=== PATIENT | female | born 1930 | race Caucasian/White ===

== ENCOUNTER 2016-07-17 13:04 | Emergency (ER) | payer OTHER ==
[2016-07-17 13:14] VITALS: BMI 27.8
--- NOTE | 2016-07-17 15:54 | PDOC ---
*Physical Exam - Vital Signs Last Vital Signs Temp Pulse Resp BP Pulse Ox 98.4 F 90 18 115/60 96 07/17/16 13:10 07/17/16 13:10 07/17/16 13:10 07/17/16 13:10 07/17/16 13:10 - Physical Exam Comments: 07/17/16 15:53 MIDLEVEL NOTE Pt seen by Midlevel Provider under my direct supervision. Pt interviewed and examined. Ancillary studies reviewed. I agree with plan as outlined by Midlevel Provider. 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 measuring 1.7 cm in width with masslike effect and shift of the midline structures towards the left, approximately 6.5 mm Linear like hyperintensities are present within the collection, likely representing chronic dural thickening, and less likely superimposed recent subacute hemorrhage Chest x-ray- Mild cardiomegaly without evidence of acute lung disease Laboratory Tests 07/17/16 07/17/16 07/17/16 17:04 17:04 17:10 WBC 9.0 RBC 3.88 Hgb 12.0 Hct 37.1 MCV 95.7 MCHC 32.3 RDW 13.1 Plt Count 168 MPV 9.9 Neutrophils % 69.0 Lymphocytes % 20.1 Monocytes % 8.7 Eosinophils % 1.3 Basophils % 0.9 Sodium 137 Potassium 5.7 H Chloride 102 Carbon Dioxide 27 Anion Gap 8 BUN 25 H Creatinine Y Creat Clearance w eGFR 42.60 Random Glucose 99 Calcium 9.5 Magnesium 1.9 Total Bilirubin 0.5 AST 23 ALT 19 Alkaline Phosphatase 82 Creatine Kinase Troponin I Total Protein 7.1 Albumin 3.5 Urine Color Yellow Urine Appearance Cloudy Urine pH 7.0 Ur Specific Addison 1.015 Urine Protein Negative Urine Glucose (UA) Negative Urine Ketones Negative Urine Blood Negative Urine Nitrite Negative Urine Bilirubin Negative Urine Urobilinogen Negative Ur Leukocyte Esterase Trace H Urine RBC 2 Urine WBC 4 Ur Epithelial Cells Few Urine Bacteria Few Urine Mucus Rare 07/17/16 19:28 WBC RBC Hgb Hct MCV MCHC RDW Plt Count MPV Neutrophils % Lymphocytes % Monocytes % Eosinophils % Basophils % Sodium 137 Potassium 5.4 H Chloride 102 Carbon Dioxide 27 Anion Gap 8 BUN 26 H Creatinine 1.2 H Creat Clearance w eGFR Random Glucose 101 Calcium 8.9 Magnesium Total Bilirubin AST ALT Alkaline Phosphatase Creatine Kinase 40 Troponin I < 0.02 Total Protein Albumin Urine Color Urine Appearance Urine pH Ur Specific Addison Urine Protein Urine Glucose (UA) Urine Ketones Urine Blood Urine Nitrite Urine Bilirubin Urine Urobilinogen Ur Leukocyte Esterase Urine RBC Urine WBC Ur Epithelial Cells Urine Bacteria Urine Mucus Transfer of care to Dr. Tabares, and VIOLETA Cox Plan is for transfer to neurosurgery at [facility] [place] Treatment Course - LABORATORY CBC & Chemistry Diagram: 07/17/16 17:04 07/17/16 19:28 *DC/Admit/Observation/Transfer Diagnosis at time of Disposition: Subdural hemorrhage - Discharge Dispostion Disposition: TRANSFER ACUTE CARE/OTHER HOSP Condition at time of disposition: Stable - Referrals Referrals: STAFF,NOT ON [Primary Care Provider] -
[2016-07-17] MEDS ORDERED: IBUPROFEN 600 MG TABLET (FP) PO ONE (16:17)
--- NOTE | 2016-07-17 16:30 | PDOC ---
[id number] 4d HEADACHES Time Seen by Provider: 07/17/16 15:47 History Source: Patient Exam Limitations: No Limitations - History of Present Illness Initial Comments: 07/17/16 16:03 86-year-old female brought in by home health aid and knees for evaluation of intermittent headaches for the past 3 months which she describes as a pressure to the occipital region. Patient denies visual changes, neck pain, fever, chills or dizziness. Patient also complaining of decreased appetite with mild weakness for the past week secondary to headache and no appetite to eat. As per home health aid patient has had no change in ambulation or decreased function of performing her ADLs. Patient with history of hypertension and was placed recently on Remeron to help sleep about 1 month ago. Patient has not been seen by her PCP for the above. Timing/Duration: reports: waxing and waning (x 3 months) Severity: Yes: moderate Associated Symptoms: reports: fatigue (mild). denies: confusion, nausea/ vomiting, vision changes Past History - Past Medical History Allergies/Adverse Reactions: Allergies Allergy/AdvReac Type Severity Reaction Status Date / Time No Known Allergies Allergy Verified 07/17/16 13:14 Home Medications: Ambulatory Orders Lisinopril [Prinivil] 20 mg PO DAILY 07/17/16 Mirtazapine 22.5 mg PO HS 07/17/16 HTN: Yes Other medical history: OSTEOPEROSIS, ARTHRITIS - Psycho/Social/Smoking Cessation Hx Suicidal Ideation: No Smoking History: Never smoked Hx Alcohol Use: No Drug/Substance Use Hx: No Patient Lives Alone: No Review of Systems - Review of Systems Able to Perform ROS?: Yes Constitutional: Yes: Loss of Appetite HEENTM: No: Symptoms Reported Respiratory: No: Symptoms reported Cardiac (ROS): No: Symptoms Reported ABD/GI: Yes: Poor Appetite : No: Symptoms Reported Musculoskeletal: No: Symptoms Reported Integumentary: No: Symptoms Reported Neurological: Yes: Headache, Weakness (mild generalized) Endocrine: No: Symptoms Reported Hematologic/Lymphatic: No: Symptoms Reported *Physical Exam - Vital Signs Last Vital Signs Temp Pulse Resp BP Pulse Ox 98.4 F 90 18 115/60 96 07/17/16 13:10 07/17/16 13:10 07/17/16 13:10 07/17/16 13:10 07/17/16 13:10 - Physical Exam General Appearance: Yes: Nourished, Appropriately Dressed. No: Apparent Distress HEENT: positive: EOMI, ARMEN, TMs Normal, Pharynx Normal. negative: Pale Conjunctivae Respiratory/Chest: positive: Lungs Clear, Normal Breath Sounds. negative: Respiratory Distress, Accessory Muscle Use Cardiovascular: positive: Regular Rhythm, Regular Rate. negative: Murmur Gastrointestinal/Abdominal: positive: Soft. negative: Tenderness Extremity: positive: Normal Capillary Refill. negative: Pedal Edema Integumentary: positive: Normal Color, Warm, Moist. negative: Swelling Neurologic: positive: Normal Mood/Affect, Motor Strength 5/5. negative: Sensory Deficit Heart Score/ECG Review - History History: Slightly suspicious - Electrocardiogram EKG: Normal - Age Age: >/= 65 - Risk Factors Risk Factors Heart Score: Yes Hx Hypertension Based on the list above the patient has:: 1-2 risk factors - Troponin Troponin: </= normal limit - Score Heart Score - Total: 3 - ECG Intrepretation Rhythm: Regular Rhythm (rate 71 normal SR, flipped T waves V3 and V4 V5. No previous for comparison) ED Treatment Course - LABORATORY CBC & Chemistry Diagram: 07/17/16 17:04 07/17/16 19:28 - RADIOLOGY Radiology Studies Ordered: Category Date Time Status HEAD CT WITHOUT CONTRAST [CT] Stat CT Scan 07/17/16 16:16 Ordered CHEST X-RAY PORTABLE* [RAD] Stat Radiology 07/17/16 16:17 Ordered Medical Decision Making - Medical Decision Making 07/17/16 16:48 Patient here with waxing and waning occipital pressure for the past 3 months so she now with loss of appetite secondary to the pain for the past few days. Patient has not been seen by her PCP and had no acute findings on exam. Patient was ordered for head CT, labs, urine, EKG and Motrin. 07/17/16 18:14 Laboratory Tests 07/17/16 07/17/16 07/17/16 17:04 17:04 17:10 WBC 9.0 Hgb 12.0 Hct 37.1 Plt Count 168 MPV 9.9 Neutrophils % 69.0 Sodium 137 Potassium 5.7 H Chloride 102 Carbon Dioxide 27 Anion Gap 8 BUN 25 H Creatinine Y Creat Clearance w eGFR 42.60 Random Glucose 99 Calcium 9.5 Magnesium 1.9 Total Bilirubin 0.5 AST 23 ALT 19 Urine Protein Negative Urine Ketones Negative Urine Bilirubin Negative Ur Leukocyte Esterase Trace H 07/17/16 18:18 Patient ordered for repeat BMP since I have no previous labs for comparison. 07/17/16 19:01 CT shows chronic right subdural hemorrhage measuring 1.7 cm in width with mass effect and shift of the midline structures toward the left approximate 6.5 mL linear like hyperdensities are present within the collection likely representing chronic dural thickening and less likely superimposed recent subacute hemorrhage. Patient will benefit from neurosurgery consult *DC/Admit/Observation/Transfer Diagnosis at time of Disposition: Subdural hemorrhage - Discharge Dispostion Disposition: TRANSFER ACUTE CARE/OTHER HOSP Condition at time of disposition: Stable - Referrals Referrals: STAFF,NOT ON [Primary Care Provider] -
[2016-07-17] MEDS ORDERED: IBUPROFEN 400 MG TABLET (FP) PO ONE (16:53)
[2016-07-17 17:11] LABS: BASOPHIL 0.9 % (0-2.0); EOSINOPHIL 1.3 % (0-4.5); MCH 30.9 pg (25.7-33.7); MCHC 32.3 g/dl (32.0-36.0); MEAN CELL VOLUME 95.7 fl (80-96); MEAN PLT VOLUME 9.9 fl (7.5-11.1); PLATELET COUNT 168 K/MM3 (134-434); RDW 13.1 % (11.6-15.6)
[2016-07-17 17:46] LABS: ALBUMIN 3.5 g/dl (3.4-5.0); ALK PHOS 82 U/L (45-117); ANION GAP 8 (8-16); BILIRUBIN,TOTAL 0.5 mg/dL (0.2-1.0); CALCIUM 9.5 mg/dL (8.5-10.1); CO2 27 mmol/L (21-32); GLUCOSE,RANDOM 99 mg/dL (74-106); MAGNESIUM 1.9 mg/dL (1.8-2.4); SGOT/AST 23 U/L (15-37); SGPT/ALT 19 U/L (12-78); TOT PROT 7.1 g/dl (6.4-8.2)
[2016-07-17 17:48] LABS: URINE APPEARANCE CLOUDY; URINE BILIRUBIN NEGATIVE (NEGATIVE); URINE BLOOD NEGATIVE (NEGATIVE); URINE COLOR YELLOW; URINE GLUCOSE (UA) NEGATIVE (NEGATIVE); URINE KETONE NEGATIVE (NEGATIVE); URINE NITRITE NEGATIVE (NEGATIVE); URINE PROTEIN NEGATIVE (NEGATIVE); URINE UROBILINOGEN NEGATIVE E.U./dl (0.2-1.0)
[2016-07-17 17:58] LABS: CREATININE 1.2 mg/dL (0.55-1.02)
[2016-07-17 18:12] LABS: URINE LEUK ESTERASE TRACE (NEGATIVE)
--- NOTE | 2016-07-17 19:53 | PDOC ---
*Physical Exam - Vital Signs Last Vital Signs Temp Pulse Resp BP Pulse Ox 98.4 F 90 18 115/60 96 07/17/16 13:10 07/17/16 13:10 07/17/16 13:10 07/17/16 13:10 07/17/16 13:10 - Physical Exam Comments: 07/17/16 19:49 Sign-out received from outgoing ER provider Terri. Pt interviewed and examined. Ancillary studies reviewed. Awaiting creatinine and BMP. Neurosurgery consult unavailable at this time. Discussed case with attending ER MD Tabares; will consult neurology at this time and admit. Patient stable to have neurosurgery consult tomorrow as intracranial bleed is chronic in nature. 07/17/16 20:47 EKG reviewed. T-wave inversions V3 and V4. Will order troponin for IRVIN. 07/17/16 21:18\ Discussed case with on-call neuro attending MD Ochoa, who recommends transfer for neurosurgery evaluation. Discussed case with [facility] neurosurgery MD Oz Monterroso, who accepts patient for stat transfer. ED Treatment Course - LABORATORY CBC & Chemistry Diagram: 07/17/16 17:04 07/17/16 19:28 - ADDITIONAL ORDERS Additional order review: Laboratory Results 07/17/16 07/17/16 17:10 17:04 Sodium 137 Potassium 5.7 H Chloride 102 Carbon Dioxide 27 Anion Gap 8 BUN 25 H Creatinine Y Creat Clearance w eGFR 42.60 Random Glucose 99 Calcium 9.5 Magnesium 1.9 Total Bilirubin 0.5 AST 23 ALT 19 Alkaline Phosphatase 82 Total Protein 7.1 Albumin 3.5 Urine Color Yellow Urine Appearance Cloudy Urine pH 7.0 Urine Protein Negative Urine Glucose (UA) Negative Urine Ketones Negative Urine Blood Negative Urine Nitrite Negative Urine Bilirubin Negative Urine Urobilinogen Negative Ur Leukocyte Esterase Trace H 07/17/16 17:04 RBC 3.88 MCV 95.7 MCHC 32.3 RDW 13.1 MPV 9.9 Neutrophils % 69.0 Lymphocytes % 20.1 Monocytes % 8.7 Eosinophils % 1.3 Basophils % 0.9 - Medications Given in the ED: ED Medications Discontinued Medications Generic Name Dose Route Start Last Admin Trade Name Freq PRN Reason Stop Dose Admin Ibuprofen 400 mg 07/17/16 16:17 07/17/16 17:04 Motrin - PO 07/17/16 16:18 400 mg ONCE ONE Administration *DC/Admit/Observation/Transfer Diagnosis at time of Disposition: Subdural hemorrhage - Discharge Dispostion Disposition: TRANSFER ACUTE CARE/OTHER HOSP Condition at time of disposition: Stable Admit: No - Referrals Referrals: STAFF,NOT ON [Primary Care Provider] - - Patient Instructions - Post Discharge Activity - Transfer to Acute Care Facility Receiving Facility: [facility]
[2016-07-17 20:03] LABS: ANION GAP 8 (8-16); CALCIUM 8.9 mg/dL (8.5-10.1); CO2 27 mmol/L (21-32); CREATININE 1.2 mg/dL (0.55-1.02); GLUCOSE,RANDOM 101 mg/dL (74-106)
[2016-07-17 22:09] VITALS: BP 140/64; PULSE 74
[2016-07-17 22:12] VITALS: TEMP 98
[2016-07-17 22:46] LABS: URINE RBC 2 /hpf (0-3); URINE WBC 4 (3-5)
[2016-07-17 22:47] LABS: URINE BACTERIA FEW /hpf (NEGATIVE); URINE MUCUS RARE
--- NOTE | 2016-07-18 11:08 | EKG ---
Test Reason : Blood Pressure : / mmHG Vent. Rate : 071 BPM Atrial Rate : 071 BPM P-R Int : 146 ms QRS Dur : 080 ms QT Int : 388 ms P-R-T Axes : 065 -59 -44 degrees QTc Int : 421 ms POOR DATA QUALITY, INTERPRETATION MAY BE ADVERSELY AFFECTED NORMAL SINUS RHYTHM LEFT ANTERIOR FASCICULAR BLOCK T WAVE ABNORMALITY, CONSIDER ANTEROLATERAL ISCHEMIA ABNORMAL ECG NO PREVIOUS ECGS AVAILABLE Confirmed by CATIE DO MD ([id number]) on 07/18/2016 11:07:56 AM Referred By: Confirmed By:CATIE DO MD
[2016-07-20 13:34] LABS: TROPONIN I < 0.02 ng/ml (0.00-0.05)
== END 2016-07-17 22:12 | disposition short-term general hospital (02) ==
LOC: JER 13:04
DX: I62.00 Nontraumatic subdural hemorrhage, unspecified (principal); R53.1 Weakness; I10 Essential (primary) hypertension; M19.90 Unspecified osteoarthritis, unspecified site
CPT/HCPCS: 36415; 70450-TC; 71010-TC; 80048; 80053; 81003; 81015; 82550; 82565; 83735; 84484; 85025; 87086; 93005; 93010; 99285-25

== ENCOUNTER 2016-11-23 15:43 | Inpatient (IN) | payer OTHER ==
[2016-11-23] MEDS ORDERED: ONDANSETRON 4 MG/2 ML VIAL IVPUSH ONE (16:03)
[2016-11-23 16:32] LABS: BASOPHIL 0.5 % (0-2.0); EOSINOPHIL 0.9 % (0-4.5); MCH 32.2 pg (25.7-33.7); MCHC 33.3 g/dl (32.0-36.0); MEAN CELL VOLUME 96.7 fl (80-96); RDW 14.6 % (11.6-15.6); WHITE BLOOD COUNT 5.9 K/mm3 (4.0-10.0)
[2016-11-23] MEDS ORDERED: ONDANSETRON 4 MG/2 ML VIAL ONE (16:44)
[2016-11-23 16:52] LABS: URINE APPEARANCE CLEAR; URINE BILIRUBIN NEGATIVE (NEGATIVE); URINE BLOOD 1+ (NEGATIVE); URINE COLOR LTYELLOW; URINE GLUCOSE (UA) NEGATIVE (NEGATIVE); URINE KETONE TRACE (NEGATIVE); URINE LEUK ESTERASE NEGATIVE (NEGATIVE); URINE NITRITE NEGATIVE (NEGATIVE); URINE PROTEIN NEGATIVE (NEGATIVE); URINE UROBILINOGEN NEGATIVE mg/dL (0.2-1.0)
[2016-11-23 16:55] LABS: ALBUMIN 2.7 g/dl (3.4-5.0); ANION GAP 10 (8-16); BILIRUBIN,TOTAL 0.5 mg/dL (0.2-1.0); CALCIUM 8.1 mg/dL (8.5-10.1); CO2 24 mmol/L (21-32); CREATININE 1.2 mg/dL (0.55-1.02); GLUCOSE,RANDOM 129 mg/dL (74-106); MAGNESIUM 1.8 mg/dL (1.8-2.4); SGOT/AST 38 U/L (15-37); SGPT/ALT 24 U/L (12-78); TOT PROT 6.3 g/dl (6.4-8.2)
[2016-11-23 16:57] LABS: INR 1.04 (0.82-1.09); PROTHROMBIN TIME (PATIENT) 11.5 SEC (9.98-11.88)
[2016-11-23 16:58] LABS: ALK PHOS 79 U/L (45-117); CPK 162 IU/L (26-192); TROPONIN I 0.22 ng/ml (0.00-0.05)
[2016-11-23 17:04] LABS: PLATELET COUNT 118 K/MM3 (134-434)
[2016-11-23 17:05] LABS: MEAN PLT VOLUME 11.5 fl (7.5-11.1); PLATELET COMMENT2 NO CLUMPING NOTED; PLATELET COMMENT3 NO CLOTTING DETECTED; PLATELET ESTIMATE SLT DECREASED (NORMAL)
[2016-11-23] MEDS ORDERED: SODIUM CHLORIDE 1,000 ML IV STA (17:08)
[2016-11-23 17:16] LABS: URINE MUCUS RARE; URINE RBC 2 /hpf (0-3); URINE WBC 1 /hpf (3-5)
--- NOTE | 2016-11-23 17:40 | PDOC ---
History of Present Illness - General Chief Complaint: Injury Stated Complaint: WEAKNESS/FALL Time Seen by Provider: 11/23/16 15:52 History Source: Patient Exam Limitations: No Limitations - History of Present Illness Initial Comments: 11/23/16 16:40 86-year-old female brought into the ED for evaluation of near-syncopal episode. Patient states was walking in her home which she felt dizzy and next thing she knows, she fell backward striking the back of her head. Patient currently denies chest pain but does complain of nausea and dizziness. Patient has no complaints of visual changes headache, abdominal pain, palpitations, or neck pain. Patient currently on no anticoagulation therapy but states history of seizure and is currently on Depakote. Patient also with recent diagnosis in July with a subdural hematoma after complaining of a headache which has been followed up and just this past week at [facility]. Occurred: reports: just prior to arrival Severity: reports: moderate Pain Location: reports: head Method of Injury: Yes: fall Loss of Consciousness: no loss of consciousness Associated Symptoms (Fall): lightheadedness, nausea/vomiting Past History - Travel Traveled outside of the country in the last 30 days: No Close contact w/someone who was outside of country & ill: No - Past Medical History Allergies/Adverse Reactions: Allergies Allergy/AdvReac Type Severity Reaction Status Date / Time No Known Allergies Allergy Verified 11/23/16 16:06 Home Medications: Ambulatory Orders Lisinopril [Prinivil] 20 mg PO DAILY 07/17/16 Mirtazapine 15 mg PO HS 07/17/16 Atorvastatin Ca [Lipitor] 80 mg PO HS 11/23/16 Divalproex Sodium [Depakote] 250 mg PO BID 11/23/16 HTN: Yes - Psycho/Social/Smoking Cessation Hx Anxiety: No Suicidal Ideation: No Smoking History: Never smoked Have you smoked in the past 12 months: No Information on smoking cessation initiated: No Hx Alcohol Use: No Drug/Substance Use Hx: No Substance Use Type: None Patient Lives Alone: No Lives with/in: daughter Review of Systems - Review of Systems Able to Perform ROS?: No Constitutional: No: Symptoms Reported HEENTM: No: Symptoms Reported Respiratory: No: Symptoms reported Cardiac (ROS): Yes: Lightheadedness ABD/GI: Yes: Nausea Neurological: Yes: Dizziness Hematologic/Lymphatic: No: Symptoms Reported *Physical Exam - Vital Signs Last Vital Signs Temp Pulse Resp BP Pulse Ox 98.1 F 81 18 146/72 98 11/23/16 16:00 11/23/16 16:00 11/23/16 16:00 11/23/16 16:00 11/23/16 16:00 - Physical Exam General Appearance: Yes: Nourished, Appropriately Dressed. No: Apparent Distress HEENT: positive: EOMI, ARMEN, TMs Normal, Pharynx Normal. negative: Pale Conjunctivae Neck: positive: Supple Respiratory/Chest: positive: Lungs Clear, Normal Breath Sounds. negative: Respiratory Distress, Accessory Muscle Use Cardiovascular: positive: Regular Rhythm, Regular Rate. negative: Murmur Gastrointestinal/Abdominal: positive: Soft. negative: Tenderness Extremity: positive: Normal Capillary Refill, Normal Range of Motion. negative : Pedal Edema Integumentary: positive: Warm, Swelling ( approximately2 x 2 inch soft raised area ove rightparietal and 1.5 x 1" soft mass with abrasion to center ) Neurologic: positive: Normal Mood/Affect, Motor Strength 5/5 Heart Score/ECG Review - History History: Slightly suspicious - Electrocardiogram EKG: Normal - Age Age: >/= 65 - Risk Factors Risk Factors Heart Score: Yes Hx Hypercholesterolemia, Yes Hx Hypertension Based on the list above the patient has:: 1-2 risk factors - ECG Intrepretation Rhythm: Regular Rhythm (rate 71. inverted T waves noted v1, V2 and V3) ED Treatment Course - LABORATORY CBC & Chemistry Diagram: 11/23/16 16:25 11/23/16 16:25 - ADDITIONAL ORDERS Additional order review: Laboratory Results 11/23/16 11/23/16 11/23/16 16:30 16:25 16:25 PT with INR 11.50 INR 1.04 Sodium 137 Potassium 4.6 Chloride 103 Carbon Dioxide 24 Anion Gap 10 BUN 19 H D Creatinine 1.2 H Creat Clearance w eGFR 42.60 Random Glucose 129 H D Calcium 8.1 L Magnesium 1.8 Total Bilirubin 0.5 AST 38 H D ALT 24 D Alkaline Phosphatase 79 Creatine Kinase 162 Creatine Kinase Index 1.0 CK-MB (CK-2) 1.642 Troponin I 0.22 H Total Protein 6.3 L Albumin 2.7 L D Urine Color Ltyellow Urine Appearance Clear Urine pH 6.0 Urine Protein Negative Urine Glucose (UA) Negative Urine Ketones Trace H Urine Blood 1+ H Urine Nitrite Negative Urine Bilirubin Negative Urine Urobilinogen Negative Urine RBC 2 Urine WBC 1 Urine Mucus Rare 11/23/16 16:25 RBC 3.90 MCV 96.7 H MCHC 33.3 RDW 14.6 D MPV 11.5 H D Neutrophils % 65.0 Lymphocytes % 26.0 D Monocytes % 7.6 Eosinophils % 0.9 Basophils % 0.5 - RADIOLOGY Radiology Studies Ordered: Category Date Time Status CERVICAL SPINE CT W/O CONTR [CT] Stat CT Scan 11/23/16 16:[address] WITHOUT CONTRAST [CT] Stat CT Scan 11/23/16 16:55 Taken CHEST X-RAY PORTABLE* [RAD] Stat Radiology 11/23/16 16:03 Ordered - Medications Given in the ED: ED Medications Discontinued Medications Generic Name Dose Route Start Last Admin Trade Name Freq PRN Reason Stop Dose Admin Ondansetron HCl 4 mg 11/23/16 16:03 11/23/16 16:50 Zofran Injection IVPUSH 11/23/16 16:04 4 mg ONCE ONE Administration Medical Decision Making - Medical Decision Making 11/23/16 17:07 Patient he is status post fall after feeling dizzy while walking at home. Patient had an unwitnessed fall but daughter states was at her side immediately after the fall which patient was found to be alert and oriented. Patient early this year had complaints of headaches and had cone to [facility] then transferred due to subdural hem. which she has been following up at [facility] and did follow up just this past week at [facility] and stated the hematoma is improving and does not require intervention. Patient now complaining of nausea and dizziness. Patient ordered for cardiac workup, head CT , cervical CT urine, and EKG. 11/23/16 18:00 Laboratory Tests 07/17/16 07/17/16 11/23/16 17:04 19:28 16:25 WBC 5.9 D Hgb 12.6 Hct 37.7 MCV 96.7 H Plt Count 168 118 L D MPV 11.5 H D Neutrophils % 65.0 Sodium Potassium Carbon Dioxide Anion Gap BUN Creatinine Random Glucose Calcium AST Troponin I < 0.02 Urine Ketones Urine Blood Urine Urobilinogen Urine WBC 11/23/16 11/23/16 16:25 16:30 WBC Hgb Hct MCV Plt Count MPV Neutrophils % Sodium 137 Potassium 4.6 Carbon Dioxide 24 Anion Gap 10 BUN 19 H D Creatinine 1.2 H Random Glucose 129 H D Calcium 8.1 L AST 38 H D Troponin I 0.22 H Urine Ketones Trace H Urine Blood 1+ H Urine Urobilinogen Negative Urine WBC 1 Patient ordered for 1 bag of IV fluid. 11/23/16 18:[address] shows a subarachnoid hemorrhage in the right occipital and posterior parietal lobe sulci. There is a 1.4 x 1 x 0.9 hyperdense hemorrhagic focus in the right sylvian fissure. Small low density extra-axial collection overlying the left cerebral hemisphere with small amount of hyperdense subdural hemorrhages best seen on axial image 18 and measuring 8 mm in the maximal thickness. Consistent with a small acute subdural hematoma superimposed on chronic subdural. Case discussed with Dr. Deangelo Valerio, neurosurgery who recommends a CT a along with 1 g of Keppra 11/23/16 18:51 Case discussed with the hospitalist who accepted patient to service. Patient be placed for admission. Patient currently in CT. *DC/Admit/Observation/Transfer Diagnosis at time of Disposition: Hemorrhage into subarachnoid space of neuraxis - Discharge Dispostion Admit: Yes
[2016-11-23] MEDS ORDERED: levETIRAcetam 500 MG/5 ML INJECTION VIAL IVPB ONE ×2 (17:54→17:57)
--- NOTE | 2016-11-23 19:15 | PN ---
Teaching Attending Note Name of Resident: Rubio Vizcarra ATTENDING PHYSICIAN STATEMENT I saw and evaluated the patient. I reviewed the resident's note and discussed the case with the resident. I agree with the resident's findings and plan as documented. SUBJECTIVE: 86 yo w pnhx of HTN, HLD, seizure DO who presents s/p fall. States she felt "dizzy" prior and then fell. Had Subdural hematoma and was followed up at [facility]. She did strike the back of her head after the fall. OBJECTIVE: Physical: VS: Vital Signs Period Temp Pulse Resp BP Sys/Han Pulse Ox Last 24 Hr 98.1 F-98.1 F 71-83 18-18 140-146/72-81 98-100 GEN: NAd, Resting in bed AA0X3 HEENT: NCAT, PERRL, Throat without erythema or exudates CARD: RRR S1, S2 RESP: CTAB ABD:BSx4, NTD EXT: - C/C/E CBCD WBC 5.9 K/mm3 (4.0-10.0) D 11/23/16 16:25 RBC 3.90 M/mm3 (3.60-5.2) 11/23/16 16:25 Hgb 12.6 GM/dL (10.7-15.3) 11/23/16 16:25 Hct 37.7 % (32.4-45.2) 11/23/16 16:25 MCV 96.7 fl (80-96) H 11/23/16 16:25 MCHC 33.3 g/dl (32.0-36.0) 11/23/16 16:25 RDW 14.6 % (11.6-15.6) D 11/23/16 16:25 Plt Count 118 K/MM3 (134-434) L D 11/23/16 16:25 MPV 11.5 fl (7.5-11.1) H D 11/23/16 16:25 CMP Sodium 137 mmol/L (136-145) 11/23/16 16:25 Potassium 4.6 mmol/L (3.5-5.1) 11/23/16 16:25 Chloride 103 mmol/L (98-107) 11/23/16 16:25 Carbon Dioxide 24 mmol/L (21-32) 11/23/16 16:25 Anion Gap 10 (8-16) 11/23/16 16:25 BUN 19 mg/dL (7-18) H D 11/23/16 16:25 Creatinine 1.2 mg/dL (0.55-1.02) H 11/23/16 16:25 Creat Clearance w eGFR 42.60 (>60) 11/23/16 16:25 Random Glucose 129 mg/dL (74-106) H D 11/23/16 16:25 Calcium 8.1 mg/dL (8.5-10.1) L 11/23/16 16:25 Total Bilirubin 0.5 mg/dL (0.2-1.0) 11/23/16 16:25 AST 38 U/L (15-37) H D 11/23/16 16:25 ALT 24 U/L (12-78) D 11/23/16 16:25 Alkaline Phosphatase 79 U/L (45-117) 11/23/16 16:25 Total Protein 6.3 g/dl (6.4-8.2) L 11/23/16 16:25 Albumin 2.7 g/dl (3.4-5.0) L D 11/23/16 16:25 CARDIAC ENZYMES Creatine Kinase 162 IU/L (26-192) 11/23/16 16:25 Troponin I 0.22 ng/ml (0.00-0.05) H 11/23/16 16:25 Urine Test Results Urine Color Ltyellow 11/23/16 16:30 Urine Appearance Clear 11/23/16 16:30 Urine pH 6.0 (5.0-8.0) 11/23/16 16:30 Ur Specific Rogers 1.015 (1.005-1.025) 11/23/16 16:30 Urine Protein Negative (NEGATIVE) 11/23/16 16:30 Urine Glucose (UA) Negative (NEGATIVE) 11/23/16 16:30 Urine Ketones Trace (NEGATIVE) H 11/23/16 16:30 Urine Blood 1+ (NEGATIVE) H 11/23/16 16:30 Urine Nitrite Negative (NEGATIVE) 11/23/16 16:30 Urine Bilirubin Negative (NEGATIVE) 11/23/16 16:30 Urine RBC 2 /hpf (0-3) 11/23/16 16:30 Urine WBC 1 /hpf (3-5) 11/23/16 16:30 Urine Mucus Rare 11/23/16 16:30 CT HEAD- Subarachnoid hemmorage in r. occipital and posterior lobe sulci 1.4x1x0.9 hyperdense hemmorage focus in r. sylvian fissure. Small low density extra-axial collecyion overlying the L. Cerebral Hemmisphere w. small hyperdense subdural hemmorages, measuring 8mm in max. thickness. C/W small acute subdrural hematoma superimposed on chronic subdural. Home Medications Medication Instructions Recorded Lisinopril [Prinivil] 20 mg PO DAILY 07/17/16 Mirtazapine 15 mg PO HS 07/17/16 Atorvastatin Ca [Lipitor] 80 mg PO HS 11/23/16 Divalproex Sodium [Depakote] 250 mg PO BID 11/23/16 EKG- NSR at 71 QTC 408, LAFB, TWI anteroseptal leads CXR- Pending CTA- No evidence of AVM or Aneurysm, mildly depressed cortical medullary veins due to small subdural collections, severe tortuosity if carotid arteries, minimal R, interal carotid stenosis, 50% luminal stenosis in L. carotid bifurcation. ASSESSMENT AND PLAN: 86 yo F with hx. of Seizure DO, HTN, HLD who presents s/p fall, being admitted for syncope and subarachnoid hemmorage 1.) Subarachnoid Hemmorage - CTA- PENDING Fu read - Neurosx on consult - INR wnl - Monitor CBC - Neuro checks Q2-4h 2.) Syncope S/P FALL - Orthostatic VS if possible - ECHO/Carotid us - Lipid panel - Trend Trop/Ekg 3.) Elevated Troponin - Demand Vs. NSTEMI - Trend Trop/EKG - Cardio Consult 5.) HTN - C/W home meds 6.) HLD - C/W home meds 7.) ARCHANA - Monitor - Avoid nephrotoxins - Gentle hydration 7.) Seizure DO - C/W Depakote - Check Levela
--- NOTE | 2016-11-23 21:10 | HP ---
CHIEF COMPLAINT: Syncope PCP: Unsure, not at [facility] HISTORY OF PRESENT ILLNESS: 86 y.o. F with pmh of HTN, HLD, Subdural Hematoma (back in July, being f/u at [facility]), and seizure d/o (1x seizure s/p subdural hematoma in July, on Depakote) presented after a syncopal episode. Patient was at home and felt dizzy prior to having an unwitnessed syncopal episode in which she hit the back of her head on a dresser. Her daughter lives with her and was immediately there s/p fall. Patient was found with no LOC. Patient states that since the fall she has been having nausea, dizziness, severe headache and neck pain on movement. Patient denies vision changes, ear pain, chest pain, palpitations, shortness of breath, or abdominal pain. ER course was notable for: (1) Troponin - 0.22, UA negative (2) Keppra, NS, Zofran (3) Head CT-subarachnoid hemorrhage in the right occipital and posterior parietal lobe sulci. There is a 1.4 x 1 x 0.9 hyperdense hemorrhagic focus in the right sylvian fissure. Small low density extra-axial collection overlying the left cerebral hemisphere with small amount of hyperdense subdural hemorrhages. (4) EKG- NSR, HR 71, TWI in v1-v3 Recent Travel: denies PAST MEDICAL HISTORY: HTN, HLD, Subdural Hematoma (back in July, being f/u at [facility]), and seizure d/o ( 1x seizure s/p subdural hematoma in July, on Depakote) PAST SURGICAL HISTORY: Denies Social History: Smoking: Denies Alcohol: Denies Drugs: Denies Family History: Allergies No Known Allergies Allergy (Verified 11/23/16 16:06) HOME MEDICATIONS: Home Medications Medication Instructions Recorded Lisinopril [Prinivil] 20 mg PO DAILY 07/17/16 Mirtazapine 15 mg PO HS 07/17/16 Atorvastatin Ca [Lipitor] 80 mg PO HS 11/23/16 Divalproex Sodium [Depakote] 250 mg PO BID 11/23/16 REVIEW OF SYSTEMS CONSTITUTIONAL: Absent: fever, chills, diaphoresis, generalized weakness, malaise, loss of appetite, weight change HEENT: Absent: rhinorrhea, nasal congestion, throat pain, throat swelling, difficulty swallowing, mouth swelling, ear pain, eye pain, visual changes CARDIOVASCULAR: Absent: chest pain, syncope, palpitations, irregular heart rate, lightheadedness , peripheral edema RESPIRATORY: Absent: cough, shortness of breath, dyspnea with exertion, orthopnea, wheezing, stridor, hemoptysis GASTROINTESTINAL: Absent: abdominal pain, abdominal distension, nausea, vomiting, diarrhea, constipation, melena, hematochezia GENITOURINARY: Absent: dysuria, frequency, urgency, hesitancy, hematuria, flank pain, genital pain MUSCULOSKELETAL: Absent: myalgia, arthralgia, joint swelling, back pain, neck pain SKIN: Absent: rash, itching, pallor HEMATOLOGIC/IMMUNOLOGIC: Absent: easy bleeding, easy bruising, lymphadenopathy, frequent infections ENDOCRINE: Absent: unexplained weight gain, unexplained weight loss, heat intolerance, cold intolerance NEUROLOGIC: Absent: headache, focal weakness or paresthesias, dizziness, unsteady gait, seizure, mental status changes, bladder or bowel incontinence PSYCHIATRIC: Absent: anxiety, depression, suicidal or homicidal ideation, hallucinations. PHYSICAL EXAMINATION Vital Signs - 24 hr 11/23/16 11/23/16 19:01 20:10 Temperature 98.2 F Pulse Rate [ 71 78 Left Radial] Respiratory 18 16 Rate Blood Pressure 140/81 128/68 [Right Arm] O2 Sat by Pulse 100 95 Oximetry (%) GENERAL: Awake, alert, and fully oriented, in mild distress. HEAD: Mild abrasion and edema on right posterior parietal head EYES: Unable to be examined. Patient in severe pain from headache and unable to open eyes for longer than 1 second NOSE, THROAT: Oropharynx clear without exudates. Moist mucous membranes. NECK: Normal range of motion, supple without lymphadenopathy, JVD, or masses. LUNGS: Breath sounds equal, clear to auscultation bilaterally. No wheezes, and no crackles. No accessory muscle use. HEART: Regular rate and rhythm, normal S1 and S2 without murmur, rub or gallop. ABDOMEN: Soft, nontender, not distended, normoactive bowel sounds, no guarding, no rebound, no masses. No hepatomegaly or splenomegaly. MUSCULOSKELETAL: Normal range of motion at all joints. No bony deformities or tenderness. No CVA tenderness. UPPER EXTREMITIES: 2+ pulses, warm, well-perfused. No cyanosis. No clubbing. No peripheral edema. LOWER EXTREMITIES: 2+ pulses, warm, well-perfused. No calf tenderness. No peripheral edema. NEUROLOGICAL: Cranial nerves 2,3,4,6 unable to be examined. Crainial nerves 5,7, 9,10,11,12 intact. Normal speech, No gait observed. Strength 5/5 b/l in UE. 4/5 b/l in LE. Sensation intact b/l. Reflexes intact b/l PSYCHIATRIC: Cooperative. Good eye contact. Appropriate mood and affect. SKIN: Warm, dry, normal turgor, no rashes or lesions noted, normal capillary refill. ASSESSMENT/PLAN: 86 y.o. F with pmh of HTN, HLD, Subdural Hematoma (back in July, being f/u at [facility]), and seizure d/o (1x seizure s/p subdural hematoma in July, on Depakote) presenting after a syncopal episode admitted for subarachnoid hemorrhage and syncope #Subarachnoid Hemorrhage -CTA performed in ED, f/u results -Monitor H/H -Neuro checks q 2-4 hrs -Neurosurgery consult, Dr. Valerio #Syncope -Echocardiogram -Carotid U/s Doppler -Lipid Panel -Troponins elevated, trend troponins & EKG -Cardiology Consult, Dr. Duran #Elevated troponins -Trops- 0.22 -Trend troponins & EKG #Hx of seizure -Continue home depakote 250 mg po bid -Get Depakote level #HTN -Continue lisinopril 20 mg po daily #HLD -Continue lipitor 80 mg po hs #FEN/GI -No fluids -wnl -Sodium Controlled Diet #PPx -DVT- scds -GI- not indicated #Dispo -Admit to telemetry -F/u neurosx, echo, carotid u/s, trops Visit type - Emergency Visit Emergency Visit: Yes ED Registration Date: 11/23/16 Care time: The patient presented to the Emergency Department on the above date and was hospitalized for further evaluation of their emergent condition. - New Patient This patient is new to me today: Yes Date on this admission: 11/23/16 - Critical Care Critical Care patient: No
[2016-11-23] MEDS ORDERED: morphine CARPU-JECT 2 MG/1 ML DISP.SYRIN IVPUSH ONE (21:40)
[2016-11-23] MEDS ORDERED: ATORVASTATIN CA 80 MG TABLET (FP) PO SCH (22:00)
[2016-11-23] MEDS: DIVALPROEX SODIUM 250 MG TABLET E.C. (FP) PO SCH (23:03)
[2016-11-24 01:17] VITALS: BMI 27.6
[2016-11-24 07:03] LABS: BASOPHIL 0.5 % (0-2.0); EOSINOPHIL 0.2 % (0-4.5); MCHC 32.9 g/dl (32.0-36.0); MEAN CELL VOLUME 97.3 fl (80-96); MEAN PLT VOLUME 11.3 fl (7.5-11.1); NEUTROPHILS 71.3 % (42.8-82.8); PLATELET COUNT 107 K/MM3 (134-434); RDW 14.6 % (11.6-15.6); WHITE BLOOD COUNT 7.3 K/mm3 (4.0-10.0)
[2016-11-24 07:35] LABS: ALBUMIN 2.4 g/dl (3.4-5.0); ANION GAP 10 (8-16); BILIRUBIN,TOTAL 0.7 mg/dL (0.2-1.0); CALCIUM 7.7 mg/dL (8.5-10.1); CHOLESTEROL 122 mg/dL (50-200); CO2 26 mmol/L (21-32); CREATININE 1.1 mg/dL (0.55-1.02); GLUCOSE,RANDOM 84 mg/dL (74-106); SGOT/AST 35 U/L (15-37); SGPT/ALT 24 U/L (12-78); TOT PROT 5.8 g/dl (6.4-8.2)
[2016-11-24 07:36] LABS: ALK PHOS 76 U/L (45-117)
--- NOTE | 2016-11-24 07:43 | CON.CARD ---
Consult Consult Specialty:: cardiology Reason for Consultation:: s/p fall abn ekg - History of Present Illness History of Present Illness: 86-year-old female brought into the ED for evaluation of near-syncopal episode. Patient states was walking in her home which she felt dizzy and next thing she knows, she fell backward striking the back of her head. Patient currently denies chest pain but does complain of nausea and dizziness. Patient has no complaints of visual changes headache, abdominal pain, palpitations, or neck pain. Patient currently on no anticoagulation therapy but states history of seizure and is currently on Depakote. Patient also with recent diagnosis in July with a subdural hematoma after complaining of a headache which has been followed up and just this past week at [facility]. - History Source History Provided By: Patient - Past Medical History [employer]: Yes: Seizure, Other (sdh) Cardio/Vascular: Yes: HTN, Hyperlipdemia - Alcohol/Substance Use Hx Alcohol Use: No - Smoking History Smoking history: Never smoked Have you smoked in the past 12 months: No Home Medications - Allergies Allergies/Adverse Reactions: Allergies Allergy/AdvReac Type Severity Reaction Status Date / Time No Known Allergies Allergy Verified 11/23/16 16:06 - Home Medications Home Medications: Ambulatory Orders Lisinopril [Prinivil] 20 mg PO DAILY 07/17/16 Mirtazapine 15 mg PO HS 07/17/16 Atorvastatin Ca [Lipitor] 80 mg PO HS 11/23/16 Divalproex Sodium [Depakote] 250 mg PO BID 11/23/16 Review of Systems - Review of Systems Constitutional: reports: No Symptoms Eyes: reports: No Symptoms HENT: reports: No Symptoms Neck: reports: No Symptoms Cardiovascular: reports: No Symptoms Gastrointestinal: reports: No Symptoms Genitourinary: reports: No Symptoms Breasts: reports: No Symptoms Reported Musculoskeletal: reports: No Symptoms Integumentary: reports: No Symptoms Neurological: reports: Syncope Endocrine: reports: No Symptoms Hematology/Lymphatic: reports: No Symptoms Psychiatric: reports: No Symptoms Vital Signs: Vital Signs Temperature 99.3 F 11/24/16 05:00 Pulse Rate 80 11/24/16 05:00 Respiratory Rate 18 11/24/16 05:00 Blood Pressure 119/55 11/24/16 05:00 O2 Sat by Pulse Oximetry (%) 95 11/23/16 20:10 Constitutional: Yes: Well Nourished, No Distress, Calm Eyes: Yes: WNL, Conjunctiva Clear, EOM Intact HENT: Yes: WNL, Atraumatic, Normocephalic Neck: Yes: WNL, Supple, Trachea Midline Respiratory: Yes: WNL, Regular, CTA Bilaterally Gastrointestinal: Yes: WNL, Normal Bowel Sounds Renal/: Yes: WNL Cardiovascular: Yes: WNL, Regular Rate and Rhythm Musculoskeletal: Yes: WNL Extremities: Yes: WNL Integumentary: Yes: WNL Neurological: Yes: WNL, Alert, Oriented ...Motor Strength: WNL Psychiatric: Yes: WNL, Alert, Oriented - Other Data Labs, Other Data: CBC, BMP 11/24/16 06:30 INR, PTT INR 1.04 (0.82-1.09) 11/23/16 16:25 Troponin, BNP 11/24/16 00:00 Troponin I 0.29 H Troponin, BNP 11/24/16 00:00 Troponin I 0.29 H Laboratory Tests 11/23/16 11/23/16 11/23/16 16:25 16:25 16:25 WBC 5.9 D RBC 3.90 Hgb 12.6 Hct 37.7 MCV 96.7 H MCH 32.2 MCHC 33.3 RDW 14.6 D Plt Count 118 L D MPV 11.5 H D Neutrophils % 65.0 Lymphocytes % 26.0 D Monocytes % 7.6 Eosinophils % 0.9 Basophils % 0.5 Platelet Estimate Slt decreased Platelet Comment No clumping noted RBC Morphology PT with INR 11.50 INR 1.04 Sodium 137 Potassium 4.6 Chloride 103 Carbon Dioxide 24 Anion Gap 10 BUN 19 H D Creatinine 1.2 H Creat Clearance w eGFR 42.60 Random Glucose 129 H D Hemoglobin A1c % Calcium 8.1 L Magnesium 1.8 Total Bilirubin 0.5 AST 38 H D ALT 24 D Alkaline Phosphatase 79 Creatine Kinase 162 Creatine Kinase Index 1.0 CK-MB (CK-2) 1.642 Troponin I 0.22 H Total Protein 6.3 L Albumin 2.7 L D Triglycerides Cholesterol Total LDL Cholesterol HDL Cholesterol Urine Color Urine Appearance Urine pH Ur Specific Pitcher Urine Protein Urine Glucose (UA) Urine Ketones Urine Blood Urine Nitrite Urine Bilirubin Urine Urobilinogen Urine RBC Urine WBC Urine Mucus Valproic Acid 11/23/16 11/24/16 11/24/16 16:30 00:00 06:30 WBC 7.3 RBC 3.49 L Hgb 11.2 D Hct 33.9 MCV 97.3 H MCH 32.0 MCHC 32.9 RDW 14.6 Plt Count 107 L MPV 11.3 H Neutrophils % 71.3 Lymphocytes % 17.7 D Monocytes % 10.3 H Eosinophils % 0.2 Basophils % 0.5 Platelet Estimate Platelet Comment RBC Morphology PT with INR INR Sodium Potassium Chloride Carbon Dioxide Anion Gap BUN Creatinine Creat Clearance w eGFR Random Glucose Hemoglobin A1c % Calcium Magnesium Total Bilirubin AST ALT Alkaline Phosphatase Creatine Kinase Creatine Kinase Index CK-MB (CK-2) Troponin I 0.29 H Total Protein Albumin Triglycerides Cholesterol Total LDL Cholesterol HDL Cholesterol Urine Color Ltyellow Urine Appearance Clear Urine pH 6.0 Ur Specific Pitcher 1.015 Urine Protein Negative Urine Glucose (UA) Negative Urine Ketones Trace H Urine Blood 1+ H Urine Nitrite Negative Urine Bilirubin Negative Urine Urobilinogen Negative Urine RBC 2 Urine WBC 1 Urine Mucus Rare Valproic Acid 11/24/16 11/24/16 11/24/16 06:30 06:30 06:30 WBC RBC Hgb Hct MCV MCH MCHC RDW Plt Count MPV Neutrophils % Lymphocytes % Monocytes % Eosinophils % Basophils % Platelet Estimate Platelet Comment RBC Morphology PT with INR INR Sodium 137 Potassium 4.9 Chloride 101 Carbon Dioxide 26 Anion Gap 10 BUN 18 Creatinine 1.1 H Creat Clearance w eGFR 47.09 Random Glucose 84 D Hemoglobin A1c % 4.9 Calcium 7.7 L Magnesium Total Bilirubin 0.7 D AST 35 ALT 24 Alkaline Phosphatase 76 Creatine Kinase Creatine Kinase Index CK-MB (CK-2) Troponin I Total Protein 5.8 L Albumin 2.4 L Triglycerides 89 Cholesterol 122 Total LDL Cholesterol 55 HDL Cholesterol 52 Urine Color Urine Appearance Urine pH Ur Specific Pitcher Urine Protein Urine Glucose (UA) Urine Ketones Urine Blood Urine Nitrite Urine Bilirubin Urine Urobilinogen Urine RBC Urine WBC Urine Mucus Valproic Acid 44.734 L 11/24/16 06:30 WBC RBC Hgb Hct MCV MCH MCHC RDW Plt Count MPV Neutrophils % Lymphocytes % Monocytes % Eosinophils % Basophils % Platelet Estimate Platelet Comment RBC Morphology PT with INR INR Sodium Potassium Chloride Carbon Dioxide Anion Gap BUN Creatinine Creat Clearance w eGFR Random Glucose Hemoglobin A1c % Calcium Magnesium Total Bilirubin AST ALT Alkaline Phosphatase Creatine Kinase Creatine Kinase Index CK-MB (CK-2) Troponin I 0.14 H Total Protein Albumin Triglycerides Cholesterol Total LDL Cholesterol HDL Cholesterol Urine Color Urine Appearance Urine pH Ur Specific Pitcher Urine Protein Urine Glucose (UA) Urine Ketones Urine Blood Urine Nitrite Urine Bilirubin Urine Urobilinogen Urine RBC Urine WBC Urine Mucus Valproic Acid Imaging - Results Chest X-ray: Image Reviewed (sclerotic aortic changes/ increased basilar markings) EKG: Image Reviewed (sr LAFB inverted t waves v-1 v6 unchanged from 07/2016) Problem List - Problems (1) Subarachnoid hemorrhage Code(s): I60.9 - NONTRAUMATIC SUBARACHNOID HEMORRHAGE, UNSPECIFIED (2) Subdural hemorrhage Code(s): I62.00 - NONTRAUMATIC SUBDURAL HEMORRHAGE, UNSPECIFIED Assessment/Plan near syncope s/p fall head trauma h/o sdh seizures abn ekg unchanged elevated tni's Plan; telemetry neurosurgical eval serial ekgs echo
--- NOTE | 2016-11-24 07:58 | PN ---
Progress Note (short form) - Note Progress Note: NEUROSURGERY CONSULT DICTATED Chart reviewed Pt examined Head CT's reviewed H/o HTN, HLD, Subdural Hematoma (July 2016 treated at [facility]), and seizure d/ o (1x seizure s/p subdural hematoma on Depakote) presented after a syncopal episode. Patient was at home and felt dizzy prior to having an unwitnessed syncopal episode during which she hit the back of her head on a dresser. Her daughter found her with no reported LOC. Patient states she has nausea, dizziness, severe headache and neck pain on movement. Patient denies vision changes, increasing weakness/numbness. No fver/chill/ PE: AF, VSS HEENT- NC, minimal cephalohematoma posteriorly; Neck- supple; Cor- RR; Lungs- CTA; Abd- benign; Ext- no obvious fx or DVT Drowsy, easily arousable; following commands; Icelandic speaking CN- non-focal; Motor- at least 3/5 UE/LE; Sensation- intact grossly LT; DTR- hyporeflexic; toes downgoing Head CT (July 2016)- R chronic SDH with membrane; atrophy, R cortical mass effect Head CT (11-23, prelim)- moderate atrophy; smaller R hemispheric chronic SDH with acute SAH R Sylvian fissure and R occipital sulci; also small L hemispheric chronic SDH C spine CT (11-23, prelim)- multilevel DDD/spondylosis, no acute fx, no significant central stenosis CTA head (11-23, prelim)- no clear aneurysm Acute traumatic R hemispheric SAH in face of chronic B SDH Cont anticonvulsant for sz prophylaxis No neurosurgical intervention recommended in this elderly lady with likely baseline atrophy and mostly R hemispheric chronic SDH/hygroma, and in fact chronic SDH has decreased noticeably in size on R Fall precautions Neurology input and f/u for h/o sz F/u head CT to ascertain acute SAH/SDH stability
[2016-11-24] MEDS: LISINOPRIL 20 MG TABLET (FP) PO SCH (09:58)
[2016-11-24] MEDS: DIVALPROEX SODIUM 250 MG TABLET E.C. (FP) PO SCH ×2 (09:58→21:54)
--- NOTE | 2016-11-24 13:51 | EKG ---
Test Reason : Blood Pressure : / mmHG Vent. Rate : 075 BPM Atrial Rate : 075 BPM P-R Int : 152 ms QRS Dur : 088 ms QT Int : 386 ms P-R-T Axes : 027 -52 -36 degrees QTc Int : 431 ms NORMAL SINUS RHYTHM LEFT ANTERIOR FASCICULAR BLOCK POSSIBLE LATERAL INFARCT , AGE UNDETERMINED T WAVE ABNORMALITY, CONSIDER ANTERIOR ISCHEMIA ABNORMAL ECG WHEN COMPARED WITH ECG OF 23-NOV-2016 16:08, T WAVE INVERSION NOW EVIDENT IN INFERIOR LEADS T WAVE VARIATION Confirmed by ANNA MCNEILL, VIOLET ([id number]) on 11/24/2016 1:51:17 PM Referred By: PREETI HECK Confirmed By:VIOLET CASTILLO MD
--- NOTE | 2016-11-24 13:57 | EKG ---
Test Reason : Blood Pressure : / mmHG Vent. Rate : 071 BPM Atrial Rate : 071 BPM P-R Int : 144 ms QRS Dur : 088 ms QT Int : 376 ms P-R-T Axes : 029 -59 081 degrees QTc Int : 408 ms NORMAL SINUS RHYTHM LEFT ANTERIOR FASCICULAR BLOCK T WAVE ABNORMALITY, CONSIDER ANTERIOR ISCHEMIA ABNORMAL ECG WHEN COMPARED WITH ECG OF 17-JUL-2016 17:31, T WAVE INVERSION NO LONGER EVIDENT IN INFERIOR LEADS T WAVE VARIATION Confirmed by VIOLET CASTILLO MD ([id number]) on 11/24/2016 1:57:08 PM Referred By: Confirmed By:VIOLET CASTILLO MD
--- NOTE | 2016-11-24 15:18 | PN ---
Physical Exam: SUBJECTIVE: Patient seen and examined, daughter at bedside. No acute events overnight. This am, pt reports feeling fine without any complaints. OBJECTIVE: Vital Signs Period Temp Pulse Resp BP Sys/Han Pulse Ox Last 24 Hr 98.2 F-99.6 F 71-85 16-18 97-140/51-81 95-100 GENERAL: The patient is lying down sleeping, in mild distress, grimacing to palpation anywhere HEAD: minimal cephalohematoma EYES: PERRL, extraocular movements intact, sclera anicteric, conjunctiva clear. No ptosis. ENT: Ears normal, nares patent, oropharynx clear without exudates, moist mucous membranes. NECK: Trachea midline, full range of motion, supple. LUNGS: Breath sounds equal, clear to auscultation bilaterally in anterior lung ziegler, no wheezes, no crackles, no accessory muscle use. HEART: Regular rate and rhythm, S1, S2 without murmur, rub or gallop. ABDOMEN: Soft, nontender, nondistended, normoactive bowel sounds, no guarding, no rebound, no hepatosplenomegaly, no masses. EXTREMITIES: LLE has very tender cord-like veins with 2+ edema. RLE has 1+ edema. NEUROLOGICAL: Cranial nerves II through XII grossly intact. Normal speech, gait not observed. PSYCH: Normal mood, normal affect. SKIN: Warm, dry, normal turgor, no rashes or lesions noted Laboratory Results - last 24 hr 11/24/16 11/24/16 11/24/16 00:00 06:30 06:30 WBC 7.3 RBC 3.49 L Hgb 11.2 D Hct 33.9 MCV 97.3 H MCH 32.0 MCHC 32.9 RDW 14.6 Plt Count 107 L MPV 11.3 H Neutrophils % 71.3 Lymphocytes % 17.7 D Monocytes % 10.3 H Eosinophils % 0.2 Basophils % 0.5 Sodium 137 Potassium 4.9 Chloride 101 Carbon Dioxide 26 Anion Gap 10 BUN 18 Creatinine 1.1 H Creat Clearance w eGFR 47.09 Random Glucose 84 D Hemoglobin A1c % Calcium 7.7 L Total Bilirubin 0.7 D AST 35 ALT 24 Alkaline Phosphatase 76 Troponin I 0.29 H Total Protein 5.8 L Albumin 2.4 L Triglycerides 89 Cholesterol 122 Total LDL Cholesterol 55 HDL Cholesterol 52 Valproic Acid 0911/24/16 11/24/16 06:30 06:30 06:30 WBC RBC Hgb Hct MCV MCH MCHC RDW Plt Count MPV Neutrophils % Lymphocytes % Monocytes % Eosinophils % Basophils % Sodium Potassium Chloride Carbon Dioxide Anion Gap BUN Creatinine Creat Clearance w eGFR Random Glucose Hemoglobin A1c % 4.9 Calcium Total Bilirubin AST ALT Alkaline Phosphatase Troponin I 0.14 H Total Protein Albumin Triglycerides Cholesterol Total LDL Cholesterol HDL Cholesterol Valproic Acid 44.734 L Active Medications Generic Name Dose Route Start Last Admin Trade Name Jacoby PRN Reason Stop Dose Admin Atorvastatin Calcium 40 mg 11/24/16 22:00 Lipitor - PO HS TANNER Divalproex Sodium 500 mg 11/24/16 22:00 Depakote - PO BID TANNER Lisinopril 20 mg 11/24/16 10:00 11/24/16 09:58 Prinivil PO 20 mg DAILY TANNER Administration Head/Neck CTA: small calcified plaques of b/l common carotids without hemodynamically significant stenosis. Carotid Doppler: no hemodynamically significant stenosis EKG: possible lateral infarct, T wave inversions in V1-V6 ASSESSMENT/PLAN: 86F w/ hx of HTN, HLD, subdural hematoma (07/2016) complicated by seizure disorder, presenting with pre-syncopal episode leading to a fall on the back of her head, found to have an acute SAH on the right, acute on chronic subdural hematoma on the left, and a chronic subdural hematoma on the right as well as a troponinemia. #SAH- 2/2 fall -neurosurgery on board- Dr. Valerio, appreciated recs that no neurosurgical intervention at this time -neuro on board- Dr. Jaimes, f/u recs -hemoglobin of 12.6 --> 11.2, continue to trend -f/u repeat CT head #Pre-syncope -carotid doppler is negative, lipid panel shows LDL of 55 -cards on board- Dr. Duran, appreciate recs -f/u echo #Troponinemia- 2/2 possible NSTEMI -troponins: 0.22 --> 0.29 --> 0.14 -no longer trending -pt already on lipitor with LDL of 55. Will not start ASA due to brain bleed #LLE cord-like veins -r/o DVT, f/u LE duplex #Hx of seizure -valproic acid level of 45 which is subtherapeutic -changed to depakote 500 BID as per neuro recs #HTN -continue home dose of lisinopril 20mg qd -monitor BP #HLD -pt denies hx of TX, stents, and strokes -LDL of 55 -changed from lipitor 80 to lipitor 40mg qd #FEN/PPx -no fluids -wnl -sodium-controlled diet -no GI ppx indicated -SCDs due to brain bleed Fortunato Queen MD PGY1 Problem List - Problems (1) Hypertension Code(s): I10 - ESSENTIAL (PRIMARY) HYPERTENSION (2) Hyperlipidemia Code(s): E78.5 - HYPERLIPIDEMIA, UNSPECIFIED (3) Seizure Code(s): R56.9 - UNSPECIFIED CONVULSIONS (4) Pre-syncope Code(s): R55 - SYNCOPE AND COLLAPSE (5) Elevated troponin Code(s): R74.8 - ABNORMAL LEVELS OF OTHER SERUM ENZYMES Visit type - Emergency Visit Emergency Visit: Yes ED Registration Date: 11/23/16 Care time: The patient presented to the Emergency Department on the above date and was hospitalized for further evaluation of their emergent condition. - New Patient This patient is new to me today: Yes Date on this admission: 11/24/16 - Critical Care Critical Care patient: No
--- NOTE | 2016-11-24 15:56 | PN ---
Teaching Attending Note Name of Resident: Fortunato Queen ATTENDING PHYSICIAN STATEMENT I saw and evaluated the patient. I reviewed the resident's note and discussed the case with the resident. I agree with the resident's findings and plan as documented. SUBJECTIVE: Patient seems lethargic but c/o having headache, translated By . OBJECTIVE: Vital Signs Temperature 98.3 F 11/24/16 14:06 Pulse Rate 60 11/24/16 14:06 Respiratory Rate 16 11/24/16 14:06 Blood Pressure 106/52 11/24/16 09:00 O2 Sat by Pulse Oximetry (%) 96 11/24/16 09:00 CBCD WBC 7.3 K/mm3 (4.0-10.0) 11/24/16 06:30 RBC 3.49 M/mm3 (3.60-5.2) L 11/24/16 06:30 Hgb 11.2 GM/dL (10.7-15.3) D 11/24/16 06:30 Hct 33.9 % (32.4-45.2) 11/24/16 06:30 MCV 97.3 fl (80-96) H 11/24/16 06:30 MCHC 32.9 g/dl (32.0-36.0) 11/24/16 06:30 RDW 14.6 % (11.6-15.6) 11/24/16 06:30 Plt Count 107 K/MM3 (134-434) L 11/24/16 06:30 MPV 11.3 fl (7.5-11.1) H 11/24/16 06:30 CMP Sodium 137 mmol/L (136-145) 11/24/16 06:30 Potassium 4.9 mmol/L (3.5-5.1) 11/24/16 06:30 Chloride 101 mmol/L (98-107) 11/24/16 06:30 Carbon Dioxide 26 mmol/L (21-32) 11/24/16 06:30 Anion Gap 10 (8-16) 11/24/16 06:30 BUN 18 mg/dL (7-18) 11/24/16 06:30 Creatinine 1.1 mg/dL (0.55-1.02) H 11/24/16 06:30 Creat Clearance w eGFR 47.09 (>60) 11/24/16 06:30 Random Glucose 84 mg/dL (74-106) D 11/24/16 06:30 Calcium 7.7 mg/dL (8.5-10.1) L 11/24/16 06:30 Total Bilirubin 0.7 mg/dL (0.2-1.0) D 11/24/16 06:30 AST 35 U/L (15-37) 11/24/16 06:30 ALT 24 U/L (12-78) 11/24/16 06:30 Alkaline Phosphatase 76 U/L (45-117) 11/24/16 06:30 Total Protein 5.8 g/dl (6.4-8.2) L 11/24/16 06:30 Albumin 2.4 g/dl (3.4-5.0) L 11/24/16 06:30 CARDIAC ENZYMES Creatine Kinase 162 IU/L (26-192) 11/23/16 16:25 Troponin I 0.14 ng/ml (0.00-0.05) H 11/24/16 06:30 Current Medications Generic Name Dose Route Start Last Admin Trade Name Sanketq PRN Reason Stop Dose Admin Atorvastatin Calcium 40 mg 11/24/16 22:00 Lipitor - PO HS [facility] Divalproex Sodium 500 mg 11/24/16 22:00 Depakote - PO BID [facility] Lisinopril 20 mg 11/24/16 10:00 11/24/16 09:58 Prinivil PO 20 mg DAILY [facility] Administration Home Medications Medication Instructions Recorded Lisinopril [Prinivil] 20 mg PO DAILY 07/17/16 RX: Mirtazapine 15 mg PO HS 07/17/16 Atorvastatin Ca [Lipitor] 80 mg PO HS 11/23/16 Divalproex Sodium [Depakote] 250 mg PO BID 11/23/16 Laboratory Tests 11/23/16 11/24/16 11/24/16 16:25 00:00 06:30 Troponin I 0.22 H 0.29 H Triglycerides 89 Cholesterol 122 Total LDL Cholesterol 55 HDL Cholesterol 52 11/24/16 06:30 Troponin I 0.14 H Triglycerides Cholesterol Total LDL Cholesterol HDL Cholesterol PE: per resident's note. Chest X-ray: Image Reviewed (sclerotic aortic changes/ increased basilar markings) EKG: Image Reviewed ( LAFMikel inverted t waves v-1 v6 unchanged from 07/2016) ECHo: normal ventricular function. EJF around 60% ASSESSMENT AND PLAN: Patient is a 86 y.o. F with pmh of HTN, HLD, Subdural Hematoma (back in July, being f/u at [facility]), and seizure d/o (1x seizure s/p subdural hematoma in July, on Depakote) presenting after a syncopal episode admitted for subarachnoid hemorrhage and syncope #Subarachnoid Hemorrhage ;Repeat CT shows: BL chronic subdural collections/ subdural hygromas seen grossly without any evidence of acute subdural hemorrhage. #Syncope; Carotid U/s Doppler: mild to moderate plaques bl without any significant stenosis #Elevated troponins; Trops- 0.22-->0.29--0.14. Cardiology Consult, Dr. Duran appreciated #Hx of seizure, increase depakote to 500mg bid since it's subtherapeutic #HTN Continue lisinopril 20 mg po daily #HLD Continue lipitor 80 mg continue DVT- scds
--- NOTE | 2016-11-24 18:22 | CONSULT ---
Consult - text type - Consultation Consultation Note: Neurology 86-year-old female brought into the ED for evaluation of near-syncopal episode. Reportedly, she was walking in her home which she felt dizzy and next thing she knows, she fell backward striking the back of her head. Patient also with recent diagnosis in July with a subdural hematoma after complaining of a headache which has been followed up and just this past week at [facility]. She completed Ct head which I reviewed and showed a subarachnoid hemorrhage in the right occipital and posterior parietal lobe sulci. There was also a 1.4 x 1 x 0.9 hyperdense hemorrhagic focus in the right sylvian fissure. Small low density extra-axial collection overlying the left cerebral hemisphere with small amount of hyperdense subdural hemorrhages consistent with a small acute subdural hematoma superimposed on chronic subdural. Case was discussed with NSGY Dr. Deangelo Valerio, neurosurgery who did not recommend surgical intervention. Surprisingly patent without complaints of visual changes headache, or neck pain. Patient currently on no anticoagulation therapy but states history of seizure and was on Depakote of 250mg twice a day which is typically used for mood control and isn't effective for seizure prevention. Spoke to resident about increasing this to 500mg twice daily. The patient did not have seizure but given acute blood products, recommendation to increase Depakote to adequate dose was made. EEG also recommended. Carotid Doppler completed and showed moderate plaque, CTA head and neck also viewed and no hemodynamically significant stenosis but L common cartoid with 40% stenosis. Past History - Travel Traveled outside of the country in the last 30 days: No Close contact w/someone who was outside of country & ill: No - Past Medical History Allergies/Adverse Reactions: Allergies Allergy/AdvReac Type Severity Reaction Status Date / Time No Known Allergies Allergy Verified 11/23/16 16:06 Home Medications: Ambulatory Orders Lisinopril [Prinivil] 20 mg PO DAILY 07/17/16 Mirtazapine 15 mg PO HS 07/17/16 Atorvastatin Ca [Lipitor] 80 mg PO HS 11/23/16 Divalproex Sodium [Depakote] 250 mg PO BID 11/23/16 HTN: Yes - Psycho/Social/Smoking Cessation Hx Anxiety: No Suicidal Ideation: No Smoking History: Never smoked Have you smoked in the past 12 months: No Information on smoking cessation initiated: No Hx Alcohol Use: No Drug/Substance Use Hx: No Substance Use Type: None Patient Lives Alone: No Lives with/in: daughter Review of Systems - Review of Systems Able to Perform ROS?: No Constitutional: No: Symptoms Reported HEENTM: No: Symptoms Reported Respiratory: No: Symptoms reported Cardiac (ROS): Yes: Lightheadedness ABD/GI: Yes: Nausea Neurological: Yes: Dizziness Hematologic/Lymphatic: No: Symptoms Reported *Physical Exam Last Vital Signs Temp Pulse Resp BP Pulse Ox 99.9 F H 69 18 119/56 96 11/24/16 16:16 11/24/16 16:16 11/24/16 16:16 11/24/16 16:16 11/24/16 09:00 - Physical Exam General Appearance: Yes: Nourished, Appropriately Dressed. No: Apparent Distress HEENT: positive: EOMI, ARMEN, TMs Normal, Pharynx Normal. negative: Pale Conjunctivae Neck: positive: Supple Respiratory/Chest: positive: Lungs Clear, Normal Breath Sounds. negative: Respiratory Distress, Accessory Muscle Use Cardiovascular: positive: Regular Rhythm, Regular Rate. negative: Murmur Gastrointestinal/Abdominal: positive: Soft. negative: Tenderness Extremity: positive: Normal Capillary Refill, Normal Range of Motion. negative : Pedal Edema Integumentary: positive: Warm, Swelling ( approximately2 x 2 inch soft raised area ove rightparietal and 1.5 x 1" soft mass with abrasion to center ) Neurologic: ,CN intact, speech normal, Motor Strength intact grossly, sensory normal, finger to nose intact, no dysmetria, gait deferred CBCD WBC 7.3 K/mm3 (4.0-10.0) 11/24/16 06:30 RBC 3.49 M/mm3 (3.60-5.2) L 11/24/16 06:30 Hgb 11.2 GM/dL (10.7-15.3) D 11/24/16 06:30 Hct 33.9 % (32.4-45.2) 11/24/16 06:30 MCV 97.3 fl (80-96) H 11/24/16 06:30 MCHC 32.9 g/dl (32.0-36.0) 11/24/16 06:30 RDW 14.6 % (11.6-15.6) 11/24/16 06:30 Plt Count 107 K/MM3 (134-434) L 11/24/16 06:30 MPV 11.3 fl (7.5-11.1) H 11/24/16 06:30 CMP Sodium 137 mmol/L (136-145) 11/24/16 06:30 Potassium 4.9 mmol/L (3.5-5.1) 11/24/16 06:30 Chloride 101 mmol/L (98-107) 11/24/16 06:30 Carbon Dioxide 26 mmol/L (21-32) 11/24/16 06:30 Anion Gap 10 (8-16) 11/24/16 06:30 BUN 18 mg/dL (7-18) 11/24/16 06:30 Creatinine 1.1 mg/dL (0.55-1.02) H 11/24/16 06:30 Creat Clearance w eGFR 47.09 (>60) 11/24/16 06:30 Calcium 7.7 mg/dL (8.5-10.1) L 11/24/16 06:30 Total Bilirubin 0.7 mg/dL (0.2-1.0) D 11/24/16 06:30 AST 35 U/L (15-37) 11/24/16 06:30 ALT 24 U/L (12-78) 11/24/16 06:30 Alkaline Phosphatase 76 U/L (45-117) 11/24/16 06:30 Total Protein 5.8 g/dl (6.4-8.2) L 11/24/16 06:30 Albumin 2.4 g/dl (3.4-5.0) L 11/24/16 06:30 - RADIOLOGY CT head reviewed Carotid Doppler reviewed- Moderate plaque CTA head and neck reviewed - L common carotid 40% narrowing Medical Decision Making 86-year-old female brought into the ED for evaluation of near-syncopal episode. Reportedly, she was walking in her home which she felt dizzy and next thing she knows, she fell backward striking the back of her head. Patient also with recent diagnosis in July with a subdural hematoma after complaining of a headache which has been followed up and just this past week at [facility]. Subarachnoid hemorrhage in the right occipital and posterior parietal lobe sulci. 1.4 x 1 x 0.9 hyperdense hemorrhagic focus in the right sylvian fissure. Small low density extra-axial collection overlying the left cerebral hemisphere with small amount of hyperdense subdural hemorrhages consistent with a small acute subdural hematoma superimposed on chronic subdural. Neurosurgery who did not recommend surgical intervention. Asymptomatic Depakote of 250mg twice a day which is typically used for mood control and isn' t effective for seizure prevention. Prefer Depakote 500mg twice daily. CD, CTA head and neck reviewed Tight blood pressure control, should < 140/90 with acute hemoraghe Strict fall precautions Physcial therapy for gait and ambulation EEG also recommended
[2016-11-24] MEDS: ATORVASTATIN CA 40 MG TABLET (FP) PO SCH (21:54)
[2016-11-24] MEDS ORDERED: DIVALPROEX SODIUM 250 MG TABLET E.C. (FP) PO SCH (22:00)
--- NOTE | 2016-11-25 08:27 | CONS ---
DATE OF CONSULTATION: DATE OF DICTATION: 11/24/2016 REQUESTING PHYSICIAN: ROOSEVELT Gilmore, of the emergency department. CONSULTING PHYSICIAN: Umesh Brand MD, Neurosurgery. CHIEF COMPLAINT: Acute right hemispheric traumatic subarachnoid hemorrhage in the face of chronic subdural hematoma. HISTORY OF PRESENT ILLNESS: The patient is an 86-year-old, right-handed female with history of hypertension and seizure disorder, as well as hypercholesterolemia, who was brought into the emergency room in July for acute-onset seizure episode. She was found to have a chronic subdural hematoma at that time in the right hemisphere and was transferred to [facility]. She was observed there and put on Depakote. No surgical intervention was performed by the neurosurgical staff there by report. The history was obtained mostly from the patient's family at the bedside. The patient had a slip and fall at home after feeling dizziness yesterday and hit her head backwards on the chest. She denies loss of consciousness but may have done so. She also complained of some nausea since the fall in addition to the headaches. She denies diplopia or any increasing weakness or numbness. She has no new bowel or bladder dysfunction. She has no fever or chills and has no recent infection by report. PAST MEDICAL HISTORY: Significant for subdural hematoma, hypertension, hypercholesterolemia, seizure disorder. CURRENT MEDICATIONS: Include Prinivil, Depakote, and Lipitor. ALLERGIES: There are no known drug allergies. FAMILY HISTORY: Noncontributory. SOCIAL HISTORY: She does not smoke or drink. She lives at home with her family. She is retired. REVIEW OF SYSTEMS: Otherwise negative for other major constitutional, head and neck, cardiovascular, pulmonary, gastrointestinal, genitourinary, endocrinological, neurological, oncological, gynecological, or psychological problems except for the above. PHYSICAL EXAMINATION: Vital Signs: Temperature is 99.3, blood pressure is 119/55, with pulse rate of 80, O2 saturation is 95% on room air. HEENT: Demonstrated minimal cephalohematoma in the occipital region posteriorly. Neck: Supple. Coronary: Regular rhythm. Lungs: Clear bilaterally. Abdomen: Benign. Extremities: Examination showed no obvious fracture or obvious DVT. Neurologic: She is drowsy but easily arousable. She is Yi speaking. She does follow commands. Cranial nerve examination is grossly intact. Motor examination shows at least 3/5 strength in the bilateral upper and lower extremities. Sensory examination is intact to light touch. Deep tendon reflexes are hyporeflexic throughout. Her toes are downgoing. Gait is not tested for safety reasons. LABORATORY EXAMINATION: White blood cell count of 7.3, hemoglobin is 11.2, and platelet count is 107,000. INR is 1.04. Serum sodium is 137, potassium is 4.3. BUN is 18 and creatinine 1.1. Glucose is 84. Troponin is 0.14, most recently, initially was 0.22. Urinalysis shows trace ketones and 1+ blood. There are 2 RBCs and 1 WBC. Valproic acid level is 44.7. CT scan of the head from July 2016 demonstrated a moderate-sized right frontoparietal subdural hematoma with a subdural membrane and moderate cortical mass effect as well as mass effect on the lateral ventricle. CT scan of the head performed yesterday demonstrated decreasing size of chronic right-sided subdural hematoma, but now, she has bilateral smaller subdural fluid collection. There is acute blood in the right Sylvian fissure as well as right occipital region, likely traumatic subarachnoid hemorrhage. This is a preliminary reading. Preliminary CTA of the head demonstrated no clear aneurysm or AVM. CT scan of the cervical spine demonstrated multi-level cerebral spondylosis and degenerative disk disease. There was reversal of normal cervical lordosis. There was no severe stenosis or fracture. IMPRESSION: 1. Chronic subdural hematoma. 2. Acute right Sylvian fissure and occipital traumatic subarachnoid hemorrhage. 3. Seizure disorder. 4. Hypertension. 5. Hypercholesterolemia. RECOMMENDATIONS: The patient presents with a syncopal episode yesterday. She has a mildly elevated Toradol level and is being followed by Cardiology for treatment accordingly. CT scan of the head from July actually demonstrated a significantly larger right hemispheric, chronic subdural hematoma with a membrane. Her current CT scan demonstrated smaller, bilateral, chronic subdural fluid collection, but there is some acute blood in the right Sylvian fissure and over the right occipital lobe, likely secondary to her fall yesterday. Followup CT scan of the head is recommended sometime today to assess the stability of the acute and chronic component of blood. No neurosurgical intervention is recommended as the subdural collection from 4 months ago is actually smaller. Continued anticonvulsant is recommended. Baseline neurology consult and followup is reasonable given her history of seizure disorder. Anticoagulants and antiplatelet agents should be withheld for at least the next week if possible. The above was discussed with the patient's family at bedside. The pros and cons of treatment approaches were discussed as well. All questions were answered. UMESH BRAND M.D. [id number] MTDD
[2016-11-25 08:28] LABS: MCH 32.1 pg (25.7-33.7); MEAN CELL VOLUME 97.2 fl (80-96); MEAN PLT VOLUME 11.3 fl (7.5-11.1); PLATELET COUNT 97 K/MM3 (134-434); RDW 14.6 % (11.6-15.6)
--- NOTE | 2016-11-25 08:30 | PN ---
Progress Note (short form) - Note Progress Note: NEUROSURGERY Some H/A PE: Tmax 99.9, AF, VSS HEENT- NC, minimal cephalohematoma posteriorly; Neck- supple; Cor- RR; Lungs- CTA; Abd- benign; Ext- no obvious fx or DVT Drowsy, easily arousable; following commands; Welsh speaking CN- non-focal; Motor- at least 3/5 UE/LE; Sensation- intact grossly LT; DTR- hyporeflexic; toes downgoing Head CT (July 2016)- R chronic SDH with membrane; atrophy, R cortical mass effect Head CT (11-23)- moderate atrophy; smaller R hemispheric chronic SDH with acute SAH R Sylvian fissure and R occipital sulci; also small L hemispheric chronic SDH Hdad CT (11-24)- resolving R hemispheric acute hemorrhage; R > L chronic SDH but still significantly less than in July C spine CT (11-23)- multilevel DDD/spondylosis, no acute fx, no significant central stenosis CTA head (11-23)- no intracranial aneurysm, low grade CCA stenosis Acute traumatic R hemispheric SAH in face of chronic B SDH Cont anticonvulsant for sz prophylaxis No neurosurgical intervention recommended in this elderly lady with likely baseline atrophy and mostly R hemispheric chronic SDH/hygroma, and in fact chronic SDH has decreased noticeably in size on R Fall precautions
--- NOTE | 2016-11-25 10:15 | PN ---
Progress Note (short form) - Note Progress Note: Neurology 86-year-old female brought into the ED for evaluation of near-syncopal episode. Reportedly, she was walking in her home which she felt dizzy and next thing she knows, she fell backward striking the back of her head. Patient also with recent diagnosis in July with a subdural hematoma after complaining of a headache which has been followed up and just this past week at [facility]. She completed Ct head which I reviewed and showed a subarachnoid hemorrhage in the right occipital and posterior parietal lobe sulci. There was also a 1.4 x 1 x 0.9 hyperdense hemorrhagic focus in the right sylvian fissure. Small low density extra-axial collection overlying the left cerebral hemisphere with small amount of hyperdense subdural hemorrhages consistent with a small acute subdural hematoma superimposed on chronic subdural. Case was discussed with NSGY Dr. Deangelo Valerio, neurosurgery who did not recommend surgical intervention. Surprisingly patent without complaints of visual changes headache, or neck pain. Patient currently on no anticoagulation therapy but states history of seizure and Depakote adjusted to 500mg twice daily. EEG occuring today. Carotid Doppler completed and showed moderate plaque , CTA head and neck also viewed and no hemodynamically significant stenosis but L common cartoid with 40% stenosis. Active Medications Atorvastatin Calcium (Lipitor -) 40 mg PO HS [facility] Last Admin: 11/24/16 21:54 Dose: 40 mg Divalproex Sodium (Depakote -) 500 mg PO BID [facility] Last Admin: 11/24/16 21:54 Dose: 500 mg Lisinopril (Prinivil) 20 mg PO DAILY [facility] Last Admin: 11/24/16 09:58 Dose: 20 mg *Physical Exam Vital Signs Period Temp Pulse Resp BP Sys/Han Pulse Ox Last 24 Hr 97.8 F-99.9 F 60-80 16-18 104-142/50-64 93 - Physical Exam General Appearance: Yes: Nourished, Appropriately Dressed. No: Apparent Distress HEENT: positive: EOMI, ARMEN, TMs Normal, Pharynx Normal. negative: Pale Conjunctivae Neck: positive: Supple Respiratory/Chest: positive: Lungs Clear, Normal Breath Sounds. negative: Respiratory Distress, Accessory Muscle Use Cardiovascular: positive: Regular Rhythm, Regular Rate. negative: Murmur Gastrointestinal/Abdominal: positive: Soft. negative: Tenderness Extremity: positive: Normal Capillary Refill, Normal Range of Motion. negative : Pedal Edema Integumentary: positive: Warm, Swelling ( approximately2 x 2 inch soft raised area ove rightparietal and 1.5 x 1" soft mass with abrasion to center ) Neurologic: ,CN intact, speech normal, Motor Strength intact grossly, sensory normal, finger to nose intact, no dysmetria, gait deferred CBCD WBC 8.0 K/mm3 (4.0-10.0) 11/25/16 06:00 RBC 3.48 M/mm3 (3.60-5.2) L 11/25/16 06:00 Hgb 11.2 GM/dL (10.7-15.3) 11/25/16 06:00 Hct 33.8 % (32.4-45.2) 11/25/16 06:00 MCV 97.2 fl (80-96) H 11/25/16 06:00 MCHC 33.0 g/dl (32.0-36.0) 11/25/16 06:00 RDW 14.6 % (11.6-15.6) 11/25/16 06:00 Plt Count 97 K/MM3 (134-434) L 11/25/16 06:00 MPV 11.3 fl (7.5-11.1) H 11/25/16 06:00 CMP Sodium 137 mmol/L (136-145) 11/24/16 06:30 Potassium 4.9 mmol/L (3.5-5.1) 11/24/16 06:30 Chloride 101 mmol/L (98-107) 11/24/16 06:30 Carbon Dioxide 26 mmol/L (21-32) 11/24/16 06:30 Anion Gap 10 (8-16) 11/24/16 06:30 BUN 18 mg/dL (7-18) 11/24/16 06:30 Creatinine 1.1 mg/dL (0.55-1.02) H 11/24/16 06:30 Creat Clearance w eGFR 47.09 (>60) 11/24/16 06:30 Calcium 7.7 mg/dL (8.5-10.1) L 11/24/16 06:30 Total Bilirubin 0.7 mg/dL (0.2-1.0) D 11/24/16 06:30 AST 35 U/L (15-37) 11/24/16 06:30 ALT 24 U/L (12-78) 11/24/16 06:30 Alkaline Phosphatase 76 U/L (45-117) 11/24/16 06:30 Total Protein 5.8 g/dl (6.4-8.2) L 11/24/16 06:30 Albumin 2.4 g/dl (3.4-5.0) L 11/24/16 06:30 - RADIOLOGY CT head reviewed Carotid Doppler reviewed- Moderate plaque CTA head and neck reviewed - L common carotid 40% narrowing Medical Decision Making 86-year-old female brought into the ED for evaluation of near-syncopal episode. Reportedly, she was walking in her home which she felt dizzy and next thing she knows, she fell backward striking the back of her head. Patient also with recent diagnosis in July with a subdural hematoma after complaining of a headache which has been followed up and just this past week at [facility]. Subarachnoid hemorrhage in the right occipital and posterior parietal lobe sulci. 1.4 x 1 x 0.9 hyperdense hemorrhagic focus in the right sylvian fissure. Small low density extra-axial collection overlying the left cerebral hemisphere with small amount of hyperdense subdural hemorrhages consistent with a small acute subdural hematoma superimposed on chronic subdural. Neurosurgery who did not recommend surgical intervention, Dr. Valerio following, note reviewed Depakote of 250mg twice a day which is typically used for mood control and isn' t effective for seizure prevention. Adjusted to Depakote 500mg twice daily. CD, CTA head and neck as above Tight blood pressure control, should < 140/90 with acute hemorrhage Strict fall precautions Physcial therapy for gait and ambulation EEG to be done today
[2016-11-25] MEDS: DIVALPROEX SODIUM 250 MG TABLET E.C. (FP) PO SCH ×2 (10:41→22:10)
[2016-11-25] MEDS: LISINOPRIL 20 MG TABLET (FP) PO SCH (10:41)
[2016-11-25] MEDS ORDERED: ACETAMINOPHEN 325 MG TABLET (FP) PO ONE ×2 (11:36→22:07)
--- NOTE | 2016-11-25 13:08 | PN ---
Physical Exam: SUBJECTIVE: Patient seen and examined. 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 No acute events overnight. Pt found sleeping in bed with daughter at bedside. Pt denies lightheadedness, chest pain, SOB, n/v/d/c, and dysuria. She endorses a headache. OBJECTIVE: Vital Signs Period Temp Pulse Resp BP Sys/Han Pulse Ox Last 24 Hr 97.8 F-99.9 F 60-80 16-18 104-150/50-76 93 GENERAL: The patient is lying down sleeping, lethargic-appearing HEAD: minimal cephalohematoma EYES: PERRL, extraocular movements intact, sclera anicteric, conjunctiva clear. No ptosis. ENT: Ears normal, nares patent, oropharynx clear without exudates, moist mucous membranes. NECK: Trachea midline, full range of motion, supple. LUNGS: Breath sounds equal, clear to auscultation bilaterally in anterior lung ziegler, no wheezes, no crackles, no accessory muscle use. HEART: Regular rate and rhythm, S1, S2 without murmur, rub or gallop. ABDOMEN: Soft, nontender, nondistended, normoactive bowel sounds, no guarding, no rebound, no hepatosplenomegaly, no masses. EXTREMITIES: LLE has very tender cord-like veins with 2+ edema. RLE has 1+ edema. NEUROLOGICAL: Cranial nerves II through XII grossly intact. Normal speech, gait not observed. PSYCH: Normal mood, normal affect. SKIN: Warm, dry, normal turgor, no rashes or lesions noted Laboratory Results - last 24 hr 11/25/16 06:00 WBC 8.0 RBC 3.48 L Hgb 11.2 Hct 33.8 MCV 97.2 H MCH 32.1 MCHC 33.0 RDW 14.6 Plt Count 97 L MPV 11.3 H Active Medications Generic Name Dose Route Start Last Admin Trade Name Freq PRN Reason Stop Dose Admin Atorvastatin Calcium 40 mg 11/24/16 22:00 11/24/16 21:54 Lipitor - PO 40 mg HS ATNNER Administration Divalproex Sodium 500 mg 11/24/16 22:00 11/25/16 10:41 Depakote - PO 500 mg BID TANNER Administration Lisinopril 20 mg 11/24/16 10:00 11/25/16 10:41 Prinivil PO 20 mg DAILY TANNER Administration Echo: E/A reversal consistent with poor LV compliance LE duplex: negative for DVT Repeat CT head: resolving SAH and subdural hematomas ASSESSMENT/PLAN: 86F w/ hx of HTN, HLD, subdural hematoma (07/2016) complicated by seizure disorder, presenting with pre-syncopal episode leading to a fall on the back of her head, found to have imaging consistent with an acute SAH on the right, acute on chronic subdural hematoma on the left, and a chronic subdural hematoma on the right as well as a troponinemia. #SAH- 2/2 fall -neurosurgery on board- Dr. Valerio, appreciated recs that no neurosurgical intervention at this time -neuro on board- Dr. Jaimes, recs appreciated- strict BP control < 140/90, fall precautions, and PT eval -hemoglobin of 12.6 --> 11.2 --> 11.2 -repeat CT head: resolving SAH and subdural hematomas #Pre-syncope -carotid doppler is negative, lipid panel shows LDL of 55, echo shows E/A reversal consistent with poor LV compliance -cards on board- Dr. Duran, appreciate recs -Ucx: no growth, final #Troponinemia- 2/2 possible NSTEMI -troponins: 0.22 --> 0.29 --> 0.14 -no longer trending -pt already on lipitor with LDL of 55. Will not start ASA due to brain bleed #LLE cord-like veins -LE duplex negative for DVT #Hx of seizure -valproic acid level of 45 which is subtherapeutic -continue depakote 500 BID as per neuro recs -f/u EEG (Dr. Gonzalez not in until 11/27) #HTN -continue home dose of lisinopril 20mg qd -monitor BP #HLD -pt denies hx of AK, stents, and strokes -LDL of 55 -continue lipitor 40mg qd #FEN/PPx -no fluids -wnl -sodium-controlled diet -no GI ppx indicated -SCDs due to brain bleed #Dispo -pending PT eval and recs regarding home vs. OSIRIS Fortunato Queen MD PGY1 Problem List - Problems (1) Hypertension Code(s): I10 - ESSENTIAL (PRIMARY) HYPERTENSION (2) Hyperlipidemia Code(s): E78.5 - HYPERLIPIDEMIA, UNSPECIFIED (3) Seizure Code(s): R56.9 - UNSPECIFIED CONVULSIONS (4) Pre-syncope Code(s): R55 - SYNCOPE AND COLLAPSE (5) Elevated troponin Code(s): R74.8 - ABNORMAL LEVELS OF OTHER SERUM ENZYMES Visit type - Emergency Visit Emergency Visit: Yes ED Registration Date: 11/23/16 Care time: The patient presented to the Emergency Department on the above date and was hospitalized for further evaluation of their emergent condition. - New Patient This patient is new to me today: No - Critical Care Critical Care patient: No
[2016-11-25] MEDS ORDERED: PT OWN MED DRAWER 7, Y5N ONE (13:15)
--- NOTE | 2016-11-25 14:22 | PN ---
Progress Note, Physician Chief Complaint: Pt is lethargic; daughter at bedside. History of Present Illness: 86-year-old female brought into the ED for evaluation of a fall. Patient states was walking in her home which she felt dizzy and next thing she knows, she fell backward striking the back of her head. Patient currently denies chest pain but does complain of nausea and dizziness. Patient has no complaints of visual changes headache, abdominal pain, palpitations, or neck pain. Patient currently on no anticoagulation therapy but states history of seizure and is currently on Depakote. Patient also with recent diagnosis in July with a subdural hematoma after complaining of a headache which has been followed up and just this past week at [facility]. - Current Medication List Current Medications: Active Medications Atorvastatin Calcium (Lipitor -) 40 mg PO HS [facility] Last Admin: 11/24/16 21:54 Dose: 40 mg Divalproex Sodium (Depakote -) 500 mg PO BID [facility] Last Admin: 11/25/16 10:41 Dose: 500 mg Lisinopril (Prinivil) 20 mg PO DAILY [facility] Last Admin: 11/25/16 10:41 Dose: 20 mg - Objective Vital Signs: Vital Signs Temperature 99.5 F 11/25/16 13:51 Pulse Rate 87 11/25/16 13:51 Respiratory Rate 16 11/25/16 13:51 Blood Pressure 97/62 11/25/16 13:51 O2 Sat by Pulse Oximetry (%) 93 L 11/24/16 20:00 Eyes: Yes: WNL HENT: Yes: Other Neck: Yes: Decreased ROM Cardiovascular: Yes: Regular Rate and Rhythm, S1, S2 Respiratory: Yes: Regular Gastrointestinal: Yes: Soft ...Rectal Exam: Yes: Deferred Genitourinary: No: Anuria Musculoskeletal: Yes: Muscle Weakness Extremities: Yes: Cool Edema: No Peripheral Pulses WNL: No Peripheral Pulses: Left Doralis Pedis: 1+, Right Dorsalis Pedis: 1+ Integumentary: Yes: Bruising Neurological: Yes: Confusion Psychiatric: Yes: Other Labs: CBC, BMP 11/25/16 06:00 11/24/16 06:30 INR, PTT INR 1.04 (0.82-1.09) 11/23/16 16:25 Problem List - Problems (1) Elevated troponin Assessment/Plan: 0.22-->0,29--0.14; normal CK. EKG: normal sinus rhythm; LAFB; T wave changes: consider anterior ischemia. Code(s): R74.8 - ABNORMAL LEVELS OF OTHER SERUM ENZYMES (2) Subdural hemorrhage Assessment/Plan: f/u with neurologist. Code(s): I62.00 - NONTRAUMATIC SUBDURAL HEMORRHAGE, UNSPECIFIED (3) Hyperlipidemia Assessment/Plan: On statin; keep LDL cholesterol < 70 mg/dL. Code(s): E78.5 - HYPERLIPIDEMIA, UNSPECIFIED (4) Hypertension Assessment/Plan: on Lisinopril. Code(s): I10 - ESSENTIAL (PRIMARY) HYPERTENSION (5) Syncope Assessment/Plan: orthostatic vital signs. Maintain hydration. ECHO: normal LVEF. Catotid artery US: moderate plaque and thickening bilaterally, without stenoses. F/u with neurology. Code(s): R55 - SYNCOPE AND COLLAPSE
--- NOTE | 2016-11-25 15:42 | DS ---
Physical Exam: SUBJECTIVE: Patient seen and examined OBJECTIVE: Vital Signs Period Temp Pulse Resp BP Sys/Han Pulse Ox Last 24 Hr 97.8 F-99.9 F 69-87 16-18 97-150/50-76 93-94 PHYSICAL EXAM GENERAL: The patient is awake, alert, and fully oriented, in no acute distress. HEAD: Normal with no signs of trauma. EYES: PERRL, extraocular movements intact, sclera anicteric, conjunctiva clear. ENT: Ears normal, nares patent, oropharynx clear without exudates, moist mucous membranes. NECK: Trachea midline, full range of motion, supple. LUNGS: Breath sounds equal, clear to auscultation bilaterally, no wheezes, no crackles, no accessory muscle use. HEART: Regular rate and rhythm, S1, S2 without murmur, rub or gallop. ABDOMEN: Soft, nontender, nondistended, normoactive bowel sounds, no guarding, no rebound, no hepatosplenomegaly, no masses. EXTREMITIES: 2+ pulses, warm, well-perfused, no edema. NEUROLOGICAL: Cranial nerves II through XII grossly intact. Normal speech, gait not observed. PSYCH: Normal mood, normal affect. SKIN: Warm, dry, normal turgor, no rashes or lesions noted. LABS Laboratory Results - last 24 hr 11/25/16 06:00 WBC 8.0 RBC 3.48 L Hgb 11.2 Hct 33.8 MCV 97.2 H MCH 32.1 MCHC 33.0 RDW 14.6 Plt Count 97 L MPV 11.3 H HOSPITAL COURSE: Date of Admission:11/23/16 Date of Discharge: 11/26/16 Pt is an 86F w/ hx of SDH (07/2016) complicated by seizure disorder, HTN, and HLD who presented with a pre-syncopal episode resulting in a fall on her head, was found on imaging to have an acute subarachnoid hemorrhage, acute on chronic subdural hematoma, and chronic subdural hemotoma, as well as a troponinemia. For the SAH, neurosurgery saw the pt and stated that no neurosurgical procedure is indicated. Per neurology, the pt's depakote was increased to 500mg BID to adequately prevent seizures. Pt's BP was strictly controlled to <140/90. Repeat head CT showed resolving SAH. An EEG was done, but the report is still pending. For the pre-syncopal episode, a full workup was done, and cardiology was consulted. Echo showed E/A reversal consistent with poor LV compliance. Lipid panel was wnl, cartoid doppler showed no hemodynamically significant stenosis, and an EKG showed TWIs in leads V1-V6 which are unchanged from 07/2016. For the troponinemia, her troponins were followed, and they trended down on the 3rd result. Pt was not started on ASA due to SAH. Today, pt has normal vital signs, normal labs, and is stable for discharge to [facility], to f/u with PCP, cardiology, and neurology (check final EEG report). Minutes to complete discharge: 38 Discharge Summary Reason For Visit: HEMORRHAGE INTO SUBARACHNOID SPACE OF NEURAXIS Current Active Problems Elevated troponin (Acute) Pre-syncope (Acute) Subarachnoid hemorrhage (Acute) Subdural hemorrhage (Acute) Hyperlipidemia (Chronic) Hypertension (Chronic) Seizure (Chronic) Condition: Improved - Instructions Diet, Activity, Other Instructions: You presented to the hospital after having a pre-syncopal episode which resulted in a fall and hitting your head. You were found to have an acute subarachnoid hemorrhage (new bleeding around your brain) and elevated cardiac enzymes which are markers of heart strain. You were seen by neurology, neurosurgery, and cardiology, and you were monitored in the hospital each day. Your cardiac enzymes trended down, and your subarachnoid hemorrhage was shown by imaging to be resolving. Your depakote was increased to adequately prevent seizures. 1. Please follow up with your PCP within one week. If you don't have one, we have given you a referral to Dr. Mendez. 2. Please follow up with neurology within 2 weeks. If you don't have one, we have given you a referral to Dr. Jaimes. 3. Please follow up with cardiology within 2 weeks. If you don't have one, we have given you a referral to Dr. Duran. If you develop any concerning or worsening symptoms such as shortness of breath or chest pain, return to the ED. EEG is pending. Please call the neurologist for fllow up with your EEG result. Referrals: Arnoldo Jaimes MD [Staff Physician] - 2 Weeks Benjy Duran MD [Staff Physician] - 2 Weeks Josh Mendez MD [Staff Physician] - 1 Week Disposition: LONG TERM FACILITY - Home Medications Comprehensive Discharge Medication List: Ambulatory Orders Lisinopril [Prinivil] 20 mg PO DAILY 07/17/16 Atorvastatin Ca [Lipitor] 40 mg PO HS #30 tablet 11/25/16 Divalproex [Depakote -] 500 mg PO BID #60 tab 11/25/16 Problem List - Problems (1) Hypertension Code(s): I10 - ESSENTIAL (PRIMARY) HYPERTENSION (2) Hyperlipidemia Code(s): E78.5 - HYPERLIPIDEMIA, UNSPECIFIED (3) Seizure Code(s): R56.9 - UNSPECIFIED CONVULSIONS (4) Pre-syncope Code(s): R55 - SYNCOPE AND COLLAPSE (5) Elevated troponin Code(s): R74.8 - ABNORMAL LEVELS OF OTHER SERUM ENZYMES This patient is new to me today: No Emergency Visit: Yes ED Registration Date: 11/23/16 Care time: The patient presented to the Emergency Department on the above date and was hospitalized for further evaluation of their emergent condition. Critical Care patient: No - Discharge Referral Referred to [facility] No
--- NOTE | 2016-11-25 18:09 | PN ---
Teaching Attending Note Name of Resident: Fortunato Queen ATTENDING PHYSICIAN STATEMENT I saw and evaluated the patient. I reviewed the resident's note and discussed the case with the resident. I agree with the resident's findings and plan as documented. SUBJECTIVE: Patient is more awake today , back to her normal state. OBJECTIVE: Vital Signs Temperature 99.5 F 11/25/16 13:51 Pulse Rate 87 11/25/16 13:51 Respiratory Rate 16 11/25/16 13:51 Blood Pressure 97/62 11/25/16 13:51 O2 Sat by Pulse Oximetry (%) 94 L 11/25/16 09:00 Current Medications Generic Name Dose Route Start Last Admin Trade Name Freq PRN Reason Stop Dose Admin Atorvastatin Calcium 40 mg 11/24/16 22:00 11/24/16 21:54 Lipitor - PO 40 mg HS TANNER Administration Divalproex Sodium 500 mg 11/24/16 22:00 11/25/16 10:41 Depakote - PO 500 mg BID TANNER Administration Lisinopril 20 mg 11/24/16 10:00 11/25/16 10:41 Prinivil PO 20 mg DAILY TANNER Administration Home Medications Medication Instructions Recorded Lisinopril [Prinivil] 20 mg PO DAILY 07/17/16 Atorvastatin Ca [Lipitor] 40 mg PO HS #30 tablet 11/25/16 Divalproex [Depakote -] 500 mg PO BID #60 tab 11/25/16 PE: per resident's note. Chest X-ray: Image Reviewed (sclerotic aortic changes/ increased basilar markings) EKG: Image Reviewed (sr LAFB inverted t waves v-1 v6 unchanged from 07/2016) ECHo: normal ventricular function. EJF around 60% ASSESSMENT AND PLAN: Patient is a 86 y.o. F with pmh of HTN, HLD, Subdural Hematoma (back in July, being f/u at [facility]), and seizure d/o (1x seizure s/p subdural hematoma in July, on Depakote) presenting after a syncopal episode admitted for subarachnoid hemorrhage and syncope Patient was not able to do physical therapy , so family requested rehab. #Subarachnoid Hemorrhage ;Repeat CT shows: BL chronic subdural collections/ subdural hygromas seen grossly without any evidence of acute subdural hemorrhage. #Syncope; Carotid U/s Doppler: mild to moderate plaques bl without any significant stenosis #Elevated troponins; Trops- 0.22-->0.29--0.14. Cardiology Consult, Dr. Duran appreciated #Hx of seizure, increased to depakote to 500mg bid since it's subtherapeutic #HTN Continue lisinopril 20 mg po daily #HLD Continue lipitor 40 mg . Possible rehab in am.
[2016-11-25] MEDS: ATORVASTATIN CA 40 MG TABLET (FP) PO SCH (22:10)
--- NOTE | 2016-11-26 09:02 | PN ---
Progress Note (short form) - Note Progress Note: NEUROSURGERY Some H/A Family at bedside PE: Tmax 99.2, AF, VSS HEENT- NC, minimal cephalohematoma posteriorly; Neck- supple; Cor- RR; Lungs- CTA; Abd- benign; Ext- no obvious fx or DVT Drowsy, easily arousable; following commands; Burkinan speaking CN- non-focal; Motor- at least 3/5 UE/LE; Sensation- intact grossly LT; DTR- hyporeflexic; toes downgoing Head CT (11-24)- resolving R hemispheric acute hemorrhage; R > L chronic SDH but still significantly less than in July Acute traumatic R hemispheric SAH in face of chronic B SDH Cont anticonvulsant for sz prophylaxis No neurosurgical intervention recommended in this elderly lady with baseline cerebral atrophy and mostly R hemispheric chronic SDH/hygroma: chronic SDH has decreased noticeably in size on R since July 2016 PT/mobilize Fall precautions
--- NOTE | 2016-11-26 10:10 | PN ---
Progress Note (short form) - Note Progress Note: Neurology 86-year-old female brought into the ED for evaluation of near-syncopal episode. Reportedly, she was walking in her home which she felt dizzy and next thing she knows, she fell backward striking the back of her head. Patient also with recent diagnosis in July with a subdural hematoma after complaining of a headache which has been followed up and just this past week at [facility]. She completed Ct head which I reviewed and showed a subarachnoid hemorrhage in the right occipital and posterior parietal lobe sulci. There was also a 1.4 x 1 x 0.9 hyperdense hemorrhagic focus in the right sylvian fissure. Small low density extra-axial collection overlying the left cerebral hemisphere with small amount of hyperdense subdural hemorrhages consistent with a small acute subdural hematoma superimposed on chronic subdural. Case was discussed with NSGY Dr. Deangelo Valerio, neurosurgery who did not recommend surgical intervention. Surprisingly patent without complaints of visual changes headache, or neck pain. Patient currently on no anticoagulation therapy but states history of seizure and Depakote adjusted to 500mg twice daily. Carotid Doppler completed and showed moderate plaque, CTA head and neck also viewed and no hemodynamically significant stenosis but L common cartoid with 40% stenosis. EEG complete I believe. Active Medications Atorvastatin Calcium (Lipitor -) 40 mg PO HS [facility] Last Admin: 11/25/16 22:10 Dose: 40 mg Divalproex Sodium (Depakote -) 500 mg PO BID [facility] Last Admin: 11/25/16 22:10 Dose: 500 mg Lisinopril (Prinivil) 20 mg PO DAILY [facility] Last Admin: 11/25/16 10:41 Dose: 20 mg *Physical Exam Vital Signs Temperature 99.2 F 11/26/16 06:00 Pulse Rate 73 11/26/16 06:00 Respiratory Rate 18 11/26/16 06:00 Blood Pressure 121/57 11/26/16 06:00 O2 Sat by Pulse Oximetry (%) 94 L 11/25/16 09:00 - Physical Exam General Appearance: Yes: Nourished, Appropriately Dressed. No: Apparent Distress HEENT: positive: EOMI, ARMEN, TMs Normal, Pharynx Normal. negative: Pale Conjunctivae Neck: positive: Supple Respiratory/Chest: positive: Lungs Clear, Normal Breath Sounds. negative: Respiratory Distress, Accessory Muscle Use Cardiovascular: positive: Regular Rhythm, Regular Rate. negative: Murmur Gastrointestinal/Abdominal: positive: Soft. negative: Tenderness Extremity: positive: Normal Capillary Refill, Normal Range of Motion. negative : Pedal Edema Integumentary: positive: Warm, Swelling ( approximately2 x 2 inch soft raised area ove rightparietal and 1.5 x 1" soft mass with abrasion to center ) Neurologic: ,CN intact, speech normal, Motor Strength intact grossly, sensory normal, finger to nose intact, no dysmetria, gait deferred CBCD WBC 8.0 K/mm3 (4.0-10.0) 11/25/16 06:00 RBC 3.48 M/mm3 (3.60-5.2) L 11/25/16 06:00 Hgb 11.2 GM/dL (10.7-15.3) 11/25/16 06:00 Hct 33.8 % (32.4-45.2) 11/25/16 06:00 MCV 97.2 fl (80-96) H 11/25/16 06:00 MCHC 33.0 g/dl (32.0-36.0) 11/25/16 06:00 RDW 14.6 % (11.6-15.6) 11/25/16 06:00 Plt Count 97 K/MM3 (134-434) L 11/25/16 06:00 MPV 11.3 fl (7.5-11.1) H 11/25/16 06:00 CMP Sodium 137 mmol/L (136-145) 11/24/16 06:30 Potassium 4.9 mmol/L (3.5-5.1) 11/24/16 06:30 Chloride 101 mmol/L (98-107) 11/24/16 06:30 Carbon Dioxide 26 mmol/L (21-32) 11/24/16 06:30 Anion Gap 10 (8-16) 11/24/16 06:30 BUN 18 mg/dL (7-18) 11/24/16 06:30 Creatinine 1.1 mg/dL (0.55-1.02) H 11/24/16 06:30 Creat Clearance w eGFR 47.09 (>60) 11/24/16 06:30 Calcium 7.7 mg/dL (8.5-10.1) L 11/24/16 06:30 Total Bilirubin 0.7 mg/dL (0.2-1.0) D 11/24/16 06:30 AST 35 U/L (15-37) 11/24/16 06:30 ALT 24 U/L (12-78) 11/24/16 06:30 Alkaline Phosphatase 76 U/L (45-117) 11/24/16 06:30 Total Protein 5.8 g/dl (6.4-8.2) L 11/24/16 06:30 Albumin 2.4 g/dl (3.4-5.0) L 11/24/16 06:30 - RADIOLOGY CT head reviewed Carotid Doppler reviewed- Moderate plaque CTA head and neck reviewed - L common carotid 40% narrowing Medical Decision Making 86-year-old female brought into the ED for evaluation of near-syncopal episode. Reportedly, she was walking in her home which she felt dizzy and next thing she knows, she fell backward striking the back of her head. Patient also with recent diagnosis in July with a subdural hematoma after complaining of a headache which has been followed up and just this past week at [facility]. Subarachnoid hemorrhage in the right occipital and posterior parietal lobe sulci. 1.4 x 1 x 0.9 hyperdense hemorrhagic focus in the right sylvian fissure. Small low density extra-axial collection overlying the left cerebral hemisphere with small amount of hyperdense subdural hemorrhages consistent with a small acute subdural hematoma superimposed on chronic subdural. Neurosurgery who did not recommend surgical intervention, Dr. Valerio following, note reviewed Depakote adjusted to Depakote 500mg twice daily. CD, CTA head and neck as above Tight blood pressure control, should < 140/90 with acute hemorrhage Strict fall precautions Physcial therapy for gait and ambulation Follow up EEG read
[2016-11-26] MEDS: LISINOPRIL 20 MG TABLET (FP) PO SCH (10:30)
[2016-11-26] MEDS: DIVALPROEX SODIUM 250 MG TABLET E.C. (FP) PO SCH ×2 (10:30→23:06)
--- NOTE | 2016-11-26 11:07 | PN ---
Progress Note, Physician History of Present Illness: 86-year-old female brought into the ED for evaluation of near-syncopal episode. Patient states was walking in her home which she felt dizzy and next thing she knows, she fell backward striking the back of her head. Patient currently denies chest pain but does complain of nausea and dizziness. Patient has no complaints of visual changes headache, abdominal pain, palpitations, or neck pain. Patient currently on no anticoagulation therapy but states history of seizure and is currently on Depakote. Patient also with recent diagnosis in July with a subdural hematoma after complaining of a headache which has been followed up and just this past week at [facility]. - Current Medication List Current Medications: Active Medications Atorvastatin Calcium (Lipitor -) 40 mg PO HS [facility] Last Admin: 11/25/16 22:10 Dose: 40 mg Divalproex Sodium (Depakote -) 500 mg PO BID [facility] Last Admin: 11/26/16 10:30 Dose: 500 mg Lisinopril (Prinivil) 20 mg PO DAILY [facility] Last Admin: 11/26/16 10:30 Dose: 20 mg - Objective Vital Signs: Vital Signs Temperature 99.2 F 11/26/16 06:00 Pulse Rate 73 11/26/16 06:00 Respiratory Rate 18 11/26/16 06:00 Blood Pressure 121/57 11/26/16 06:00 O2 Sat by Pulse Oximetry (%) 94 L 11/25/16 09:00 Eyes: Yes: WNL, Conjunctiva Clear, EOM Intact HENT: Yes: WNL, Atraumatic, Normocephalic Neck: Yes: WNL, Supple, Trachea Midline Cardiovascular: Yes: WNL, Regular Rate and Rhythm Respiratory: Yes: WNL, Regular, CTA Bilaterally Gastrointestinal: Yes: WNL, Normal Bowel Sounds Genitourinary: Yes: WNL Musculoskeletal: Yes: WNL Extremities: Yes: WNL Edema: No Integumentary: Yes: WNL Neurological: Yes: WNL, Alert, Oriented ...Motor Strength: WNL Psychiatric: Yes: WNL Labs: CBC, BMP 11/25/16 06:00 11/24/16 06:30 INR, PTT INR 1.04 (0.82-1.09) 11/23/16 16:25 Problem List - Problems (1) Subarachnoid hemorrhage Code(s): I60.9 - NONTRAUMATIC SUBARACHNOID HEMORRHAGE, UNSPECIFIED (2) Subdural hemorrhage Code(s): I62.00 - NONTRAUMATIC SUBDURAL HEMORRHAGE, UNSPECIFIED Assessment/Plan (1) Elevated troponin Assessment/Plan: 0.22-->0,29--0.14; normal CK. EKG: normal sinus rhythm; LAFB; T wave changes: consider anterior ischemia. Code(s): R74.8 - ABNORMAL LEVELS OF OTHER SERUM ENZYMES (2) Subdural hemorrhage Assessment/Plan: f/u with neurologist. Code(s): I62.00 - NONTRAUMATIC SUBDURAL HEMORRHAGE, UNSPECIFIED (3) Hyperlipidemia Assessment/Plan: On statin; keep LDL cholesterol < 70 mg/dL. Code(s): E78.5 - HYPERLIPIDEMIA, UNSPECIFIED (4) Hypertension Assessment/Plan: on Lisinopril. Code(s): I10 - ESSENTIAL (PRIMARY) HYPERTENSION (5) Syncope Assessment/Plan: orthostatic vital signs. Maintain hydration. ECHO: normal LVEF. Catotid artery US: moderate plaque and thickening bilaterally, without stenoses. F/u with neurology. Code(s): R55 - SYNCOPE AND COLLAPSE
--- NOTE | 2016-11-26 15:36 | PN ---
Physical Exam: SUBJECTIVE: Patient seen and examined. No acute events overnight. Pt ambulated with help of nurses to bathroom during night. This am, she was found eating breakfast with help of daughter. Pt denies any new complaints, only endorsing a mild headache similar to yesterday. OBJECTIVE: Vital Signs Period Temp Pulse Resp BP Sys/Han Pulse Ox Last 24 Hr 97.9 F-99.2 F 69-88 18-19 102-137/53-71 94 GENERAL: The patient is sitting up eating breakfast, more alert than previous days HEAD: minimal cephalohematoma EYES: PERRL, extraocular movements intact, sclera anicteric, conjunctiva clear. No ptosis. ENT: Ears normal, nares patent, oropharynx clear without exudates, moist mucous membranes. NECK: Trachea midline, full range of motion, supple. LUNGS: Breath sounds equal, clear to auscultation bilaterally in anterior lung ziegler, no wheezes, no crackles, no accessory muscle use. HEART: Regular rate and rhythm, S1, S2 without murmur, rub or gallop. ABDOMEN: Soft, nontender, nondistended, normoactive bowel sounds, no guarding, no rebound, no hepatosplenomegaly, no masses. EXTREMITIES: LLE has very tender cord-like veins with 2+ edema. RLE has 1+ edema. NEUROLOGICAL: Cranial nerves II through XII grossly intact. Normal speech, gait not observed. Strength is 4/5 in both upper extremities, 3/5 in both lower extremities. Sensation is intact b/l. Active Medications Generic Name Dose Route Start Last Admin Trade Name Freq PRN Reason Stop Dose Admin Atorvastatin Calcium 40 mg 11/24/16 22:00 11/25/16 22:10 Lipitor - PO 40 mg HS TANNER Administration Divalproex Sodium 500 mg 11/24/16 22:00 11/26/16 10:30 Depakote - PO 500 mg BID TANNER Administration Lisinopril 20 mg 11/24/16 10:00 11/26/16 10:30 Prinivil PO 20 mg DAILY TANNER Administration ASSESSMENT/PLAN: 86F w/ hx of HTN, HLD, subdural hematoma (07/2016) complicated by seizure disorder, presenting with pre-syncopal episode leading to a fall on the back of her head, found to have imaging consistent with an acute SAH on the right, acute on chronic subdural hematoma on the left, and a chronic subdural hematoma on the right as well as a troponinemia. #SAH- 2/2 fall -neurosurgery on board- Dr. Valerio, appreciated recs that no neurosurgical intervention at this time -neuro on board- Dr. Jaimes, recs appreciated- strict BP control < 140/90, fall precautions, and PT eval -hemoglobin of 12.6 --> 11.2 --> 11.2, now stable, no longer trending -repeat CT head: resolving SAH and subdural hematomas #Pre-syncope -carotid doppler is negative, lipid panel shows LDL of 55, echo shows E/A reversal consistent with poor LV compliance -cards on board- Dr. Duran, appreciated recs -Ucx: no growth, final #Troponinemia- 2/2 possible NSTEMI -troponins: 0.22 --> 0.29 --> 0.14 -no longer trending -pt already on lipitor with LDL of 55. Will not start ASA due to brain bleed #LLE cord-like veins -LE duplex negative for DVT #Hx of seizure -valproic acid level of 45 which is subtherapeutic -continue depakote 500 BID as per neuro recs -f/u EEG (Dr. Gonzalez not in until 11/27) #HTN -continue home dose of lisinopril 20mg qd -monitor BP #HLD -pt denies hx of IN, stents, and strokes -LDL of 55 -continue lipitor 40mg qd #FEN/PPx -no fluids -wnl -sodium-controlled diet -no GI ppx indicated -SCDs due to brain bleed #Dispo -pending acceptance to [facility] MD PGY1 Problem List - Problems (1) Hypertension Code(s): I10 - ESSENTIAL (PRIMARY) HYPERTENSION (2) Hyperlipidemia Code(s): E78.5 - HYPERLIPIDEMIA, UNSPECIFIED (3) Seizure Code(s): R56.9 - UNSPECIFIED CONVULSIONS (4) Pre-syncope Code(s): R55 - SYNCOPE AND COLLAPSE (5) Elevated troponin Code(s): R74.8 - ABNORMAL LEVELS OF OTHER SERUM ENZYMES Visit type - Emergency Visit Emergency Visit: Yes ED Registration Date: 11/23/16 Care time: The patient presented to the Emergency Department on the above date and was hospitalized for further evaluation of their emergent condition. - New Patient This patient is new to me today: No - Critical Care Critical Care patient: No
--- NOTE | 2016-11-26 20:13 | PN ---
Teaching Attending Note Name of Resident: Fortunato Queen ATTENDING PHYSICIAN STATEMENT I saw and evaluated the patient. I reviewed the resident's note and discussed the case with the resident. I agree with the resident's findings and plan as documented. SUBJECTIVE: no fever or chills. has no abd pain , mild PRESTON which has not changed for days . science interpreter phone was used OBJECTIVE: NAD CV : RRR Lung s: CTAB ext : no edema Abd : soft, NT , ND , NL BS Neuro : EOMI, no facial droop. tongue at mid line . strength 5/5 in upper ext , b/l . 3/5 in hip flexion b/l. Not cooperative with rest of exam. ASSESSMENT AND PLAN: 86 y/o lady with h/o HTN, HLD, Subdural Hematoma who presented after syncope , and was found ot have acute SAH , and acute on chronic SDH 1- Acute SAH , and acute on chronic SDH : stable . no neuro deficit no intervention not on any antiplatelets 2- syncope: unclear etiolgoy, w/u so far neg . 3- elevated trop , possible demand ischemia . cont statin and ACEI 4- h/o seizure : cont increased dose of valproik . Dispo: pending insurance approval for rehab placement
[2016-11-26] MEDS: ATORVASTATIN CA 40 MG TABLET (FP) PO SCH (23:06)
--- NOTE | 2016-11-27 09:38 | PN ---
Progress Note (short form) - Note Progress Note: NEUROSURGERY Some H/A as previously No family at bedside right now, was reportedly here earlier this am PE: Tmax 98.6, AF, VSS HEENT- NC; Neck- supple; Cor- RR; Lungs- CTA; Abd- benign; Ext- no obvious fx or DVT Less drowsy, arousable; following commands; Mexican speaking CN- non-focal; Motor- at least 3-4-/5 UE/LE; Sensation- intact grossly LT; DTR- hyporeflexic; toes downgoing Head CT (11-24)- resolving R hemispheric acute hemorrhage; R > L chronic SDH but still significantly less than in July Acute traumatic R hemispheric SAH in face of chronic B SDH Cont anticonvulsant for sz prophylaxis No neurosurgical intervention recommended in this elderly lady with baseline cerebral atrophy and mostly R hemispheric chronic SDH/hygroma: chronic SDH has decreased noticeably in size on R since July 2016 CT without any prior intervention For rehab Fall precautions
--- NOTE | 2016-11-27 10:19 | PN ---
Progress Note (short form) - Note Progress Note: Neurology 86-year-old female brought into the ED for evaluation of near-syncopal episode. Reportedly, she was walking in her home which she felt dizzy and next thing she knows, she fell backward striking the back of her head. Patient also with recent diagnosis in July with a subdural hematoma after complaining of a headache which has been followed up and just this past week at [facility]. She completed Ct head which I reviewed and showed a subarachnoid hemorrhage in the right occipital and posterior parietal lobe sulci. There was also a 1.4 x 1 x 0.9 hyperdense hemorrhagic focus in the right sylvian fissure. Small low density extra-axial collection overlying the left cerebral hemisphere with small amount of hyperdense subdural hemorrhages consistent with a small acute subdural hematoma superimposed on chronic subdural. Case was discussed with NSGY Dr. Deangelo Valerio, neurosurgery who did not recommend surgical intervention. Surprisingly patent without complaints of visual changes headache, or neck pain. Patient currently on no anticoagulation therapy but states history of seizure and Depakote adjusted to 500mg twice daily. Carotid Doppler completed and showed moderate plaque, CTA head and neck also viewed and no hemodynamically significant stenosis but L common cartoid with 40% stenosis. Daughter concerned this morning that patient somnolent, patient arousable and briefly interactive. Patient seen with Dr. Valerio, DANIEL, Stable CT's of head. If persistent somnolence than can repeat but more likely 2/ 2 fatigue and going medical illness. Active Medications Atorvastatin Calcium (Lipitor -) 40 mg PO HS [facility] Last Admin: 11/26/16 23:06 Dose: 40 mg Divalproex Sodium (Depakote -) 500 mg PO BID [facility] Last Admin: 11/26/16 23:06 Dose: 500 mg Lisinopril (Prinivil) 20 mg PO DAILY [facility] Last Admin: 11/26/16 10:30 Dose: 20 mg *Physical Exam Vital Signs Temperature 98.2 F 11/27/16 06:00 Pulse Rate 68 11/27/16 06:00 Respiratory Rate 17 11/27/16 06:00 Blood Pressure 147/71 11/27/16 06:00 O2 Sat by Pulse Oximetry (%) 91 L 11/26/16 21:00 - Physical Exam General Appearance: Yes: Nourished, Appropriately Dressed. No: Apparent Distress HEENT: positive: EOMI, ARMEN, TMs Normal, Pharynx Normal. negative: Pale Conjunctivae Neck: positive: Supple Respiratory/Chest: positive: Lungs Clear, Normal Breath Sounds. negative: Respiratory Distress, Accessory Muscle Use Cardiovascular: positive: Regular Rhythm, Regular Rate. negative: Murmur Gastrointestinal/Abdominal: positive: Soft. negative: Tenderness Extremity: positive: Normal Capillary Refill, Normal Range of Motion. negative : Pedal Edema Integumentary: positive: Warm, Swelling ( approximately2 x 2 inch soft raised area ove rightparietal and 1.5 x 1" soft mass with abrasion to center ) Neurologic: ,CN intact, speech normal, Motor Strength intact grossly, sensory normal, finger to nose intact, no dysmetria, gait deferred CBCD WBC 8.0 K/mm3 (4.0-10.0) 11/25/16 06:00 RBC 3.48 M/mm3 (3.60-5.2) L 11/25/16 06:00 Hgb 11.2 GM/dL (10.7-15.3) 11/25/16 06:00 Hct 33.8 % (32.4-45.2) 11/25/16 06:00 MCV 97.2 fl (80-96) H 11/25/16 06:00 MCHC 33.0 g/dl (32.0-36.0) 11/25/16 06:00 RDW 14.6 % (11.6-15.6) 11/25/16 06:00 Plt Count 97 K/MM3 (134-434) L 11/25/16 06:00 MPV 11.3 fl (7.5-11.1) H 11/25/16 06:00 CMP Sodium 137 mmol/L (136-145) 11/24/16 06:30 Potassium 4.9 mmol/L (3.5-5.1) 11/24/16 06:30 Chloride 101 mmol/L (98-107) 11/24/16 06:30 Carbon Dioxide 26 mmol/L (21-32) 11/24/16 06:30 Anion Gap 10 (8-16) 11/24/16 06:30 BUN 18 mg/dL (7-18) 11/24/16 06:30 Creatinine 1.1 mg/dL (0.55-1.02) H 11/24/16 06:30 Creat Clearance w eGFR 47.09 (>60) 11/24/16 06:30 Calcium 7.7 mg/dL (8.5-10.1) L 11/24/16 06:30 Total Bilirubin 0.7 mg/dL (0.2-1.0) D 11/24/16 06:30 AST 35 U/L (15-37) 11/24/16 06:30 ALT 24 U/L (12-78) 11/24/16 06:30 Alkaline Phosphatase 76 U/L (45-117) 11/24/16 06:30 Total Protein 5.8 g/dl (6.4-8.2) L 11/24/16 06:30 Albumin 2.4 g/dl (3.4-5.0) L 11/24/16 06:30 - RADIOLOGY CT head reviewed Carotid Doppler reviewed- Moderate plaque CTA head and neck reviewed - L common carotid 40% narrowing Medical Decision Making 86-year-old female brought into the ED for evaluation of near-syncopal episode. Reportedly, she was walking in her home which she felt dizzy and next thing she knows, she fell backward striking the back of her head. Patient also with recent diagnosis in July with a subdural hematoma after complaining of a headache which has been followed up and just this past week at [facility]. Subarachnoid hemorrhage in the right occipital and posterior parietal lobe sulci. 1.4 x 1 x 0.9 hyperdense hemorrhagic focus in the right sylvian fissure. Small low density extra-axial collection overlying the left cerebral hemisphere with small amount of hyperdense subdural hemorrhages consistent with a small acute subdural hematoma superimposed on chronic subdural. Neurosurgery who did not recommend surgical intervention, Dr. Valerio following, note reviewed Depakote adjusted to Depakote 500mg twice daily. CD, CTA head and neck as above Tight blood pressure control, should < 140/90 with acute hemorrhage Can repeat CT head if persistent somnolence, more likely 2/2 ongoing illness Monitor labs, lytes, infections Strict fall precautions Physcial therapy for gait and ambulation Follow up EEG read
[2016-11-27] MEDS: DIVALPROEX SODIUM 250 MG TABLET E.C. (FP) PO SCH (11:12)
[2016-11-27] MEDS: LISINOPRIL 20 MG TABLET (FP) PO SCH (11:12)
[2016-11-27 11:20] VITALS: BP 167/68; PULSE 73; TEMP 97.6
--- NOTE | 2016-11-27 11:57 | PN ---
Progress Note, Physician Chief Complaint: Pt is lethargic; responds briefly to physical/verbal stimul, but does not open eyes or move on request, then falls back to snoring; daughter at bedside. History of Present Illness: 86-year-old female brought into the ED for evaluation of a fall. Patient states was walking in her home which she felt dizzy and next thing she knows, she fell backward striking the back of her head. Patient currently denies chest pain but does complain of nausea and dizziness. Patient has no complaints of visual changes headache, abdominal pain, palpitations, or neck pain. Patient currently on no anticoagulation therapy but states history of seizure and is currently on Depakote. Patient also with recent diagnosis in July with a subdural hematoma after complaining of a headache which has been followed up and just this past week at [facility]. - Current Medication List Current Medications: Active Medications Atorvastatin Calcium (Lipitor -) 40 mg PO HS [facility] Last Admin: 11/26/16 23:06 Dose: 40 mg Divalproex Sodium (Depakote -) 500 mg PO BID [facility] Last Admin: 11/27/16 11:12 Dose: 500 mg Lisinopril (Prinivil) 20 mg PO DAILY [facility] Last Admin: 11/27/16 11:12 Dose: 20 mg - Objective Vital Signs: Vital Signs Temperature 97.6 F 11/27/16 10:00 Pulse Rate 73 11/27/16 10:00 Respiratory Rate 19 11/27/16 10:00 Blood Pressure 167/68 11/27/16 10:00 O2 Sat by Pulse Oximetry (%) 93 L 11/27/16 09:00 Labs: CBC, BMP 11/25/16 06:00 11/24/16 06:30 INR, PTT INR 1.04 (0.82-1.09) 11/23/16 16:25 Problem List - Problems (1) Elevated troponin Assessment/Plan: 0.22-->0,29--0.14; normal CK. EKG: normal sinus rhythm; LAFB; T wave changes: consider anterior ischemia. ECHO: normal LVEF; abnormal diastolic complaince; mild MR> Code(s): R74.8 - ABNORMAL LEVELS OF OTHER SERUM ENZYMES (2) Subdural hemorrhage Assessment/Plan: f/u with neurologist. Code(s): I62.00 - NONTRAUMATIC SUBDURAL HEMORRHAGE, UNSPECIFIED (3) Hyperlipidemia Assessment/Plan: On statin; keep LDL cholesterol < 70 mg/dL. Code(s): E78.5 - HYPERLIPIDEMIA, UNSPECIFIED (4) Hypertension Assessment/Plan: on Lisinopril; serial BP checks; BP parameters per neurologist. Code(s): I10 - ESSENTIAL (PRIMARY) HYPERTENSION (5) Syncope Assessment/Plan: orthostatic vital signs. Maintain hydration. ECHO: normal LVEF. Catotid artery US: moderate plaque and thickening bilaterally, without stenoses. F/u with neurology. Code(s): R55 - SYNCOPE AND COLLAPSE
--- NOTE | 2016-11-27 13:19 | DS ---
Physical Exam: SUBJECTIVE: Patient seen and examined. No acute events over night. Does not offer any complaints. She said headache is better today. Denies abdominal pain, dizziness, nausea/ vomiting, and chest pain. OBJECTIVE: Vital Signs Period Temp Pulse Resp BP Sys/Han Pulse Ox Last 24 Hr 97.6 F-99.1 F 68-73 16-19 134-167/64-82 91-93 PHYSICAL EXAM GENERAL: NAD, lethargic HEAD: Normal with no signs of trauma. EYES: PERRL, extraocular movements intact, sclera anicteric, conjunctiva clear. ENT: moist mucous membranes. NECK:supple. LUNGS: Breath sounds equal, clear to auscultation bilaterally, no wheezes, no crackles, no accessory muscle use. HEART: Regular rate and rhythm, S1, S2 without murmur, rub or gallop. ABDOMEN: Soft, nontender, nondistended, normoactive bowel sounds, no guarding, no rebound, no hepatosplenomegaly, no masses. EXTREMITIES: Varcicose veins on LLE, with 1+ edema. RLE:1+ edema. NEUROLOGICAL: Cranial nerves II through XII grossly intact. Normal speech, gait not observed. PSYCH: Normal mood, normal affect. SKIN: Warm, dry, normal turgor, no rashes or lesions noted. LABS HOSPITAL COURSE: Date of Admission:11/23/16 Pt is an 86F w/ hx of SDH (07/2016) complicated by seizure disorder, HTN, and HLD who presented with a pre-syncopal episode resulting in a fall on her head, was found on imaging to have an acute subarachnoid hemorrhage, acute on chronic subdural hematoma, and chronic subdural hemotoma, as well as a troponinemia. For the SAH, neurosurgery saw the pt and stated that no neurosurgical procedure is indicated. Per neurology, the pt's depakote was increased to 500mg BID to adequately prevent seizures. Pt's BP was strictly controlled to <140/90. Repeat head CT showed resolving SAH. An EEG was done, but the report is still pending. For the pre-syncopal episode, a full workup was done, and cardiology was consulted. Echo showed E/A reversal consistent with poor LV compliance. Lipid panel was wnl, cartoid doppler showed no hemodynamically significant stenosis, and an EKG showed TWIs in leads V1-V6 which are unchanged from 07/2016. For the troponinemia, her troponins were followed, and they trended down on the 3rd result. Pt was not started on ASA due to SAH. Today, pt has normal vital signs, normal labs, and is stable for discharge to [facility], to f/u with PCP, cardiology, and neurology (check final EEG report). Date of Discharge: 11/27/16 Minutes to complete discharge: 38 Discharge Summary Reason For Visit: HEMORRHAGE INTO SUBARACHNOID SPACE OF NEURAXIS Current Active Problems Elevated troponin (Acute) Pre-syncope (Acute) Subarachnoid hemorrhage (Acute) Subdural hemorrhage (Acute) Syncope (Acute) Hyperlipidemia (Chronic) Hypertension (Chronic) Seizure (Chronic) Condition: Improved - Instructions Diet, Activity, Other Instructions: You presented to the hospital after having a pre-syncopal episode which resulted in a fall and hitting your head. You were found to have an acute subarachnoid hemorrhage (new bleeding around your brain) and elevated cardiac enzymes which are markers of heart strain. You were seen by neurology, neurosurgery, and cardiology, and you were monitored in the hospital each day. Your cardiac enzymes trended down, and your subarachnoid hemorrhage was shown by imaging to be resolving. Your depakote was increased to adequately prevent seizures. 1. Please follow up with your PCP within one week. If you don't have one, we have given you a referral to Dr. Mendez. 2. Please follow up with neurology within 2 weeks. If you don't have one, we have given you a referral to Dr. Jaimes. 3. Please follow up with cardiology within 2 weeks. If you don't have one, we have given you a referral to Dr. Duran. If you develop any concerning or worsening symptoms such as shortness of breath or chest pain, return to the ED. EEG is pending. Please call the neurologist for fllow up with your EEG result. Referrals: Arnoldo Jaimes MD [Staff Physician] - 2 Weeks Benjy Duran MD [Staff Physician] - 2 Weeks Josh Mendez MD [Staff Physician] - 1 Week Disposition: [facility]F-WAY FACILITY - Home Medications Comprehensive Discharge Medication List: Ambulatory Orders Lisinopril [Prinivil] 20 mg PO DAILY 07/17/16 Atorvastatin Ca [Lipitor] 40 mg PO HS #30 tablet 11/25/16 Divalproex [Depakote -] 500 mg PO BID #60 tab 11/25/16 Mirtazapine [Remeron -] 15 mg PO DAILY #30 tablet 11/26/16 This patient is new to me today: Yes Date on this admission: 11/27/16 Emergency Visit: Yes ED Registration Date: 11/23/16 Care time: The patient presented to the Emergency Department on the above date and was hospitalized for further evaluation of their emergent condition. Critical Care patient: No - Discharge Referral Referred to [facility] Med P.C.: No
--- NOTE | 2016-11-27 13:40 | PN ---
Teaching Attending Note Name of Resident: Claudia Mesa ATTENDING PHYSICIAN STATEMENT I saw and evaluated the patient. I reviewed the resident's note and discussed the case with the resident. I agree with the resident's findings and plan as documented. SUBJECTIVE: no complaints today OBJECTIVE: NAD CV : RRR Lungs: CTAB ext : no edema Abd : soft, NT , ND , NL BS ASSESSMENT AND PLAN: 86 y/o lady with h/o HTN, HLD, Subdural Hematoma who presented after syncope , and was found ot have acute SAH , and acute on chronic SDH 1- Acute SAH , and acute on chronic SDH : stable . no neuro deficit no intervention not on any antiplatelets EEG report still pending 2- Syncope: unclear etiology, w/u so far neg . 3- Elevated trop , possible demand ischemia . cont statin and ACEI 4- H/o seizure : cont increased dose of valproik . Dispo: dc to rehab today
== END 2016-11-27 15:46 | DRG 86 ==
LOC: JER 15:43 → JERBED 18:53 → J4S 21:42
PROVIDERS: ADMIT Internal Medicine; ATTEND Internal Medicine
PROC: B246ZZZ Ultrasonography of Right and Left Heart (ICD-10-PCS; principal; 2016-11-24)
DX: S06.6X0A Traumatic subarachnoid hemorrhage without loss of consciousness, initial encounter (principal); N17.9 Acute kidney failure, unspecified; G40.89 Other seizures; I62.03 Nontraumatic chronic subdural hemorrhage; R79.89 Other specified abnormal findings of blood chemistry; I10 Essential (primary) hypertension; E78.00 Pure hypercholesterolemia, unspecified; S09.8XXA Other specified injuries of head, initial encounter; W01.198A Fall on same level from slipping, tripping and stumbling with subsequent striking against other object, initial encounter; Y93.89 Activity, other specified; Y92.032 Bedroom in apartment as the place of occurrence of the external cause; Y99.8 Other external cause status
CPT/HCPCS: 36415; 70450-TC; 70496-TC; 70498-TC; 71010-TC; 72125-TC; 80053; 80061; 80164; 81003; 81015; 82553; 83036; 83721; 83735; 84484; 85025; 85027; 85610; 87086; 93005; 93010; 93306-TC; 93880-TC; 93970-TC; 95816; 97116-GP; 97162-GP; 99283-25

== ENCOUNTER 2017-02-04 14:13 | Inpatient (IN) | payer OTHER ==
[~2017-02-04 14:13] MED LIST: PIPERACIL/TAZOB 3.375 GM 3.375 GM/50 ML PREMIX IVPB ONE
[2017-02-04 14:31] VITALS: BMI 31.8
--- NOTE | 2017-02-04 14:57 | PDOC ---
History of Present Illness - General Chief Complaint: Shortness of Breath Stated Complaint: SOB Time Seen by Provider: 02/04/17 14:56 - History of Present Illness Initial Comments: 86 y/o female with pmh of HTN, HLD, Subdural Hematoma (diagnosed in 07/23, being managed by [facility]), seizure d/o (1x seizure s/p subdural hematoma in July, on Depakote), Recent subarachnoid hemorrhage (one month prior), chills, and general warmth. over the past few days, decreasing pressures. Per the home nurse , she was able to sit up in bed and converse with baseline AOx1 as of last but has since then been declining with acute decline on the day before presentation. On the day before presentation she was also warm without a measured fever, and tachypnic. She was recently admitted from 11/23- 11/27 for a fall and an acute subarachnoid hemorrhage for which she was evaluated by neurosurgery and sent home with increased dose of Depakote. No falls since that episode as the patient has been bed bound. Of note she has not had a bowel movement for the past two days. 02/04/17 15:05 Past History - Past Medical History Allergies/Adverse Reactions: Allergies Allergy/AdvReac Type Severity Reaction Status Date / Time No Known Allergies Allergy Verified 02/04/17 14:26 Home Medications: Ambulatory Orders Lisinopril [Prinivil] 20 mg PO DAILY 07/17/16 Atorvastatin Ca [Lipitor] 40 mg PO HS #30 tablet 11/25/16 Divalproex [Depakote -] 500 mg PO BID #60 tab 11/25/16 Mirtazapine [Remeron -] 15 mg PO DAILY #30 tablet 11/26/16 Anemia: No Asthma: No Cancer: No Cardiac Disorders: No COPD: No GI Disorders: Yes (diverticulitis) HTN: Yes Hypercholesterolemia: Yes Seizures: No - Suicide/Smoking/Psychosocial Hx Smoking History: Unknown if ever smoked Have you smoked in the past 12 months: No Information on smoking cessation initiated: No Hx Alcohol Use: No Drug/Substance Use Hx: No Substance Use Type: None Review of Systems - Review of Systems Able to Perform ROS?: No (Mentally altered) Constitutional: No: Chills *Physical Exam - Vital Signs Last Vital Signs Temp Pulse Resp BP Pulse Ox 100.2 F H 74 28 H 79/49 85 L 02/04/17 14:26 02/04/17 14:26 02/04/17 14:26 02/04/17 14:26 02/04/17 14:26 - Physical Exam Comments: Non-compliant with physical exam and unable 02/04/17 16:56 ED Treatment Course - LABORATORY CBC & Chemistry Diagram: 02/07/17 05:50 02/07/17 05:50 Medical Decision Making - Medical Decision Making 86 year old female originally presenting with hypotension and altered mental status concerning for a septic picture. Source is likely urinary given the gross appearance of urine. AMS likely metabolic encephalopathy vs. worsening subdural. Labs demonstrating elevated BUN which could point us towards uremic encephalopathy. Patient also hypernatremic to the 160s which is another source of metabolic encephalopathy. CT demonstrating worsening subdural as well. Will admit patient to tele given presenting hypotension which resolved after 1 liter of normal saline. *DC/Admit/Observation/Transfer Diagnosis at time of Disposition: Hypernatremia, Uremia, acute Altered mental status Qualifiers: Altered mental status type: disorientation Qualified Code(s): R41.0 - Disorientation, unspecified - Discharge Dispostion Admit: Yes - Referrals - Patient Instructions - Post Discharge Activity
[2017-02-04] MEDS ORDERED: SODIUM CHLORIDE 1,000 ML IV STA (14:58)
[2017-02-04 15:27] LABS: BASO % 0.2 % (0-2.0); EOS % 3.7 % (0-4.5); MCH 32.6 pg (25.7-33.7); MCHC 31.8 g/dl (32.0-36.0); MEAN CELL VOLUME 102.6 fl (80-96); MEAN PLT VOLUME 14.2 fl (7.5-11.1); NEUT % 68.7 % (42.8-82.8); PLATELET COUNT 134 K/MM3 (134-434); RDW 15.7 % (11.6-15.6); WHITE BLOOD COUNT 8.8 K/mm3 (4.0-10.0)
[2017-02-04 15:30] LABS: VENOUS PH 7.3 (7.32-7.42)
[2017-02-04 15:31] LABS: VENOUS BLOOD GAS HCO3 24.6 meq/L (19-25)
[2017-02-04 15:43] LABS: INR 1.03 (0.82-1.09); PROTHROMBIN TIME (PATIENT) 11.6 SEC (9.98-11.88)
[2017-02-04 15:46] LABS: ACTIVATED PTT 27.5 SECONDS (26.9-34.4)
[2017-02-04 15:52] LABS: ALBUMIN 1.7 g/dl (3.4-5.0); ANION GAP 8 (8-16); CALCIUM 7.6 mg/dL (8.5-10.1); CO2 25 mmol/L (21-32); CREATININE 2.1 mg/dL (0.55-1.02); GLUCOSE,RANDOM 105 mg/dL (74-106); SGOT/AST 33 U/L (15-37); SGPT/ALT 16 U/L (12-78)
[2017-02-04 15:56] LABS: ALK PHOS 58 U/L (45-117); BILIRUBIN,TOTAL 0.7 mg/dL (0.2-1.0); CPK 490 IU/L (26-192); TOT PROT 6.1 g/dl (6.4-8.2); TROPONIN I < 0.02 ng/ml (0.00-0.05)
[2017-02-04 16:26] LABS: URINE APPEARANCE CLOUDY; URINE BILIRUBIN NEGATIVE (NEGATIVE); URINE BLOOD NEGATIVE (NEGATIVE); URINE COLOR YELLOW; URINE GLUCOSE (UA) NEGATIVE (NEGATIVE); URINE KETONE NEGATIVE (NEGATIVE); URINE NITRITE NEGATIVE (NEGATIVE); URINE UROBILINOGEN NEGATIVE mg/dL (0.2-1.0)
[2017-02-04 16:42] LABS: ARTERIAL BLD GAS O2 SATURATION 98.4 % (90-98.9); ARTERIAL BLOOD GAS BASE EXCESS -2.1 meq/l (-2-2); ARTERIAL BLOOD GAS pH 7.39 (7.35-7.45)
[2017-02-04 16:50] LABS: ALLENS TEST POSITIVE; ART PUNCT SITE RIGHT RADIAL; METHEMOGLOBIN 0.2 % (0.4-1.5); PT. ON O2? 3L NASAL CANNULA
[2017-02-04] MEDS ORDERED: INSULIN REGULAR HUMAN 100 UNITS/ML *VIAL IVPUSH ONE (16:50)
[2017-02-04 16:54] LABS: URINE PROTEIN 1+ (NEGATIVE)
[2017-02-04 16:56] LABS: URINE BACTERIA RARE /hpf (NONE SEEN); URINE RBC 2 /hpf (0-3); URINE WBC 668 /hpf (3-5)
[2017-02-04] MEDS ORDERED: DEXTROSE 50%-WATER - 25 GM/50 ML VIAL IVPUSH ONE ×2 (16:57→16:58)
[2017-02-04] MEDS ORDERED: CALCIUM GLUCONATE 10% - 1,000 MG/10 ML VIAL IVPB ONE (16:58)
[2017-02-04] MEDS ORDERED: VANCOMYCIN 2,000 MG in DEXTROSE 5%-WATER - 500 ML IVPB ONE (17:10)
[2017-02-04] MEDS ORDERED: DEXTROSE 50%-WATER 25 GM/50 ML DISP.SYRIN ONE (17:18)
[2017-02-04] MEDS ORDERED: CALCIUM GLUCONATE 10% - 1,000 MG/10 ML VIAL ONE (17:18)
[2017-02-04] MEDS ORDERED: PIPERACILLIN/TAZOB 4.5 GM/100 ML PRE-DOCKED IVPB ONE (17:18)
[2017-02-04] MEDS ORDERED: VANCOMYCIN 1 GRAM (PRE-DOCKED) 2,000 MG/500 ML BAG IVPB ONE (17:19)
[2017-02-04] MEDS ORDERED: INSULIN REGULAR HUMAN 100 UNITS/ML *VIAL ONE (17:20)
[2017-02-04] MEDS ORDERED: SODIUM CHLORIDE 0.45% 1,000 ML IV SCH ×2 (17:30→18:44)
[2017-02-04] MEDS ORDERED: ACETAMINOPHEN 1000 MG/100 ML VIAL (NON FORMULARY) IVPB ONE (17:40)
[2017-02-04] MEDS ORDERED: ACETAMINOPHEN INJECTION 100 ML IVPB ONE (17:57)
[2017-02-04] MEDS ORDERED: PIPERACILLIN/TAZOB 4.5 GM 4.5 GM/100 ML BAG IVPB ONE (18:19)
--- NOTE | 2017-02-04 18:24 | HP ---
Admitting History and Physical - Admission Chief Complaint: hypotension, shortness of breath History of Present Illness: HPI This is an 86 year old female with pmhx recent subdural hematoma s/p fall ( diagnosed in 07/2016 managed at [facility]) HTN, HLD, 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 Per medical record and family at bedside, pt is conversational at baseline however in the last few days her mental status deteriorated, she developed chills, sob and hypotension. Today, her pressure was low and her she became tachypnic. Her last regular bowel movement was 2 days ago, per sister she goes a lot , thursday, sat, sun, today she had a small one. Prior to fall, she was ambulating, now she is mostly bed bound. Currently, she remains tachypnic, mcelroy inserted with + urine outpt and G tube site is clean. History Source: Family Member, Caregiver - Past Medical History CUT ORDER HAND: Yes: Seizure, Other (subdural hematoma, subarachnoid hemorrhage) Cardiovascular: Yes: HTN, Hyperlipdemia - Past Surgical History Additional Past Surgical History: G tube placed - Smoking History Smoking history: Unknown if ever smoked Have you smoked in the past 12 months: No - Alcohol/Substance Use Hx Alcohol Use: No - Social History ADL: Support Services History of Recent Travel: No Home Medications - Allergies Allergies/Adverse Reactions: Allergies Allergy/AdvReac Type Severity Reaction Status Date / Time No Known Allergies Allergy Verified 02/04/17 14:26 - Home Medications Home Medications: Ambulatory Orders Lisinopril [Prinivil] 20 mg PO DAILY 07/17/16 Atorvastatin Ca [Lipitor] 40 mg PO HS #30 tablet 11/25/16 Divalproex [Depakote -] 500 mg PO BID #60 tab 11/25/16 Mirtazapine [Remeron -] 15 mg PO DAILY #30 tablet 11/26/16 Review of Systems - Review of Systems Constitutional: reports: Chills, Weakness Eyes: reports: No Symptoms HENT: reports: No Symptoms Neck: reports: No Symptoms Cardiovascular: reports: Shortness of Breath Respiratory: reports: SOB Gastrointestinal: reports: No Symptoms Genitourinary: reports: No Symptoms Musculoskeletal: reports: No Symptoms Integumentary: reports: No Symptoms Neurological: reports: Change in LOC Endocrine: reports: No Symptoms Hematology/Lymphatic: reports: No Symptoms Psychiatric: reports: No Symptoms Physical Examination Vital Signs: Vital Signs Temperature 100.2 F H 02/04/17 14:26 Pulse Rate 94 H 02/04/17 17:48 Respiratory Rate 18 02/04/17 17:48 Blood Pressure 125/104 02/04/17 17:48 O2 Sat by Pulse Oximetry (%) 100 02/04/17 17:48 Constitutional: Yes: Poor Hygeine Eyes: Yes: PERRL HENT: Yes: Thrush Neck: Yes: Supple Cardiovascular: Yes: Regular Rate and Rhythm, Tachycardia Respiratory: Yes: On Nasal O2, Tachypnea, Other (clear anteriorly) Gastrointestinal: Yes: Normal Bowel Sounds (g tube, site CDI), Soft Renal/: Yes: Mcelroy Present Breast(s): Yes: WNL Musculoskeletal: Yes: WNL Extremities: Yes: WNL Edema: No Integumentary: Yes: Pressure Ulcer (sacrum) Neurological: Yes: Alert, Oriented, Cran Nerves II-XII Intact ...Motor Strength: WNL Labs: CBC, BMP 02/04/17 15:10 02/04/17 15:10 Imaging - Results Chest X-ray: Report Reviewed ( no acute pathology), Image Reviewed Cat Scan: Pending Problem List - Problems (1) Sepsis Code(s): A41.9 - SEPSIS, UNSPECIFIED ORGANISM (2) Sepsis associated hypotension Code(s): A41.9 - SEPSIS, UNSPECIFIED ORGANISM (3) Acute hypernatremia Code(s): E87.0 - HYPEROSMOLALITY AND HYPERNATREMIA (4) Hyperkalemia Code(s): E87.5 - HYPERKALEMIA (5) Subarachnoid hemorrhage Code(s): I60.9 - NONTRAUMATIC SUBARACHNOID HEMORRHAGE, UNSPECIFIED (6) Subdural hemorrhage Code(s): I62.00 - NONTRAUMATIC SUBDURAL HEMORRHAGE, UNSPECIFIED (7) Hyperlipidemia Code(s): E78.5 - HYPERLIPIDEMIA, UNSPECIFIED (8) Hypertension Code(s): I10 - ESSENTIAL (PRIMARY) HYPERTENSION (9) Seizure Code(s): R56.9 - UNSPECIFIED CONVULSIONS Assessment/Plan Assessment: 86 year old female admitted with sepsis and electrolyte disturbances Plan: 1. Sepsis - Nebulous source UTI vs intra abdominal source - Vanco/zosyn given in ED - Lactic acid wnl, repeat pending - ID consult placed 2. Hypernatremia - 5.2 L free water deficit - Has received 1L in ED, ~300cc in EMS - Start 1/2 NS @ 100cc/hr - Check BMP q4 - Head CT done, read pending - Renal consulted 3. Hyperkalemia - Cocktail given, recheck in 4 hrs - CTAP done, read pending, hold on kayexalate 4. hx of sub arachnoid hemorrhage and subdural hematoma - Head CT as above 5. Hypotension - Responding to fluids - Continue fluids as above - Hold BP meds 6. ARCHANA with elevated BUN - Likely pre renal d/t sepsis and water deficit - Trend cr, if worsens will obtain kidney/bladder US - Maintain mcelroy for now 7. Macrocytic Anemia - Stool guiac ordered r/o hemolysis - Send folate and v b12, tsh - CTAP to follow 8. DVT - Heparin sq Visit type - Emergency Visit Emergency Visit: Yes ED Registration Date: 02/04/17 Care time: The patient presented to the Emergency Department on the above date and was hospitalized for further evaluation of their emergent condition. - New Patient This patient is new to me today: Yes Date on this admission: 02/05/17 - Critical Care Critical Care patient: No
--- NOTE | 2017-02-04 18:39 | PDOC ---
Attending Attestation - Resident Resident Name: Nicola Mejia - ED Attending Attestation I have performed the following: I have examined & evaluated the patient, The case was reviewed & discussed with the resident, I agree w/resident's findings & plan, Exceptions are as noted - HPI HPI: 02/04/17 18:31 86 y/o female with pmh of HTN, HLD, Subdural Hematoma (diagnosed in 07/23, being managed by [facility]), seizure d/o (1x seizure s/p subdural hematoma in July, on Depakote), presenting with chills, weakness, and SOB x 4 days. Family notes that she has felt warm but they have not measured any fevers. Pt has not been hospitalized recently. Has not been on abx recently. - Physicial Exam PE: 02/04/17 18:32 "GENERAL: somnolent, mildly tachypneic HEAD: No signs of trauma EYES: PERRLA, EOMI, sclera anicteric, conjunctiva clear ENT: Auricles normal inspection, hearing grossly normal, nares patent, oropharynx clear without exudates. Moist mucosa NECK: Nontender, no stepoffs, Normal ROM, supple, no lymphadenopathy, JVD, or masses LUNGS: Breath sounds equal, clear to auscultation bilaterally. No wheezes, and no crackles HEART: Regular rate and rhythm, normal S1 and S2, no murmurs, rubs or gallops ABDOMEN: Mild diffuse tenderness, No guarding, no rebound. No masses EXTREMITIES: Normal range of motion, no edema. No clubbing or cyanosis. No cords, erythema, or tenderness SKIN: Warm, Dry, normal turgor, no rashes or lesions noted. - Medical Decision Making 02/04/17 18:40 86 F with weakness, found to be hypotensive and tachycardic with low grade fever in ER. Concerning for sepsis. Pt with possible respiratory source given tachypnea. Also consider UTI or intraabdominal source. - Labs, cultures - CXR, UA - IVF, abx - Admit
[2017-02-04] MEDS ORDERED: ACETAMINOPHEN 325 MG TABLET (FP) PO PRN (18:42)
[2017-02-04] MEDS ORDERED: ACETAMINOPHEN 120 MG SUPP.RECT RC PRN (18:54)
[2017-02-04 19:55] LABS: URINE LEUK ESTERASE 3+ (NEGATIVE)
[2017-02-04] MEDS ORDERED: SODIUM POLYSTYRENE SULFONATE 15 GM/60 ML BOTTLE PEG ONE (20:28)
[2017-02-04] MEDS ORDERED: SODIUM POLYSTYRENE SULFONATE 15 GM/60 ML BOTTLE ONE (21:07)
[2017-02-04] MEDS ORDERED: DIVALPROEX SODIUM 500 MG TABLET E.C. PO SCH (22:00)
[2017-02-04] MEDS ORDERED: MIRTAZAPINE 15 MG TABLET (FP) PO SCH (22:00)
[2017-02-04] MEDS: DIVALPROEX SODIUM 125 MG SPRINKLE CAPS (FP) PO SCH (22:55)
[2017-02-04] MEDS: HEPARIN NA (PORCINE) 5,000 UNITS/ML 1ML VIAL SQ SCH (22:58)
[2017-02-05] MEDS ORDERED: PIPERACILLIN/TAZOB 3.375 GM 3.375 GM in DEXTROSE 5%-WATER - 50 ML IVPB ONE (01:00)
[2017-02-05 02:08] LABS: ANION GAP 8 (8-16); CALCIUM 7.8 mg/dL (8.5-10.1); CO2 24 mmol/L (21-32); CREATININE 1.9 mg/dL (0.55-1.02); GLUCOSE,RANDOM 78 mg/dL (74-106)
[2017-02-05] MEDS ORDERED: INSULIN REGULAR HUMAN 100 UNITS/ML *VIAL IVPUSH ONE (02:27)
[2017-02-05] MEDS ORDERED: ALBUTEROL SO4 0.083% IH SOL 2.5 MG/3 ML VIAL.NEB. NEB ONE (02:29)
[2017-02-05] MEDS ORDERED: DEXTROSE 50%-WATER - 25 GM/50 ML VIAL IVPUSH ONE (02:29)
[2017-02-05] MEDS ORDERED: SODIUM POLYSTYRENE SULFONATE 15 GM/60 ML BOTTLE PEG ONE (02:29)
[2017-02-05] MEDS ORDERED: DEXTROSE 50%-WATER 25 GM/50 ML DISP.SYRIN IVPUSH ONE (03:00)
[2017-02-05] MEDS ORDERED: INSULIN (NOVOLOG) ASPART 100 UNITS/ML 10ML VIAL ONE (03:19)
[2017-02-05] MEDS ORDERED: DEXTROSE 50%-WATER 25 GM/50 ML DISP.SYRIN ONE (03:23)
[2017-02-05 07:10] LABS: BASO % 0.2 % (0-2.0); EOS % 3.8 % (0-4.5); MCH 31.6 pg (25.7-33.7); MCHC 30.8 g/dl (32.0-36.0); MEAN CELL VOLUME 102.6 fl (80-96); NEUT % 60.5 % (42.8-82.8); PLATELET COUNT 127 K/MM3 (134-434); RDW 15.6 % (11.6-15.6); WHITE BLOOD COUNT 12.5 K/mm3 (4.0-10.0)
[2017-02-05 07:39] LABS: ALBUMIN 1.6 g/dl (3.4-5.0); ANION GAP 9 (8-16); CALCIUM 7.9 mg/dL (8.5-10.1); CO2 23 mmol/L (21-32)
[2017-02-05 07:42] LABS: ALK PHOS 50 U/L (45-117); BILIRUBIN,TOTAL 0.7 mg/dL (0.2-1.0); CREATININE 1.9 mg/dL (0.55-1.02); PHOSPHOROUS 4.2 mg/dL (2.5-4.9); SGOT/AST 35 U/L (15-37); SGPT/ALT 16 U/L (12-78); TOT PROT 5.4 g/dl (6.4-8.2)
[2017-02-05] MEDS ORDERED: SODIUM CHLORIDE 1,000 ML IV STA (07:52)
--- NOTE | 2017-02-05 08:00 | CONSULT ---
Consultation: REQUESTING PROVIDER: CONSULT REQUEST: We have been asked to medically evaluate this patient for sepsis. HISTORY OF PRESENT ILLNESS: 86F w/ hx of subdural hematoma s/p fall (07/2016) resulting in seizures, SAH (), HTN, and HLD presenting from home with AMS. Per daughter, pt became progressively more confused over the last few days. At her baseline, she is conversational. Pt has also had subjective fevers, chills, mild SOB, and a non- productive cough. She denies chest pain, abdominal pain, n/v/d, and dysuria. REVIEW OF SYSTEMS: CONSTITUTIONAL: Absent: diaphoresis, generalized weakness, malaise, loss of appetite, weight change present: fevers, chills HEENT: Absent: rhinorrhea, nasal congestion, throat pain, throat swelling, difficulty swallowing, mouth swelling, ear pain, eye pain, visual changes CARDIOVASCULAR: Absent: chest pain, syncope, palpitations, irregular heart rate, lightheadedness , peripheral edema RESPIRATORY: Absent: dyspnea with exertion, orthopnea, wheezing, stridor, hemoptysis present: cough, SOB GASTROINTESTINAL: Absent: abdominal pain, abdominal distension, nausea, vomiting, diarrhea, constipation, melena, hematochezia present: constipation GENITOURINARY: Absent: dysuria, frequency, urgency, hesitancy, hematuria, flank pain, genital pain MUSCULOSKELETAL: Absent: myalgia, arthralgia, joint swelling, back pain, neck pain SKIN: Absent: rash, itching, pallor HEMATOLOGIC/IMMUNOLOGIC: Absent: easy bleeding, easy bruising, lymphadenopathy, frequent infections ENDOCRINE: Absent: unexplained weight gain, unexplained weight loss, heat intolerance, cold intolerance NEUROLOGIC: Absent: headache, focal weakness or paresthesias, dizziness, unsteady gait, seizure, bladder or bowel incontinence present: AMS PSYCHIATRIC: Absent: anxiety, depression, suicidal or homicidal ideation, hallucinations. PHYSICAL EXAMINATION Vital Signs - 24 hr 02/04/17 02/04/17 02/04/17 14:26 14:36 14:40 Temperature 100.2 F H Pulse Rate 74 Pulse Rate [ 94 H 93 H Right Radial] Respiratory 28 H 18 18 Rate Blood Pressure 79/49 Blood Pressure 76/42 87/70 [Left Arm] O2 Sat by Pulse 85 L 96 100 Oximetry (%) 02/04/17 02/04/17 02/04/17 14:47 15:16 15:45 Temperature Pulse Rate Pulse Rate [ 94 H 90 90 Right Radial] Respiratory 18 30 H 24 Rate Blood Pressure Blood Pressure 101/86 134/95 106/62 [Left Arm] O2 Sat by Pulse 100 100 100 Oximetry (%) 02/04/17 02/04/17 02/04/17 16:30 17:48 19:13 Temperature Pulse Rate Pulse Rate [ 93 H 94 H 89 Right Radial] Respiratory 18 18 18 Rate Blood Pressure Blood Pressure 106/89 125/104 81/42 [Left Arm] O2 Sat by Pulse 100 100 100 Oximetry (%) 02/04/17 02/04/17 02/04/17 19:19 21:00 22:00 Temperature 98 F 97.6 F Pulse Rate 81 Pulse Rate [ 89 84 Right Radial] Respiratory 18 18 20 Rate Blood Pressure 93/46 Blood Pressure 87/52 91/69 [Left Arm] O2 Sat by Pulse 100 100 97 Oximetry (%) 02/04/17 02/05/17 02/05/17 22:20 02:00 06:00 Temperature 97.6 F 98.7 F 98.6 F Pulse Rate 79 95 H 88 Pulse Rate [ Right Radial] Respiratory 18 20 20 Rate Blood Pressure 93/46 113/53 92/42 Blood Pressure [Left Arm] O2 Sat by Pulse Oximetry (%) GENERAL: Awake, alert, and fully oriented, in no acute distress. HEAD: Normal with no signs of trauma. EYES: Pupils equal, round and reactive to light, extraocular movements intact, sclera anicteric, conjunctiva clear. No lid lag. EARS, NOSE, THROAT: Ears normal, nares patent, oropharynx clear without exudates. Moist mucous membranes. NECK: Normal range of motion, supple without lymphadenopathy, JVD, or masses. LUNGS: Breath sounds equal, clear to auscultation bilaterally. No wheezes, and no crackles. No accessory muscle use. HEART: Regular rate and rhythm, normal S1 and S2 without murmur, rub or gallop. ABDOMEN: Soft, nontender, not distended, normoactive bowel sounds, no guarding, no rebound, no masses. No hepatomegaly or splenomegaly. MUSCULOSKELETAL: Normal range of motion at all joints. No bony deformities or tenderness. No CVA tenderness. UPPER EXTREMITIES: 2+ pulses, warm, well-perfused. No cyanosis. No clubbing. Cap refill <2 seconds. No peripheral edema. LOWER EXTREMITIES: 2+ pulses, warm, well-perfused. No calf tenderness. No peripheral edema. NEUROLOGICAL: Cranial nerves II-XII intact. Normal speech. Normal gait. PSYCHIATRIC: Cooperative. Good eye contact. Appropriate mood and affect. SKIN: Warm, dry, normal turgor, no rashes or lesions noted. Laboratory Results - last 24 hr 02/04/17 02/04/17 02/04/17 15:00 15:10 15:10 WBC 8.8 RBC 2.51 L D Hgb 8.2 L D Hct 25.7 L D MCV 102.6 H MCH 32.6 MCHC 31.8 L RDW 15.7 H Plt Count 134 D MPV 14.2 H D Neutrophils % 68.7 Lymphocytes % 16.8 Monocytes % 10.6 H Eosinophils % 3.7 D Basophils % 0.2 PT with INR 11.60 INR 1.03 PTT (Actin FS) 27.5 Puncture Site ABG pH ABG pCO2 at Pt Temp ABG pO2 at Pt Temp ABG HCO3 ABG O2 Sat (Measured) ABG O2 Content ABG Base Excess Manuel Test VBG pH 7.30 L POC VBG pCO2 51.8 POC VBG pO2 26.7 L Mixed VBG HCO3 24.6 Carboxyhemoglobin Methemoglobin Oxygen Flow Rate Sodium Potassium Chloride Carbon Dioxide Anion Gap BUN Creatinine Creat Clearance w eGFR Random Glucose Lactic Acid Calcium Total Bilirubin AST ALT Alkaline Phosphatase Creatine Kinase Creatine Kinase Index CK-MB (CK-2) Troponin I Total Protein Albumin Urine Color Urine Appearance Urine pH Ur Specific [place] Urine Protein Urine Glucose (UA) Urine Ketones Urine Blood Urine Nitrite Urine Bilirubin Urine Urobilinogen Ur Leukocyte Esterase Urine WBC (Auto) Urine RBC (Auto) Urine Bacteria Stool Occult Blood Blood Type Antibody Screen 02/04/17 02/04/17 02/04/17 15:10 15:53 15:53 WBC RBC Hgb Hct MCV MCH MCHC RDW Plt Count MPV Neutrophils % Lymphocytes % Monocytes % Eosinophils % Basophils % PT with INR INR PTT (Actin FS) Puncture Site ABG pH ABG pCO2 at Pt Temp ABG pO2 at Pt Temp ABG HCO3 ABG O2 Sat (Measured) ABG O2 Content ABG Base Excess Manuel Test VBG pH POC VBG pCO2 POC VBG pO2 Mixed VBG HCO3 Carboxyhemoglobin Methemoglobin Oxygen Flow Rate Sodium 160 H D Potassium 6.3 H* D Chloride 127 H D Carbon Dioxide 25 Anion Gap 8 BUN 141 H* D Creatinine 2.1 H D Creat Clearance w eGFR 22.33 Random Glucose 105 D Lactic Acid 1.7 Calcium 7.6 L Total Bilirubin 0.7 AST 33 ALT 16 D Alkaline Phosphatase 58 D Creatine Kinase 490 H Creatine Kinase Index 0.2 CK-MB (CK-2) 1.156 Troponin I < 0.02 Total Protein 6.1 L Albumin 1.7 L D Urine Color Yellow Urine Appearance Cloudy Urine pH 7.0 Ur Specific [place] 1.015 Urine Protein 1+ H Urine Glucose (UA) Negative Urine Ketones Negative Urine Blood Negative Urine Nitrite Negative Urine Bilirubin Negative Urine Urobilinogen Negative Ur Leukocyte Esterase 3+ H Urine WBC (Auto) 668 Urine RBC (Auto) 2 Urine Bacteria Rare Stool Occult Blood Blood Type Antibody Screen 02/04/17 02/04/17 02/04/17 15:53 16:32 16:57 WBC RBC Hgb Hct MCV MCH MCHC RDW Plt Count MPV Neutrophils % Lymphocytes % Monocytes % Eosinophils % Basophils % PT with INR INR PTT (Actin FS) Puncture Site Right radial ABG pH 7.39 ABG pCO2 at Pt Temp 37.3 ABG pO2 at Pt Temp 111.0 H ABG HCO3 22.0 ABG O2 Sat (Measured) 98.4 ABG O2 Content 13.1 L ABG Base Excess -2.1 L Manuel Test Positive VBG pH POC VBG pCO2 POC VBG pO2 Mixed VBG HCO3 Carboxyhemoglobin 1.7 Methemoglobin 0.2 L Oxygen Flow Rate 3l nasal cannula Sodium Potassium Chloride Carbon Dioxide Anion Gap BUN Creatinine Creat Clearance w eGFR Random Glucose Lactic Acid 2.0 Calcium Total Bilirubin AST ALT Alkaline Phosphatase Creatine Kinase Creatine Kinase Index CK-MB (CK-2) Troponin I Total Protein Albumin Urine Color Urine Appearance Urine pH Ur Specific [place] Urine Protein Urine Glucose (UA) Urine Ketones Urine Blood Urine Nitrite Urine Bilirubin Urine Urobilinogen Ur Leukocyte Esterase Urine WBC (Auto) Urine RBC (Auto) Urine Bacteria Stool Occult Blood Blood Type A POSITIVE Antibody Screen Negative 02/04/17 02/05/17 02/05/17 21:40 01:15 05:05 WBC 12.5 H D RBC 2.15 L Hgb 6.8 L* D Hct 22.0 L MCV 102.6 H MCH 31.6 MCHC 30.8 L RDW 15.6 Plt Count 127 L MPV 14.0 H Neutrophils % 60.5 Lymphocytes % 23.4 D Monocytes % 12.1 H Eosinophils % 3.8 Basophils % 0.2 PT with INR INR PTT (Actin FS) Puncture Site ABG pH ABG pCO2 at Pt Temp ABG pO2 at Pt Temp ABG HCO3 ABG O2 Sat (Measured) ABG O2 Content ABG Base Excess Manuel Test VBG pH POC VBG pCO2 POC VBG pO2 Mixed VBG HCO3 Carboxyhemoglobin Methemoglobin Oxygen Flow Rate Sodium 158 H Potassium 6.0 H Chloride 126 H Carbon Dioxide 24 Anion Gap 8 BUN 136 H* Creatinine 1.9 H Creat Clearance w eGFR Random Glucose 78 D Lactic Acid Calcium 7.8 L Total Bilirubin AST ALT Alkaline Phosphatase Creatine Kinase Creatine Kinase Index CK-MB (CK-2) Troponin I Total Protein Albumin Urine Color Urine Appearance Urine pH Ur Specific [place] Urine Protein Urine Glucose (UA) Urine Ketones Urine Blood Urine Nitrite Urine Bilirubin Urine Urobilinogen Ur Leukocyte Esterase Urine WBC (Auto) Urine RBC (Auto) Urine Bacteria Stool Occult Blood Negative Blood Type Antibody Screen Active Medications Generic Name Dose Route Start Last Admin Trade Name Freq PRN Reason Stop Dose Admin Acetaminophen 650 mg 02/04/17 18:42 Tylenol - PO Q4H PRN FEVER OR PAIN Acetaminophen 120 mg 02/04/17 18:54 Tylenol Suppository - RC Q6H PRN FEVER Divalproex Sodium 500 mg 02/04/17 22:35 02/04/17 22:55 Depakote Sprinkle Caps - PO 500 mg BID TANNER Administration Heparin Sodium (Porcine) 5,000 unit 02/04/17 22:00 02/04/17 22:58 Heparin - SQ 5,000 unit BID TANNER Administration Sodium Chloride 1,000 mls @ 100 mls/hr 02/04/17 18:44 02/04/17 19:38 1/2 Normal Saline IV 100 mls/hr ASDIR TANNER Administration Sodium Chloride 1,000 mls @ 1,000 mls/hr 02/05/17 07:52 Normal Saline - IV 02/05/17 08:51 ASDIR STA Mirtazapine 15 mg 02/04/17 22:00 02/04/17 22:53 Remeron - PO 15 mg HS TANNER Administration ASSESSMENT/PLAN: 86F w/ hx of subdural hematoma s/p fall (07/2016) resulting in seizures, SAH (), HTN, and HLD presenting from home with AMS. -sepsis: fever of 100.2, wbc of 12.5, no lactic acidosis, no tachycardia -UA with 3+ leukocyte esterase, 668 wbc -CXR: no acute pathology -sepsis likely 2/2 UTI. No hx of resistant organisms. -start course of ceftriaxone 1g qd -f/u urine and blood cx and sensitivities -AMS multifactorial- due to UTI vs. metabolic vs. interval increase in SDH Plan discussed with attending, Dr. Borjas. Dispo: We will continue to follow the patient. Thank you for this consultative opportunity. -Fortunato Queen MD PGY1 Visit type - Emergency Visit Emergency Visit: Yes ED Registration Date: 02/04/17 Care time: The patient presented to the Emergency Department on the above date and was hospitalized for further evaluation of their emergent condition. - New Patient This patient is new to me today: Yes Date on this admission: 02/05/17 - Critical Care Critical Care patient: No
[2017-02-05 08:17] LABS: GLUCOSE,RANDOM 35 mg/dL (74-106)
--- NOTE | 2017-02-05 08:29 | PN ---
Physical Exam: SUBJECTIVE: Patient seen and examined. She responds to touch, some direction. Eyes are closed mostly. Aid at bedside AM events: - Hypotensive 70/52, given fluids -> improved - Hypoglycemia, Glucose 35-> BGM 62, started d5 1/2 ns -> repeat sugar 100 OBJECTIVE: Vital Signs Period Temp Pulse Resp BP Sys/Han Pulse Ox Last 24 Hr 97.6 F-100.2 F 74-95 18-30 76-134/42-104 85-100 PE Neuro: alert, awake, non verbal at this time HEENT: dry MM, thrush? Pulm: r base crackles CV: s1 s2 rrr no mrg Abd: + GT site CDI abd soft, nt Ext: bilateral wrist contractures, no le edema CBCD WBC 12.5 K/mm3 (4.0-10.0) H D 02/05/17 05:05 RBC 2.15 M/mm3 (3.60-5.2) L 02/05/17 05:05 Hgb 6.8 GM/dL (10.7-15.3) L* D 02/05/17 05:05 Hct 22.0 % (32.4-45.2) L 02/05/17 05:05 MCV 102.6 fl (80-96) H 02/05/17 05:05 MCHC 30.8 g/dl (32.0-36.0) L 02/05/17 05:05 RDW 15.6 % (11.6-15.6) 02/05/17 05:05 Plt Count 127 K/MM3 (134-434) L 02/05/17 05:05 MPV 14.0 fl (7.5-11.1) H 02/05/17 05:05 CMP Sodium 159 mmol/L (136-145) H 02/05/17 05:05 Potassium 4.7 mmol/L (3.5-5.1) D 02/05/17 05:05 Chloride 127 mmol/L (98-107) H 02/05/17 05:05 Carbon Dioxide 23 mmol/L (21-32) 02/05/17 05:05 Anion Gap 9 (8-16) 02/05/17 05:05 BUN 127 mg/dL (7-18) H* 02/05/17 05:05 Creatinine 1.9 mg/dL (0.55-1.02) H 02/05/17 05:05 Creat Clearance w eGFR 25.06 (>60) 02/05/17 05:05 Calcium 7.9 mg/dL (8.5-10.1) L 02/05/17 05:05 Total Bilirubin 0.7 mg/dL (0.2-1.0) 02/05/17 05:05 AST 35 U/L (15-37) 02/05/17 05:05 ALT 16 U/L (12-78) 02/05/17 05:05 Alkaline Phosphatase 50 U/L (45-117) 02/05/17 05:05 Total Protein 5.4 g/dl (6.4-8.2) L 02/05/17 05:05 Albumin 1.6 g/dl (3.4-5.0) L 02/05/17 05:05 Active Medications Generic Name Dose Route Start Last Admin Trade Name Freq PRN Reason Stop Dose Admin Acetaminophen 650 mg 02/04/17 18:42 Tylenol - PO Q4H PRN FEVER OR PAIN Acetaminophen 120 mg 02/04/17 18:54 Tylenol Suppository - RC Q6H PRN FEVER Divalproex Sodium 500 mg 02/04/17 22:35 02/04/17 22:55 Depakote Sprinkle Caps - PO 500 mg BID TANNER Administration Heparin Sodium (Porcine) 5,000 unit 02/04/17 22:00 02/04/17 22:58 Heparin - SQ 5,000 unit BID TANNER Administration Sodium Chloride 1,000 mls @ 100 mls/hr 02/04/17 18:44 02/04/17 19:38 1/2 Normal Saline IV 100 mls/hr ASDIR TANNER Administration Sodium Chloride 1,000 mls @ 1,000 mls/hr 02/05/17 07:52 Normal Saline - IV 02/05/17 08:51 ASDIR STA Ceftriaxone Sodium 1 gm/ 100 mls @ 200 mls/hr 02/05/17 08:30 Dextrose IVPB DAILY TANNER Mirtazapine 15 mg 02/04/17 22:00 02/04/17 22:53 Remeron - PO 15 mg HS TANNER Administration Assessment: 86 year old female with pmhx recent subdural hematoma s/p fall ( diagnosed in 07/2016 managed at [facility]) HTN, HLD, seizures x1 after subdural hematoma (on depakote) followed by subarachnoid hemorrhage in 11/2106 admitted with sepsis and electrolyte disturbances Plan: 1. Sepsis - Urine appears to be source - Start ceftriaxone - Lactic acid wnl - ID seeing 2. Hypernatremia - 4.9 L free water deficit - Change fluids to D5 1/2 NS @ 100cc/hr - 250ml free water flushes q4hr through GT - Check BMP q6hr - Discussed with nephrology 3. Hyperkalemia - Resolved - Had 3 BM's overnight 4. Acute blood loss anemia - Transfuse 1uprbc now - Check CBC 2 hrs post transfusion 5. Hypotension - Due to sepsis - Responding to fluids - See fluids above 6. Hypoglycemia - Sugar with fluids as above 7. ARCHANA with elevated BUN - Renal fxn is down trending - Will send urine studies - Obtain kidney/bladder US - Keep mcelroy 8. Macrocytic Anemia - Stool guiac ordered negative - Pending folate and v b12, tsh 9. hx of sub arachnoid hemorrhage and subdural hematoma - Head CT as above 10. DVT - Heparin sq Problem List - Problems (1) Sepsis Code(s): A41.9 - SEPSIS, UNSPECIFIED ORGANISM (2) Sepsis associated hypotension Code(s): A41.9 - SEPSIS, UNSPECIFIED ORGANISM (3) Acute hypernatremia Code(s): E87.0 - HYPEROSMOLALITY AND HYPERNATREMIA (4) Hyperkalemia Code(s): E87.5 - HYPERKALEMIA (5) Subarachnoid hemorrhage Code(s): I60.9 - NONTRAUMATIC SUBARACHNOID HEMORRHAGE, UNSPECIFIED (6) Subdural hemorrhage Code(s): I62.00 - NONTRAUMATIC SUBDURAL HEMORRHAGE, UNSPECIFIED (7) Hyperlipidemia Code(s): E78.5 - HYPERLIPIDEMIA, UNSPECIFIED (8) Hypertension Code(s): I10 - ESSENTIAL (PRIMARY) HYPERTENSION (9) Seizure Code(s): R56.9 - UNSPECIFIED CONVULSIONS Visit type - Emergency Visit Emergency Visit: Yes ED Registration Date: 02/04/17 Care time: The patient presented to the Emergency Department on the above date and was hospitalized for further evaluation of their emergent condition. - New Patient This patient is new to me today: No - Critical Care Critical Care patient: No
[2017-02-05] MEDS ORDERED: CEFTRIAXONE 1 GM in DEXTROSE 5%-WATER - 100 ML IVPB SCH (08:30)
[2017-02-05] MEDS ORDERED: CEFTRIAXONE 1 G/50 ML PREMIX 50 ML IVPB SCH ×3 (08:46→10:00)
[2017-02-05] MEDS ORDERED: DEXTROSE 5%-0.45% SALINE 1,000 ML IV SCH (09:00)
--- NOTE | 2017-02-05 09:05 | PN ---
Teaching Attending Note Name of Resident: Fortunato Queen ATTENDING PHYSICIAN STATEMENT I saw and evaluated the patient. I reviewed the resident's note and discussed the case with the resident. I agree with the resident's findings and plan as documented. SUBJECTIVE: Case reviewed and discussed with Dr Queen Altered mental status Low grade temp OBJECTIVE: ASSESSMENT AND PLAN: Selected Entries 02/04/17 14:26 Temperature 100.2 F H Pulse Rate 74 Respiratory 28 H Rate Blood Pressure 79/49 O2 Sat by Pulse 85 L Oximetry (%) Assessment Sepsis syndrome urinary tract source Electrolyte disorder Subdural hematoma Plan Await c/s & give Ceftriaxone 1 gram daily IV hydration Suad MCNEILL
[2017-02-05] MEDS: DIVALPROEX SODIUM 125 MG SPRINKLE CAPS (FP) PO SCH (10:00)
[2017-02-05] MEDS: HEPARIN NA (PORCINE) 5,000 UNITS/ML 1ML VIAL SQ SCH ×2 (10:00→21:53)
[2017-02-05] MEDS ORDERED: SODIUM CHLORIDE 500 ML IV STA (12:21)
--- NOTE | 2017-02-05 12:31 | CON.NEP ---
Consult Consult Specialty:: nephrology Reason for Consultation:: ARCHANA - History of Present Illness Chief Complaint: SOB, AMS, History of Present Illness: History was taken from family at bedside. The pt is somnolent, not answering questions. 86F w/ hx of subdural hematoma s/p fall (07/2016) resulting in seizures, SAH (11/2016), subdural hematoma, HTN, and HLD presenting from home with SOB, AMS, hypotension, and low urine output for the past 3-4 days. The pt was recently hospitalized in [facility] for subdural hematoma after fall. She was intubated and stayed in ICU for a week. At her baseline, she is conversational but according to granddaughter she is very lethargic when taking medications prescribed after the recent hospitalization. Pt has also had subjective fevers, chills, mild SOB, and a non-productive cough. 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 SPECIALIST: Yes: Seizure, Other (subdural hematoma, subarachnoid hemorrhage) Cardio/Vascular: Yes: HTN, Hyperlipdemia Renal/: Yes: Renal Inusuff - Alcohol/Substance Use Hx Alcohol Use: No - Smoking History Smoking history: Unknown if ever smoked Have you smoked in the past 12 months: No Aproximately how many cigarettes per day: 0 - Social History ADL: Support Services History of Recent Travel: No Home Medications - Allergies Allergies/Adverse Reactions: Allergies Allergy/AdvReac Type Severity Reaction Status Date / Time No Known Allergies Allergy Verified 02/04/17 14:26 - Home Medications Home Medications: Ambulatory Orders Lisinopril [Prinivil] 20 mg PO DAILY 07/17/16 Atorvastatin Ca [Lipitor] 40 mg PO HS #30 tablet 11/25/16 Divalproex [Depakote -] 500 mg PO BID #60 tab 11/25/16 Mirtazapine [Remeron -] 15 mg PO DAILY #30 tablet 11/26/16 Family Disease History - Family Disease History Family History: Unable to Obtain Review of Systems Unable to obtain ROS, reason: NA Findings/Remarks: not following commands Nephrology Consult - Height Height: 5 ft 3 in - Weight Weight: 180 lb - BMI Body Mass Index (BMI): 31.8 - Lab Results CBC,BMP: CBC, BMP 02/05/17 05:05 02/05/17 05:05 Anion Gap: Anion Gap Anion Gap 9 (8-16) 02/05/17 05:05 - Imaging Ultrasound: Other (ordered) - Physical Examination Vital Signs: Vital Signs Temperature 98.6 F 02/05/17 06:00 Pulse Rate 88 02/05/17 06:00 Respiratory Rate 20 02/05/17 06:00 Blood Pressure 92/42 02/05/17 06:00 O2 Sat by Pulse Oximetry (%) 97 02/04/17 22:00 Constitutional: Yes: Calm, Other Eyes: Yes: PERRL, Other (EOMI not assessed) HENT: Yes: WNL, Atraumatic, Normocephalic Neck: Yes: WNL, Supple, Trachea Midline Cardiovascular: Yes: WNL, Regular Rate and Rhythm (distant heart sounds) Respiratory: Yes: WNL, Regular, CTA Bilaterally Gastrointestinal: Yes: WNL, Normal Bowel Sounds, Soft, Other (ped Tube inserted, ) Renal/: Yes: WNL, [place] Present Musculoskeletal: Yes: Other (the pt grimaces when touching upper and lower extremities, rigid extremities,) Extremities: Yes: Other Edema: Yes Edema: LLE: Trace, RLE: Trace Neurological: Yes: Lethargy Psychiatric: Yes: Other (Somnolent, not following commands) Problem List - Problems (1) Hyperkalemia Code(s): E87.5 - HYPERKALEMIA (2) Sepsis Code(s): A41.9 - SEPSIS, UNSPECIFIED ORGANISM (3) Sepsis associated hypotension Code(s): A41.9 - SEPSIS, UNSPECIFIED ORGANISM (4) Subdural hemorrhage Code(s): I62.00 - NONTRAUMATIC SUBDURAL HEMORRHAGE, UNSPECIFIED (5) Syncope Code(s): R55 - SYNCOPE AND COLLAPSE (6) Hyperlipidemia Code(s): E78.5 - HYPERLIPIDEMIA, UNSPECIFIED (7) Seizure Code(s): R56.9 - UNSPECIFIED CONVULSIONS Assessment/Plan Assessment: 86 year old female with pmhx recent subdural hematoma s/p fall, HTN , HLD, seizures admitted with sepsis and electrolyte disturbances 1AKI 1Sepsis 2Hypernatremia 3Hyperkalemia 4 anemia 5Hypotension 6Hypoglycemia 7h/o subarachnoid hemorrhage and subdural hematoma -will order 250 NS bolus Q4h, increase free water to feedings, f/u CMP q6h, free water deficit is 5 L -will obtain US renal/kidneys to r/o obstruction -will correct hypernatremia, cont 1/2NS at rate 100 cc/hr -will correct electrolites,monitor CMP -continue NS boluses for hypotension -continue antibiotics for sepsis, f/u cultures, ID recommendations -cont dextrose with 1/2 NS Thank you for this consultative opportunity.
--- NOTE | 2017-02-05 12:55 | EKG ---
Test Reason : Blood Pressure : / mmHG Vent. Rate : 088 BPM Atrial Rate : 088 BPM P-R Int : 128 ms QRS Dur : 072 ms QT Int : 354 ms P-R-T Axes : 039 -53 -14 degrees QTc Int : 428 ms NORMAL SINUS RHYTHM LEFT AXIS DEVIATION T WAVE ABNORMALITY, CONSIDER ANTERIOR ISCHEMIA ABNORMAL ECG WHEN COMPARED WITH ECG OF 24-NOV-2016 09:59, BORDERLINE CRITERIA FOR LATERAL INFARCT ARE NO LONGER PRESENT Confirmed by LISA MCNEILL, LOC ([id number]) on 02/05/2017 12:54:51 PM Referred By: Confirmed By:LOC GONZALEZ MD
[2017-02-05 13:06] LABS: ANION GAP 8 (8-16); CALCIUM 7.7 mg/dL (8.5-10.1); CO2 24 mmol/L (21-32); CREATININE 1.8 mg/dL (0.55-1.02); GLUCOSE,RANDOM 102 mg/dL (74-106)
--- NOTE | 2017-02-05 13:53 | CONSULT ---
Consult - text type - Consultation Consultation Note: NEUROLOGY CONSULTATION is greatly appreciated: Events reviewed. Pt examined wit daughter at the bedside. This 86 yo RH woman is maintained at home with H/O HTN, Chol, ASHD- on lisinopril, atorvastatin, mirtazapine. Recent h/o SDH and 1 isolated seizure- on Depakote 500 BID. Was said to be sitting without assistance and communicating in Slovenian until the last week when she has had progressive loss of function and low-grade fevers. On admission: CT of head (reviewed): Large, chronic (hypodense) left subdural hygroma with mass shift mitigated by significant underlying atrophy and ex-vacuo ventriculomegally. Temp= 100.2. WBC= 12.5K. + Lactic acidosis. Urinary WBC= 668. Started on ceftriaxone. Dr. Erik Borjas's consultation is read and appreciated. GAMALIEL: No evidence of head trauma. No bruits. Neck rigid in all directions. NEURO: Awake but rests with eyes closed. Follows no commands. + Glabella, snout, suck, Left grasp. Mild right facial. Full EOM's Purposeful mov'ts of the left side to sternal rub and withdrawal Right hemipareis. Possible Decorticate posturing on the R? Left side exhibits a rhythmic extrapyramidal rest tremor. Brisk reflexes, B/L Babinski's Withdraws L>>>>R to pinch. IMP: 1. Moderately severe, underlying OMS 2. Clear and severe, Left cerebral accentuation due to large subdural hygroma with mass effect 3. Parkinsonian features. 4. Subacute deterioration due to Toxic- Metabolic Encephalopathy ( Urosepsis). Suggest: Continue hydration and antibiotics. NPO until more alert. Check B12, TSH. R/O coagulopathy. Will reexamine with the infection has cleared to advise about Subdural (but suspect conservative Rx will continue to hold the day.) Thank you very much, Reece Sotomayor MD
[2017-02-05] MEDS ORDERED: ACETAMINOPHEN 1000 MG/100 ML VIAL (NON FORMULARY) IVPB ONE (14:15)
--- NOTE | 2017-02-05 14:28 | PN ---
Teaching Attending Note Name of Resident: Tracie Licea (Nephrology) ATTENDING PHYSICIAN STATEMENT I saw and evaluated the patient. I reviewed the resident's note and discussed the case with the resident. I agree with the resident's findings and plan as documented. Nephrology Consult Pt is an 86 year old female with pmhx of HTN, dubdural hematoma, and epilepsy who was brought to the ER with deterioration of mental status. She was also found to by hypotensive. I was called to evaluate her for ARCHANA and and hypernatremia. She is unable to give much history. Her family are at bedside and assisted. Please see resident note. PMHx HTN subdural hematoma pshx peg tube nkda social hx neg ros neg Current Medications Generic Name Dose Route Start Last Admin Trade Name Freq PRN Reason Stop Dose Admin Acetaminophen 650 mg 02/04/17 18:42 Tylenol - PO Q4H PRN FEVER OR PAIN Acetaminophen 120 mg 02/04/17 18:54 Tylenol Suppository - RC Q6H PRN FEVER Divalproex Sodium 500 mg 02/04/17 22:35 02/04/17 22:55 Depakote Sprinkle Caps - PO 500 mg BID TANNER Administration Heparin Sodium (Porcine) 5,000 unit 02/04/17 22:00 02/04/17 22:58 Heparin - SQ 5,000 unit BID TANNER Administration CEFTRIAXONE 1 G/50 ML PREMIX 50 mls @ 100 mls/hr 02/05/17 10:00 Ceftriaxone 1 Gm-D5w Bag IVPB DAILY TANNER Dextrose/Sodium Chloride 1,000 mls @ 100 mls/hr 02/05/17 09:00 D5-1/2ns - IV ASDIR TANNER Mirtazapine 15 mg 02/04/17 22:00 02/04/17 22:53 Remeron - PO 15 mg HS TANNER Administration Laboratory Tests 11/24/16 02/04/17 02/04/17 06:30 15:10 15:53 Sodium 137 160 H D Potassium BUN Creatinine Urine Protein 1+ H Stool Occult Blood 02/04/17 02/05/17 02/05/17 21:40 01:15 05:05 Sodium 159 H Potassium BUN 136 H* 127 H* Creatinine Urine Protein Stool Occult Blood Negative 02/05/17 12:25 Sodium 158 H Potassium 4.9 BUN 113 H* Creatinine 1.8 H Urine Protein Stool Occult Blood Last Vital Signs Temp Pulse Resp BP Pulse Ox 98.6 F 88 20 92/42 97 02/05/17 06:00 02/05/17 06:00 02/05/17 06:00 02/05/17 06:00 02/04/17 22:00 cardio s1s2 pulm on nc o2 GI soft, peg tube ext trace edema neuro lethargic Impression 1. ARCHANA 2. hypernatremia 3. hyperkalemia 4. anemia 5. epilepsy 6. hx of subdural hematoma 7. hypotension 8. hypoglycemia Plan - renal function is improving with hydration - transfuse prbc and monitor hg - IV bolus for hypotension, may need pressor if she does not respond - potassium level improved - discussed with family - discussed with medical team - pt is being transferred to ICU - check ua, urine lytes and icu rn - check renal ultrasound - will give d51/2 ns - free water via peg tube - monitor bmp, repeat levels this afternoon - will follow Dr Florentino
[2017-02-05] MEDS ORDERED: PROPOFOL 20 ML ONE (15:44)
[2017-02-05] MEDS ORDERED: PROPOFOL 1,000,000 MCG/100 ML VIAL ONE (15:44)
[2017-02-05] MEDS ORDERED: NOREPINEPHRINE BITARTRATE 4 MG/4 ML ML IV ONE (16:07)
[2017-02-05] MEDS: PROPOFOL IV SCH ×2 (16:30→21:54)
[2017-02-05] MEDS: NOREPINEPHRINE BITARTRATE 8,000 MCG in DEXTROSE 5%-WATER - 492 ML IV SCH (16:30)
--- NOTE | 2017-02-05 16:44 | PROC ---
Intubation - Intubation Reason for Intubation: Airway Protection Time of Intubation: 16:15 Intubation Method: orotracheal Blade used: Glidescope Tube Size (cm): 7.5 Tube position @ lip (cm): 22 Tube position confirmed by: Breath sounds Breath Sounds after Intubation: equal Post Intubation Xray: Yes Remarks: Dr. Abdalla present
--- NOTE | 2017-02-05 16:49 | PROC ---
Central Line Insertion Indication: Vasopressor Risks and Benefits Explained: Yes Consent on Chart: Yes Central Line: Triple Lumen Catheter Anesthesia: 1% Lidocaine Sterile Technique: Yes Ultrasound Guided Assistance: Yes Position: Right Internal Jugular Post Insertion: Yes: Bilateral Breath Sounds, Bilateral Chest Expansion, Chest X-Ray Ordered Sterile Dressing Applied: Yes
[2017-02-05 16:56] LABS: ARTERIAL BLOOD GAS BASE EXCESS -5.7 meq/l (-2-2); ARTERIAL BLOOD GAS HCO3 19.5 meq/L (22-26); ARTERIAL BLOOD GAS pH 7.31 (7.35-7.45)
[2017-02-05] MEDS ORDERED: ETOMIDATE 40 MG/20 ML VIAL IVPUSH ONE (16:57)
[2017-02-05] MEDS ORDERED: MIDAZOLAM HCL 5 MG/1 ML Single Dose Vial IVPUSH ONE (16:57)
[2017-02-05 16:58] LABS: ALLENS TEST POSITIVE; ART PUNCT SITE RIGHT RADIAL; LPM/O2% 100; PT. ON O2? YES
[2017-02-05 16:59] LABS: TYPE OF O2 MECH VENT; VENT RATE 12; VT/PRESS 450
--- NOTE | 2017-02-05 17:08 | PN ---
Progress Note (short form) - Note Progress Note: 86 y/o F with PMH recent subdural hematoma s/p fall (diagnosed in 07/2016) HTN, HLD, one episode of seizures after subdural hematoma (on depakote), followed by subarachnoid hemorrhage in 11/2106 where dose of depakote was increased. Per medical record, pt is conversational at baseline, however over the last few days her mental status deteriorated, as she developed chills, SOB and hypotension. While in ED, pt became hypotensive (70/52), received fluids and became tachypneic. Pt admitted to ICU for continued monitoring for sepsis 2/2 urinary source. After coming to ICU, pt became increasingly tachpneic with RR into high 30's and accessory muscle use. She also was hypotensive ranging in 70's/40's. Pt was immediately intubated and central line placed in R IJ. ID #sepsis 2/2 urinary source -has started ceftriaxone -Hypotension 70's/40's, central line placed R IJ, started on levo -UA: 1+ protein, 3+ leuk esterase, 668 WBCs -UCx pending RENAL #Hypernatremia -fluids changed to D51/2NS @ 100 cc/hr -250 ml free water flushes 14h though GT -F/u BMP #ARCHANA -BUN/Cr trending down (113/1.8) most recently -F/u renal sono HEME #Acute blood loss anemia -No active bleeding present, most likely not 2/2 bleed as would not drop H&H so significantly -Stool guiac negative -8.2 to 6.8 Hb drop -Received 1 unit of PRBCs today (02/05/17) -Continue to f/u CBC NEURO # hx of sub arachnoid hemorrhage and subdural hematoma - Head CT: increased size in b/l subdural hematomas (L>R) - seen by Neuro - F/u B12, TSH to r/o coagulopathy #DVT Prophylaxis - Heparin sq #F/E/N D51/2NS @ 100cc/hr Will monitor electrolytes NPO until more alert #Disposition Continued monitoring in ICU
--- NOTE | 2017-02-05 20:29 | CONSULT ---
Consult Consult Specialty:: Pulmonary and critical care Reason for Consultation:: Hypotension - History of Present Illness Chief Complaint: Shortness of breath History of Present Illness: This is an 86 year old woman with pmhx of subdural hematoma s/p fall in 07/2016, HTN, HLD, seizure (on Depakote), subarachnoid hemorrhage 11/2016 (Depakote dosing increased). Patient verbal/interactive at baseline and in her usual state of health until she developed shortness of breath and chills and was brought to the ED where she was found to be hypotensive and tachypneic with +UA s/p fluid resuscitation, broad spectrum antibiotics, central line placement, and intubation. 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, Other (subdural hematoma, subarachnoid hemorrhage) Cardio/Vascular: Yes: HTN, Hyperlipdemia Renal/: Yes: Renal Inusuff - Alcohol/Substance Use Hx Alcohol Use: No - Smoking History Smoking history: Unknown if ever smoked Have you smoked in the past 12 months: No Aproximately how many cigarettes per day: 0 - Social History ADL: Support Services History of Recent Travel: No Home Medications - Allergies Allergies/Adverse Reactions: Allergies Allergy/AdvReac Type Severity Reaction Status Date / Time No Known Allergies Allergy Verified 02/04/17 14:26 - Home Medications Home Medications: Ambulatory Orders Lisinopril [Prinivil] 20 mg PO DAILY 07/17/16 Atorvastatin Ca [Lipitor] 40 mg PO HS #30 tablet 11/25/16 Divalproex [Depakote -] 500 mg PO BID #60 tab 11/25/16 Mirtazapine [Remeron -] 15 mg PO DAILY #30 tablet 11/26/16 Physical Exam Vital Signs: Vital Signs Temperature 99.0 F 02/05/17 14:55 Pulse Rate 77 02/05/17 16:30 Respiratory Rate 28 H 02/05/17 16:00 Blood Pressure 97/47 02/05/17 16:30 O2 Sat by Pulse Oximetry (%) 99 02/05/17 10:00 Constitutional: Yes: No Distress, Calm Eyes: Yes: WNL HENT: Yes: WNL Cardiovascular: Yes: Regular Rate and Rhythm Respiratory: Yes: Intubated, Mechanically Ventilated Gastrointestinal: Yes: Normal Bowel Sounds Renal/: Yes: WNL Edema: No Edema: LUE: Trace, RUE: Trace, LLE: Trace, RLE: Trace Neurological: Yes: Unresponsive (Patient intubated and sedated) Labs: CBC, BMP 02/05/17 05:05 02/05/17 12:25 Assessment/Plan This is an 86 year old woman with pmhx of subdural and subsequent subarachnoid hemorrhage, in her usual state of health until yesterday when she developed shortness of breath and chills, brought to the ED and found to be tachypneic and hypotensive with +UA requiring IVF resuscitation, antibiotics, and mechanical ventilation. #Severe sepsis with urinary source -IVF resuscitation -Continue Levophed, titrate for MAP goal>65 -Continue Ceftriaxone -Trend lactate -Trend wbc/fever curve -F/u urine culture #Hypernatremia/ARCHANA -Continue D51/2NS -Free water repletion -Trend BMP -Would send urine electrolytes -Consider renal US #Anemia -Trend H/H -Transfuse for goal hgb >7 -Monitor for si of active bleed #Subcutaneous Heparin for DVT ppx
[2017-02-05] MEDS ORDERED: ACETAMINOPHEN 120 MG SUPP.RECT RC PRN (21:44)
[2017-02-05] MEDS: DEXTROSE 5%-0.45% SALINE 1,000 ML IV SCH (21:53)
[2017-02-05] MEDS: CHLORHEXIDINE GLUCONATE 0.12% 15ML CUP MM SCH (21:53)
[2017-02-05] MEDS: MIRTAZAPINE 15 MG TABLET (FP) PO SCH (21:54)
[2017-02-05 21:58] LABS: ANION GAP 7 (8-16); CALCIUM 7.3 mg/dL (8.5-10.1); CO2 22 mmol/L (21-32); CREATININE 1.5 mg/dL (0.55-1.02); GLUCOSE,RANDOM 140 mg/dL (74-106)
[2017-02-05] MEDS: DIVALPROEX SODIUM 500 MG TABLET E.C. PO SCH (22:00)
[2017-02-05] MEDS ORDERED: CHLORHEXIDINE GLUCONATE 4% CLEANSER FOR DECOLONIZATION TP SCH (22:00)
[2017-02-05] MEDS ORDERED: MUPIROCIN 2% TOPICAL OINTMENT FOR DECOLONIZATION NS SCH (22:00)
[2017-02-06 06:17] LABS: BASO % 0.3 % (0-2.0); EOS % 4.7 % (0-4.5); MCH 32.2 pg (25.7-33.7); MCHC 33.2 g/dl (32.0-36.0); MEAN CELL VOLUME 96.9 fl (80-96); MEAN PLT VOLUME 13.6 fl (7.5-11.1); NEUT % 75.9 % (42.8-82.8); PLATELET COUNT 144 K/MM3 (134-434); RDW 17.3 % (11.6-15.6); WHITE BLOOD COUNT 9.7 K/mm3 (4.0-10.0)
[2017-02-06] MEDS ORDERED: NOREPINEPHRINE BITARTRATE 4 MG/4 ML ML IV ONE ×2 (06:35→22:28)
[2017-02-06 06:38] LABS: ANION GAP 7 (8-16); CALCIUM 7.5 mg/dL (8.5-10.1); CO2 23 mmol/L (21-32); CREATININE 1.3 mg/dL (0.55-1.02); GLUCOSE,RANDOM 135 mg/dL (74-106)
[2017-02-06 07:10] LABS: MAGNESIUM 2.6 mg/dL (1.8-2.4); PHOSPHOROUS 4.4 mg/dL (2.5-4.9)
[2017-02-06 07:25] LABS: URINE APPEARANCE CLEAR; URINE BILIRUBIN NEGATIVE (NEGATIVE); URINE BLOOD 1+ (NEGATIVE); URINE COLOR LTYELLOW; URINE GLUCOSE (UA) NEGATIVE (NEGATIVE); URINE KETONE NEGATIVE (NEGATIVE); URINE NITRITE NEGATIVE (NEGATIVE); URINE UROBILINOGEN NEGATIVE mg/dL (0.2-1.0)
--- NOTE | 2017-02-06 08:16 | PN ---
Progress Note, Physician Chief Complaint: ID I saw this 86 year old female yesterday during the day for altered mental status. She was quite stable at that time and we treated for urinary infection. Received IVF for hypotension amd a blood transfusion for anemia and became SOB requiring intubation. She remains afebrile and her WBC count is normal. Platelets are low secondary infection and her renal function has improved. Given Vanco Zosyn on admission and Ceftriaxone. Blood culture NO GROWTH. Urine c /s pending On pressors - Current Medication List Current Medications: Active Medications Acetaminophen (Tylenol -) 650 mg PO Q4H PRN PRN Reason: FEVER OR PAIN Acetaminophen (Tylenol Suppository -) 120 mg RC Q6H PRN PRN Reason: FEVER Chlorhexidine Gluconate (Peridex -) 15 ml MM BID [facility] Last Admin: 02/05/17 21:53 Dose: 15 ml Divalproex Sodium (Depakote -) 500 mg PO BID [facility] Last Admin: 02/05/17 22:00 Dose: 500 mg Heparin Sodium (Porcine) (Heparin -) 5,000 unit SQ BID [facility] Last Admin: 02/05/17 21:53 Dose: 5,000 unit Propofol (Diprivan -) 1,000 mcg in 0.1 mls @ 2.449 mls/hr IV TITR TANNER; 5 MCG/KG /MIN PRN Reason: Protocol Last Admin: 02/05/17 21:54 Dose: 30 mcg/kg/min, 14.696 mls/hr Norepinephrine Bitartrate 8, (000 mcg/ Dextrose) 500 mls @ 22.5 mls/hr IV ASDIR TANNER; 6 MCG/MIN PRN Reason: Protocol Last Titration: 02/05/17 16:30 Dose: 10 mcg/min, 37.5 mls/hr CEFTRIAXONE 1 G/50 ML PREMIX (Ceftriaxone 1 Gm-D5w Bag) 50 mls @ 100 mls/hr IVPB DAILY TANNER Dextrose/Sodium Chloride (D5-1/2ns -) 1,000 mls @ 100 mls/hr IV ASDIR TANNER Last Admin: 02/05/17 21:53 Dose: Not Given Mirtazapine (Remeron -) 15 mg PO HS [facility] Last Admin: 02/05/17 21:54 Dose: 15 mg - Objective Vital Signs: Vital Signs Temperature 99.2 F 02/06/17 06:00 Pulse Rate 96 H 02/06/17 06:00 Respiratory Rate 12 02/06/17 06:57 Blood Pressure 136/64 02/06/17 06:00 O2 Sat by Pulse Oximetry (%) 100 02/05/17 21:00 Constitutional: Yes: Other (Intubated) Neck: Yes: WNL, Supple Cardiovascular: Yes: Regular Rate and Rhythm, S1, S2. No: Murmur, Rub Respiratory: Yes: WNL, Regular, CTA Bilaterally. No: Rales, Rhonchi Gastrointestinal: Yes: WNL, Normal Bowel Sounds, Soft. No: Splenomegaly, Tenderness, Tenderness, Rebound Extremities: No: Cold, Cool, Cyanosis Edema: No Labs: CBC, BMP 02/06/17 05:45 02/06/17 05:00 INR, PTT INR 1.03 (0.82-1.09) 02/04/17 15:10 Problem List - Problems (1) UTI (urinary tract infection) Code(s): N39.0 - URINARY TRACT INFECTION, SITE NOT SPECIFIED (2) Sepsis Code(s): A41.9 - SEPSIS, UNSPECIFIED ORGANISM (3) Subarachnoid hemorrhage Code(s): I60.9 - NONTRAUMATIC SUBARACHNOID HEMORRHAGE, UNSPECIFIED Assessment/Plan Laboratory Tests 02/04/17 02/04/17 02/04/17 15:10 15:53 15:53 WBC Hgb Hct Plt Count INR 1.03 ABG pH ABG pCO2 at Pt Temp ABG pO2 at Pt Temp Oxygen Flow Rate Sodium Potassium Chloride Carbon Dioxide BUN Creatinine Random Glucose Lactic Acid 1.7 Calcium Total Bilirubin Ur Leukocyte Esterase 3+ H Urine WBC (Auto) 668 Urine RBC (Auto) 2 02/04/17 02/05/17 02/05/17 16:57 01:15 05:05 WBC 12.5 H D Hgb 6.8 L* D Hct 22.0 L Plt Count 127 L INR ABG pH ABG pCO2 at Pt Temp ABG pO2 at Pt Temp Oxygen Flow Rate Sodium 158 H Potassium 6.0 H Chloride 126 H Carbon Dioxide 24 BUN 136 H* Creatinine 1.9 H Random Glucose 78 D Lactic Acid 2.0 Calcium 7.8 L Total Bilirubin Ur Leukocyte Esterase Urine WBC (Auto) Urine RBC (Auto) 02/05/17 02/05/17 02/06/17 05:05 16:49 05:00 WBC Hgb Hct Plt Count INR ABG pH 7.31 L ABG pCO2 at Pt Temp 40.0 ABG pO2 at Pt Temp 442.0 H* Oxygen Flow Rate 100 Sodium 154 H Potassium 3.9 Chloride 124 H Carbon Dioxide BUN 80 H Creatinine 1.3 H Random Glucose 135 H Lactic Acid Calcium Total Bilirubin 0.7 Ur Leukocyte Esterase Urine WBC (Auto) Urine RBC (Auto) 02/06/17 05:45 WBC 9.7 Hgb Hct Plt Count 144 INR ABG pH ABG pCO2 at Pt Temp ABG pO2 at Pt Temp Oxygen Flow Rate Sodium Potassium Chloride Carbon Dioxide BUN Creatinine Random Glucose Lactic Acid Calcium Total Bilirubin Ur Leukocyte Esterase Urine WBC (Auto) Urine RBC (Auto) Assessment Sepsis syndrome with shock Urinary tract infection blood cultures no growth Subdural hematomas Anemia post blood transfusion HCT 22 on admission Plan Reculture blood sputum Stop Ceftriaxone and given Zosyn with gentamicin 200mg Discussed with primary care team Suad MCNEILL
[2017-02-06 08:17] LABS: URINE PROTEIN 1+ (NEGATIVE)
[2017-02-06] MEDS ORDERED: GENTAMICIN SO4 *PEDIATRIC* 20 MG/2 ML VIAL IVPB ONE (08:26)
[2017-02-06] MEDS ORDERED: PIPERACIL/TAZOB 3.375 GM 3.375 GM/50 ML PREMIX IVPB SCH (08:30)
--- NOTE | 2017-02-06 08:30 | PN ---
Physical Exam: SUBJECTIVE: Patient seen and examined. Pt became hypotensive yesterday, transferred to ICU, ventilated, sedated, and on norepinephrine. Pt unresponsive to verbal stimuli OBJECTIVE: Vital Signs Period Temp Pulse Resp BP Sys/Han Pulse Ox Last 24 Hr 98.7 F-100.4 F 65-100 12-36 72-137/35-73 97-100 GENERAL: sedated, unresponsive, ventilated HEENT: on ventilator, NC, AT NECK: Trachea midline, full range of motion, supple. LUNGS: mechanical breath sounds, no rales HEART: Regular rate and rhythm, S1, S2 without murmur, rub or gallop. ABDOMEN: Soft, nontender, nondistended, normoactive bowel sounds, no guarding, no rebound, no hepatosplenomegaly, no masses. EXTREMITIES: warm NEUROLOGICAL: unable to be fully assessed Laboratory Results - last 24 hr 02/04/17 02/04/17 02/04/17 15:00 15:53 15:53 WBC RBC Hgb Hct MCV MCH MCHC RDW Plt Count MPV Neutrophils % Lymphocytes % Monocytes % Eosinophils % Basophils % Puncture Site ABG pH ABG pCO2 at Pt Temp ABG pO2 at Pt Temp ABG HCO3 ABG O2 Sat (Measured) ABG O2 Content ABG Base Excess Manuel Test VBG pH 7.30 L POC VBG pCO2 51.8 POC VBG pO2 26.7 L Mixed VBG HCO3 24.6 O2 Delivery Device Oxygen Flow Rate Vent Mode Vent Rate PEEP Pressure Support Vent Sodium Potassium Chloride Carbon Dioxide Anion Gap BUN Creatinine Creat Clearance w eGFR POC Glucometer Random Glucose Lactic Acid 1.7 Calcium Phosphorus Magnesium Total Bilirubin AST ALT Alkaline Phosphatase Total Protein Albumin Vitamin B12 Serum Folate Urine Color Urine Appearance Urine pH Ur Specific [place] Urine Protein Urine Glucose (UA) Urine Ketones Urine Blood Urine Nitrite Urine Bilirubin Urine Urobilinogen Blood Type A POSITIVE Antibody Screen Negative Crossmatch See Detail 02/05/17 02/05/17 02/05/17 05:05 05:05 06:32 WBC RBC Hgb Hct MCV MCH MCHC RDW Plt Count MPV Neutrophils % Lymphocytes % Monocytes % Eosinophils % Basophils % Puncture Site ABG pH ABG pCO2 at Pt Temp ABG pO2 at Pt Temp ABG HCO3 ABG O2 Sat (Measured) ABG O2 Content ABG Base Excess Manuel Test VBG pH POC VBG pCO2 POC VBG pO2 Mixed VBG HCO3 O2 Delivery Device Oxygen Flow Rate Vent Mode Vent Rate PEEP Pressure Support Vent Sodium 159 H Potassium 4.7 D Chloride 127 H Carbon Dioxide 23 Anion Gap 9 BUN 127 H* Creatinine 1.9 H Creat Clearance w eGFR 25.06 POC Glucometer Random Glucose 35 L* D Lactic Acid Calcium 7.9 L Phosphorus 4.2 Magnesium 3.0 H D Total Bilirubin 0.7 AST 35 ALT 16 Alkaline Phosphatase 50 Total Protein 5.4 L Albumin 1.6 L Vitamin B12 Cancelled Serum Folate Cancelled Urine Color Ltyellow Urine Appearance Clear Urine pH 5.0 D Ur Specific [place] 1.017 Urine Protein 1+ H Urine Glucose (UA) Negative Urine Ketones Negative Urine Blood 1+ H Urine Nitrite Negative Urine Bilirubin Negative Urine Urobilinogen Negative Blood Type Antibody Screen Crossmatch 02/05/17 02/05/17 02/05/17 08:18 08:38 08:50 WBC RBC Hgb Hct MCV MCH MCHC RDW Plt Count MPV Neutrophils % Lymphocytes % Monocytes % Eosinophils % Basophils % Puncture Site ABG pH ABG pCO2 at Pt Temp ABG pO2 at Pt Temp ABG HCO3 ABG O2 Sat (Measured) ABG O2 Content ABG Base Excess Manuel Test VBG pH POC VBG pCO2 POC VBG pO2 Mixed VBG HCO3 O2 Delivery Device Oxygen Flow Rate Vent Mode Vent Rate PEEP Pressure Support Vent Sodium Potassium Chloride Carbon Dioxide Anion Gap BUN Creatinine Creat Clearance w eGFR POC Glucometer 62 100 Random Glucose Lactic Acid Calcium Phosphorus Magnesium Total Bilirubin AST ALT Alkaline Phosphatase Total Protein Albumin Vitamin B12 Serum Folate Urine Color Urine Appearance Urine pH Ur Specific [place] Urine Protein Urine Glucose (UA) Urine Ketones Urine Blood Urine Nitrite Urine Bilirubin Urine Urobilinogen Blood Type A POSITIVE Antibody Screen Crossmatch 02/05/17 02/05/17 02/05/17 12:25 16:49 21:15 WBC RBC Hgb Hct MCV MCH MCHC RDW Plt Count MPV Neutrophils % Lymphocytes % Monocytes % Eosinophils % Basophils % Puncture Site Right radial ABG pH 7.31 L ABG pCO2 at Pt Temp 40.0 ABG pO2 at Pt Temp 442.0 H* ABG HCO3 19.5 L ABG O2 Sat (Measured) 100.0 H* ABG O2 Content 13.4 L ABG Base Excess -5.7 L Manuel Test Positive VBG pH POC VBG pCO2 POC VBG pO2 Mixed VBG HCO3 O2 Delivery Device Mech vent Oxygen Flow Rate 100 Vent Mode A/c Vent Rate 12 PEEP 5.0 Pressure Support Vent 450 Sodium 158 H 155 H Potassium 4.9 4.0 Chloride 126 H 126 H Carbon Dioxide 24 22 Anion Gap 8 7 L BUN 113 H* 94 H Creatinine 1.8 H 1.5 H Creat Clearance w eGFR POC Glucometer Random Glucose 102 D 140 H D Lactic Acid Calcium 7.7 L 7.3 L Phosphorus Magnesium Total Bilirubin AST ALT Alkaline Phosphatase Total Protein Albumin Vitamin B12 Serum Folate Urine Color Urine Appearance Urine pH Ur Specific [place] Urine Protein Urine Glucose (UA) Urine Ketones Urine Blood Urine Nitrite Urine Bilirubin Urine Urobilinogen Blood Type Antibody Screen Crossmatch 02/06/17 02/06/17 05:00 05:45 WBC 9.7 RBC 3.00 L D Hgb 9.6 L D Hct 29.0 L D MCV 96.9 H MCH 32.2 MCHC 33.2 RDW 17.3 H D Plt Count 144 MPV 13.6 H Neutrophils % 75.9 D Lymphocytes % 10.0 D Monocytes % 9.1 Eosinophils % 4.7 H Basophils % 0.3 Puncture Site ABG pH ABG pCO2 at Pt Temp ABG pO2 at Pt Temp ABG HCO3 ABG O2 Sat (Measured) ABG O2 Content ABG Base Excess Manuel Test VBG pH POC VBG pCO2 POC VBG pO2 Mixed VBG HCO3 O2 Delivery Device Oxygen Flow Rate Vent Mode Vent Rate PEEP Pressure Support Vent Sodium 154 H Potassium 3.9 Chloride 124 H Carbon Dioxide 23 Anion Gap 7 L BUN 80 H Creatinine 1.3 H Creat Clearance w eGFR POC Glucometer Random Glucose 135 H Lactic Acid Calcium 7.5 L Phosphorus 4.4 Magnesium 2.6 H Total Bilirubin AST ALT Alkaline Phosphatase Total Protein Albumin Vitamin B12 Serum Folate Urine Color Urine Appearance Urine pH Ur Specific [place] Urine Protein Urine Glucose (UA) Urine Ketones Urine Blood Urine Nitrite Urine Bilirubin Urine Urobilinogen Blood Type Antibody Screen Crossmatch Active Medications Generic Name Dose Route Start Last Admin Trade Name Freq PRN Reason Stop Dose Admin Acetaminophen 650 mg 02/05/17 21:44 Tylenol - PO Q4H PRN FEVER OR PAIN Acetaminophen 120 mg 02/05/17 21:44 Tylenol Suppository - RC Q6H PRN FEVER Chlorhexidine Gluconate 15 ml 02/05/17 22:00 02/05/17 21:53 Peridex - MM 15 ml BID TANNER Administration Divalproex Sodium 500 mg 02/05/17 22:00 02/05/17 22:00 Depakote - PO 500 mg BID TANNER Administration Heparin Sodium (Porcine) 5,000 unit 02/05/17 22:00 02/05/17 21:53 Heparin - SQ 5,000 unit BID TANNER Administration Propofol 1,000 mcg in 0.1 mls @ 2.449 mls/hr 02/05/17 17:00 02/05/17 21:54 Diprivan - IV 30 mcg/kg/min TITR TANNER 14.696 mls/hr Protocol Administration 5 MCG/KG/MIN Norepinephrine Bitartrate 8, 500 mls @ 22.5 mls/hr 02/05/17 17:00 02/05/17 16 :30 000 mcg/ Dextrose IV 10 mcg/min ASDIR TANNER 37.5 mls/hr Protocol Titration 6 MCG/MIN Dextrose/Sodium Chloride 1,000 mls @ 100 mls/hr 02/05/17 21:44 02/05/17 21:53 D5-1/2ns - IV Not Given ASDIR TANNER Piperacillin/Tazobactam/Dextrose 50 mls @ 100 mls/hr 02/06/17 08:30 Zosyn 3.375gm Ivpb (Premix) IVPB Q8H-IV TANNER Protocol Gentamicin Sulfate 200 mg/ 100 mls @ 100 mls/hr 02/06/17 08:25 Sodium Chloride IVPB 02/06/17 09:24 ONCE ONE Mirtazapine 15 mg 02/05/17 22:00 02/05/17 21:54 Remeron - PO 15 mg HS TANNER Administration Piperacillin/Tazobactam/Dextrose 3.375 gm 02/06/17 08:30 Zosyn 3.375gm Ivpb (Premix) IVPB Q8H-IV TANNER ASSESSMENT/PLAN: 86F w/ hx of subdural hematoma s/p fall (07/2016) resulting in seizures, SAH (), HTN, and HLD presenting from home with AMS. -UTI sepsis with now shock on pressors -stop ceftriaxone, start zosyn and gentamicin -new blood cx, sputum cx, and CXR ordered. f/u results -AMS multifactorial- due to UTI vs. metabolic vs. interval increase in SDH Plan discussed with attending, Dr. Borjas. Dispo: We will continue to follow the patient. Thank you for this consultative opportunity. -Fortunato Queen MD PGY1 Visit type - Emergency Visit Emergency Visit: Yes ED Registration Date: 02/04/17 Care time: The patient presented to the Emergency Department on the above date and was hospitalized for further evaluation of their emergent condition. - New Patient This patient is new to me today: No - Critical Care Critical Care patient: Yes Total Critical Care Time (in minutes): 35 Critical Care Statement: The care of this patient involved high complexity decision making to prevent further life threatening deterioration of the patient 's condition and/or to evaluate & treat vital organ system(s) failure or risk of failure.
[2017-02-06 08:56] LABS: ARTERIAL BLOOD GAS BASE EXCESS -4.5 meq/l (-2-2); ARTERIAL BLOOD GAS HCO3 19.1 meq/L (22-26); ARTERIAL BLOOD GAS pH 7.41 (7.35-7.45)
[2017-02-06 09:01] LABS: URINE MUCUS RARE; URINE RBC 9 /hpf (0-3); URINE WBC 13 /hpf (3-5)
[2017-02-06] MEDS ORDERED: PT OWN MED DRAWER 7, Y5N ONE ×3 (09:57→16:29)
[2017-02-06] MEDS ORDERED: CEFTRIAXONE 1 G/50 ML PREMIX 50 ML IVPB SCH (10:00)
--- NOTE | 2017-02-06 10:02 | PN ---
Teaching Attending Note Name of Resident: Parth Reaves ATTENDING PHYSICIAN STATEMENT I saw and evaluated the patient. I reviewed the resident's note and discussed the case with the resident. I agree with the resident's findings and plan as documented. SUBJECTIVE: Patient seen and examined in the ICU. Remains intubated and sedated. NE for hemodynamic support. AC Mode of vent. ABG noted. Intake & Output 02/03/17 02/04/17 02/05/17 02/06/17 23:59 23:59 23:59 23:59 Intake Total 1000 3700 1856 Output Total 300 2150 Balance 700 1550 1856 Weight 180 lb 180 lb Last Vital Signs Temp Pulse Resp BP Pulse Ox 98.8 F 84 13 92/64 100 02/06/17 10:00 02/06/17 10:00 02/06/17 10:00 02/06/17 10:00 02/06/17 09:00 Active Medications Acetaminophen (Tylenol -) 650 mg PO Q4H PRN PRN Reason: FEVER OR PAIN Acetaminophen (Tylenol Suppository -) 120 mg RC Q6H PRN PRN Reason: FEVER Chlorhexidine Gluconate (Peridex -) 15 ml MM BID [facility] Last Admin: 02/06/17 10:36 Dose: 10 ml Divalproex Sodium (Depakote -) 500 mg PO BID [facility] Last Admin: 02/06/17 10:34 Dose: 500 mg Heparin Sodium (Porcine) (Heparin -) 5,000 unit SQ BID [facility] Last Admin: 02/06/17 10:57 Dose: 5,000 unit Propofol (Diprivan -) 1,000 mcg in 0.1 mls @ 2.449 mls/hr IV TITR TANNER; 5 MCG/KG /MIN PRN Reason: Protocol Last Titration: 02/06/17 10:00 Dose: 15 mcg/kg/min, 7.348 mls/hr Norepinephrine Bitartrate 8, (000 mcg/ Dextrose) 500 mls @ 22.5 mls/hr IV ASDIR TANNER; 6 MCG/MIN PRN Reason: Protocol Last Titration: 02/06/17 09:00 Dose: 6 mcg/min, 22.5 mls/hr Dextrose/Sodium Chloride (D5-1/2ns -) 1,000 mls @ 100 mls/hr IV ASDIR TANNER Last Admin: 02/05/17 21:53 Dose: Not Given Piperacillin Sod/Tazobactam (Sod 3.375 gm/ Dextrose) 50 mls @ 100 mls/hr IVPB Q8H-IV TANNER PRN Reason: Protocol Gentamicin Sulfate 200 mg/ (Sodium Chloride) 250 mls @ 125 mls/hr IVPB ONCE ONE Stop: 02/06/17 12:59 Last Admin: 02/06/17 11:28 Dose: 125 mls/hr Mirtazapine (Remeron -) 15 mg PO HS TANNER Last Admin: 02/05/17 21:54 Dose: 15 mg Constitutional: Yes: Intubated and sedated Eyes: Yes: WNL HENT: Yes: WNL Cardiovascular: Yes: Regular Rate and Rhythm Respiratory: Yes: Intubated, Mechanically Ventilated, bilateral rhonchi Gastrointestinal: Yes: Normal Bowel Sounds Renal/: Yes: WNL Edema: No Edema: LUE: Trace, RUE: Trace, LLE: Trace, RLE: Trace Neurological: Yes: Intubated and sedated Labs: Laboratory Results - last 24 hr 02/04/17 02/04/17 02/05/17 15:00 15:53 06:32 WBC RBC Hgb Hct MCV MCH MCHC RDW Plt Count MPV Neutrophils % Lymphocytes % Monocytes % Eosinophils % Basophils % Puncture Site ABG pH ABG pCO2 at Pt Temp ABG pO2 at Pt Temp ABG HCO3 ABG O2 Sat (Measured) ABG O2 Content ABG Base Excess Manuel Test VBG pH 7.30 L POC VBG pCO2 51.8 POC VBG pO2 26.7 L Mixed VBG HCO3 24.6 O2 Delivery Device Oxygen Flow Rate Vent Mode Vent Rate PEEP Pressure Support Vent Sodium Potassium Chloride Carbon Dioxide Anion Gap BUN Creatinine Random Glucose Lactic Acid 1.7 Calcium Phosphorus Magnesium Urine Color Ltyellow Urine Appearance Clear Urine pH 5.0 D Ur Specific [place] 1.017 Urine Protein 1+ H Urine Glucose (UA) Negative Urine Ketones Negative Urine Blood 1+ H Urine Nitrite Negative Urine Bilirubin Negative Urine Urobilinogen Negative Urine WBC (Auto) 13 Urine RBC (Auto) 9 Urine Mucus Rare 02/05/17 02/05/17 02/05/17 12:25 16:49 21:15 WBC RBC Hgb Hct MCV MCH MCHC RDW Plt Count MPV Neutrophils % Lymphocytes % Monocytes % Eosinophils % Basophils % Puncture Site Right radial ABG pH 7.31 L ABG pCO2 at Pt Temp 40.0 ABG pO2 at Pt Temp 442.0 H* ABG HCO3 19.5 L ABG O2 Sat (Measured) 100.0 H* ABG O2 Content 13.4 L ABG Base Excess -5.7 L Manuel Test Positive VBG pH POC VBG pCO2 POC VBG pO2 Mixed VBG HCO3 O2 Delivery Device Mech vent Oxygen Flow Rate 100 Vent Mode A/c Vent Rate 12 PEEP 5.0 Pressure Support Vent 450 Sodium 158 H 155 H Potassium 4.9 4.0 Chloride 126 H 126 H Carbon Dioxide 24 22 Anion Gap 8 7 L BUN 113 H* 94 H Creatinine 1.8 H 1.5 H Random Glucose 102 D 140 H D Lactic Acid Calcium 7.7 L 7.3 L Phosphorus Magnesium Urine Color Urine Appearance Urine pH Ur Specific [place] Urine Protein Urine Glucose (UA) Urine Ketones Urine Blood Urine Nitrite Urine Bilirubin Urine Urobilinogen Urine WBC (Auto) Urine RBC (Auto) Urine Mucus 02/06/17 02/06/17 02/06/17 05:00 05:45 08:46 WBC 9.7 RBC 3.00 L D Hgb 9.6 L D Hct 29.0 L D MCV 96.9 H MCH 32.2 MCHC 33.2 RDW 17.3 H D Plt Count 144 MPV 13.6 H Neutrophils % 75.9 D Lymphocytes % 10.0 D Monocytes % 9.1 Eosinophils % 4.7 H Basophils % 0.3 Puncture Site Right radial ABG pH 7.41 ABG pCO2 at Pt Temp 30.8 L D ABG pO2 at Pt Temp 309.0 H* D ABG HCO3 19.1 L ABG O2 Sat (Measured) 100.0 H* ABG O2 Content 11.1 L ABG Base Excess -4.5 L Manuel Test Positive VBG pH POC VBG pCO2 POC VBG pO2 Mixed VBG HCO3 O2 Delivery Device Oxygen Flow Rate Yes Vent Mode Vent Rate 14 PEEP Pressure Support Vent Sodium 154 H Potassium 3.9 Chloride 124 H Carbon Dioxide 23 Anion Gap 7 L BUN 80 H Creatinine 1.3 H Random Glucose 135 H Lactic Acid Calcium 7.5 L Phosphorus 4.4 Magnesium 2.6 H Urine Color Urine Appearance Urine pH Ur Specific [place] Urine Protein Urine Glucose (UA) Urine Ketones Urine Blood Urine Nitrite Urine Bilirubin Urine Urobilinogen Urine WBC (Auto) Urine RBC (Auto) Urine Mucus Assessment/Plan Acute Respiratory Failure Recent subdural and subsequent subarachnoid hemorrhage Septic Shock Hypernatremia Severe electrolyte imbalance Anemia ARCHANA IVF Follow CVP 8 to 12 ABX per ID Follow cultures AC mode of vent, taper FiO2 Pressors to maintain MAP Tend BMP Normal transfusion thresholds VTE prophylaxis Enteral feeds ICU Monitoring Dr Abdalla Critical care time spent in reviewing chart, evaluating patient and formulating plan - 40 minutes.
[2017-02-06] MEDS: DIVALPROEX SODIUM 500 MG TABLET E.C. PO SCH ×2 (10:34→22:55)
[2017-02-06] MEDS: CHLORHEXIDINE GLUCONATE 0.12% 15ML CUP MM SCH ×2 (10:36→22:56)
[2017-02-06 10:45] LABS: VENT RATE 14
--- NOTE | 2017-02-06 10:48 | PN ---
Physical Exam: SUBJECTIVE: Patient seen and examined in ICU. Intubated, sedated. On propofol 30mcg, Levephed 3mcg Events: - Transferred to ICU for septic shock - Central line and intubated, pressors initiated OBJECTIVE: Vital Signs Period Temp Pulse Resp BP Sys/Han Pulse Ox Last 24 Hr 98.7 F-100.4 F 65-100 12-36 71-183/35-173 97-100 MV AC/12/450/100/5 PE Neuro: sedated, vented, grimaces to needle sticks Pulm: cleat anteriorly, vent sounds CV: s1 s2 rrr no mrg Abd: + GT CDI, abd soft, hypoactive bowel sounds Ext: warm, no le edema Laboratory Results - last 24 hr 02/04/17 02/04/17 02/05/17 15:00 15:53 06:32 WBC RBC Hgb Hct MCV MCH MCHC RDW Plt Count MPV Neutrophils % Lymphocytes % Monocytes % Eosinophils % Basophils % Puncture Site ABG pH ABG pCO2 at Pt Temp ABG pO2 at Pt Temp ABG HCO3 ABG O2 Sat (Measured) ABG O2 Content ABG Base Excess Manuel Test VBG pH 7.30 L POC VBG pCO2 51.8 POC VBG pO2 26.7 L Mixed VBG HCO3 24.6 O2 Delivery Device Oxygen Flow Rate Vent Mode Vent Rate PEEP Pressure Support Vent Sodium Potassium Chloride Carbon Dioxide Anion Gap BUN Creatinine Random Glucose Lactic Acid 1.7 Calcium Phosphorus Magnesium Urine Color Ltyellow Urine Appearance Clear Urine pH 5.0 D Ur Specific [place] 1.017 Urine Protein 1+ H Urine Glucose (UA) Negative Urine Ketones Negative Urine Blood 1+ H Urine Nitrite Negative Urine Bilirubin Negative Urine Urobilinogen Negative Urine WBC (Auto) 13 Urine RBC (Auto) 9 Urine Mucus Rare 02/05/17 02/05/17 02/05/17 12:25 16:49 21:15 WBC RBC Hgb Hct MCV MCH MCHC RDW Plt Count MPV Neutrophils % Lymphocytes % Monocytes % Eosinophils % Basophils % Puncture Site Right radial ABG pH 7.31 L ABG pCO2 at Pt Temp 40.0 ABG pO2 at Pt Temp 442.0 H* ABG HCO3 19.5 L ABG O2 Sat (Measured) 100.0 H* ABG O2 Content 13.4 L ABG Base Excess -5.7 L Manuel Test Positive VBG pH POC VBG pCO2 POC VBG pO2 Mixed VBG HCO3 O2 Delivery Device Mech vent Oxygen Flow Rate 100 Vent Mode A/c Vent Rate 12 PEEP 5.0 Pressure Support Vent 450 Sodium 158 H 155 H Potassium 4.9 4.0 Chloride 126 H 126 H Carbon Dioxide 24 22 Anion Gap 8 7 L BUN 113 H* 94 H Creatinine 1.8 H 1.5 H Random Glucose 102 D 140 H D Lactic Acid Calcium 7.7 L 7.3 L Phosphorus Magnesium Urine Color Urine Appearance Urine pH Ur Specific [place] Urine Protein Urine Glucose (UA) Urine Ketones Urine Blood Urine Nitrite Urine Bilirubin Urine Urobilinogen Urine WBC (Auto) Urine RBC (Auto) Urine Mucus 02/06/17 02/06/17 02/06/17 05:00 05:45 08:46 WBC 9.7 RBC 3.00 L D Hgb 9.6 L D Hct 29.0 L D MCV 96.9 H MCH 32.2 MCHC 33.2 RDW 17.3 H D Plt Count 144 MPV 13.6 H Neutrophils % 75.9 D Lymphocytes % 10.0 D Monocytes % 9.1 Eosinophils % 4.7 H Basophils % 0.3 Puncture Site ABG pH 7.41 ABG pCO2 at Pt Temp 30.8 L D ABG pO2 at Pt Temp 309.0 H* D ABG HCO3 19.1 L ABG O2 Sat (Measured) 100.0 H* ABG O2 Content 11.1 L ABG Base Excess -4.5 L Manuel Test VBG pH POC VBG pCO2 POC VBG pO2 Mixed VBG HCO3 O2 Delivery Device Oxygen Flow Rate Vent Mode Vent Rate PEEP Pressure Support Vent Sodium 154 H Potassium 3.9 Chloride 124 H Carbon Dioxide 23 Anion Gap 7 L BUN 80 H Creatinine 1.3 H Random Glucose 135 H Lactic Acid Calcium 7.5 L Phosphorus 4.4 Magnesium 2.6 H Urine Color Urine Appearance Urine pH Ur Specific [place] Urine Protein Urine Glucose (UA) Urine Ketones Urine Blood Urine Nitrite Urine Bilirubin Urine Urobilinogen Urine WBC (Auto) Urine RBC (Auto) Urine Mucus Active Medications Generic Name Dose Route Start Last Admin Trade Name Freq PRN Reason Stop Dose Admin Acetaminophen 650 mg 02/05/17 21:44 Tylenol - PO Q4H PRN FEVER OR PAIN Acetaminophen 120 mg 02/05/17 21:44 Tylenol Suppository - RC Q6H PRN FEVER Chlorhexidine Gluconate 15 ml 02/05/17 22:00 02/05/17 21:53 Peridex - MM 15 ml BID TANNER Administration Divalproex Sodium 500 mg 02/05/17 22:00 02/05/17 22:00 Depakote - PO 500 mg BID TANNER Administration Heparin Sodium (Porcine) 5,000 unit 02/05/17 22:00 02/05/17 21:53 Heparin - SQ 5,000 unit BID TANNER Administration Propofol 1,000 mcg in 0.1 mls @ 2.449 mls/hr 02/05/17 17:00 02/06/17 09:00 Diprivan - IV 25 mcg/kg/min TITR TANNER 12.247 mls/hr Protocol Titration 5 MCG/KG/MIN Norepinephrine Bitartrate 8, 500 mls @ 22.5 mls/hr 02/05/17 17:00 02/06/17 09 :00 000 mcg/ Dextrose IV 6 mcg/min ASDIR TANNER 22.5 mls/hr Protocol Titration 6 MCG/MIN Dextrose/Sodium Chloride 1,000 mls @ 100 mls/hr 02/05/17 21:44 02/05/17 21:53 D5-1/2ns - IV Not Given ASDIR TANNER Piperacillin Sod/Tazobactam 50 mls @ 100 mls/hr 02/06/17 11:00 Sod 3.375 gm/ Dextrose IVPB Q8H-IV TANNER Protocol Gentamicin Sulfate 200 mg/ 250 mls @ 125 mls/hr 02/06/17 11:00 Sodium Chloride IVPB 02/06/17 12:59 ONCE ONE Mirtazapine 15 mg 02/05/17 22:00 02/05/17 21:54 Remeron - PO 15 mg HS TANNER Administration Microbiology 02/04/17 15:53 Urine - Urine [place] Urine Culture - Final Yeast Like Organism 02/04/17 15:05 Blood - Peripheral Venous Blood Culture - Preliminary NO GROWTH OBTAINED AFTER 24 HOURS, INCUBATION TO CONTINUE FOR 4 DAYS. 02/04/17 15:00 Blood - Peripheral Venous Blood Culture - Preliminary NO GROWTH OBTAINED AFTER 24 HOURS, INCUBATION TO CONTINUE FOR 4 DAYS. Assessment: 86 year old female with pmhx recent subdural hematoma s/p fall ( diagnosed in 07/2016 managed at [facility]) HTN, HLD, seizures x1 after subdural hematoma (on depakote) followed by subarachnoid hemorrhage in 11/2106 admitted with sepsis and electrolyte disturbances Plan: 1. Acute Respiratory failure - Maintain mechanical ventilation - Sedation protocol 2. Septic shock - Continue levophed, titrate for MAP goal>65 - Due to UTI, initial BC negative - Urine appears to be source - Change abx to zosyn, x1 dose gentamycin - D/w ID 3. Hypernatremia - 3.6 L free water deficit - Continue D5 1/2 NS @ 100cc/hr - Continue 250ml free water flushes q4hr through GT 4. ARCHANA with elevated BUN - Renal fxn improving - Urine studies ordered - Kidney/bladder US ordered 5. hx of sub arachnoid hemorrhage and subdural hematoma - Head CT as above - Continue depakote 6. Hyperkalemia - Resolved 7. Acute blood loss anemia - s/p 1uprbc with appropriate rise 8. Macrocytic Anemia - Pending folate and v b12 9. DVT - Heparin sq Problem List - Problems (1) Sepsis Code(s): A41.9 - SEPSIS, UNSPECIFIED ORGANISM (2) Sepsis associated hypotension Code(s): A41.9 - SEPSIS, UNSPECIFIED ORGANISM (3) Acute hypernatremia Code(s): E87.0 - HYPEROSMOLALITY AND HYPERNATREMIA (4) Hyperkalemia Code(s): E87.5 - HYPERKALEMIA (5) Subarachnoid hemorrhage Code(s): I60.9 - NONTRAUMATIC SUBARACHNOID HEMORRHAGE, UNSPECIFIED (6) Subdural hemorrhage Code(s): I62.00 - NONTRAUMATIC SUBDURAL HEMORRHAGE, UNSPECIFIED (7) Hyperlipidemia Code(s): E78.5 - HYPERLIPIDEMIA, UNSPECIFIED (8) Hypertension Code(s): I10 - ESSENTIAL (PRIMARY) HYPERTENSION (9) Seizure Code(s): R56.9 - UNSPECIFIED CONVULSIONS Visit type - Emergency Visit Emergency Visit: Yes ED Registration Date: 02/04/17 Care time: The patient presented to the Emergency Department on the above date and was hospitalized for further evaluation of their emergent condition. - New Patient This patient is new to me today: No - Critical Care Critical Care patient: Yes Total Critical Care Time (in minutes): 35 Critical Care Statement: The care of this patient involved high complexity decision making to prevent further life threatening deterioration of the patient 's condition and/or to evaluate & treat vital organ system(s) failure or risk of failure.
[2017-02-06 10:55] LABS: ALLENS TEST POSITIVE
[2017-02-06 10:56] LABS: ART PUNCT SITE RIGHT RADIAL; PT. ON O2? YES
[2017-02-06] MEDS: HEPARIN NA (PORCINE) 5,000 UNITS/ML 1ML VIAL SQ SCH ×2 (10:57→22:55)
[2017-02-06] MEDS ORDERED: SODIUM CHLORIDE IVPB ONE (11:00)
[2017-02-06] MEDS ORDERED: GENTAMICIN IVPB ONE (11:00)
[2017-02-06 12:32] LABS: URINE LEUK ESTERASE TRACE (NEGATIVE)
[2017-02-06] MEDS ORDERED: SODIUM CHLORIDE 0.45% 1,000 ML IV SCH (14:00)
--- NOTE | 2017-02-06 15:00 | PN ---
Physical Exam: SUBJECTIVE: Patient seen and examined at bedside. Noncommunicative. Intubated and sedated. Stable. OBJECTIVE: Vital Signs Period Temp Pulse Resp BP Sys/Han Pulse Ox Last 24 Hr 98.7 F-99.2 F 65-100 9-36 71-183/40-173 97-100 GENERAL: Intubated and sedated HEAD: Normal with no signs of trauma. EYES: conjunctiva clear. No ptosis. ENT: ET tube in place. NECK: Trachea midline, full range of motion, supple. LUNGS: air entry heard bilaterally, no wheezes, no crackles HEART: Regular rate and rhythm, S1, S2 without murmur, rub or gallop. ABDOMEN: Soft, nondistended, normoactive bowel sounds, no guarding, no rebound, no hepatosplenomegaly, no masses. EXTREMITIES: 2+ pulses, warm, well-perfused, no edema. NEUROLOGICAL: Intubated and sedated PSYCH: Intubated and sedated SKIN: Warm, dry, normal turgor, no rashes or lesions noted Laboratory Results - last 24 hr 02/04/17 02/04/17 02/05/17 15:00 15:53 05:05 WBC RBC Hgb Hct MCV MCH MCHC RDW Plt Count MPV Neutrophils % Lymphocytes % Monocytes % Eosinophils % Basophils % Puncture Site ABG pH ABG pCO2 at Pt Temp ABG pO2 at Pt Temp ABG HCO3 ABG O2 Sat (Measured) ABG O2 Content ABG Base Excess Manuel Test VBG pH 7.30 L POC VBG pCO2 51.8 POC VBG pO2 26.7 L Mixed VBG HCO3 24.6 O2 Delivery Device Oxygen Flow Rate Vent Mode Vent Rate PEEP Pressure Support Vent Sodium Potassium Chloride Carbon Dioxide Anion Gap BUN Creatinine Random Glucose Lactic Acid 1.7 Calcium Phosphorus Magnesium Vitamin B12 973 H Serum Folate 29 H Urine Color Urine Appearance Urine pH Ur Specific [place] Urine Protein Urine Glucose (UA) Urine Ketones Urine Blood Urine Nitrite Urine Bilirubin Urine Urobilinogen Ur Leukocyte Esterase Urine WBC (Auto) Urine RBC (Auto) Urine Mucus 02/05/17 02/05/17 02/05/17 06:32 16:49 21:15 WBC RBC Hgb Hct MCV MCH MCHC RDW Plt Count MPV Neutrophils % Lymphocytes % Monocytes % Eosinophils % Basophils % Puncture Site Right radial ABG pH 7.31 L ABG pCO2 at Pt Temp 40.0 ABG pO2 at Pt Temp 442.0 H* ABG HCO3 19.5 L ABG O2 Sat (Measured) 100.0 H* ABG O2 Content 13.4 L ABG Base Excess -5.7 L Manuel Test Positive VBG pH POC VBG pCO2 POC VBG pO2 Mixed VBG HCO3 O2 Delivery Device Mech vent Oxygen Flow Rate 100 Vent Mode A/c Vent Rate 12 PEEP 5.0 Pressure Support Vent 450 Sodium 155 H Potassium 4.0 Chloride 126 H Carbon Dioxide 22 Anion Gap 7 L BUN 94 H Creatinine 1.5 H Random Glucose 140 H D Lactic Acid Calcium 7.3 L Phosphorus Magnesium Vitamin B12 Serum Folate Urine Color Ltyellow Urine Appearance Clear Urine pH 5.0 D Ur Specific [place] 1.017 Urine Protein 1+ H Urine Glucose (UA) Negative Urine Ketones Negative Urine Blood 1+ H Urine Nitrite Negative Urine Bilirubin Negative Urine Urobilinogen Negative Ur Leukocyte Esterase Trace H D Urine WBC (Auto) 13 Urine RBC (Auto) 9 Urine Mucus Rare 02/06/17 02/06/17 02/06/17 05:00 05:45 08:46 WBC 9.7 RBC 3.00 L D Hgb 9.6 L D Hct 29.0 L D MCV 96.9 H MCH 32.2 MCHC 33.2 RDW 17.3 H D Plt Count 144 MPV 13.6 H Neutrophils % 75.9 D Lymphocytes % 10.0 D Monocytes % 9.1 Eosinophils % 4.7 H Basophils % 0.3 Puncture Site Right radial ABG pH 7.41 ABG pCO2 at Pt Temp 30.8 L D ABG pO2 at Pt Temp 309.0 H* D ABG HCO3 19.1 L ABG O2 Sat (Measured) 100.0 H* ABG O2 Content 11.1 L ABG Base Excess -4.5 L Manuel Test Positive VBG pH POC VBG pCO2 POC VBG pO2 Mixed VBG HCO3 O2 Delivery Device Oxygen Flow Rate Yes Vent Mode Vent Rate 14 PEEP Pressure Support Vent Sodium 154 H Potassium 3.9 Chloride 124 H Carbon Dioxide 23 Anion Gap 7 L BUN 80 H Creatinine 1.3 H Random Glucose 135 H Lactic Acid Calcium 7.5 L Phosphorus 4.4 Magnesium 2.6 H Vitamin B12 Serum Folate Urine Color Urine Appearance Urine pH Ur Specific [place] Urine Protein Urine Glucose (UA) Urine Ketones Urine Blood Urine Nitrite Urine Bilirubin Urine Urobilinogen Ur Leukocyte Esterase Urine WBC (Auto) Urine RBC (Auto) Urine Mucus Active Medications Generic Name Dose Route Start Last Admin Trade Name Freq PRN Reason Stop Dose Admin Acetaminophen 650 mg 02/05/17 21:44 Tylenol - PO Q4H PRN FEVER OR PAIN Acetaminophen 120 mg 02/05/17 21:44 Tylenol Suppository - RC Q6H PRN FEVER Chlorhexidine Gluconate 15 ml 02/05/17 22:00 02/06/17 10:36 Peridex - MM 10 ml BID TANNER Administration Divalproex Sodium 500 mg 02/05/17 22:00 02/06/17 10:34 Depakote - PO 500 mg BID TANNER Administration Heparin Sodium (Porcine) 5,000 unit 02/05/17 22:00 02/06/17 10:57 Heparin - SQ 5,000 unit BID TANNER Administration Propofol 1,000 mcg in 0.1 mls @ 2.449 mls/hr 02/05/17 17:00 02/06/17 10:00 Diprivan - IV 15 mcg/kg/min TITR TANNER 7.348 mls/hr Protocol Titration 5 MCG/KG/MIN Norepinephrine Bitartrate 8, 500 mls @ 22.5 mls/hr 02/05/17 17:00 02/06/17 09 :00 000 mcg/ Dextrose IV 6 mcg/min ASDIR TANNER 22.5 mls/hr Protocol Titration 6 MCG/MIN Dextrose/Sodium Chloride 1,000 mls @ 100 mls/hr 02/05/17 21:44 02/05/17 21:53 D5-1/2ns - IV Not Given ASDIR TANNER Piperacillin Sod/Tazobactam 50 mls @ 100 mls/hr 02/06/17 11:00 Sod 3.375 gm/ Dextrose IVPB Q8H-IV TANNER Protocol Sodium Chloride 1,000 mls @ 100 mls/hr 02/06/17 14:00 1/2 Normal Saline IV 02/06/17 18:59 ASDIR TANNER Mirtazapine 15 mg 02/05/17 22:00 02/05/17 21:54 Remeron - PO 15 mg HS TANNER Administration ASSESSMENT/PLAN: 86 y/o F with PMH HTN, HLD, recent subdural hematoma s/p fall (diagnosed in 2016) , one episode of seizures after subdural hematoma (on depakote), followed by subarachnoid hemorrhage in 11/2106 where dose of depakote was increased. Per medical record, pt is conversational at baseline, however over the last few days her mental status deteriorated, as she developed chills, SOB and hypotension. While in ED, pt became hypotensive (70/52), received fluids and became tachypneic. Pt admitted to ICU for continued monitoring for sepsis 2/2 urinary source. After coming to ICU, pt became increasingly tachpneic with RR into high 30's and accessory muscle use. She also was hypotensive ranging in 70's/40's. Pt was immediately intubated and central line placed in R IJ. ID #sepsis 2/2 urinary source -ceftriaxone -on levo -UA: 1+ protein, 3+ leuk esterase, 668 WBCs -UCx pos for yeast like organism -ID on board -Stopped Ceftriaxone and given Zosyn and Genta -reculture RENAL #Hypernatremia -continues to be hypernatremic -free water deficit 3338 -D5 1/2 NS -25 ml free water flushes 14h though GT #ARCHANA -Cr 1.8 -> 1.5 -> 1.3 -renal sono significant for b/l atrophic kidneys -c/w fluids HEME #Acute blood loss anemia -Stool guiac negative -Hb 9.6 -Received 1 unit of PRBCs yest (02/05/17) -Continue to f/u CBC NEURO # hx of sub arachnoid hemorrhage and subdural hematoma - Head CT: increased size in b/l subdural hematomas (L>R) - seen by Neuro - F/u B12, TSH #DVT Prophylaxis - Hep SubQ #FEN - D51/2NS @ 100cc/hr - hypomagnesemia. repleting - tube feeds. Perative #Disposition Continued monitoring in ICU Parth Reaves MD PGY-1 ICU Visit type - Emergency Visit Emergency Visit: No - New Patient This patient is new to me today: Yes Date on this admission: 02/06/17 - Critical Care Critical Care patient: Yes Total Critical Care Time (in minutes): 40 Critical Care Statement: The care of this patient involved high complexity decision making to prevent further life threatening deterioration of the patient 's condition and/or to evaluate & treat vital organ system(s) failure or risk of failure. - Discharge Referral Referred to [facility] No
[2017-02-06] MEDS ORDERED: MAGNESIUM SULF 50% (8.12 MEQ/2 ML-1 GM VIAL) IVPB ONE (15:15)
[2017-02-06 15:55] LABS: ANION GAP 7 (8-16); CALCIUM 7.1 mg/dL (8.5-10.1); CO2 23 mmol/L (21-32); CREATININE 1.2 mg/dL (0.55-1.02); GLUCOSE,RANDOM 124 mg/dL (74-106)
[2017-02-06] MEDS: DEXTROSE 5%-0.45% SALINE 1,000 ML IV SCH (16:14)
[2017-02-06] MEDS: PIPERACILLIN/TAZOB 3.375 GM 3.375 GM in DEXTROSE 5%-WATER - 50 ML IVPB SCH ×2 (16:34→17:08)
--- NOTE | 2017-02-06 17:45 | PN ---
Progress Note, Physician History of Present Illness: Pt seen and examined at bedside. She was upgraded to ICU and is now intubated. Pt was hypotensive and is now on levofed. - Current Medication List Current Medications: Active Medications Acetaminophen (Tylenol -) 650 mg PO Q4H PRN PRN Reason: FEVER OR PAIN Acetaminophen (Tylenol Suppository -) 120 mg RC Q6H PRN PRN Reason: FEVER Chlorhexidine Gluconate (Peridex -) 15 ml MM BID [facility] Last Admin: 02/06/17 10:36 Dose: 10 ml Divalproex Sodium (Depakote -) 500 mg PO BID TANNER Last Admin: 02/06/17 10:34 Dose: 500 mg Heparin Sodium (Porcine) (Heparin -) 5,000 unit SQ BID TANNER Last Admin: 02/06/17 10:57 Dose: 5,000 unit Propofol (Diprivan -) 1,000 mcg in 0.1 mls @ 2.449 mls/hr IV TITR TANNER; 5 MCG/KG /MIN PRN Reason: Protocol Last Titration: 02/06/17 10:00 Dose: 15 mcg/kg/min, 7.348 mls/hr Norepinephrine Bitartrate 8, (000 mcg/ Dextrose) 500 mls @ 22.5 mls/hr IV ASDIR TANNER; 6 MCG/MIN PRN Reason: Protocol Last Titration: 02/06/17 17:40 Dose: 3 mcg/min, 11.25 mls/hr Piperacillin Sod/Tazobactam (Sod 3.375 gm/ Dextrose) 50 mls @ 100 mls/hr IVPB Q8H-IV TANNER PRN Reason: Protocol Last Admin: 02/06/17 17:08 Dose: 100 mls/hr Sodium Chloride (1/2 Normal Saline) 1,000 mls @ 100 mls/hr IV ASDIR TANNER Stop: 02/06/17 18:59 Last Admin: 02/06/17 17:08 Dose: 100 mls/hr Mirtazapine (Remeron -) 15 mg PO HS [facility] Last Admin: 02/05/17 21:54 Dose: 15 mg - Objective Vital Signs: Vital Signs Temperature 99.0 F 02/06/17 14:00 Pulse Rate 83 02/06/17 17:40 Respiratory Rate 14 02/06/17 17:12 Blood Pressure 114/64 02/06/17 17:40 O2 Sat by Pulse Oximetry (%) 100 02/06/17 09:00 Constitutional: Yes: Calm Eyes: Yes: Conjunctiva Clear HENT: Yes: Atraumatic Cardiovascular: Yes: S1, S2 Respiratory: Yes: Mechanically Ventilated Gastrointestinal: Yes: Soft, Other (g tube) Genitourinary: Yes: [place] Present Musculoskeletal: Yes: Muscle Weakness Edema: No Integumentary: Yes: WNL Neurological: Yes: Lethargy Labs: CBC, BMP 02/06/17 05:45 02/06/17 14:00 INR, PTT INR 1.03 (0.82-1.09) 02/04/17 15:10 - ....Imaging Chest X-ray: Report Reviewed Problem List - Problems (1) Acute hypernatremia Code(s): E87.0 - HYPEROSMOLALITY AND HYPERNATREMIA (2) Hyperkalemia Code(s): E87.5 - HYPERKALEMIA (3) Sepsis Code(s): A41.9 - SEPSIS, UNSPECIFIED ORGANISM (4) UTI (urinary tract infection) Code(s): N39.0 - URINARY TRACT INFECTION, SITE NOT SPECIFIED Assessment/Plan Current Medications Generic Name Dose Route Start Last Admin Trade Name Freq PRN Reason Stop Dose Admin Acetaminophen 650 mg 02/05/17 21:44 Tylenol - PO Q4H PRN FEVER OR PAIN Acetaminophen 120 mg 02/05/17 21:44 Tylenol Suppository - RC Q6H PRN FEVER Chlorhexidine Gluconate 15 ml 02/05/17 22:00 02/06/17 10:36 Peridex - MM 10 ml BID TANNER Administration Divalproex Sodium 500 mg 02/05/17 22:00 02/06/17 10:34 Depakote - PO 500 mg BID TANNER Administration Heparin Sodium (Porcine) 5,000 unit 02/05/17 22:00 02/06/17 10:57 Heparin - SQ 5,000 unit BID TANNER Administration Propofol 1,000 mcg in 0.1 mls @ 2.449 mls/hr 02/05/17 17:00 02/06/17 10:00 Diprivan - IV 15 mcg/kg/min TITR TANNER 7.348 mls/hr Protocol Titration 5 MCG/KG/MIN Norepinephrine Bitartrate 8, 500 mls @ 22.5 mls/hr 02/05/17 17:00 02/06/17 17 :40 000 mcg/ Dextrose IV 3 mcg/min ASDIR TANNER 11.25 mls/hr Protocol Titration 6 MCG/MIN Piperacillin Sod/Tazobactam 50 mls @ 100 mls/hr 02/06/17 11:00 02/06/17 17:08 Sod 3.375 gm/ Dextrose IVPB 100 mls/hr Q8H-IV TANNER Administration Protocol Sodium Chloride 1,000 mls @ 100 mls/hr 02/06/17 14:00 02/06/17 17:08 1/2 Normal Saline IV 02/06/17 18:59 100 mls/hr ASDIR TANNER Administration Mirtazapine 15 mg 02/05/17 22:00 02/05/17 21:54 Remeron - PO 15 mg HS TANNER Administration Impression 1. ARCHANA 2. hypernatremia 3. hyperkalemia 4. anemia 5. epilepsy 6. hx of subdural hematoma 7. hypotension 8. hypoglycemia Plan - renal function is improving - cont with fluids - cont with free water - vent support - discussed with medical team - discussed with ICU - pressor support to a MAP of 65 - avoid nephrotoxins - follow up repeat labs
[2017-02-06] MEDS: PROPOFOL IV SCH (22:34)
[2017-02-06] MEDS: NOREPINEPHRINE BITARTRATE 8,000 MCG in DEXTROSE 5%-WATER - 492 ML IV SCH (22:34)
[2017-02-06 22:46] LABS: ANION GAP 9 (8-16); CALCIUM 7.5 mg/dL (8.5-10.1); CO2 22 mmol/L (21-32); CREATININE 1.1 mg/dL (0.55-1.02); GLUCOSE,RANDOM 104 mg/dL (74-106)
[2017-02-06] MEDS: MIRTAZAPINE 15 MG TABLET (FP) PO SCH (22:56)
[2017-02-07] MEDS: PIPERACILLIN/TAZOB 3.375 GM 3.375 GM in DEXTROSE 5%-WATER - 50 ML IVPB SCH ×3 (02:00→17:49)
[2017-02-07 06:21] LABS: BASO % 0.3 % (0-2.0); EOS % 4.4 % (0-4.5); MCH 32.3 pg (25.7-33.7); MCHC 33.4 g/dl (32.0-36.0); MEAN CELL VOLUME 96.7 fl (80-96); MEAN PLT VOLUME 12.9 fl (7.5-11.1); NEUT % 74.3 % (42.8-82.8); PLATELET COUNT 135 K/MM3 (134-434); RDW 16.4 % (11.6-15.6)
[2017-02-07 06:37] LABS: ALBUMIN 1.3 g/dl (3.4-5.0); ANION GAP 7 (8-16); CO2 22 mmol/L (21-32); GLUCOSE,RANDOM 90 mg/dL (74-106); MAGNESIUM 2.3 mg/dL (1.8-2.4); PHOSPHOROUS 3.7 mg/dL (2.5-4.9); SGOT/AST 44 U/L (15-37); SGPT/ALT 18 U/L (12-78)
[2017-02-07 06:47] LABS: ALK PHOS 59 U/L (45-117); BILIRUBIN,TOTAL 1.2 mg/dL (0.2-1.0); THYROID STIMULATING HORMONE 3.47 uIU/ml (0.358-3.74); TOT PROT 5.1 g/dl (6.4-8.2)
--- NOTE | 2017-02-07 07:27 | PN ---
Progress Note, Physician Chief Complaint: ID Zosyn & dose of gentamicin given for sepsis Pressors & Intubated - Current Medication List Current Medications: Active Medications Acetaminophen (Tylenol -) 650 mg PO Q4H PRN PRN Reason: FEVER OR PAIN Acetaminophen (Tylenol Suppository -) 120 mg RC Q6H PRN PRN Reason: FEVER Chlorhexidine Gluconate (Peridex -) 15 ml MM BID [facility] Last Admin: 02/06/17 22:56 Dose: 15 ml Divalproex Sodium (Depakote -) 500 mg PO BID [facility] Last Admin: 02/06/17 22:55 Dose: 500 mg Heparin Sodium (Porcine) (Heparin -) 5,000 unit SQ BID [facility] Last Admin: 02/06/17 22:55 Dose: 5,000 unit Propofol (Diprivan -) 1,000 mcg in 0.1 mls @ 2.449 mls/hr IV TITR TANNER; 5 MCG/KG /MIN PRN Reason: Protocol Last Admin: 02/06/17 22:34 Dose: Not Given Norepinephrine Bitartrate 8, (000 mcg/ Dextrose) 500 mls @ 22.5 mls/hr IV ASDIR TANNER; 6 MCG/MIN PRN Reason: Protocol Last Admin: 02/06/17 22:34 Dose: Not Given Piperacillin Sod/Tazobactam (Sod 3.375 gm/ Dextrose) 50 mls @ 100 mls/hr IVPB Q8H-IV TANNER PRN Reason: Protocol Last Admin: 02/07/17 02:00 Dose: 100 mls/hr Mirtazapine (Remeron -) 15 mg PO HS [facility] Last Admin: 02/06/17 22:56 Dose: 15 mg - Objective Vital Signs: Vital Signs Temperature 99.1 F 02/07/17 06:00 Pulse Rate 74 02/07/17 06:00 Respiratory Rate 12 02/07/17 06:00 Blood Pressure 98/62 02/07/17 06:00 O2 Sat by Pulse Oximetry (%) 100 02/06/17 20:00 Constitutional: Yes: Other (INtubated) Cardiovascular: Yes: S1, S2 Respiratory: Yes: WNL, Regular, CTA Bilaterally Gastrointestinal: Yes: Soft. No: Tenderness Integumentary: Yes: Other (Sacral wound) Labs: CBC, BMP 02/07/17 05:50 02/07/17 05:50 INR, PTT INR 1.03 (0.82-1.09) 02/04/17 15:10 Problem List - Problems (1) UTI (urinary tract infection) Code(s): N39.0 - URINARY TRACT INFECTION, SITE NOT SPECIFIED (2) Sepsis Code(s): A41.9 - SEPSIS, UNSPECIFIED ORGANISM (3) Subarachnoid hemorrhage Code(s): I60.9 - NONTRAUMATIC SUBARACHNOID HEMORRHAGE, UNSPECIFIED Assessment/Plan Microbiology 02/04/17 15:53 Urine - Urine [place] Urine Culture - Final Yeast Like Organism 02/04/17 15:05 Blood - Peripheral Venous Blood Culture - Preliminary NO GROWTH OBTAINED AFTER 48 HOURS, INCUBATION TO CONTINUE FOR 3 DAYS. 02/04/17 15:00 Blood - Peripheral Venous Blood Culture - Preliminary NO GROWTH OBTAINED AFTER 48 HOURS, INCUBATION TO CONTINUE FOR 3 DAYS. Laboratory Tests 02/04/17 02/06/17 02/07/17 15:53 08:46 05:50 WBC 9.0 Hgb 8.5 L D Hct 25.6 L Plt Count 135 ABG pH 7.41 ABG pCO2 at Pt Temp 30.8 L D ABG pO2 at Pt Temp 309.0 H* D Vent Rate 14 BUN Creatinine Creat Clearance w eGFR AST Ur Leukocyte Esterase 3+ H Urine WBC (Auto) 668 Urine RBC (Auto) 2 02/07/17 05:50 WBC Hgb Hct Plt Count ABG pH ABG pCO2 at Pt Temp ABG pO2 at Pt Temp Vent Rate BUN 45 H Creatinine 1.0 Creat Clearance w eGFR 52.57 AST 44 H D Ur Leukocyte Esterase Urine WBC (Auto) Urine RBC (Auto) Assessment Sepsis syndrome thought secondary to urinary infection Suzanna colonization not the pathogen here Respiratory failure Subdural hematomas Acute kidney injury Sacral pressure wound per [facility] staff ( does not need debridement) Plan Continue current antibiotic as ordered Pressor support Suad MCNEILL
--- NOTE | 2017-02-07 08:02 | PN ---
Progress Note (short form) - Note Progress Note: Pulm/CCM SUBJECTIVE: Patient seen and examined in the ICU. -still on low dose levo and sedated on propofol -low grade temp 99 but hemodynamics unchange - PT and Gent as per ID Vital Signs Temp 99.1 F 02/07/17 06:00 Pulse 74 02/07/17 06:00 Resp 14 02/07/17 07:37 BP 98/62 02/07/17 06:00 Pulse Ox 100 02/06/17 20:00 Intake & Output 02/06/17 02/06/17 02/07/17 11:59 23:59 11:59 Intake Total 1856 1922 1990 Output Total 700 500 Balance 1856 1222 1490 Intake: IV 1806 1522 1440 1/2 Normal Saline 1,951 747 2788 ml @ 100 mls/hr IV ASDIR TANNER Rx#:[id number] D5-1/2Ns - 1,000 ml @ 100 1200 1100 mls/hr IV ASDIR TANNER Rx#: [id number] DIPRIVAN - 1,000 mcg In 0 156 87 60 .1 ml @ 5 MCG/KG/MIN 2. 449 mls/hr IV TITR TANNER Rx #:[id number] Levophed - 8,000 Mcg In 450 235 180 D5w - 492 ml @ 6 MCG/MIN 22.5 mls/hr IV ASDIR TANNER Rx#:[id number] IVPB 50 150 50 Tube Irrigant 250 500 Output: Urine 700 500 [place] 700 500 Other: Voiding Method Indwelling Catheter Indwelling Catheter # Bowel Movements 1 CBCD WBC 9.0 K/mm3 (4.0-10.0) 02/07/17 05:50 RBC 2.64 M/mm3 (3.60-5.2) L 02/07/17 05:50 Hgb 8.5 GM/dL (10.7-15.3) L D 02/07/17 05:50 Hct 25.6 % (32.4-45.2) L 02/07/17 05:50 MCV 96.7 fl (80-96) H 02/07/17 05:50 MCHC 33.4 g/dl (32.0-36.0) 02/07/17 05:50 RDW 16.4 % (11.6-15.6) H 02/07/17 05:50 Plt Count 135 K/MM3 (134-434) 02/07/17 05:50 MPV 12.9 fl (7.5-11.1) H 02/07/17 05:50 CMP Sodium 150 mmol/L (136-145) H 02/07/17 05:50 Potassium 3.4 mmol/L (3.5-5.1) L 02/07/17 05:50 Chloride 121 mmol/L (98-107) H 02/07/17 05:50 Carbon Dioxide 22 mmol/L (21-32) 02/07/17 05:50 Anion Gap 7 (8-16) L 02/07/17 05:50 BUN 45 mg/dL (7-18) H 02/07/17 05:50 Creatinine 1.0 mg/dL (0.55-1.02) 02/07/17 05:50 Creat Clearance w eGFR 52.57 (>60) 02/07/17 05:50 Calcium 7.0 mg/dL (8.5-10.1) L 02/07/17 05:50 Total Bilirubin 1.2 mg/dL (0.2-1.0) H D 02/07/17 05:50 AST 44 U/L (15-37) H D 02/07/17 05:50 ALT 18 U/L (12-78) 02/07/17 05:50 Alkaline Phosphatase 59 U/L (45-117) 02/07/17 05:50 Total Protein 5.1 g/dl (6.4-8.2) L 02/07/17 05:50 Albumin 1.3 g/dl (3.4-5.0) L 02/07/17 05:50 Active Medications Acetaminophen (Tylenol -) 650 mg PO Q4H PRN PRN Reason: FEVER OR PAIN Acetaminophen (Tylenol Suppository -) 120 mg RC Q6H PRN PRN Reason: FEVER Chlorhexidine Gluconate (Peridex -) 15 ml MM BID [facility] Last Admin: 02/06/17 22:56 Dose: 15 ml Divalproex Sodium (Depakote -) 500 mg PO BID [facility] Last Admin: 02/06/17 22:55 Dose: 500 mg Heparin Sodium (Porcine) (Heparin -) 5,000 unit SQ BID [facility] Last Admin: 02/06/17 22:55 Dose: 5,000 unit Propofol (Diprivan -) 1,000 mcg in 0.1 mls @ 2.449 mls/hr IV TITR TANNER; 5 MCG/KG /MIN PRN Reason: Protocol Last Admin: 02/06/17 22:34 Dose: Not Given Norepinephrine Bitartrate 8, (000 mcg/ Dextrose) 500 mls @ 22.5 mls/hr IV ASDIR TANNER; 6 MCG/MIN PRN Reason: Protocol Last Admin: 02/06/17 22:34 Dose: Not Given Piperacillin Sod/Tazobactam (Sod 3.375 gm/ Dextrose) 50 mls @ 100 mls/hr IVPB Q8H-IV TANNER PRN Reason: Protocol Last Admin: 02/07/17 02:00 Dose: 100 mls/hr Mirtazapine (Remeron -) 15 mg PO HS [facility] Last Admin: 02/06/17 22:56 Dose: 15 mg Constitutional: Yes: Intubated and sedated Eyes: Yes: WNL HENT: Yes: WNL Cardiovascular: Yes: Regular Rate and Rhythm Respiratory: Yes: Intubated, Mechanically Ventilated, bilateral rhonchi Gastrointestinal: Yes: Normal Bowel Sounds Renal/: Yes: WNL Edema: No Edema: LUE: Trace, RUE: Trace, LLE: Trace, RLE: Trace Neurological: Yes: Intubated and sedated Labs: Assessment/Plan Acute Respiratory Failure Recent subdural and subsequent subarachnoid hemorrhage Septic Shock Hypernatremia Severe electrolyte imbalance Anemia ARCHANA IVF wean sedation and vasopressor support diuresis once off pressors ABX per ID Follow cultures AC mode of vent, taper FiO2 Tend BMP, cont free water, correct 8-12 q 24, goal today 144 Normal transfusion thresholds VTE prophylaxis Enteral feeds ICU Monitoring Marty Gonzalez ACNP [id number]
[2017-02-07] MEDS ORDERED: PT OWN MED DRAWER 7, Y5N ONE ×2 (09:46→21:38)
[2017-02-07] MEDS: HEPARIN NA (PORCINE) 5,000 UNITS/ML 1ML VIAL SQ SCH ×2 (11:09→21:45)
[2017-02-07] MEDS: DIVALPROEX SODIUM 500 MG TABLET E.C. PO SCH ×2 (11:09→21:45)
[2017-02-07] MEDS: CHLORHEXIDINE GLUCONATE 0.12% 15ML CUP MM SCH ×2 (11:10→21:46)
--- NOTE | 2017-02-07 11:29 | PN ---
Progress Note (short form) - Note Progress Note: RENAL Pt seen in the icu intubated but responsive Last Vital Signs Temp Pulse Resp BP Pulse Ox 99.2 F 70 10 L 94/62 100 02/07/17 10:00 02/07/17 10:13 02/07/17 10:16 02/07/17 10:00 02/07/17 10:16 lungs clear anteriorly ett in place cvs s1s2 rr abd soft, PEG in place ext +edema neuro arousable CBC, BMP 02/07/17 05:50 02/07/17 05:50 Current Medications Generic Name Dose Route Start Last Admin Trade Name Freq PRN Reason Stop Dose Admin Acetaminophen 650 mg 02/05/17 21:44 Tylenol - PO Q4H PRN FEVER OR PAIN Acetaminophen 120 mg 02/05/17 21:44 Tylenol Suppository - RC Q6H PRN FEVER Chlorhexidine Gluconate 15 ml 02/05/17 22:00 02/07/17 11:10 Peridex - MM 15 ml BID TANNER Administration Divalproex Sodium 500 mg 02/05/17 22:00 02/07/17 11:09 Depakote - PO 500 mg BID TANNER Administration Heparin Sodium (Porcine) 5,000 unit 02/05/17 22:00 02/07/17 11:09 Heparin - SQ 5,000 unit BID TANNER Administration Propofol 1,000 mcg in 0.1 mls @ 2.449 mls/hr 02/05/17 17:00 02/06/17 22:34 Diprivan - IV Not Given TITR TANNER Protocol 5 MCG/KG/MIN Norepinephrine Bitartrate 8, 500 mls @ 22.5 mls/hr 02/05/17 17:00 02/06/17 22 :34 000 mcg/ Dextrose IV Not Given ASDIR TANNER Protocol 6 MCG/MIN Piperacillin Sod/Tazobactam 50 mls @ 100 mls/hr 02/06/17 11:00 02/07/17 11:09 Sod 3.375 gm/ Dextrose IVPB 100 mls/hr Q8H-IV TANNER Administration Protocol Mirtazapine 15 mg 02/05/17 22:00 02/06/17 22:56 Remeron - PO 15 mg HS TANNER Administration Impression 1. ARCHANA 2. hypernatremia 3. hyperkalemia 4. anemia 5. epilepsy 6. hx of subdural hematoma 7. hypotension 8. hypoglycemia Plan - renal function is improving - cont with fluids - cont with free water - vent support - would keep n fluids until levo can be tapered MV
--- NOTE | 2017-02-07 11:49 | PN ---
Physical Exam: SUBJECTIVE: Patient seen and examined. Remains intubated, sedation off since 8am , 3mcg levophed. OBJECTIVE: Vital Signs Period Temp Pulse Resp BP Sys/Han Pulse Ox Last 24 Hr 99 F-99.7 F 69-83 9-15 88-123/50-66 100-100 MV AC/12/450/50/5 PE Neuro: opens eyes, grimaces Pulm: cleat anteriorly, vent sounds CV: s1 s2 rrr no mrg Abd: + GT CDI, abd soft, hypoactive bowel sounds Ext: warm, no le edema, b/l UE edema + 3 Laboratory Results - last 24 hr 02/06/17 02/07/17 02/07/17 21:20 05:50 05:50 WBC 9.0 RBC 2.64 L Hgb 8.5 L D Hct 25.6 L MCV 96.7 H MCH 32.3 MCHC 33.4 RDW 16.4 H Plt Count 135 MPV 12.9 H Neutrophils % 74.3 Lymphocytes % 12.7 D Monocytes % 8.3 Eosinophils % 4.4 Basophils % 0.3 PTT (Actin FS) 27.9 Sodium 153 H Potassium 3.5 Chloride 122 H Carbon Dioxide 22 Anion Gap 9 BUN 54 H Creatinine 1.1 H Creat Clearance w eGFR Random Glucose 104 Calcium 7.5 L Phosphorus Magnesium Total Bilirubin AST ALT Alkaline Phosphatase Total Protein Albumin Vitamin B12 Serum Folate TSH Ur Leukocyte Esterase 02/07/17 02/07/17 05:50 05:50 WBC RBC Hgb Hct MCV MCH MCHC RDW Plt Count MPV Neutrophils % Lymphocytes % Monocytes % Eosinophils % Basophils % PTT (Actin FS) Sodium 150 H Potassium 3.4 L Chloride 121 H Carbon Dioxide 22 Anion Gap 7 L BUN 45 H Creatinine 1.0 Creat Clearance w eGFR 52.57 Random Glucose 90 Calcium 7.0 L Phosphorus 3.7 Magnesium 2.3 Total Bilirubin 1.2 H D AST 44 H D ALT 18 Alkaline Phosphatase 59 Total Protein 5.1 L Albumin 1.3 L Vitamin B12 1094 H Serum Folate TSH 3.47 Ur Leukocyte Esterase Active Medications Generic Name Dose Route Start Last Admin Trade Name Freq PRN Reason Stop Dose Admin Acetaminophen 650 mg 02/05/17 21:44 Tylenol - PO Q4H PRN FEVER OR PAIN Acetaminophen 120 mg 02/05/17 21:44 Tylenol Suppository - RC Q6H PRN FEVER Chlorhexidine Gluconate 15 ml 02/05/17 22:00 02/07/17 11:10 Peridex - MM 15 ml BID [facility] Administration Divalproex Sodium 500 mg 02/05/17 22:00 02/07/17 11:09 Depakote - PO 500 mg BID [facility] Administration Heparin Sodium (Porcine) 5,000 unit 02/05/17 22:00 02/07/17 11:09 Heparin - SQ 5,000 unit BID [facility] Administration Propofol 1,000 mcg in 0.1 mls @ 2.449 mls/hr 02/05/17 17:00 02/06/17 22:34 Diprivan - IV Not Given TITR [facility] Protocol 5 MCG/KG/MIN Norepinephrine Bitartrate 8, 500 mls @ 22.5 mls/hr 02/05/17 17:00 02/06/17 22 :34 000 mcg/ Dextrose IV Not Given ASDIR [facility] Protocol 6 MCG/MIN Piperacillin Sod/Tazobactam 50 mls @ 100 mls/hr 02/06/17 11:00 02/07/17 11:09 Sod 3.375 gm/ Dextrose IVPB 100 mls/hr Q8H-IV [facility] Administration Protocol Mirtazapine 15 mg 02/05/17 22:00 02/06/17 22:56 Remeron - PO 15 mg HS [facility] Administration Microbiology 02/06/17 08:52 Blood Culture - Preliminary Blood - Peripheral Venous NO GROWTH OBTAINED AFTER 24 HOURS, INCUBATION TO CONTINUE FOR 4 DAYS. 02/06/17 08:52 Blood Culture - Preliminary Blood - Peripheral Venous NO GROWTH OBTAINED AFTER 24 HOURS, INCUBATION TO CONTINUE FOR 4 DAYS. 02/04/17 15:05 Blood Culture - Preliminary Blood - Peripheral Venous NO GROWTH OBTAINED AFTER 48 HOURS, INCUBATION TO CONTINUE FOR 3 DAYS. 02/04/17 15:00 Blood Culture - Preliminary Blood - Peripheral Venous NO GROWTH OBTAINED AFTER 48 HOURS, INCUBATION TO CONTINUE FOR 3 DAYS. 02/04/17 15:53 Urine Culture - Final Urine - Urine [place] Yeast Like Organism Assessment: 86 year old female with pmhx recent subdural hematoma s/p fall ( diagnosed in 07/2016 managed at [facility]) HTN, HLD, seizures x1 after subdural hematoma (on depakote) followed by subarachnoid hemorrhage in 11/2106 admitted with sepsis and electrolyte disturbances Plan: 1. Acute Respiratory failure - Maintain mechanical ventilation - Monitor off sedation now 2. Septic shock - Continue levophed, titrate for MAP goal>65 - Due to UTI - Continue zosyn, x1 dose gentamycin 02/06 3. Hypernatremia - 2.6L free water deficit - Continue D5 1/2 NS @ 100cc/hr until off levo - Continue 250ml free water flushes q4hr through GT 4. ARCHANA with elevated BUN - Renal fxn improving - Urine studies ordered - Kidney/bladder US ordered 5. hx of sub arachnoid hemorrhage and subdural hematoma - Head CT as above - Continue depakote 6. Hyperkalemia - Resolved 7. Acute blood loss anemia - s/p 1uprbc 02/05 8. Macrocytic Anemia - Folate, b12 normal 9. DVT - Heparin sq Problem List - Problems (1) Sepsis Code(s): A41.9 - SEPSIS, UNSPECIFIED ORGANISM (2) Sepsis associated hypotension Code(s): A41.9 - SEPSIS, UNSPECIFIED ORGANISM (3) Acute hypernatremia Code(s): E87.0 - HYPEROSMOLALITY AND HYPERNATREMIA (4) Hyperkalemia Code(s): E87.5 - HYPERKALEMIA (5) Subarachnoid hemorrhage Code(s): I60.9 - NONTRAUMATIC SUBARACHNOID HEMORRHAGE, UNSPECIFIED (6) Subdural hemorrhage Code(s): I62.00 - NONTRAUMATIC SUBDURAL HEMORRHAGE, UNSPECIFIED (7) Hyperlipidemia Code(s): E78.5 - HYPERLIPIDEMIA, UNSPECIFIED (8) Hypertension Code(s): I10 - ESSENTIAL (PRIMARY) HYPERTENSION (9) Seizure Code(s): R56.9 - UNSPECIFIED CONVULSIONS Visit type - Emergency Visit Emergency Visit: Yes ED Registration Date: 02/04/17 Care time: The patient presented to the Emergency Department on the above date and was hospitalized for further evaluation of their emergent condition. - New Patient This patient is new to me today: No - Critical Care Critical Care patient: No
[2017-02-07] MEDS ORDERED: POTASSIUM CHLORIDE ORAL LIQUID 20 MEQ/15 ML PO ONE (12:03)
[2017-02-07] MEDS: PROPOFOL IV SCH (17:10)
[2017-02-07] MEDS: NOREPINEPHRINE BITARTRATE 8,000 MCG in DEXTROSE 5%-WATER - 492 ML IV SCH (17:11)
[2017-02-07] MEDS: MIRTAZAPINE 15 MG TABLET (FP) PO SCH (21:46)
[2017-02-08] MEDS: PIPERACILLIN/TAZOB 3.375 GM 3.375 GM in DEXTROSE 5%-WATER - 50 ML IVPB SCH ×3 (02:15→17:41)
[2017-02-08] MEDS ORDERED: NOREPINEPHRINE BITARTRATE 4 MG/4 ML ML IV ONE (02:20)
[2017-02-08 05:49] LABS: BASO % 0.1 % (0-2.0); EOS % 0.7 % (0-4.5); MCHC 33.2 g/dl (32.0-36.0); MEAN CELL VOLUME 96.5 fl (80-96); MEAN PLT VOLUME 12.1 fl (7.5-11.1); NEUT % 85.3 % (42.8-82.8); PLATELET COUNT 170 K/MM3 (134-434); RDW 15.6 % (11.6-15.6)
[2017-02-08 06:18] LABS: ALBUMIN 1.3 g/dl (3.4-5.0); ANION GAP 11 (8-16); BILIRUBIN,TOTAL 0.7 mg/dL (0.2-1.0); CO2 18 mmol/L (21-32); CREATININE 0.9 mg/dL (0.55-1.02); GLUCOSE,RANDOM 98 mg/dL (74-106); SGOT/AST 40 U/L (15-37); SGPT/ALT 19 U/L (12-78); TOT PROT 5.2 g/dl (6.4-8.2)
[2017-02-08 06:19] LABS: ALK PHOS 63 U/L (45-117)
[2017-02-08] MEDS: NOREPINEPHRINE BITARTRATE 8,000 MCG in DEXTROSE 5%-WATER - 492 ML IV SCH ×3 (07:00→17:40)
--- NOTE | 2017-02-08 07:34 | PN ---
Progress Note, Physician Chief Complaint: SANDRA Damon continues Day 3 antibiotic for fever and sepsis Now in ICU pressor support Intubated - Current Medication List Current Medications: Active Medications Acetaminophen (Tylenol -) 650 mg PO Q4H PRN PRN Reason: FEVER OR PAIN Acetaminophen (Tylenol Suppository -) 120 mg RC Q6H PRN PRN Reason: FEVER Chlorhexidine Gluconate (Peridex -) 15 ml MM BID [facility] Last Admin: 02/07/17 21:46 Dose: 15 ml Divalproex Sodium (Depakote -) 500 mg PO BID [facility] Last Admin: 02/07/17 21:45 Dose: 500 mg Heparin Sodium (Porcine) (Heparin -) 5,000 unit SQ BID [facility] Last Admin: 02/07/17 21:45 Dose: 5,000 unit Propofol (Diprivan -) 1,000 mcg in 0.1 mls @ 2.449 mls/hr IV TITR [facility]; 5 MCG/KG /MIN PRN Reason: Protocol Last Admin: 02/07/17 17:10 Dose: Not Given Norepinephrine Bitartrate 8, (000 mcg/ Dextrose) 500 mls @ 22.5 mls/hr IV ASDIR [facility]; 6 MCG/MIN PRN Reason: Protocol Last Admin: 02/07/17 17:11 Dose: Not Given Piperacillin Sod/Tazobactam (Sod 3.375 gm/ Dextrose) 50 mls @ 100 mls/hr IVPB Q8H-IV [facility] PRN Reason: Protocol Last Admin: 02/08/17 02:15 Dose: 100 mls/hr Mirtazapine (Remeron -) 15 mg PO HS [facility] Last Admin: 02/07/17 21:46 Dose: 15 mg - Objective Vital Signs: Vital Signs Temperature 100.2 F H 02/08/17 06:00 Pulse Rate 88 02/08/17 06:00 Respiratory Rate 24 02/08/17 06:00 Blood Pressure 107/64 02/08/17 06:00 O2 Sat by Pulse Oximetry (%) 100 02/07/17 20:00 Constitutional: Yes: Other (Intubated) Cardiovascular: Yes: S1, S2. No: Murmur Respiratory: Yes: WNL, Regular, CTA Bilaterally, Rhonchi Gastrointestinal: Yes: Soft. No: Tenderness Edema: No Labs: CBC, BMP 02/08/17 05:35 02/08/17 05:35 INR, PTT INR 1.03 (0.82-1.09) 02/04/17 15:10 Problem List - Problems (1) UTI (urinary tract infection) Code(s): N39.0 - URINARY TRACT INFECTION, SITE NOT SPECIFIED (2) Sepsis Code(s): A41.9 - SEPSIS, UNSPECIFIED ORGANISM (3) Subarachnoid hemorrhage Code(s): I60.9 - NONTRAUMATIC SUBARACHNOID HEMORRHAGE, UNSPECIFIED Assessment/Plan Microbiology 02/04/17 15:53 Urine - Urine [place] Urine Culture - Final Yeast Like Organism 02/06/17 08:52 Blood - Peripheral Venous Blood Culture - Preliminary NO GROWTH OBTAINED AFTER 24 HOURS, INCUBATION TO CONTINUE FOR 4 DAYS. 02/06/17 08:52 Blood - Peripheral Venous Blood Culture - Preliminary NO GROWTH OBTAINED AFTER 24 HOURS, INCUBATION TO CONTINUE FOR 4 DAYS. 02/04/17 15:05 Blood - Peripheral Venous Blood Culture - Preliminary NO GROWTH OBTAINED AFTER 72 HOURS, INCUBATION TO CONTINUE FOR 2 DAYS. 02/04/17 15:00 Blood - Peripheral Venous Blood Culture - Preliminary NO GROWTH OBTAINED AFTER 72 HOURS, INCUBATION TO CONTINUE FOR 2 DAYS. Laboratory Tests 02/04/17 02/08/17 02/08/17 15:53 05:35 05:35 WBC 13.0 H D Hgb 9.3 L Hct 27.9 L Plt Count 170 D Creat Clearance w eGFR 59.37 Total Bilirubin 0.7 D AST 40 H ALT 19 Alkaline Phosphatase 63 Urine RBC (Auto) 2 Assessment Sepsis syndrome urinary source ( yeast noted on culture but I think this colnization only) Getting broad spectrum antibiotic but really no progress Advanced age comorbid conditions prognosis poor. Plan Getting maximal support Suad MCNEILL
--- NOTE | 2017-02-08 08:36 | PN ---
Progress Note (short form) - Note Progress Note: PULM/CCM Pt seen & examined in the ICU. Pt remains intubated on Levo, off sedation, resting comfortable on the Vent. ACTVE MEDS Acetaminophen (Tylenol -) 650 mg PO Q4H PRN PRN Reason: FEVER OR PAIN Acetaminophen (Tylenol Suppository -) 120 mg RC Q6H PRN PRN Reason: FEVER Chlorhexidine Gluconate (Peridex -) 15 ml MM BID [facility] Last Admin: 02/08/17 10:47 Dose: 15 ml Divalproex Sodium (Depakote Sprinkle Caps -) 500 mg PEG BID [facility] Heparin Sodium (Porcine) (Heparin -) 5,000 unit SQ BID [facility] Last Admin: 02/08/17 10:47 Dose: 5,000 unit Propofol (Diprivan -) 1,000 mcg in 0.1 mls @ 2.449 mls/hr IV TITR [facility]; 5 MCG/KG /MIN PRN Reason: Protocol Last Admin: 02/07/17 17:10 Dose: Not Given Norepinephrine Bitartrate 8, (000 mcg/ Dextrose) 500 mls @ 22.5 mls/hr IV ASDIR [facility]; 6 MCG/MIN PRN Reason: Protocol Last Admin: 02/07/17 17:11 Dose: Not Given Piperacillin Sod/Tazobactam (Sod 3.375 gm/ Dextrose) 50 mls @ 100 mls/hr IVPB Q8H-IV [facility] PRN Reason: Protocol Last Admin: 02/08/17 10:47 Dose: 100 mls/hr Mirtazapine (Remeron -) 15 mg PO HS [facility] Last Admin: 02/07/17 21:46 Dose: 15 mg V/S Period Temp Pulse Resp BP Sys/Han Pulse Ox Last 24 Hr 99.2 F-100.3 F 71-108 13-24 80-130/39-78 96-100 I's & O's 02/05/17 02/06/17 02/07/17 02/08/17 23:59 23:59 23:59 23:59 Intake Total 3700 3778 4223 1944 Output Total 2150 700 1250 500 Balance 1550 3078 2973 1444 Weight 81.647 kg GEN: Vegetative elderly woman, intubated, on the Vent HEENT: PERRL, an-icteric, ETT PULM: CTAB CV: Nml s1s2, rr, unable to appreciate any G/M/R ABD: soft, PEG in place EXT: +edema NEURO: Comatose CBC, BMP 02/08/17 05:35 02/08/17 05:35 MICRO 02/06/17 08:52 Blood - Peripheral Venous Blood Culture - Preliminary NO GROWTH OBTAINED AFTER 48 HOURS, INCUBATION TO CONTINUE FOR 3 DAYS. 02/06/17 08:52 Blood - Peripheral Venous Blood Culture - Preliminary NO GROWTH OBTAINED AFTER 48 HOURS, INCUBATION TO CONTINUE FOR 3 DAYS. 02/04/17 15:05 Blood - Peripheral Venous Blood Culture - Preliminary NO GROWTH OBTAINED AFTER 72 HOURS, INCUBATION TO CONTINUE FOR 2 DAYS. 02/04/17 15:00 Blood - Peripheral Venous Blood Culture - Preliminary NO GROWTH OBTAINED AFTER 72 HOURS, INCUBATION TO CONTINUE FOR 2 DAYS. 02/04/17 15:53 Urine - Urine [place] Urine Culture - Final Yeast Like Organism IMAGING 2 NOTE: CXR 02/07: ETT in good position, R IJ TLC in good position, otherwise clear (My Read). CXR 02/08: PENDING ASSESS: This is an 86 y/o woman w/ a PMHx/o HTN, HLD, multiple SDHs, & SAHs c/b Szs (on depakote) admitted now w/ urosepsis. PLAN: 1. Acute Respiratory failure in the setting of urosepsis - Wean Vent as tolerated - HOB > 30 - Vent Bundle - Consider early Trach 2. Resolving Septic shock - Wean levophed as tolerated, titrate for MAP goal>65 - Continue zosyn for urosepsis 3. Resolving ARCHANA - Strict I's & O's - Monitor UOP - Trend BUN/Cr - Replete e-lytes prn 4. Multiple SDHs, & SAHs c/b Szs (on depakote) - Continue depakote 5. Macrocytic Anemia - Normal transfusion thresholds - Folate, b12 normal 6. DVT - SQH - PPI - SCDs DGL, ACNP-BC [facility] ICU PULM/CCM 1638
[2017-02-08] MEDS ORDERED: PT OWN MED DRAWER 7, Y5N ONE ×4 (10:45→22:07)
[2017-02-08] MEDS: HEPARIN NA (PORCINE) 5,000 UNITS/ML 1ML VIAL SQ SCH ×2 (10:47→22:00)
[2017-02-08] MEDS: CHLORHEXIDINE GLUCONATE 0.12% 15ML CUP MM SCH ×2 (10:47→22:00)
--- NOTE | 2017-02-08 10:51 | PN ---
Progress Note (short form) - Note Progress Note: RENAL Pt seen in the icu intubated sedated lungs clear anteriorly ett in place cvs s1s2 rr abd soft, PEG in place ext +edema neuro arousable CBC, BMP 02/08/17 05:35 02/08/17 05:35 Current Medications Generic Name Dose Route Start Last Admin Trade Name Freq PRN Reason Stop Dose Admin Acetaminophen 650 mg 02/05/17 21:44 Tylenol - PO Q4H PRN FEVER OR PAIN Acetaminophen 120 mg 02/05/17 21:44 Tylenol Suppository - RC Q6H PRN FEVER Chlorhexidine Gluconate 15 ml 02/05/17 22:00 02/07/17 21:46 Peridex - MM 15 ml BID [facility] Administration Divalproex Sodium 500 mg 02/05/17 22:00 02/07/17 21:45 Depakote - PO 500 mg BID [facility] Administration Heparin Sodium (Porcine) 5,000 unit 02/05/17 22:00 02/07/17 21:45 Heparin - SQ 5,000 unit BID [facility] Administration Propofol 1,000 mcg in 0.1 mls @ 2.449 mls/hr 02/05/17 17:00 02/07/17 17:10 Diprivan - IV Not Given TITR [facility] Protocol 5 MCG/KG/MIN Norepinephrine Bitartrate 8, 500 mls @ 22.5 mls/hr 02/05/17 17:00 02/07/17 17 :11 000 mcg/ Dextrose IV Not Given ASDIR [facility] Protocol 6 MCG/MIN Piperacillin Sod/Tazobactam 50 mls @ 100 mls/hr 02/06/17 11:00 02/08/17 02:15 Sod 3.375 gm/ Dextrose IVPB 100 mls/hr Q8H-IV [facility] Administration Protocol Mirtazapine 15 mg 02/05/17 22:00 02/07/17 21:46 Remeron - PO 15 mg HS T[facility]NER Administration Impression 1. ARCHANA 2. hypernatremia 3. hyperkalemia now resolved. Piperacillin m ore likely to cause low k 4. anemia 5. epilepsy 6. hx of subdural hematoma 7. hypotension 8. hypoglycemia 9. severe hypoalbuminemia Plan - renal function is improving - cont with free water though maybe able to reduce - vent support - would keep n fluids until levo can be tapered - hep c antibody, HIV ab if possible- has a high globulin compared to albumin though it may be from severe hypoalbuminemia MV
[2017-02-08] MEDS: DIVALPROEX SODIUM 125 MG SPRINKLE CAPS (FP) PEG SCH ×2 (15:27→22:00)
--- NOTE | 2017-02-08 15:44 | PN ---
Physical Exam: SUBJECTIVE: Patient seen and examined. intubated, off sedation, on pressor support OBJECTIVE: Vital Signs Period Temp Pulse Resp BP Sys/Han Pulse Ox Last 24 Hr 99.2 F-100.3 F 74-108 14-27 86-130/50-78 96-100 MV AC/12/450/50/5 PE Neuro: opens eyes, grimaces Pulm: cleat anteriorly, vent sounds CV: s1 s2 rrr no mrg Abd: + GT CDI, abd soft, hypoactive bowel sounds : mcelroy Ext: warm, b/l UE edema + 3 Skin: reported sacral ulcer Laboratory Results - last 24 hr 02/04/17 02/06/17 02/08/17 15:53 05:35 05:35 WBC 13.0 H D RBC 2.89 L Hgb 9.3 L Hct 27.9 L MCV 96.5 H MCH 32.0 MCHC 33.2 RDW 15.6 Plt Count 170 D MPV 12.1 H Neutrophils % 85.3 H Lymphocytes % 8.0 D Monocytes % 5.9 Eosinophils % 0.7 D Basophils % 0.1 Sodium Potassium Chloride Carbon Dioxide Anion Gap BUN Creatinine Creat Clearance w eGFR POC Glucometer [phone] Random Glucose Calcium Total Bilirubin AST ALT Alkaline Phosphatase Total Protein Albumin Blood Type A POSITIVE Antibody Screen Negative Crossmatch See Detail 02/08/17 05:35 WBC RBC Hgb Hct MCV MCH MCHC RDW Plt Count MPV Neutrophils % Lymphocytes % Monocytes % Eosinophils % Basophils % Sodium 142 Potassium 3.7 Chloride 113 H Carbon Dioxide 18 L Anion Gap 11 BUN 29 H D Creatinine 0.9 Creat Clearance w eGFR 59.37 POC Glucometer Random Glucose 98 Calcium 7.0 L Total Bilirubin 0.7 D AST 40 H ALT 19 Alkaline Phosphatase 63 Total Protein 5.2 L Albumin 1.3 L Blood Type Antibody Screen Crossmatch Active Medications Generic Name Dose Route Start Last Admin Trade Name Freq PRN Reason Stop Dose Admin Acetaminophen 650 mg 02/05/17 21:44 Tylenol - PO Q4H PRN FEVER OR PAIN Acetaminophen 120 mg 02/05/17 21:44 Tylenol Suppository - RC Q6H PRN FEVER Chlorhexidine Gluconate 15 ml 02/05/17 22:00 02/08/17 10:47 Peridex - MM 15 ml BID [facility] Administration Divalproex Sodium 500 mg 02/08/17 22:00 Depakote Sprinkle Caps - PEG BID [facility] Heparin Sodium (Porcine) 5,000 unit 02/05/17 22:00 02/08/17 10:47 Heparin - SQ 5,000 unit BID [facility] Administration Propofol 1,000 mcg in 0.1 mls @ 2.449 mls/hr 02/05/17 17:00 02/07/17 17:10 Diprivan - IV Not Given TITR [facility] Protocol 5 MCG/KG/MIN Norepinephrine Bitartrate 8, 500 mls @ 22.5 mls/hr 02/05/17 17:00 02/08/17 14 :00 000 mcg/ Dextrose IV 8 mcg/min ASDIR T[facility] 30 mls/hr Protocol Titration 6 MCG/MIN Piperacillin Sod/Tazobactam 50 mls @ 100 mls/hr 02/06/17 11:00 02/08/17 10:47 Sod 3.375 gm/ Dextrose IVPB 100 mls/hr Q8H-IV [facility] Administration Protocol Mirtazapine 15 mg 02/05/17 22:00 02/07/17 21:46 Remeron - PO 15 mg HS [facility] Administration Assessment: 86 year old female with pmhx recent subdural hematoma s/p fall ( diagnosed in 07/2016 managed at [facility]) HTN, HLD, seizures x1 after subdural hematoma (on depakote) followed by subarachnoid hemorrhage in 11/2106 admitted with sepsis and electrolyte disturbances Plan: 1. Acute Respiratory failure - Maintain mechanical ventilation - Monitor off sedation 2. Septic shock - Continue levophed, titrate for MAP goal>65 - Due to UTI - Continue zosyn, x1 dose gentamycin 02/06 3. Hypernatremia - Resolved - IVF stopped - Continue free water GT flushes while on levo 4. ARCHANA with elevated BUN - Improving - Off fluids - Urine studies ordered - Kidney/bladder US ordered 5. hx of sub arachnoid hemorrhage and subdural hematoma - Head CT as above - Continue depakote 6. Hyperkalemia - Resolved 7. Acute blood loss anemia - s/p 1uprbc 02/05 8. Macrocytic Anemia - Folate, b12 normal 9. DVT - Heparin sq Problem List - Problems (1) Sepsis Code(s): A41.9 - SEPSIS, UNSPECIFIED ORGANISM (2) Sepsis associated hypotension Code(s): A41.9 - SEPSIS, UNSPECIFIED ORGANISM (3) Acute hypernatremia Code(s): E87.0 - HYPEROSMOLALITY AND HYPERNATREMIA (4) Hyperkalemia Code(s): E87.5 - HYPERKALEMIA (5) Subarachnoid hemorrhage Code(s): I60.9 - NONTRAUMATIC SUBARACHNOID HEMORRHAGE, UNSPECIFIED (6) Subdural hemorrhage Code(s): I62.00 - NONTRAUMATIC SUBDURAL HEMORRHAGE, UNSPECIFIED (7) Hyperlipidemia Code(s): E78.5 - HYPERLIPIDEMIA, UNSPECIFIED (8) Hypertension Code(s): I10 - ESSENTIAL (PRIMARY) HYPERTENSION (9) Seizure Code(s): R56.9 - UNSPECIFIED CONVULSIONS Visit type - Emergency Visit Emergency Visit: Yes ED Registration Date: 02/04/17 Care time: The patient presented to the Emergency Department on the above date and was hospitalized for further evaluation of their emergent condition. - New Patient This patient is new to me today: No - Critical Care Critical Care patient: No
[2017-02-08] MEDS: PROPOFOL IV SCH (17:16)
[2017-02-08] MEDS: DIVALPROEX SODIUM 500 MG TABLET E.C. PO SCH (19:57)
[2017-02-08] MEDS: MIRTAZAPINE 15 MG TABLET (FP) PO SCH (22:00)
[2017-02-09] MEDS: PIPERACILLIN/TAZOB 3.375 GM 3.375 GM in DEXTROSE 5%-WATER - 50 ML IVPB SCH ×3 (01:05→17:16)
--- NOTE | 2017-02-09 08:33 | PN ---
Physical Exam: SUBJECTIVE: Patient seen and examined in the ICU. OBJECTIVE: Intubated, briefly opens eye with turning and positioning Very large sacral/pressure wounds, present on admission as noted by primary RN ( see primary RN measurements of wounds) Will order Santyl, will ask wound care to follow Vital Signs Period Temp Pulse Resp BP Sys/Han Pulse Ox Last 24 Hr 98.4 F-100.3 F 72-108 16-30 67-130/40-70 97-98 GENERAL: Sedated, intubated, response (open eyes) with turning and positioning HEAD: Normal with no signs of trauma. EYES: PERRL, extraocular movements intact, sclera anicteric, conjunctiva clear. No ptosis. ENT: Ears normal, nares patent, oropharynx clear without exudates, moist mucous membranes. NECK: Trachea midline, full range of motion, supple. LUNGS: Rhonchi auscultated on right anterior, left anterior with clear/ diminished breath sounds HEART: Regular rate and rhythm ABDOMEN: Soft, nontender, nondistended, normoactive bowel sounds, no guarding, rebound, no hepatosplenomegaly, no masses. EXTREMITIES: bilateral hand edema NEUROLOGICAL: intubated, unable to fully assess neuro status at this time SKIN: See primary RN measurements: Right buttocks with very large unstageable wound, tissue necrosis, purple. Sacrum with stage 2, Left buttock with stage 3 pressure ulcer (slough covers 25% of wound), unable to fully assess if this wound is a stage 2 or 3 but likely a stage 3. All wounds present on admission. Laboratory Results - last 24 hr 02/04/17 15:53 Blood Type A POSITIVE Antibody Screen Negative Crossmatch See Detail Active Medications Generic Name Dose Route Start Last Admin Trade Name Freq PRN Reason Stop Dose Admin Acetaminophen 650 mg 02/05/17 21:44 Tylenol - PO Q4H PRN FEVER OR PAIN Acetaminophen 120 mg 02/05/17 21:44 Tylenol Suppository - RC Q6H PRN FEVER Chlorhexidine Gluconate 15 ml 02/05/17 22:00 02/08/17 22:00 Peridex - MM 15 ml BID [facility] Administration Divalproex Sodium 500 mg 02/08/17 22:00 02/08/17 22:00 Depakote Sprinkle Caps - PEG 500 mg BID [facility] Administration Heparin Sodium (Porcine) 5,000 unit 02/05/17 22:00 02/08/17 22:00 Heparin - SQ 5,000 unit BID [facility] Administration Propofol 1,000 mcg in 0.1 mls @ 2.449 mls/hr 02/05/17 17:00 02/08/17 17:16 Diprivan - IV Not Given TITR [facility] Protocol 5 MCG/KG/MIN Norepinephrine Bitartrate 8, 500 mls @ 22.5 mls/hr 02/05/17 17:00 02/09/17 04 :00 000 mcg/ Dextrose IV 12 mcg/min ASDIR T[facility] 45 mls/hr Protocol Titration 6 MCG/MIN Piperacillin Sod/Tazobactam 50 mls @ 100 mls/hr 02/06/17 11:00 02/09/17 01:05 Sod 3.375 gm/ Dextrose IVPB 100 mls/hr Q8H-IV [facility] Administration Protocol Mirtazapine 15 mg 02/05/17 22:00 02/08/17 22:00 Remeron - PO 15 mg HS TANNER Administration ASSESSMENT/PLAN: Patient is an 86 year old female with a significant past medical history of recent subdural hematoma s/p fall, hypertension, hld,, seizures after subdural hematoma (on depakote) followed by a subarachnoid hemorrhage in 11/2106 where dose of depakote was increased. As per medical records, patient's family noticed that patient began to have her mental status deteriorate, she developed chills, shortness of breath and hypotension which prompted her family to bring her in. On admission she was note to have ARCHANA, anemia electrolyte imbalance and was also found to be septic. ID: Septic Shock, acute Initial UC showed +3 leuk esterase UC with yeast growth Blood cultures negative to date Low grade temperatures noted On mechanical ventilation Off sedation for now On Zosyn 3.375 gm q8 On Norepinehrine, titrate for map goal >65 Blood and urine cultures Large bilateral pressure buttock wounds May also be source of sepsis On santyl Vascular to follow for possible debridement Electrolyte Imbalance, resolved Monitor electrolytes and replete Renal ARCHANA in the setting of septic shock, resolved Monitor bun/creat Kidney/bladder u/s reviewed, no hydronephrosis Renal following Neuro: Sub-archnoid hemorrage/subdural hematoma history Head CT noted On Depakote 500mg BID Seizure precautions stop Heparin, for risk of bleeding Metabolic Encephalopathy secondary to urosepsis and/or large wounds on buttocks Monitor mental status Continue antibiotics as per ID (Zosyn) Vascular for possible debridement Santyl to wounds Hematology Acute blood loss anemia Received 1 prbc 02/05 F.E.N. Fluids: fluids via NGT Electrolytes: monitor Nutritio: Prophylaxis DVT: SCDs bilaterally GI: Protonix
[2017-02-09 09:03] LABS: ALBUMIN 1.4 g/dl (3.4-5.0); ANION GAP 14 (8-16); CALCIUM 7.6 mg/dL (8.5-10.1); CO2 17 mmol/L (21-32); CREATININE 0.9 mg/dL (0.55-1.02); GLUCOSE,RANDOM 112 mg/dL (74-106); SGOT/AST 50 U/L (15-37); SGPT/ALT 23 U/L (12-78)
[2017-02-09 09:04] LABS: ALK PHOS 64 U/L (45-117); BILIRUBIN,TOTAL 0.7 mg/dL (0.2-1.0); TOT PROT 5.5 g/dl (6.4-8.2)
[2017-02-09] MEDS: NOREPINEPHRINE BITARTRATE 8,000 MCG in DEXTROSE 5%-WATER - 492 ML IV SCH ×2 (09:48→17:52)
[2017-02-09] MEDS ORDERED: PT OWN MED DRAWER 7, Y5N ONE (10:35)
[2017-02-09] MEDS: VALPROATE SODIUM 250 MG/5 ML UNIT DOSE CUP PO SCH ×3 (10:39→22:00)
[2017-02-09] MEDS: AMINO ACIDS/PROTEIN HYDROLYS 30 ML LIQUID.PKT PO SCH ×2 (10:41→17:54)
[2017-02-09] MEDS: HEPARIN NA (PORCINE) 5,000 UNITS/ML 1ML VIAL SQ SCH (10:43)
[2017-02-09] MEDS: CHLORHEXIDINE GLUCONATE 0.12% 15ML CUP MM SCH ×2 (10:43→22:00)
--- NOTE | 2017-02-09 11:57 | CONSULT ---
Consult Consult Specialty:: vascular surgery Referred by:: lavinia Reason for Consultation:: sacral ulcer evaluation - History of Present Illness Chief Complaint: sacral ulcer History of Present Illness: 86F with [id number] medical problems presents to the hospital with seizure after recent subdural hemorrhage. Patient is currently intubated and sedated and on pressors. 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, Other (subdural hematoma, subarachnoid hemorrhage) Cardio/Vascular: Yes: HTN, Hyperlipdemia Renal/: Yes: Renal Inusuff - Alcohol/Substance Use Hx Alcohol Use: No - Smoking History Smoking history: Unknown if ever smoked Have you smoked in the past 12 months: No Aproximately how many cigarettes per day: 0 - Social History ADL: Support Services History of Recent Travel: No Home Medications - Allergies Allergies/Adverse Reactions: Allergies Allergy/AdvReac Type Severity Reaction Status Date / Time No Known Allergies Allergy Verified 02/04/17 14:26 - Home Medications Home Medications: Ambulatory Orders Lisinopril [Prinivil] 20 mg PO DAILY 07/17/16 Atorvastatin Ca [Lipitor] 40 mg PO HS #30 tablet 11/25/16 Divalproex [Depakote -] 500 mg PO BID #60 tab 11/25/16 Mirtazapine [Remeron -] 15 mg PO DAILY #30 tablet 11/26/16 Physical Exam Vital Signs: Vital Signs Temperature 100.3 F H 02/09/17 10:00 Pulse Rate 102 H 02/09/17 10:00 Respiratory Rate 30 H 02/09/17 10:00 Blood Pressure 91/63 02/09/17 10:00 O2 Sat by Pulse Oximetry (%) 100 02/09/17 10:47 PE: Intubated and sedated Sacrum and buttock with stage 2 ulcer with deep tissue injury no purulence or drainage Labs: CBC, BMP 02/08/17 05:35 02/09/17 08:20 Assessment/Plan 86F with multiple medical problems presents recent subdural hematoma s/p fall ( diagnosed in 07/2016 managed at [place]) HTN, HLD, seizures x1 after subdural hematoma (on depakote) followed by subarachnoid hemorrhage in 11/2106 admitted with sepsis and electrolyte disturbances Problem list: Acute respiratory failure septic shock hypernatremia ARCHANA hyperkalmeia macrocytic anemia stage 2 sacral ducbitus ulcer and buttock ulcer- Deep tissue injury-unstagable Offloading turn patient q2h and reposition collagenase to sacrum and buttocks daily DVT/Gi PPx treat sepsis wean off pressors Continue heel ulcer prophylaxis and offloading Will follow PRN case discussed with Dr. barrera
--- NOTE | 2017-02-09 13:09 | PN ---
Teaching Attending Note Name of Resident: Brisa Clark ATTENDING PHYSICIAN STATEMENT I saw and evaluated the patient. I reviewed the resident's note and discussed the case with the resident. I agree with the resident's findings and plan as documented. SUBJECTIVE: Pt seen and examined in the ICU. Remains intubated, sedated. low grade temps overnight. Vented on volume assist control with 60% FiO2. OBJECTIVE: Last Vital Signs Temp Pulse Resp BP Pulse Ox 100.3 F H 102 H 25 H 91/63 100 02/09/17 10:00 02/09/17 10:00 02/09/17 11:57 02/09/17 10:00 02/09/17 10:47 Intake & Output 02/06/17 02/07/17 02/08/17 02/09/17 23:59 23:59 23:59 23:59 Intake Total 3778 4223 3264 750 Output Total 700 1250 1600 400 Balance 3078 2973 1664 350 Gen: intubated, sedated, tachypneic Heart: tachycardic, regular Lung: scattered rhonchi Abd: soft, nontender Ext: + edema CBC, BMP 02/08/17 05:35 02/09/17 08:20 Active Medications Acetaminophen (Tylenol -) 650 mg PO Q4H PRN PRN Reason: FEVER OR PAIN Acetaminophen (Tylenol Suppository -) 120 mg RC Q6H PRN PRN Reason: FEVER Amino Acids (Prosource No Carb Liquid Pkt) 30 ml PO BID@0800,1730 [facility] Last Admin: 02/09/17 10:41 Dose: 30 ml Chlorhexidine Gluconate (Peridex -) 15 ml MM BID [facility] Last Admin: 02/09/17 10:43 Dose: 15 ml Collagenase (Santyl -) 1 applic TP DAILY [facility] Propofol (Diprivan -) 1,000 mcg in 0.1 mls @ 2.449 mls/hr IV TITR [facility]; 5 MCG/KG /MIN PRN Reason: Protocol Last Admin: 02/08/17 17:16 Dose: Not Given Norepinephrine Bitartrate 8, (000 mcg/ Dextrose) 500 mls @ 22.5 mls/hr IV ASDIR [facility]; 6 MCG/MIN PRN Reason: Protocol Last Admin: 02/09/17 09:48 Dose: 12 mcg/min, 45 mls/hr Mirtazapine (Remeron -) 15 mg PO HS [facility] Last Admin: 02/08/17 22:00 Dose: 15 mg Valproate Sodium (Depakene -) 500 mg PO BID [facility] Last Admin: 02/09/17 10:40 Dose: Not Given ASSESSMENT AND PLAN: Acute Respiratory Failure UTI Septic Shock Acute Kidney Injury improving 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
--- NOTE | 2017-02-09 13:51 | PN ---
Progress Note, Physician History of Present Illness: Pt seen and examined at bedside. She remains in the ICU. Pt remains intubated. Her renal function has improved. - Current Medication List Current Medications: Active Medications Acetaminophen (Tylenol -) 650 mg PO Q4H PRN PRN Reason: FEVER OR PAIN Acetaminophen (Tylenol Suppository -) 120 mg RC Q6H PRN PRN Reason: FEVER Amino Acids (Prosource No Carb Liquid Pkt) 30 ml PO BID@0800,1730 [facility] Last Admin: 02/09/17 10:41 Dose: 30 ml Chlorhexidine Gluconate (Peridex -) 15 ml MM BID [facility] Last Admin: 02/09/17 10:43 Dose: 15 ml Collagenase (Santyl -) 1 applic TP DAILY [facility] Propofol (Diprivan -) 1,000 mcg in 0.1 mls @ 2.449 mls/hr IV TITR [facility]; 5 MCG/KG /MIN PRN Reason: Protocol Last Admin: 02/08/17 17:16 Dose: Not Given Norepinephrine Bitartrate 8, (000 mcg/ Dextrose) 500 mls @ 22.5 mls/hr IV ASDIR [facility]; 6 MCG/MIN PRN Reason: Protocol Last Admin: 02/09/17 09:48 Dose: 12 mcg/min, 45 mls/hr Mirtazapine (Remeron -) 15 mg PO HS [facility] Last Admin: 02/08/17 22:00 Dose: 15 mg Pantoprazole Sodium (Protonix Iv) 40 mg IVPUSH DAILY [facility] Valproate Sodium (Depakene -) 500 mg PO BID [facility] Last Admin: 02/09/17 10:40 Dose: Not Given - Objective Vital Signs: Vital Signs Temperature 100.3 F H 02/09/17 10:00 Pulse Rate 102 H 02/09/17 10:00 Respiratory Rate 18 02/09/17 13:32 Blood Pressure 91/63 02/09/17 10:00 O2 Sat by Pulse Oximetry (%) 100 02/09/17 10:47 Constitutional: Yes: Calm Eyes: Yes: Conjunctiva Clear Cardiovascular: Yes: S1, S2 Respiratory: Yes: Mechanically Ventilated Gastrointestinal: Yes: Soft, Other (peg) Genitourinary: Yes: WNL Musculoskeletal: Yes: Muscle Weakness Edema: Yes Edema: LUE: 1+, RUE: 1+, LLE: Trace, RLE: Trace Neurological: Yes: Lethargy Labs: CBC, BMP 02/08/17 05:35 02/09/17 08:20 INR, PTT INR 1.03 (0.82-1.09) 02/04/17 15:10 Problem List - Problems (1) Acute hypernatremia Code(s): E87.0 - HYPEROSMOLALITY AND HYPERNATREMIA (2) Hyperkalemia Code(s): E87.5 - HYPERKALEMIA (3) Sepsis Code(s): A41.9 - SEPSIS, UNSPECIFIED ORGANISM (4) UTI (urinary tract infection) Code(s): N39.0 - URINARY TRACT INFECTION, SITE NOT SPECIFIED Assessment/Plan Current Medications Generic Name Dose Route Start Last Admin Trade Name Freq PRN Reason Stop Dose Admin Acetaminophen 650 mg 02/05/17 21:44 Tylenol - PO Q4H PRN FEVER OR PAIN Acetaminophen 120 mg 02/05/17 21:44 Tylenol Suppository - RC Q6H PRN FEVER Amino Acids 30 ml 02/09/17 08:45 02/09/17 10:41 Prosource No Carb Liquid Pkt PO 30 ml BID@0800,1730 [facility] Administration Chlorhexidine Gluconate 15 ml 02/05/17 22:00 02/09/17 10:43 Peridex - MM 15 ml BID [facility] Administration Collagenase 1 applic 02/09/17 11:00 Santyl - TP DAILY [facility] Propofol 1,000 mcg in 0.1 mls @ 2.449 mls/hr 02/05/17 17:00 02/08/17 17:16 Diprivan - IV Not Given TITR [facility] Protocol 5 MCG/KG/MIN Norepinephrine Bitartrate 8, 500 mls @ 22.5 mls/hr 02/05/17 17:00 02/09/17 09 :48 000 mcg/ Dextrose IV 12 mcg/min ASDIR [facility] 45 mls/hr Protocol Administration 6 MCG/MIN Mirtazapine 15 mg 02/05/17 22:00 02/08/17 22:00 Remeron - PO 15 mg HS [facility] Administration Pantoprazole Sodium 40 mg 02/09/17 13:30 Protonix Iv IVPUSH DAILY [facility] Valproate Sodium 500 mg 02/09/17 09:00 02/09/17 10:40 Depakene - PO Not Given BID [facility] Impression 1. ARCHANA 2. hypernatremia 3. hyperkalemia 4. anemia 5. epilepsy 6. hx of subdural hematoma 7. hypotension 8. hypoglycemia Plan - renal function is stable - lytes are improving - get cxr - may need a dose of lasix - cont vent support - monitor bp, maintain map of 65 - discussed with ICU - avoid nephrotoxins - will follow pt - reviewed chart labs and meds - ICU care
--- NOTE | 2017-02-09 15:10 | PN ---
Progress Note, Physician Chief Complaint: ID Remains dyspneic on the vent - Current Medication List Current Medications: Active Medications Acetaminophen (Tylenol -) 650 mg PO Q4H PRN PRN Reason: FEVER OR PAIN Acetaminophen (Tylenol Suppository -) 120 mg RC Q6H PRN PRN Reason: FEVER Amino Acids (Prosource No Carb Liquid Pkt) 30 ml PO BID@0800,1730 [facility] Last Admin: 02/09/17 10:41 Dose: 30 ml Chlorhexidine Gluconate (Peridex -) 15 ml MM BID [facility] Last Admin: 02/09/17 10:43 Dose: 15 ml Collagenase (Santyl -) 1 applic TP DAILY [facility] Propofol (Diprivan -) 1,000 mcg in 0.1 mls @ 2.449 mls/hr IV TITR [facility]; 5 MCG/KG /MIN PRN Reason: Protocol Last Admin: 02/08/17 17:16 Dose: Not Given Norepinephrine Bitartrate 8, (000 mcg/ Dextrose) 500 mls @ 22.5 mls/hr IV [facility]; 6 MCG/MIN PRN Reason: Protocol Last Admin: 02/09/17 09:48 Dose: 12 mcg/min, 45 mls/hr Mirtazapine (Remeron -) 15 mg PO HS [facility] Last Admin: 02/08/17 22:00 Dose: 15 mg Pantoprazole Sodium (Protonix Iv) 40 mg IVPUSH DAILY [facility] Valproate Sodium (Depakene -) 500 mg PO BID [facility] Last Admin: 02/09/17 10:40 Dose: Not Given - Objective Vital Signs: Vital Signs Temperature 100.3 F H 02/09/17 10:00 Pulse Rate 102 H 02/09/17 10:00 Respiratory Rate 18 02/09/17 13:32 Blood Pressure 91/63 02/09/17 10:00 O2 Sat by Pulse Oximetry (%) 100 02/09/17 10:47 Constitutional: Yes: Moderate Distress Cardiovascular: Yes: S1, S2 Respiratory: Yes: WNL, Regular, CTA Bilaterally Edema: Yes Labs: CBC, BMP 02/08/17 05:35 02/09/17 08:20 INR, PTT INR 1.03 (0.82-1.09) 02/04/17 15:10 Problem List - Problems (1) UTI (urinary tract infection) Code(s): N39.0 - URINARY TRACT INFECTION, SITE NOT SPECIFIED (2) Sepsis Code(s): A41.9 - SEPSIS, UNSPECIFIED ORGANISM (3) Subarachnoid hemorrhage Code(s): I60.9 - NONTRAUMATIC SUBARACHNOID HEMORRHAGE, UNSPECIFIED Assessment/Plan Microbiology 02/04/17 15:53 Urine - Urine [place] Urine Culture - Final Yeast Like Organism 02/06/17 08:52 Blood - Peripheral Venous Blood Culture - Preliminary NO GROWTH OBTAINED AFTER 72 HOURS, INCUBATION TO CONTINUE FOR 2 DAYS. 02/06/17 08:52 Blood - Peripheral Venous Blood Culture - Preliminary NO GROWTH OBTAINED AFTER 72 HOURS, INCUBATION TO CONTINUE FOR 2 DAYS. Laboratory Tests 02/08/17 02/09/17 05:35 08:20 WBC 13.0 H D Plt Count 170 D BUN 20 H D Assessment Sepsis syndrome Urinary tract infection Respirator failure Plan Continue Zosyn 3.375grs q 8 H Suad MCNEILL
[2017-02-09] MEDS ORDERED: ACETAMINOPHEN 1000 MG/100 ML VIAL (NON FORMULARY) IVPB ONE (15:20)
[2017-02-09] MEDS: PROPOFOL IV SCH (17:15)
[2017-02-09] MEDS: COLLAGENASE CLOSTRIDIUM HIST. 30 GRAMS TUBE TP SCH (17:18)
[2017-02-09] MEDS: PANTOPRAZOLE SODIUM 40 MG VIAL IVPUSH SCH (17:55)
--- NOTE | 2017-02-09 18:15 | PN ---
Progress Note (short form) - Note Progress Note: Pt's ET tube was pulled back by day team. Review of follow up CXR revealed ET tube was still very close to caraina. ET tube was further retracted to 20cm. Follow up CXR ordered. Pt stable. Breath sounds heard easily b/l. O2 sats 98%
--- NOTE | 2017-02-09 18:17 | PN ---
Physical Exam: SUBJECTIVE: Patient seen and examined at bedside. 24 hr events -Overnight, low temps 99-100F -Vented Today -Continues to be vented A/C: 12RR/450 TV/Fi02 60/PEEP 5 -On propofol, levo 12 mcg/min -ET tube CXR- in afternoon, tube pulled 2-3 cm -As per evening team, tube further retracted as tube still close to katalina- repeat CXR ordered OBJECTIVE: Vital Signs Period Temp Pulse Resp BP Sys/Han Pulse Ox Last 24 Hr 98.4 F-101.6 F 88-113 16-32 88-130/48-73 96-100 GENERAL: The patient is sedated and vented HEAD: Normal with no signs of trauma. NECK: Trachea midline, supple, R IJ in tact LUNGS: rhonchi appreciated b/l HEART: Regular rate and rhythm, S1, S2 without murmur, rub or gallop. ABDOMEN: Soft, obese, nontender, nondistended, normoactive bowel sounds EXTREMITIES: 2+ dorsalis pedis pulses, warm, well-perfused, 1+ pitting edema noted b/l NEUROLOGICAL: unable to assess as pt sedated Laboratory Results - last 24 hr 02/09/17 08:20 Sodium 141 Potassium 3.6 Chloride 110 H Carbon Dioxide 17 L Anion Gap 14 BUN 20 H D Creatinine 0.9 Creat Clearance w eGFR 59.37 Random Glucose 112 H Calcium 7.6 L Total Bilirubin 0.7 AST 50 H D ALT 23 D Alkaline Phosphatase 64 Total Protein 5.5 L Albumin 1.4 L Active Medications Generic Name Dose Route Start Last Admin Trade Name Freq PRN Reason Stop Dose Admin Acetaminophen 650 mg 02/05/17 21:44 Tylenol - PO Q4H PRN FEVER OR PAIN Amino Acids 30 ml 02/09/17 08:45 02/09/17 17:54 Prosource No Carb Liquid Pkt PO 30 ml BID@0800,1730 [facility] Administration Chlorhexidine Gluconate 15 ml 02/05/17 22:00 02/09/17 10:43 Peridex - MM 15 ml BID [facility] Administration Collagenase 1 applic 02/09/17 11:00 02/09/17 17:18 Santyl - TP 1 applic DAILY [facility] Administration Propofol 1,000 mcg in 0.1 mls @ 2.449 mls/hr 02/05/17 17:00 02/09/17 17:15 Diprivan - IV Not Given TITR [facility] Protocol 5 MCG/KG/MIN Norepinephrine Bitartrate 8, 500 mls @ 22.5 mls/hr 02/05/17 17:00 02/09/17 17 :52 000 mcg/ Dextrose IV Not Given ASD[facility] Protocol 6 MCG/MIN Piperacillin Sod/Tazobactam 50 mls @ 100 mls/hr 02/09/17 18:00 02/09/17 17:16 Sod 3.375 gm/ Dextrose IVPB 100 mls/hr Q8H-IV [facility] Administration Protocol Mirtazapine 15 mg 02/05/17 22:00 02/08/17 22:00 Remeron - PO 15 mg HS [facility] Administration Pantoprazole Sodium 40 mg 02/09/17 13:30 02/09/17 17:55 Protonix Iv IVPUSH 40 mg DAILY [facility] Administration Valproate Sodium 500 mg 02/09/17 09:00 02/09/17 10:40 Depakene - PO Not Given BID [facility] ASSESSMENT/PLAN: 86 y/o F with PMH subdural hematoma (2016), HTN, HLD, seizures, SAH (11/2016), who developed SOB and chills and was brought to the ED. Pt became tachypneic and hypotensive, therefore she was managed in ICU where she was found to have sepsis secondary to a urinary source. PULM #Acute Respiratory failure - Pt sedated on propofol, vented - ET tube pulled today to 20cm, will f/u repeat CXR to confirm placement - Monitor off sedation - sedation vacations to assess mental status - Continue to F/U daily CXR - not a weaning candidate today ID #Septic shock 2/2 urinary source - due to increased leukocytosis (last read 13)- chavez cx sent (blood, urine, sputum, UA) - F/u results of above - Continue levophed, titrate for MAP goal>65 - Continue zosyn - Will continue to follow ID recs RENAL #Hypernatremia-resolved #Hyperkalemia-resolved #ARCHANA with elevated BUN - Today 20/0.9 - BUN trending down - F/u Urine studies -Will continue to f/u BMP NEURO #hx of sub arachnoid hemorrhage and subdural hematoma - Continue depakote 500 mg PO BID # prophylaxis - DVT: SCD's - GI: Protonix 40mg IVP qd #F/E/N -Will continue to monitor electrolytes -Tube feed perative has been started #Dispo Continued ICU management Visit type - Emergency Visit Emergency Visit: No - New Patient This patient is new to me today: No - Critical Care Critical Care patient: Yes Total Critical Care Time (in minutes): 42 Critical Care Statement: The care of this patient involved high complexity decision making to prevent further life threatening deterioration of the patient 's condition and/or to evaluate & treat vital organ system(s) failure or risk of failure.
[2017-02-09] MEDS ORDERED: NOREPINEPHRINE BITARTRATE 4 MG/4 ML ML IV ONE (20:27)
[2017-02-09] MEDS: MIRTAZAPINE 15 MG TABLET (FP) PO SCH (22:00)
[2017-02-10] MEDS ORDERED: PT OWN MED DRAWER 7, Y5N ONE ×3 (02:12→15:51)
[2017-02-10] MEDS: PIPERACILLIN/TAZOB 3.375 GM 3.375 GM in DEXTROSE 5%-WATER - 50 ML IVPB SCH ×3 (02:29→17:24)
[2017-02-10 06:05] LABS: BASO % 0.2 % (0-2.0); EOS % 2.4 % (0-4.5); MCHC 33.5 g/dl (32.0-36.0); MEAN CELL VOLUME 95.6 fl (80-96); MEAN PLT VOLUME 11.4 fl (7.5-11.1); NEUT % 83.2 % (42.8-82.8); PLATELET COUNT 175 K/MM3 (134-434); RDW 15.2 % (11.6-15.6); WHITE BLOOD COUNT 10.2 K/mm3 (4.0-10.0)
[2017-02-10 06:27] LABS: ANION GAP 11 (8-16); CALCIUM 7.5 mg/dL (8.5-10.1); CO2 21 mmol/L (21-32); GLUCOSE,RANDOM 94 mg/dL (74-106); MAGNESIUM 1.6 mg/dL (1.8-2.4)
[2017-02-10 06:29] LABS: CREATININE 0.8 mg/dL (0.55-1.02); PHOSPHOROUS 3.2 mg/dL (2.5-4.9)
[2017-02-10] MEDS: AMINO ACIDS/PROTEIN HYDROLYS 30 ML LIQUID.PKT PO SCH ×2 (08:39→17:24)
[2017-02-10] MEDS: KCL 10 MEQ IVPB 10 MEQ/100 ML INFUS.BAG IVPB SCH ×3 (08:39→11:08)
[2017-02-10] MEDS: CHLORHEXIDINE GLUCONATE 0.12% 15ML CUP MM SCH ×2 (09:07→21:34)
[2017-02-10] MEDS: PANTOPRAZOLE SODIUM 40 MG VIAL IVPUSH SCH (09:09)
--- NOTE | 2017-02-10 09:09 | PN ---
Progress Note (short form) - Note Progress Note: day #6 antibiotics remains intubated unresponsive on levophed Vital Signs Period Temp Pulse Resp BP Sys/Han Pulse Ox Last 24 Hr 99 F-101.6 F 74-113 12-32 90-146/49-73 100-100 right IJ cvp- site no erythema orally intubated-fio2 50% cor-rrr lungs decreased bs at bases abd soft,nt +GT ext no edema of legs, bilateral hand edema sacral deep tissue injury- eschar no purulence, no cellulitis CBC, BMP 02/10/17 05:00 02/10/17 05:00 Microbiology 02/06/17 08:52 Blood - Peripheral Venous Blood Culture - Preliminary NO GROWTH OBTAINED AFTER 96 HOURS, INCUBATION TO CONTINUE FOR 1 DAYS. 02/06/17 08:52 Blood - Peripheral Venous Blood Culture - Preliminary NO GROWTH OBTAINED AFTER 96 HOURS, INCUBATION TO CONTINUE FOR 1 DAYS. 02/04/17 15:05 Blood - Peripheral Venous Blood Culture - Final NO GROWTH AFTER 5 DAYS INCUBATION 02/04/17 15:00 Blood - Peripheral Venous Blood Culture - Final NO GROWTH AFTER 5 DAYS INCUBATION 02/04/17 15:53 Urine - Urine [place] Urine Culture - Final Yeast Like Organism cxray bilateral effusions Current Medications Acetaminophen (Tylenol -) 650 mg PO Q4H PRN PRN Reason: FEVER OR PAIN Amino Acids (Prosource No Carb Liquid Pkt) 30 ml PO BID@0800,1730 [facility] Last Admin: 02/10/17 08:39 Dose: 30 ml Chlorhexidine Gluconate (Peridex -) 15 ml MM BID [facility] Last Admin: 02/09/17 22:00 Dose: 15 ml Collagenase (Santyl -) 1 applic TP DAILY [facility] Last Admin: 02/09/17 17:18 Dose: 1 applic Propofol (Diprivan -) 1,000 mcg in 0.1 mls @ 2.449 mls/hr IV TITR [facility]; 5 MCG/KG /MIN PRN Reason: Protocol Last Admin: 02/09/17 17:15 Dose: Not Given Norepinephrine Bitartrate 8, (000 mcg/ Dextrose) 500 mls @ 22.5 mls/hr IV ASDIR [facility]; 6 MCG/MIN PRN Reason: Protocol Last Admin: 02/09/17 17:52 Dose: Not Given Piperacillin Sod/Tazobactam (Sod 3.375 gm/ Dextrose) 50 mls @ 100 mls/hr IVPB Q8H-IV [facility] PRN Reason: Protocol Last Admin: 02/10/17 02:29 Dose: 100 mls/hr Potassium Chloride (Potassium Chloride 10 Meq Premix Ivpb -) 10 meq in 100 mls @ 100 mls/hr IVPB Q60M [facility] Stop: 02/10/17 11:44 Last Admin: 02/10/17 08:51 Dose: 100 mls/hr Mirtazapine (Remeron -) 15 mg PO HS [facility] Last Admin: 02/09/17 22:00 Dose: Not Given Pantoprazole Sodium (Protonix Iv) 40 mg IVPUSH DAILY [facility] Last Admin: 02/09/17 17:55 Dose: 40 mg Valproate Sodium (Depakene -) 500 mg PO BID [facility] Last Admin: 02/09/17 22:00 Dose: 500 mg a/p respiratory failure hypotension on zosyn day #6 fever d/w ICU resident repeat cultures are pending send stool cdiff- consider repeat head CT to evaluate mental status-electrolytes have improved overall prognosis is poor
--- NOTE | 2017-02-10 09:11 | PN ---
Physical Exam: SUBJECTIVE: Patient seen and examined 24 hr events -Febrile to 100.4F tmax -Still intubated: A/c RR12/450 TV/50% Fi02/PEEP 5 -As per nursing, pt grimacing during care, biting down on ETT -Tube feeds restarted through PEG -Levo gtt cont'd -Last night ETT pulled to 20, now above katalina Today -family at bedside -continue levo 6 mcg/min (has been titrated down from 12>8>now 6) -Feeds at 20 ml/hr, have been changed to volume based -sedated with propofol 5 OBJECTIVE: Vital Signs Period Temp Pulse Resp BP Sys/Han Pulse Ox Last 24 Hr 99 F-101.6 F 74-113 12-32 90-146/49-73 100-100 GENERAL: The patient is sedated and vented HEAD: Normal with no signs of trauma. NECK: Trachea midline, supple, R IJ in tact LUNGS: rhonchi appreciated b/l HEART: Regular rate and rhythm, S1, S2 without murmur, rub or gallop. ABDOMEN: Soft, obese, nontender, nondistended, normoactive bowel sounds EXTREMITIES: 2+ dorsalis pedis pulses, warm, well-perfused, 1+ pitting edema noted b/l. Edematous hands b/l 3+ pitting edema NEUROLOGICAL: unable to assess as pt sedated Laboratory Results - last 24 hr 02/10/17 02/10/17 05:00 05:00 WBC 10.2 H RBC 2.59 L Hgb 8.3 L D Hct 24.8 L MCV 95.6 MCH 32.0 MCHC 33.5 RDW 15.2 Plt Count 175 MPV 11.4 H Neutrophils % 83.2 H Lymphocytes % 6.3 L D Monocytes % 7.9 Eosinophils % 2.4 D Basophils % 0.2 Sodium 140 Potassium 2.8 L* D Chloride 108 H Carbon Dioxide 21 D Anion Gap 11 BUN 19 H Creatinine 0.8 Random Glucose 94 Calcium 7.5 L Phosphorus 3.2 Magnesium 1.6 L D Active Medications Generic Name Dose Route Start Last Admin Trade Name Freq PRN Reason Stop Dose Admin Acetaminophen 650 mg 02/05/17 21:44 Tylenol - PO Q4H PRN FEVER OR PAIN Amino Acids 30 ml 02/09/17 08:45 02/10/17 08:39 Prosource No Carb Liquid Pkt PO 30 ml BID@0800,1730 [facility] Administration Chlorhexidine Gluconate 15 ml 02/05/17 22:00 02/09/17 22:00 Peridex - MM 15 ml BID [facility] Administration Collagenase 1 applic 02/09/17 11:00 02/09/17 17:18 Santyl - TP 1 applic DAILY [facility] Administration Propofol 1,000 mcg in 0.1 mls @ 2.449 mls/hr 02/05/17 17:00 02/09/17 17:15 Diprivan - IV Not Given TITR [facility] Protocol 5 MCG/KG/MIN Norepinephrine Bitartrate 8, 500 mls @ 22.5 mls/hr 02/05/17 17:00 02/09/17 17 :52 000 mcg/ Dextrose IV Not Given ASDIR [facility] Protocol 6 MCG/MIN Piperacillin Sod/Tazobactam 50 mls @ 100 mls/hr 02/09/17 18:00 02/10/17 02:29 Sod 3.375 gm/ Dextrose IVPB 100 mls/hr Q8H-IV [facility] Administration Protocol Potassium Chloride 10 meq in 100 mls @ 100 mls/hr 02/10/17 08:45 02/10/17 08: 51 Potassium Chloride 10 Meq Premix Ivpb - IVPB 02/10/17 11:44 100 mls/hr Q60M [facility] Administration Mirtazapine 15 mg 02/05/17 22:00 02/09/17 22:00 Remeron - PO Not Given HS [facility] Pantoprazole Sodium 40 mg 02/09/17 13:30 02/09/17 17:55 Protonix Iv IVPUSH 40 mg DAILY [facility] Administration Valproate Sodium 500 mg 02/09/17 09:00 02/09/17 22:00 Depakene - PO 500 mg BID [facility] Administration ASSESSMENT/PLAN: 86 y/o F with PMH subdural hematoma (2016), HTN, HLD, seizures, SAH (11/2016), who developed SOB and chills and was brought to the ED. Pt became tachypneic and hypotensive, therefore she was managed in ICU where she was found to have sepsis secondary to a urinary source. PULM #Acute Respiratory failure - Pt sedated on propofol, vented - ET tube pulled yesterday (02/09) to 20cm - Monitor off sedation - sedation vacations to assess mental status - Continue to F/U daily CXR - not a weaning candidate today ID #Septic shock 2/2 urinary source - F/u chavez cx (blood, urine, sputum, UA) - Continue levophed, titrate for MAP goal>65 - Continue zosyn - Will continue to follow ID recs - F/u repeat urine cx, sputum cx RENAL #Hypomagnesemia -repleted with Mg Sulfate 2mg IVPB onec -Will f/u levels #Hypokalemia -repleted with 40 mEq KCl liquid -Will f/u levels #ARCHANA with elevated BUN - BUN trending down - F/u Urine studies -Will continue to f/u BMP NEURO #hx of sub arachnoid hemorrhage and subdural hematoma - Continue depakote 500 mg PO BID # prophylaxis - DVT: SCD's, Hep 5000 SQ BID - GI: Protonix 40mg IVP qd #F/E/N -Will continue to monitor electrolytes -Tube feed perative has been started- has been changed to volume based Discussed with Dietary #Dispo Continued ICU management Visit type - Emergency Visit Emergency Visit: No - New Patient This patient is new to me today: No - Critical Care Critical Care patient: Yes Total Critical Care Time (in minutes): 42 Critical Care Statement: The care of this patient involved high complexity decision making to prevent further life threatening deterioration of the patient 's condition and/or to evaluate & treat vital organ system(s) failure or risk of failure.
[2017-02-10] MEDS: COLLAGENASE CLOSTRIDIUM HIST. 30 GRAMS TUBE TP SCH (09:12)
--- NOTE | 2017-02-10 09:33 | PN ---
Physical Exam: SUBJECTIVE: Patient seen and examined in the ICU OBJECTIVE: remains intubated Palliative care consulted to discuss goals of care Vital Signs Period Temp Pulse Resp BP Sys/Han Pulse Ox Last 24 Hr 99 F-101.6 F 74-102 12-30 90-146/49-73 100-100 GENERAL: Sedated, intubated, minimal response with turning and positioning ( grimacing) HEAD: Normal with no signs of trauma. EYES: PERRL, extraocular movements intact, sclera anicteric, conjunctiva clear. No ptosis. ENT: Ears normal, nares patent, oropharynx clear without exudates, moist mucous membranes. NECK: Trachea midline, full range of motion, supple. LUNGS: Rhonchi auscultated on right anterior, left anterior with clear/ diminished breath sounds HEART: Regular rate and rhythm ABDOMEN: Soft, nontender, nondistended, +gtube EXTREMITIES: bilateral hand edema NEUROLOGICAL: intubated, unable to fully assess neuro status at this time SKIN: See primary RN measurements: Right buttocks with very large unstageable wound, tissue necrosis, purple. Sacrum with stage 2, Left buttock with stage 3 pressure ulcer (slough covers 25% of wound), unable to fully assess if this wound is a stage 2 or 3 but likely a stage 3. All wounds present on admission. Laboratory Results - last 24 hr 02/10/17 02/10/17 05:00 05:00 WBC 10.2 H RBC 2.59 L Hgb 8.3 L D Hct 24.8 L MCV 95.6 MCH 32.0 MCHC 33.5 RDW 15.2 Plt Count 175 MPV 11.4 H Neutrophils % 83.2 H Lymphocytes % 6.3 L D Monocytes % 7.9 Eosinophils % 2.4 D Basophils % 0.2 Sodium 140 Potassium 2.8 L* D Chloride 108 H Carbon Dioxide 21 D Anion Gap 11 BUN 19 H Creatinine 0.8 Random Glucose 94 Calcium 7.5 L Phosphorus 3.2 Magnesium 1.6 L D Active Medications Generic Name Dose Route Start Last Admin Trade Name Freq PRN Reason Stop Dose Admin Acetaminophen 650 mg 02/05/17 21:44 Tylenol - PO Q4H PRN FEVER OR PAIN Amino Acids 30 ml 02/09/17 08:45 02/10/17 08:39 Prosource No Carb Liquid Pkt PO 30 ml BID@0800,1730 [facility] Administration Chlorhexidine Gluconate 15 ml 02/05/17 22:00 02/10/17 09:07 Peridex - MM 15 ml BID [facility] Administration Collagenase 1 applic 02/09/17 11:00 02/10/17 09:12 Santyl - TP 1 applic DAILY [facility] Administration Propofol 1,000 mcg in 0.1 mls @ 2.449 mls/hr 02/05/17 17:00 02/09/17 17:15 Diprivan - IV Not Given TITR [facility] Protocol 5 MCG/KG/MIN Norepinephrine Bitartrate 8, 500 mls @ 22.5 mls/hr 02/05/17 17:00 02/09/17 17 :52 000 mcg/ Dextrose IV Not Given ASDIR [facility] Protocol 6 MCG/MIN Piperacillin Sod/Tazobactam 50 mls @ 100 mls/hr 02/09/17 18:00 02/10/17 02:29 Sod 3.375 gm/ Dextrose IVPB 100 mls/hr Q8H-IV [facility] Administration Protocol Potassium Chloride 10 meq in 100 mls @ 100 mls/hr 02/10/17 08:45 02/10/17 08: 51 Potassium Chloride 10 Meq Premix Ivpb - IVPB 02/10/17 11:44 100 mls/hr Q60M [facility] Administration Mirtazapine 15 mg 02/05/17 22:00 02/09/17 22:00 Remeron - PO Not Given HS [facility] Pantoprazole Sodium 40 mg 02/09/17 13:30 02/10/17 09:09 Protonix Iv IVPUSH 40 mg DAILY [facility] Administration Valproate Sodium 500 mg 02/09/17 09:00 02/09/17 22:00 Depakene - PO 500 mg BID [facility] Administration ASSESSMENT/PLAN: Patient is an 86 year old female with a significant past medical history of recent subdural hematoma s/p fall, hypertension, hld,, seizures after subdural hematoma (on depakote) followed by a subarachnoid hemorrhage in 11/2106 where dose of depakote was increased. As per medical records, patient's family noticed that patient began to have her mental status deteriorate, she developed chills, shortness of breath and hypotension which prompted her family to bring her in. On admission she was note to have ARCHANA, anemia electrolyte imbalance and was also found to be septic. ID: Septic Shock, acute Initial UC showed +3 leuk esterase UC with yeast growth Blood cultures negative to date Low grade temperatures noted On mechanical ventilation Off sedation for now On Zosyn 3.375 gm q8 On Norepinehrine, titrate for map goal >65 Blood and urine cultures Large bilateral pressure buttock wounds May also be source of sepsis On santyl Vascular/wound care to follow for possible debridement Electrolyte Imbalance, resolved Monitor electrolytes and replete Renal ARCHANA in the setting of septic shock, resolved Monitor bun/creat Kidney/bladder u/s reviewed, no hydronephrosis Renal following Neuro: Sub-archnoid hemorrage/subdural hematoma history Head CT noted On Depakote 500mg BID Seizure precautions stop Heparin, for risk of bleeding Metabolic Encephalopathy secondary to urosepsis and/or large wounds on buttocks Monitor mental status Continue antibiotics as per ID (Zosyn) Vascular for possible debridement Santyl to wounds Hematology Acute blood loss anemia Received 1 prbc 02/05 F.E.N. Fluids: fluids via Gtube Electrolytes: hypomag, repleted, hypokalemia repleted with 3 k riders Nutrition: peg tub feeds Prophylaxis DVT: SCDs bilaterally GI: Protonix Visit type - Emergency Visit Emergency Visit: Yes ED Registration Date: 02/04/17 Care time: The patient presented to the Emergency Department on the above date and was hospitalized for further evaluation of their emergent condition. - New Patient This patient is new to me today: No - Critical Care Critical Care patient: Yes Total Critical Care Time (in minutes): 60 Critical Care Statement: The care of this patient involved high complexity decision making to prevent further life threatening deterioration of the patient 's condition and/or to evaluate & treat vital organ system(s) failure or risk of failure. - Discharge Referral Referred to [facility] Med [facility].: No
[2017-02-10] MEDS: VALPROATE SODIUM 250 MG/5 ML UNIT DOSE CUP PO SCH ×2 (09:36→21:33)
[2017-02-10] MEDS ORDERED: NOREPINEPHRINE BITARTRATE 4 MG/4 ML ML IV ONE (11:04)
[2017-02-10] MEDS: NOREPINEPHRINE BITARTRATE 8,000 MCG in DEXTROSE 5%-WATER - 492 ML IV SCH ×2 (11:09→21:34)
--- NOTE | 2017-02-10 12:53 | PN ---
Teaching Attending Note Name of Resident: Brisa Clark ATTENDING PHYSICIAN STATEMENT I saw and evaluated the patient. I reviewed the resident's note and discussed the case with the resident. I agree with the resident's findings and plan as documented. SUBJECTIVE: Pt seen and examined in the ICU. Remains intubated, poorly responsive. On leveophed gtt. Febrile overnight. OBJECTIVE: Last Vital Signs Temp Pulse Resp BP Pulse Ox 99.9 F H 88 18 133/71 100 02/10/17 09:19 02/10/17 12:29 02/10/17 12:00 02/10/17 12:29 02/10/17 10:57 Intake & Output 02/07/17 02/08/17 02/09/17 02/10/17 23:59 23:59 23:59 23:59 Intake Total 4223 3264 1890 955 Output Total 1250 1284 741 7337 Balance 2973 1664 990 -845 Gen: intubated, poorly responsive Heart: RRR Lung: scattered rhonchi Abd: soft, nontender Ext: + edema CBC, BMP 02/10/17 05:00 02/10/17 05:00 Active Medications Acetaminophen (Tylenol -) 650 mg PO Q4H PRN PRN Reason: FEVER OR PAIN Amino Acids (Prosource No Carb Liquid Pkt) 30 ml PO BID@0800,1730 [facility] Last Admin: 02/10/17 08:39 Dose: 30 ml Chlorhexidine Gluconate (Peridex -) 15 ml MM BID [facility] Last Admin: 02/10/17 09:07 Dose: 15 ml Collagenase (Santyl -) 1 applic TP DAILY [facility] Last Admin: 02/10/17 09:12 Dose: 1 applic Heparin Sodium (Porcine) (Heparin -) 5,000 unit SQ BID [facility] Propofol (Diprivan -) 1,000 mcg in 0.1 mls @ 2.449 mls/hr IV TITR [facility]; 5 MCG/KG /MIN PRN Reason: Protocol Last Admin: 02/09/17 17:15 Dose: Not Given Norepinephrine Bitartrate 8, (000 mcg/ Dextrose) 500 mls @ 22.5 mls/hr IV ASDIR [facility]; 6 MCG/MIN PRN Reason: Protocol Last Titration: 02/10/17 12:29 Dose: 6 mcg/min, 22.5 mls/hr Piperacillin Sod/Tazobactam (Sod 3.375 gm/ Dextrose) 50 mls @ 100 mls/hr IVPB Q8H-IV [facility] PRN Reason: Protocol Last Admin: 02/10/17 09:36 Dose: 100 mls/hr Magnesium Sulfate (Magnesium Sulfate) 2 gm IVPB ONCE ONE Stop: 02/10/17 13:01 Last Admin: 02/10/17 12:28 Dose: 2 gm Mirtazapine (Remeron -) 15 mg PO HS [facility] Last Admin: 02/09/17 22:00 Dose: Not Given Pantoprazole Sodium (Protonix Iv) 40 mg IVPUSH DAILY [facility] Last Admin: 02/10/17 09:09 Dose: 40 mg Potassium Chloride (Potassium Chloride Oral Liquid) 40 meq PEG ONCE ONE Stop: 02/10/17 13:01 Last Admin: 02/10/17 12:28 Dose: 40 meq Valproate Sodium (Depakene -) 500 mg PO BID [facility] Last Admin: 02/10/17 09:36 Dose: 500 mg ASSESSMENT AND PLAN: Acute Respiratory Failure UTI Septic Shock Acute Kidney Injury improving 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
[2017-02-10] MEDS ORDERED: POTASSIUM CHLORIDE ORAL LIQUID 20 MEQ/15 ML PEG ONE (13:00)
[2017-02-10] MEDS ORDERED: MAGNESIUM SULF 50% (8.12 MEQ/2 ML-1 GM VIAL) IVPB ONE (13:00)
--- NOTE | 2017-02-10 15:11 | PN ---
Progress Note, Physician History of Present Illness: Pt seen and examined at bedside. She remains in the ICU. She remains intubated. Her BP is improving. - Current Medication List Current Medications: Active Medications Acetaminophen (Tylenol -) 650 mg PO Q4H PRN PRN Reason: FEVER OR PAIN Amino Acids (Prosource No Carb Liquid Pkt) 30 ml PO BID@0800,1730 [facility] Last Admin: 02/10/17 08:39 Dose: 30 ml Chlorhexidine Gluconate (Peridex -) 15 ml MM BID [facility] Last Admin: 02/10/17 09:07 Dose: 15 ml Collagenase (Santyl -) 1 applic TP DAILY [facility] Last Admin: 02/10/17 09:12 Dose: 1 applic Heparin Sodium (Porcine) (Heparin -) 5,000 unit SQ BID [facility] Norepinephrine Bitartrate 8, (000 mcg/ Dextrose) 500 mls @ 22.5 mls/hr IV ASDIR [facility]; 6 MCG/MIN PRN Reason: Protocol Last Titration: 02/10/17 12:29 Dose: 6 mcg/min, 22.5 mls/hr Piperacillin Sod/Tazobactam (Sod 3.375 gm/ Dextrose) 50 mls @ 100 mls/hr IVPB Q8H-IV [facility] PRN Reason: Protocol Last Admin: 02/10/17 09:36 Dose: 100 mls/hr Mirtazapine (Remeron -) 15 mg PO HS [facility] Last Admin: 02/09/17 22:00 Dose: Not Given Pantoprazole Sodium (Protonix Iv) 40 mg IVPUSH DAILY [facility] Last Admin: 02/10/17 09:09 Dose: 40 mg Valproate Sodium (Depakene -) 500 mg PO BID [facility] Last Admin: 02/10/17 09:36 Dose: 500 mg - Objective Vital Signs: Vital Signs Temperature 98 F 02/10/17 14:12 Pulse Rate 82 02/10/17 14:00 Respiratory Rate 24 02/10/17 14:00 Blood Pressure 104/55 02/10/17 14:00 O2 Sat by Pulse Oximetry (%) 100 02/10/17 10:57 Constitutional: Yes: Calm Eyes: Yes: Conjunctiva Clear HENT: Yes: Atraumatic Neck: Yes: Supple Cardiovascular: Yes: S1, S2 Respiratory: Yes: Mechanically Ventilated Gastrointestinal: Yes: Soft, Other (peg) Genitourinary: Yes: [place] Present Musculoskeletal: Yes: Muscle Weakness Edema: Yes Edema: LUE: 1+, RUE: 1+, LLE: Trace, RLE: Trace Integumentary: Yes: WNL Neurological: Yes: Lethargy Labs: CBC, BMP 02/10/17 05:00 02/10/17 05:00 INR, PTT INR 1.03 (0.82-1.09) 02/04/17 15:10 - ....Imaging Chest X-ray: Report Reviewed Problem List - Problems (1) Acute hypernatremia Code(s): E87.0 - HYPEROSMOLALITY AND HYPERNATREMIA (2) Hyperkalemia Code(s): E87.5 - HYPERKALEMIA (3) Sepsis Code(s): A41.9 - SEPSIS, UNSPECIFIED ORGANISM (4) UTI (urinary tract infection) Code(s): N39.0 - URINARY TRACT INFECTION, SITE NOT SPECIFIED Assessment/Plan Current Medications Generic Name Dose Route Start Last Admin Trade Name Freq PRN Reason Stop Dose Admin Acetaminophen 650 mg 02/05/17 21:44 Tylenol - PO Q4H PRN FEVER OR PAIN Amino Acids 30 ml 02/09/17 08:45 02/10/17 08:39 Prosource No Carb Liquid Pkt PO 30 ml BID@0800,1730 [facility] Administration Chlorhexidine Gluconate 15 ml 02/05/17 22:00 02/10/17 09:07 Peridex - MM 15 ml BID [facility] Administration Collagenase 1 applic 02/09/17 11:00 02/10/17 09:12 Santyl - TP 1 applic DAILY [facility] Administration Heparin Sodium (Porcine) 5,000 unit 02/10/17 22:00 Heparin - SQ BID [facility] Norepinephrine Bitartrate 8, 500 mls @ 22.5 mls/hr 02/05/17 17:00 02/10/17 12 :29 000 mcg/ Dextrose IV 6 mcg/min ASDIR T[facility]NER 22.5 mls/hr Protocol Titration 6 MCG/MIN Piperacillin Sod/Tazobactam 50 mls @ 100 mls/hr 02/09/17 18:00 02/10/17 09:36 Sod 3.375 gm/ Dextrose IVPB 100 mls/hr Q8H-IV [facility] Administration Protocol Mirtazapine 15 mg 02/05/17 22:00 02/09/17 22:00 Remeron - PO Not Given HS [facility] Pantoprazole Sodium 40 mg 02/09/17 13:30 02/10/17 09:09 Protonix Iv IVPUSH 40 mg DAILY [facility] Administration Valproate Sodium 500 mg 02/09/17 09:00 02/10/17 09:36 Depakene - PO 500 mg BID [facility] Administration Impression 1. ARCHANA 2. hypernatremia 3. hyperkalemia - resolved 4. anemia 5. epilepsy 6. hx of subdural hematoma 7. hypotension 8. hypoglycemia 9. acute resp failure requiring intubation 10. hypokalemia Plan - replace potassium and mag - monitor lytes - renal function is improving - discussed labs and findings with pts family at bedside - discussed plan with ICU team - vent support - titrate down pressors to a mal of 65 - consider a small dose of lasix once bp stabilizes, discussed with ICU - avoid nephrotoxins - will follow pt - cont tube feeds - reviewed chart labs and meds - ICU care
[2017-02-10 18:00] LABS: MAGNESIUM 2.3 mg/dL (1.8-2.4)
[2017-02-10] MEDS: MIRTAZAPINE 15 MG TABLET (FP) PO SCH (21:34)
[2017-02-10] MEDS: HEPARIN NA (PORCINE) 5,000 UNITS/ML 1ML VIAL SQ SCH (21:34)
[2017-02-11] MEDS: PIPERACILLIN/TAZOB 3.375 GM 3.375 GM in DEXTROSE 5%-WATER - 50 ML IVPB SCH ×3 (04:00→18:00)
[2017-02-11 05:49] LABS: BASO % 0.1 % (0-2.0); EOS % 1.9 % (0-4.5); MCH 32.2 pg (25.7-33.7); MCHC 33.3 g/dl (32.0-36.0); MEAN CELL VOLUME 96.5 fl (80-96); MEAN PLT VOLUME 11.4 fl (7.5-11.1); NEUT % 82.5 % (42.8-82.8); PLATELET COUNT 185 K/MM3 (134-434); RDW 15.3 % (11.6-15.6); WHITE BLOOD COUNT 8.1 K/mm3 (4.0-10.0)
[2017-02-11 06:32] LABS: ALBUMIN 1.3 g/dl (3.4-5.0); ANION GAP 8 (8-16); BILIRUBIN,TOTAL 0.3 mg/dL (0.2-1.0); CO2 21 mmol/L (21-32); CREATININE 0.8 mg/dL (0.55-1.02); GLUCOSE,RANDOM 118 mg/dL (74-106); MAGNESIUM 2.2 mg/dL (1.8-2.4); SGOT/AST 25 U/L (15-37); SGPT/ALT 17 U/L (12-78)
[2017-02-11 06:33] LABS: ALK PHOS 61 U/L (45-117)
[2017-02-11] MEDS ORDERED: NOREPINEPHRINE BITARTRATE 4 MG/4 ML ML IV ONE ×2 (06:38→17:35)
--- NOTE | 2017-02-11 07:20 | PN ---
Progress Note, Physician Chief Complaint: ID Intubated still requires pressors Zosyn day 6 antibiotics empiric at this point - Current Medication List Current Medications: Active Medications Acetaminophen (Tylenol -) 650 mg PO Q4H PRN PRN Reason: FEVER OR PAIN Amino Acids (Prosource No Carb Liquid Pkt) 30 ml PO BID@0800,1730 [facility] Last Admin: 02/10/17 17:24 Dose: 30 ml Chlorhexidine Gluconate (Peridex -) 15 ml MM BID [facility] Last Admin: 02/10/17 21:34 Dose: 15 ml Collagenase (Santyl -) 1 applic TP DAILY [facility] Last Admin: 02/10/17 09:12 Dose: 1 applic Heparin Sodium (Porcine) (Heparin -) 5,000 unit SQ BID [facility] Last Admin: 02/10/17 21:34 Dose: 5,000 unit Norepinephrine Bitartrate 8, (000 mcg/ Dextrose) 500 mls @ 22.5 mls/hr IV ASDIR [facility]; 6 MCG/MIN PRN Reason: Protocol Last Titration: 02/11/17 06:33 Dose: 3 mcg/min, 11.25 mls/hr Piperacillin Sod/Tazobactam (Sod 3.375 gm/ Dextrose) 50 mls @ 100 mls/hr IVPB Q8H-IV [facility] PRN Reason: Protocol Last Admin: 02/11/17 04:00 Dose: 100 mls/hr Mirtazapine (Remeron -) 15 mg PO HS [facility] Last Admin: 02/10/17 21:34 Dose: 15 mg Pantoprazole Sodium (Protonix Iv) 40 mg IVPUSH DAILY [facility] Last Admin: 02/10/17 09:09 Dose: 40 mg Valproate Sodium (Depakene -) 500 mg PO BID [facility] Last Admin: 02/10/17 21:33 Dose: 500 mg - Objective Vital Signs: Vital Signs Temperature 98.5 F 02/11/17 06:00 Pulse Rate 93 H 02/11/17 06:00 Respiratory Rate 18 02/11/17 06:52 Blood Pressure 121/81 02/11/17 06:00 O2 Sat by Pulse Oximetry (%) 100 02/10/17 22:04 Cardiovascular: Yes: Regular Rate and Rhythm, S1, S2. No: Murmur Respiratory: Yes: WNL, Regular, CTA Bilaterally, Diminished, Rhonchi Gastrointestinal: Yes: Soft, Other (Gt tube). No: Tenderness Edema: No Wound/Incision: Yes: Other (Buttock unstagable ulcers) Labs: CBC, BMP 02/11/17 05:10 02/11/17 05:10 INR, PTT INR 1.03 (0.82-1.09) 02/04/17 15:10 Problem List - Problems (1) UTI (urinary tract infection) Code(s): N39.0 - URINARY TRACT INFECTION, SITE NOT SPECIFIED (2) Sepsis Code(s): A41.9 - SEPSIS, UNSPECIFIED ORGANISM (3) Subarachnoid hemorrhage Code(s): I60.9 - NONTRAUMATIC SUBARACHNOID HEMORRHAGE, UNSPECIFIED Assessment/Plan Microbiology 02/09/17 16:30 Sputum - Endotrachea Suction/Ventilator Gram Stain - Final 02/04/17 15:53 Urine - Urine [place] Urine Culture - Final Yeast Like Organism 02/09/17 13:40 Blood - Peripheral Venous Blood Culture - Preliminary NO GROWTH OBTAINED AFTER 24 HOURS, INCUBATION TO CONTINUE FOR 4 DAYS. 02/09/17 13:35 Blood - Peripheral Venous Blood Culture - Preliminary NO GROWTH OBTAINED AFTER 24 HOURS, INCUBATION TO CONTINUE FOR 4 DAYS. 02/06/17 08:52 Blood - Peripheral Venous Blood Culture - Preliminary NO GROWTH OBTAINED AFTER 96 HOURS, INCUBATION TO CONTINUE FOR 1 DAYS. 02/06/17 08:52 Blood - Peripheral Venous Blood Culture - Preliminary NO GROWTH OBTAINED AFTER 96 HOURS, INCUBATION TO CONTINUE FOR 1 DAYS. Laboratory Tests 02/11/17 02/11/17 05:10 05:10 WBC 8.1 Hgb 8.6 L Plt Count 185 BUN 20 H Creatinine 0.8 Magnesium 2.2 Total Bilirubin 0.3 D Alkaline Phosphatase 61 Assessment Sepsis syndrome most likely urinary source Respiratory failure Decubitus pressure ulcers buttocks Subdural hematomas Plan Will complete 7 days of antibiotic tomorrow Prognosis remains poor Suad MCNEILL
[2017-02-11] MEDS ORDERED: PT OWN MED DRAWER 7, Y5N ONE ×2 (08:31→17:35)
[2017-02-11] MEDS: AMINO ACIDS/PROTEIN HYDROLYS 30 ML LIQUID.PKT PO SCH ×2 (08:43→17:42)
[2017-02-11] MEDS: VALPROATE SODIUM 250 MG/5 ML UNIT DOSE CUP PO SCH ×2 (09:13→21:44)
[2017-02-11] MEDS: CHLORHEXIDINE GLUCONATE 0.12% 15ML CUP MM SCH ×2 (09:15→21:45)
[2017-02-11] MEDS: PANTOPRAZOLE SODIUM 40 MG VIAL IVPUSH SCH (09:15)
[2017-02-11] MEDS: COLLAGENASE CLOSTRIDIUM HIST. 30 GRAMS TUBE TP SCH (09:16)
[2017-02-11] MEDS: HEPARIN NA (PORCINE) 5,000 UNITS/ML 1ML VIAL SQ SCH ×2 (09:16→21:56)
--- NOTE | 2017-02-11 12:05 | PN ---
Teaching Attending Note Name of Resident: Brisa Clark ATTENDING PHYSICIAN STATEMENT I saw and evaluated the patient. I reviewed the resident's note and discussed the case with the resident. I agree with the resident's findings and plan as documented. SUBJECTIVE: Pt seen and examined in the ICU. Remains intubated, poorly responsive off sedation. Tolerated CPAP/PS 02/10 yesterday. Remains on levophed gtt but on lower dose. OBJECTIVE: Last Vital Signs Temp Pulse Resp BP Pulse Ox 99.7 F H 92 H 20 107/64 100 02/11/17 10:00 02/11/17 10:00 02/11/17 10:15 02/11/17 10:00 02/11/17 08:50 Intake & Output 02/08/17 02/09/17 02/10/17 02/11/17 23:59 23:59 23:59 23:59 Intake Total 3264 1890 2595 880 Output Total 7765 320 6482 400 Balance 1664 990 -505 480 Weight 178 lb 1 oz Gen: intubated, poorly responsive Heart: RRR Lung: scattered rhonchi Abd: soft, nontender, PEG Ext: + edema CBC, BMP 02/11/17 05:10 02/11/17 05:10 Active Medications Acetaminophen (Tylenol -) 650 mg PO Q4H PRN PRN Reason: FEVER OR PAIN Amino Acids (Prosource No Carb Liquid Pkt) 30 ml PO BID@0800,1730 [facility] Last Admin: 02/11/17 08:43 Dose: 30 ml Chlorhexidine Gluconate (Peridex -) 15 ml MM BID [facility] Last Admin: 02/11/17 09:15 Dose: 15 ml Collagenase (Santyl -) 1 applic TP DAILY [facility] Last Admin: 02/11/17 09:16 Dose: 1 applic Heparin Sodium (Porcine) (Heparin -) 5,000 unit SQ BID [facility] Last Admin: 02/11/17 09:16 Dose: 5,000 unit Norepinephrine Bitartrate 8, (000 mcg/ Dextrose) 500 mls @ 22.5 mls/hr IV ASDIR [facility]; 6 MCG/MIN PRN Reason: Protocol Last Titration: 02/11/17 06:33 Dose: 3 mcg/min, 11.25 mls/hr Piperacillin Sod/Tazobactam (Sod 3.375 gm/ Dextrose) 50 mls @ 100 mls/hr IVPB Q8H-IV [facility] PRN Reason: Protocol Last Admin: 02/11/17 09:14 Dose: 100 mls/hr Mirtazapine (Remeron -) 15 mg PO HS [facility] Last Admin: 02/10/17 21:34 Dose: 15 mg Pantoprazole Sodium (Protonix Iv) 40 mg IVPUSH DAILY [facility] Last Admin: 02/11/17 09:15 Dose: 40 mg Valproate Sodium (Depakene -) 500 mg PO BID [facility] Last Admin: 02/11/17 09:13 Dose: 500 mg ASSESSMENT AND PLAN: Acute Respiratory Failure UTI Septic Shock Acute Kidney Injury improving 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
--- NOTE | 2017-02-11 13:22 | PN ---
Progress Note, Physician History of Present Illness: Pt seen and examined at bedside. She remains in the ICU. She remains intubated. - Current Medication List Current Medications: Active Medications Acetaminophen (Tylenol -) 650 mg PO Q4H PRN PRN Reason: FEVER OR PAIN Amino Acids (Prosource No Carb Liquid Pkt) 30 ml PO BID@0800,1730 [facility] Last Admin: 02/11/17 08:43 Dose: 30 ml Chlorhexidine Gluconate (Peridex -) 15 ml MM BID [facility] Last Admin: 02/11/17 09:15 Dose: 15 ml Collagenase (Santyl -) 1 applic TP DAILY [facility] Last Admin: 02/11/17 09:16 Dose: 1 applic Heparin Sodium (Porcine) (Heparin -) 5,000 unit SQ BID [facility] Last Admin: 02/11/17 09:16 Dose: 5,000 unit Norepinephrine Bitartrate 8, (000 mcg/ Dextrose) 500 mls @ 22.5 mls/hr IV ASDIR [facility]; 6 MCG/MIN PRN Reason: Protocol Last Titration: 02/11/17 06:33 Dose: 3 mcg/min, 11.25 mls/hr Piperacillin Sod/Tazobactam (Sod 3.375 gm/ Dextrose) 50 mls @ 100 mls/hr IVPB Q8H-IV [facility] PRN Reason: Protocol Last Admin: 02/11/17 09:14 Dose: 100 mls/hr Mirtazapine (Remeron -) 15 mg PO HS [facility] Last Admin: 02/10/17 21:34 Dose: 15 mg Pantoprazole Sodium (Protonix Iv) 40 mg IVPUSH DAILY [facility] Last Admin: 02/11/17 09:15 Dose: 40 mg Valproate Sodium (Depakene -) 500 mg PO BID [facility] Last Admin: 02/11/17 09:13 Dose: 500 mg - Objective Vital Signs: Vital Signs Temperature 99.7 F H 02/11/17 10:00 Pulse Rate 95 H 02/11/17 12:47 Respiratory Rate 28 H 02/11/17 12:05 Blood Pressure 97/58 02/11/17 12:00 O2 Sat by Pulse Oximetry (%) 100 02/11/17 12:47 Constitutional: Yes: Calm Eyes: Yes: Conjunctiva Clear Cardiovascular: Yes: S1, S2 Respiratory: Yes: Mechanically Ventilated Gastrointestinal: Yes: Soft, Abdomen, Obese, Other (peg) Genitourinary: Yes: [place] Present Musculoskeletal: Yes: Muscle Weakness Edema: Yes Edema: LUE: 1+, RUE: 1+, LLE: 1+, RLE: 1+ Neurological: Yes: Lethargy Labs: CBC, BMP 02/11/17 05:10 02/11/17 05:10 INR, PTT INR 1.03 (0.82-1.09) 02/04/17 15:10 Problem List - Problems (1) Acute hypernatremia Code(s): E87.0 - HYPEROSMOLALITY AND HYPERNATREMIA (2) Hyperkalemia Code(s): E87.5 - HYPERKALEMIA (3) Sepsis Code(s): A41.9 - SEPSIS, UNSPECIFIED ORGANISM (4) UTI (urinary tract infection) Code(s): N39.0 - URINARY TRACT INFECTION, SITE NOT SPECIFIED Assessment/Plan Current Medications Generic Name Dose Route Start Last Admin Trade Name Freq PRN Reason Stop Dose Admin Acetaminophen 650 mg 02/05/17 21:44 Tylenol - PO Q4H PRN FEVER OR PAIN Amino Acids 30 ml 02/09/17 08:45 02/11/17 08:43 Prosource No Carb Liquid Pkt PO 30 ml BID@0800,1730 [facility] Administration Chlorhexidine Gluconate 15 ml 02/05/17 22:00 02/11/17 09:15 Peridex - MM 15 ml BID [facility] Administration Collagenase 1 applic 02/09/17 11:00 02/11/17 09:16 Santyl - TP 1 applic DAILY [facility] Administration Heparin Sodium (Porcine) 5,000 unit 02/10/17 22:00 02/11/17 09:16 Heparin - SQ 5,000 unit BID [facility] Administration Norepinephrine Bitartrate 8, 500 mls @ 22.5 mls/hr 02/05/17 17:00 02/11/17 06 :33 000 mcg/ Dextrose IV 3 mcg/min ASDIR [facility] 11.25 mls/hr Protocol Titration 6 MCG/MIN Piperacillin Sod/Tazobactam 50 mls @ 100 mls/hr 02/09/17 18:00 02/11/17 09:14 Sod 3.375 gm/ Dextrose IVPB 100 mls/hr Q8H-IV [facility] Administration Protocol Mirtazapine 15 mg 02/05/17 22:00 02/10/17 21:34 Remeron - PO 15 mg HS [facility] Administration Pantoprazole Sodium 40 mg 02/09/17 13:30 02/11/17 09:15 Protonix Iv IVPUSH 40 mg DAILY [facility] Administration Valproate Sodium 500 mg 02/09/17 09:00 02/11/17 09:13 Depakene - PO 500 mg BID [facility] Administration Laboratory Tests 02/11/17 05:10 Albumin 1.3 L Impression 1. ARCHANA 2. hypernatremia 3. hyperkalemia - resolved 4. anemia 5. epilepsy 6. hx of subdural hematoma 7. hypotension 8. hypoglycemia 9. acute resp failure requiring intubation 10. hypokalemia Plan - cont supplements - vent support - renal function is stable - may need lasix once bp is improved - agree with supplements - avoid nephrotoxins - will follow pt - cont tube feeds - reviewed chart labs and meds - ICU care
--- NOTE | 2017-02-11 14:10 | PN ---
Physical Exam: SUBJECTIVE: Patient seen and examined at bedside. 24 hr events -Tmax 99.9F low temps -intubated, vented, off sedation. Today -intubated, vented, off sedation -On levo 3mcg/min. Has been titrated down gradually (12>8>6>3) -Family discussion held- wants to sign DNR. Will f/u -Today is Day 7 of R IJ line OBJECTIVE: Vital Signs Period Temp Pulse Resp BP Sys/Han Pulse Ox Last 24 Hr 98 F-99.7 F 85-96 14-30 93-121/46-81 100-100 GENERAL: The patient is intubated and vented. off sedation HEAD: Normal with no signs of trauma. NECK: Trachea midline, supple, R IJ in tact LUNGS: rhonchi appreciated b/l HEART: Regular rate and rhythm, S1, S2 without murmur, rub or gallop. ABDOMEN: Soft, obese, nontender, nondistended, normoactive bowel sounds EXTREMITIES: 2+ dorsalis pedis pulses, warm, well-perfused, 1+ pitting edema noted b/l. Edematous hands b/l 3+ pitting edema NEUROLOGICAL: pt unresponsive to verbal or physical stimuli. at baseline, pt was able to respond to questions with one word answers Laboratory Results - last 24 hr 02/10/17 02/11/17 02/11/17 16:40 05:10 05:10 WBC 8.1 RBC 2.67 L Hgb 8.6 L Hct 25.8 L MCV 96.5 H MCH 32.2 MCHC 33.3 RDW 15.3 Plt Count 185 MPV 11.4 H Neutrophils % 82.5 Lymphocytes % 8.1 D Monocytes % 7.4 Eosinophils % 1.9 Basophils % 0.1 Sodium 139 Potassium 3.8 D 3.5 Chloride 110 H Carbon Dioxide 21 Anion Gap 8 BUN 20 H Creatinine 0.8 Creat Clearance w eGFR > 60 Random Glucose 118 H D Calcium 7.0 L Magnesium 2.3 D 2.2 Total Bilirubin 0.3 D AST 25 D ALT 17 D Alkaline Phosphatase 61 Total Protein 5.0 L Albumin 1.3 L Blood Type Antibody Screen 02/11/17 05:10 WBC RBC Hgb Hct MCV MCH MCHC RDW Plt Count MPV Neutrophils % Lymphocytes % Monocytes % Eosinophils % Basophils % Sodium Potassium Chloride Carbon Dioxide Anion Gap BUN Creatinine Creat Clearance w eGFR Random Glucose Calcium Magnesium Total Bilirubin AST ALT Alkaline Phosphatase Total Protein Albumin Blood Type A POSITIVE Antibody Screen Negative Active Medications Generic Name Dose Route Start Last Admin Trade Name Jacoby PRN Reason Stop Dose Admin Acetaminophen 650 mg 02/05/17 21:44 Tylenol - PO Q4H PRN FEVER OR PAIN Amino Acids 30 ml 02/09/17 08:45 02/11/17 08:43 Prosource No Carb Liquid Pkt PO 30 ml BID@0800,1730 [facility] Administration Chlorhexidine Gluconate 15 ml 02/05/17 22:00 02/11/17 09:15 Peridex - MM 15 ml BID [facility]NER Administration Collagenase 1 applic 02/09/17 11:00 02/11/17 09:16 Santyl - TP 1 applic DAILY [facility]NER Administration Heparin Sodium (Porcine) 5,000 unit 02/10/17 22:00 02/11/17 09:16 Heparin - SQ 5,000 unit BID [facility]NER Administration Norepinephrine Bitartrate 8, 500 mls @ 22.5 mls/hr 02/05/17 17:00 02/11/17 06 :33 000 mcg/ Dextrose IV 3 mcg/min ASDIR TANNER 11.25 mls/hr Protocol Titration 6 MCG/MIN Piperacillin Sod/Tazobactam 50 mls @ 100 mls/hr 02/09/17 18:00 02/11/17 09:14 Sod 3.375 gm/ Dextrose IVPB 100 mls/hr Q8H-IV [facility]NANER Administration Protocol Norepinephrine Bitartrate 4, 500 mls @ 37.5 mls/hr 02/11/17 14:15 000 mcg/ Dextrose IV TITR TANNER Protocol 5 MCG/MIN Mirtazapine 15 mg 02/05/17 22:00 02/10/17 21:34 Remeron - PO 15 mg HS [facility] Administration Pantoprazole Sodium 40 mg 02/09/17 13:30 02/11/17 09:15 Protonix Iv IVPUSH 40 mg DAILY [facility] Administration Valproate Sodium 500 mg 02/09/17 09:00 02/11/17 09:13 Depakene - PO 500 mg BID [facility] Administration ASSESSMENT/PLAN: 86 y/o F with PMH subdural hematoma (2016), HTN, HLD, seizures, SAH (11/2016), who developed SOB and chills and was brought to the ED. Pt became tachypneic and hypotensive, therefore she was managed in ICU where she was found to have sepsis secondary to a urinary source. PULM #Acute Respiratory failure - Pt vented and intubated - Off propofol - ET tube pulled (02/09) to 20cm - Continue to monitor off sedation - Continue to F/U daily CXR - will try weaning trials tomorrow ID #Septic shock 2/2 urinary source - cx are (-) - Continue levophed 3mcg/min, titrate for MAP goal>65 - Continue zosyn - Will continue to follow ID recs RENAL #Hypomagnesemia-resolved #Hypokalemia-resolved #ARCHANA with elevated BUN - BUN trending down- normalizing - F/u Urine studies -Will continue to f/u BMP NEURO #hx of sub arachnoid hemorrhage and subdural hematoma - Continue depakote 500 mg PO BID # prophylaxis - DVT: SCD's, Hep 5000 SQ BID - GI: Protonix 40mg IVP qd #F/E/N -Will continue to monitor electrolytes -Tube feed perative continue #Dispo Continued ICU management Visit type - Emergency Visit Emergency Visit: No - New Patient This patient is new to me today: No - Critical Care Critical Care patient: Yes Total Critical Care Time (in minutes): 31 Critical Care Statement: The care of this patient involved high complexity decision making to prevent further life threatening deterioration of the patient 's condition and/or to evaluate & treat vital organ system(s) failure or risk of failure.
--- NOTE | 2017-02-11 16:08 | PN ---
Progress Note (short form) - Note Progress Note: Subjective: The patient was seen and examined at the bedside remains intubated, poorly responsive off sedation. Made DNR today Current Medications Generic Name Dose Route Start Last Admin Trade Name Jacoby PRN Reason Stop Dose Admin Acetaminophen 650 mg 02/05/17 21:44 Tylenol - PO Q4H PRN FEVER OR PAIN Amino Acids 30 ml 02/09/17 08:45 02/11/17 08:43 Prosource No Carb Liquid Pkt PO 30 ml BID@0800,1730 [facility] Administration Chlorhexidine Gluconate 15 ml 02/05/17 22:00 02/11/17 09:15 Peridex - MM 15 ml BID [facility] Administration Collagenase 1 applic 02/09/17 11:00 02/11/17 09:16 Santyl - TP 1 applic DAILY [facility] Administration Heparin Sodium (Porcine) 5,000 unit 02/10/17 22:00 02/11/17 09:16 Heparin - SQ 5,000 unit BID [facility] Administration Piperacillin Sod/Tazobactam 50 mls @ 100 mls/hr 02/09/17 18:00 02/11/17 09:14 Sod 3.375 gm/ Dextrose IVPB 100 mls/hr Q8H-IV [facility]NER Administration Protocol Norepinephrine Bitartrate 4, 500 mls @ 37.5 mls/hr 02/11/17 14:15 000 mcg/ Dextrose IV TITR TANNER Protocol 5 MCG/MIN Mirtazapine 15 mg 02/05/17 22:00 02/10/17 21:34 Remeron - PO 15 mg HS [facility] Administration Pantoprazole Sodium 40 mg 02/09/17 13:30 02/11/17 09:15 Protonix Iv IVPUSH 40 mg DAILY [facility] Administration Valproate Sodium 500 mg 02/09/17 09:00 02/11/17 09:13 Depakene - PO 500 mg BID [facility] Administration Objective: Vital Signs Period Temp Pulse Resp BP Sys/Han Pulse Ox Last 24 Hr 98 F-99.7 F 87-96 14-30 97-121/46-81 100-100 Physical ExaM General: Intubated, unresponsive Lungs: Scattered rhonchi bilaterally Heart: RRR, S1S2 Abd: Soft, non-tender, Peg Ext: + edema CBCD WBC 8.1 K/mm3 (4.0-10.0) 02/11/17 05:10 RBC 2.67 M/mm3 (3.60-5.2) L 02/11/17 05:10 Hgb 8.6 GM/dL (10.7-15.3) L 02/11/17 05:10 Hct 25.8 % (32.4-45.2) L 02/11/17 05:10 MCV 96.5 fl (80-96) H 02/11/17 05:10 MCHC 33.3 g/dl (32.0-36.0) 02/11/17 05:10 RDW 15.3 % (11.6-15.6) 02/11/17 05:10 Plt Count 185 K/MM3 (134-434) 02/11/17 05:10 MPV 11.4 fl (7.5-11.1) H 02/11/17 05:10 CMP Sodium 139 mmol/L (136-145) 02/11/17 05:10 Potassium 3.5 mmol/L (3.5-5.1) 02/11/17 05:10 Chloride 110 mmol/L (98-107) H 02/11/17 05:10 Carbon Dioxide 21 mmol/L (21-32) 02/11/17 05:10 Anion Gap 8 (8-16) 02/11/17 05:10 BUN 20 mg/dL (7-18) H 02/11/17 05:10 Creatinine 0.8 mg/dL (0.55-1.02) 02/11/17 05:10 Creat Clearance w eGFR > 60 (>60) 02/11/17 05:10 Random Glucose 118 mg/dL (74-106) H D 02/11/17 05:10 Calcium 7.0 mg/dL (8.5-10.1) L 02/11/17 05:10 Total Bilirubin 0.3 mg/dL (0.2-1.0) D 02/11/17 05:10 AST 25 U/L (15-37) D 02/11/17 05:10 ALT 17 U/L (12-78) D 02/11/17 05:10 Alkaline Phosphatase 61 U/L (45-117) 02/11/17 05:10 Total Protein 5.0 g/dl (6.4-8.2) L 02/11/17 05:10 Albumin 1.3 g/dl (3.4-5.0) L 02/11/17 05:10 CARDIAC ENZYMES Creatine Kinase 490 IU/L (26-192) H 02/04/17 15:10 Troponin I < 0.02 ng/ml (0.00-0.05) 02/04/17 15:10 Microbiology 02/09/17 13:35 Blood - Peripheral Venous Blood Culture - Preliminary NO GROWTH OBTAINED AFTER 48 HOURS, INCUBATION TO CONTINUE FOR 3 DAYS. 02/09/17 13:40 Blood - Peripheral Venous Blood Culture - Preliminary NO GROWTH OBTAINED AFTER 48 HOURS, INCUBATION TO CONTINUE FOR 3 DAYS. 02/09/17 16:30 Sputum - Endotrachea Suction/Ventilator Gram Stain - Final 02/09/17 16:30 Sputum - Endotrachea Suction/Ventilator Sputum Culture - Preliminary Presumptive Ps Aeruginosa 02/09/17 17:00 Urine - Urine [place] Urine Culture - Final NO GROWTH OBTAINED 02/10/17 15:00 Stool Clostridium difficile Antigen (ROME) - Final 02/10/17 15:00 Stool Clostridium difficile Toxin Assay - Final 02/06/17 08:52 Blood - Peripheral Venous Blood Culture - Final NO GROWTH AFTER 5 DAYS INCUBATION 02/06/17 08:52 Blood - Peripheral Venous Blood Culture - Final NO GROWTH AFTER 5 DAYS INCUBATION 02/04/17 15:05 Blood - Peripheral Venous Blood Culture - Final NO GROWTH AFTER 5 DAYS INCUBATION 02/04/17 15:00 Blood - Peripheral Venous Blood Culture - Final NO GROWTH AFTER 5 DAYS INCUBATION 02/04/17 15:53 Urine - Urine [place] Urine Culture - Final Yeast Like Organism Assessment: This is an 86 year old female with PMHx of subdural hematoma s/p fall (07/2016), HTN, hyperlipidemia, 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 Plan: 1) Acute respiratory failure - Remains intubated - Daily sedation vacation with spontaneous breathing trials - Appreciate pulmonary consult 2) Septic shock 2/2 UTI - Continue Zosyn - Complete 7 days of abx tomorrow - Taper levophed to keep MAP >65 - Appreciate ID consult Large b/l buttock wounds - Continue Santyl - Appreciate surgery consult 3) ARCHANA - Resolved 4) Hx of sub arachnoid hemorrhage and subdural hematoma - Head CT reviewed - Continue Depakote 5) Acute blood loss anemia - Received 1u PRBC on 02/05 6) F/E/N: - Fluids and feeds through g-tube - Monitor electrolytes 7) Prophylaxis: - Heparin 5,000u sq bid 8) Dispo: - Requires continued inpatient care CODE STATUS: DNR Visit type - Emergency Visit Emergency Visit: Yes ED Registration Date: 02/04/17 Care time: The patient presented to the Emergency Department on the above date and was hospitalized for further evaluation of their emergent condition. - New Patient This patient is new to me today: Yes Date on this admission: 02/11/17 - Critical Care Critical Care patient: Yes Total Critical Care Time (in minutes): 35 Critical Care Statement: The care of this patient involved high complexity decision making to prevent further life threatening deterioration of the patient 's condition and/or to evaluate & treat vital organ system(s) failure or risk of failure.
[2017-02-11] MEDS: NOREPINEPHRINE BITARTRATE 4,000 MCG in DEXTROSE 5%-WATER - 496 ML IV SCH (16:30)
[2017-02-11] MEDS: ACETAMINOPHEN 325 MG TABLET (FP) PO PRN (17:45)
[2017-02-11] MEDS: MIRTAZAPINE 15 MG TABLET (FP) PO SCH (21:45)
[2017-02-12] MEDS ORDERED: PT OWN MED DRAWER 7, Y5N ONE ×4 (03:14→23:17)
[2017-02-12] MEDS ORDERED: NOREPINEPHRINE BITARTRATE 4 MG/4 ML ML IV ONE (05:49)
[2017-02-12 06:12] LABS: BASO % 0.4 % (0-2.0); EOS % 2.8 % (0-4.5); MCH 32.5 pg (25.7-33.7); MCHC 29.4 g/dl (32.0-36.0); MEAN CELL VOLUME 110.6 fl (80-96); MEAN PLT VOLUME 11.7 fl (7.5-11.1); NEUT % 74.4 % (42.8-82.8); PLATELET COUNT 142 K/MM3 (134-434)
[2017-02-12 06:37] LABS: ANION GAP 9 (8-16); CALCIUM 7.3 mg/dL (8.5-10.1); CO2 22 mmol/L (21-32); CREATININE 0.7 mg/dL (0.55-1.02); GLUCOSE,RANDOM 100 mg/dL (74-106); MAGNESIUM 1.8 mg/dL (1.8-2.4); PHOSPHOROUS 2.4 mg/dL (2.5-4.9)
--- NOTE | 2017-02-12 07:44 | PN ---
Progress Note, Physician Chief Complaint: SANDRA Damon day 7 Remains afebrile now but Tmax 101 - Current Medication List Current Medications: Active Medications Acetaminophen (Tylenol -) 650 mg PO Q4H PRN PRN Reason: FEVER OR PAIN Last Admin: 02/11/17 17:45 Dose: 650 mg Amino Acids (Prosource No Carb Liquid Pkt) 30 ml PO BID@0800,1730 [facility] Last Admin: 02/11/17 17:42 Dose: 30 ml Chlorhexidine Gluconate (Peridex -) 15 ml MM BID [facility] Last Admin: 02/11/17 21:45 Dose: 15 ml Collagenase (Santyl -) 1 applic TP DAILY [facility] Last Admin: 02/11/17 09:16 Dose: 1 applic Heparin Sodium (Porcine) (Heparin -) 5,000 unit SQ BID [facility] Last Admin: 02/11/17 21:56 Dose: 5,000 unit Piperacillin Sod/Tazobactam (Sod 3.375 gm/ Dextrose) 50 mls @ 100 mls/hr IVPB Q8H-IV TANNER PRN Reason: Protocol Last Admin: 02/11/17 18:00 Dose: 100 mls/hr Norepinephrine Bitartrate 4, (000 mcg/ Dextrose) 500 mls @ 37.5 mls/hr IV TITR TANNER; 5 MCG/MIN PRN Reason: Protocol Last Admin: 02/11/17 16:30 Dose: 5 mcg/min, 37.5 mls/hr Mirtazapine (Remeron -) 15 mg PO HS [facility] Last Admin: 02/11/17 21:45 Dose: Not Given Pantoprazole Sodium (Protonix Iv) 40 mg IVPUSH DAILY [facility] Last Admin: 02/11/17 09:15 Dose: 40 mg Valproate Sodium (Depakene -) 500 mg PO BID [facility] Last Admin: 02/11/17 21:44 Dose: 500 mg - Objective Vital Signs: Vital Signs Temperature 101 F H 02/11/17 18:00 Pulse Rate 87 02/12/17 06:00 Respiratory Rate 14 02/12/17 07:25 Blood Pressure 132/66 02/12/17 06:00 O2 Sat by Pulse Oximetry (%) 100 02/12/17 02:14 Constitutional: Yes: Other (Intubated) Cardiovascular: Yes: S1, S2 Respiratory: Yes: WNL, Regular, CTA Bilaterally Gastrointestinal: Yes: Soft. No: Tenderness Edema: Yes Integumentary: Yes: Other (Buttock ulcers) Labs: CBC, BMP 02/12/17 05:00 02/12/17 05:00 INR, PTT INR 1.03 (0.82-1.09) 02/04/17 15:10 Problem List - Problems (1) UTI (urinary tract infection) Code(s): N39.0 - URINARY TRACT INFECTION, SITE NOT SPECIFIED (2) Sepsis Code(s): A41.9 - SEPSIS, UNSPECIFIED ORGANISM (3) Subarachnoid hemorrhage Code(s): I60.9 - NONTRAUMATIC SUBARACHNOID HEMORRHAGE, UNSPECIFIED Assessment/Plan Microbiology 02/10/17 15:00 Stool Clostridium difficile Antigen ([facility]OME) - Final 02/10/17 15:00 Stool Clostridium difficile Toxin Assay - Final 02/09/17 17:00 Urine - Urine [place] Urine Culture - Final NO GROWTH OBTAINED 02/09/17 16:30 Sputum - Endotrachea Suction/Ventilator Gram Stain - Final 02/09/17 16:30 Sputum - Endotrachea Suction/Ventilator Sputum Culture - Preliminary Presumptive Ps Aeruginosa Laboratory Tests 02/12/17 02/12/17 05:00 05:00 WBC 6.0 Hgb 6.3 L* D Hct 21.3 L D Plt Count 142 D BUN 22 H Creatinine 0.7 Assessment Day 7 antibiotics with Zosyn. Remains intubated & pressor support Pseudomonas > colonized respiratory tract Chest xray difficult to rule in or out PNA. Prognosis remains poor. Plan At this point stop antibiotics and moniter. Had fever over night We could culture her in 24-48 hours off antibiotic Suad MCNEILL
[2017-02-12 08:38] LABS: MCH 31.9 pg (25.7-33.7); MCHC 32.8 g/dl (32.0-36.0); MEAN CELL VOLUME 97.4 fl (80-96); MEAN PLT VOLUME 10.6 fl (7.5-11.1); PLATELET COUNT 193 K/MM3 (134-434); WHITE BLOOD COUNT 9.2 K/mm3 (4.0-10.0)
[2017-02-12] MEDS ORDERED: POTASSIUM CHLORIDE ORAL LIQUID 20 MEQ/15 ML GT ONE (09:30)
[2017-02-12] MEDS: AMINO ACIDS/PROTEIN HYDROLYS 30 ML LIQUID.PKT PO SCH ×2 (09:33→16:51)
[2017-02-12] MEDS: VALPROATE SODIUM 250 MG/5 ML UNIT DOSE CUP PO SCH ×2 (09:33→23:19)
[2017-02-12] MEDS: CHLORHEXIDINE GLUCONATE 0.12% 15ML CUP MM SCH ×2 (09:45→23:19)
[2017-02-12] MEDS: HEPARIN NA (PORCINE) 5,000 UNITS/ML 1ML VIAL SQ SCH ×2 (09:45→23:19)
[2017-02-12] MEDS: PANTOPRAZOLE SODIUM 40 MG VIAL IVPUSH SCH (09:46)
[2017-02-12] MEDS: COLLAGENASE CLOSTRIDIUM HIST. 30 GRAMS TUBE TP SCH (11:50)
[2017-02-12] MEDS: NOREPINEPHRINE BITARTRATE 4,000 MCG in DEXTROSE 5%-WATER - 496 ML IV SCH ×3 (11:51→18:40)
--- NOTE | 2017-02-12 11:55 | PN ---
Progress Note, Physician History of Present Illness: Pt seen and examined at bedside. She remains in the ICU. She remains intubated. - Current Medication List Current Medications: Active Medications Acetaminophen (Tylenol -) 650 mg PO Q4H PRN PRN Reason: FEVER OR PAIN Last Admin: 02/11/17 17:45 Dose: 650 mg Amino Acids (Prosource No Carb Liquid Pkt) 30 ml PO BID@0800,1730 [facility] Last Admin: 02/12/17 09:33 Dose: 30 ml Chlorhexidine Gluconate (Peridex -) 15 ml MM BID [facility] Last Admin: 02/12/17 09:45 Dose: 15 ml Collagenase (Santyl -) 1 applic TP DAILY [facility] Last Admin: 02/12/17 11:50 Dose: 1 applic Heparin Sodium (Porcine) (Heparin -) 5,000 unit SQ BID [facility] Last Admin: 02/12/17 09:45 Dose: 5,000 unit Norepinephrine Bitartrate 4, (000 mcg/ Dextrose) 500 mls @ 37.5 mls/hr IV TITR TANNER; 5 MCG/MIN PRN Reason: Protocol Last Admin: 02/11/17 16:30 Dose: 5 mcg/min, 37.5 mls/hr Mirtazapine (Remeron -) 15 mg PO HS [facility] Last Admin: 02/11/17 21:45 Dose: Not Given Pantoprazole Sodium (Protonix Iv) 40 mg IVPUSH DAILY [facility] Last Admin: 02/12/17 09:46 Dose: 40 mg Potassium Phos/Sodium Phos (Phos-Nak Packet -) 2 packet PO ONCE ONE Stop: 02/12/17 11:50 Valproate Sodium (Depakene -) 500 mg PO BID [facility] Last Admin: 02/12/17 09:33 Dose: 500 mg - Objective Vital Signs: Vital Signs Temperature 99.2 F 02/12/17 10:00 Pulse Rate 89 02/12/17 10:24 Respiratory Rate 23 02/12/17 11:39 Blood Pressure 104/51 02/12/17 10:00 O2 Sat by Pulse Oximetry (%) 100 02/12/17 10:25 Constitutional: Yes: Calm Eyes: Yes: Conjunctiva Clear HENT: Yes: Atraumatic Neck: Yes: Supple Cardiovascular: Yes: S1, S2 Respiratory: Yes: Mechanically Ventilated Gastrointestinal: Yes: Normal Bowel Sounds, Soft Genitourinary: Yes: [place] Present Musculoskeletal: Yes: Muscle Weakness Edema: Yes Edema: LUE: 1+, RUE: 1+, LLE: Trace, RLE: Trace Neurological: Yes: Lethargy Labs: CBC, BMP 02/12/17 08:20 02/12/17 05:00 INR, PTT INR 1.03 (0.82-1.09) 02/04/17 15:10 - ....Imaging Chest X-ray: Report Reviewed Problem List - Problems (1) Acute hypernatremia Code(s): E87.0 - HYPEROSMOLALITY AND HYPERNATREMIA (2) Hyperkalemia Code(s): E87.5 - HYPERKALEMIA (3) Sepsis Code(s): A41.9 - SEPSIS, UNSPECIFIED ORGANISM (4) UTI (urinary tract infection) Code(s): N39.0 - URINARY TRACT INFECTION, SITE NOT SPECIFIED Assessment/Plan Current Medications Generic Name Dose Route Start Last Admin Trade Name Freq PRN Reason Stop Dose Admin Acetaminophen 650 mg 02/05/17 21:44 02/11/17 17:45 Tylenol - PO 650 mg Q4H PRN Administration FEVER OR PAIN Amino Acids 30 ml 02/09/17 08:45 02/12/17 09:33 Prosource No Carb Liquid Pkt PO 30 ml BID@0800,1730 [facility] Administration Chlorhexidine Gluconate 15 ml 02/05/17 22:00 02/12/17 09:45 Peridex - MM 15 ml BID [facility] Administration Collagenase 1 applic 02/09/17 11:00 02/12/17 11:50 Santyl - TP 1 applic DAILY [facility] Administration Heparin Sodium (Porcine) 5,000 unit 02/10/17 22:00 02/12/17 09:45 Heparin - SQ 5,000 unit BID [facility] Administration Norepinephrine Bitartrate 4, 500 mls @ 37.5 mls/hr 02/11/17 14:15 02/12/17 11 :51 000 mcg/ Dextrose IV 2 mcg/min TITR TANNER 15 mls/hr Protocol Administration 5 MCG/MIN Mirtazapine 15 mg 02/05/17 22:00 02/11/17 21:45 Remeron - PO Not Given HS TANNER Pantoprazole Sodium 40 mg 02/09/17 13:30 02/12/17 09:46 Protonix Iv IVPUSH 40 mg DAILY [facility]ANNER Administration Potassium Phos/Sodium Phos 2 packet 02/12/17 11:49 Phos-Nak Packet - PO 02/12/17 11:50 ONCE ONE Valproate Sodium 500 mg 02/09/17 09:00 02/12/17 09:33 Depakene - PO 500 mg BID TANNER Administration Impression 1. ARCHANA 2. hypernatremia 3. hyperkalemia - resolved 4. anemia 5. epilepsy 6. hx of subdural hematoma 7. hypotension 8. hypoglycemia 9. acute resp failure requiring intubation 10. hypokalemia Plan - replace lytes - vent support - titrate down pressors - consider giving pt a dose of lasix - replace phos - cont with feeds - avoid nephrotoxins - will follow pt - reviewed chart labs and meds - ICU care
[2017-02-12] MEDS ORDERED: NAPH,MB-DB/K PH,MBDB POWDER PACKET PO ONE (12:45)
--- NOTE | 2017-02-12 13:25 | PN ---
Teaching Attending Note Name of Resident: Brisa Clark ATTENDING PHYSICIAN STATEMENT I saw and evaluated the patient. I reviewed the resident's note and discussed the case with the resident. I agree with the resident's findings and plan as documented. SUBJECTIVE: Pt seen and examined in the ICU. Remains intubated, poorly responsive on levophed gtt. Febrile to 101 overnight. Made DNR yesterday. OBJECTIVE: Last Vital Signs Temp Pulse Resp BP Pulse Ox 99.2 F 88 24 100/54 100 02/12/17 10:00 02/12/17 12:05 02/12/17 12:05 02/12/17 12:05 02/12/17 10:25 Intake & Output 02/09/17 02/10/17 02/11/17 02/12/17 23:59 23:59 23:59 23:59 Intake Total 1890 2595 880 1265.2 Output Total 900 3100 750 1200 Balance 990 -505 130 65.2 Weight 178 lb 1 oz 176 lb 6 oz Gen: intubated, poorly responsive Heart: RRR Lung: decreased breath sounds at the bases Abd: soft, nontender Ext: + edema CBC, BMP 02/12/17 08:20 02/12/17 05:00 Active Medications Acetaminophen (Tylenol -) 650 mg PO Q4H PRN PRN Reason: FEVER OR PAIN Last Admin: 02/11/17 17:45 Dose: 650 mg Amino Acids (Prosource No Carb Liquid Pkt) 30 ml PO BID@0800,1730 [facility] Last Admin: 02/12/17 09:33 Dose: 30 ml Chlorhexidine Gluconate (Peridex -) 15 ml MM BID [facility] Last Admin: 02/12/17 09:45 Dose: 15 ml Collagenase (Santyl -) 1 applic TP DAILY [facility] Last Admin: 02/12/17 11:50 Dose: 1 applic Heparin Sodium (Porcine) (Heparin -) 5,000 unit SQ BID [facility] Last Admin: 02/12/17 09:45 Dose: 5,000 unit Norepinephrine Bitartrate 4, (000 mcg/ Dextrose) 500 mls @ 37.5 mls/hr IV TITR [facility]ANNER; 5 MCG/MIN PRN Reason: Protocol Last Admin: 02/12/17 11:51 Dose: 2 mcg/min, 15 mls/hr Mirtazapine (Remeron -) 15 mg PO HS [facility] Last Admin: 02/11/17 21:45 Dose: Not Given Pantoprazole Sodium (Protonix Iv) 40 mg IVPUSH DAILY [facility] Last Admin: 02/12/17 09:46 Dose: 40 mg Valproate Sodium (Depakene -) 500 mg PO BID [facility] Last Admin: 02/12/17 09:33 Dose: 500 mg ASSESSMENT AND PLAN: Acute Respiratory Failure UTI Septic Shock Acute Kidney Injury improving Acute on Chronic Subdural Hematomas Seizure Disorder HTN Hyperlipidemia - monitoring off antibiotics - reculture if febrile - replete lytes - titrate levophed gtt to maintain MAP >65 - monitor urine output, creatinine - will need diuresis once off pressors - taper FiO2 to keep SpO2 >90% - minimize sedation to assess mental status - spontaneous breathing trials as tolerated - placed on CPAP/PS 5/5 today with decent tidal volumes, trial of extubation in AM if tolerating - enteral feeds - DVT/GI prophylaxis - continue ICU monitoring critical care time spent in reviewing chart, evaluating patient and formulating plan 35 min
--- NOTE | 2017-02-12 14:53 | PN ---
Physical Exam: SUBJECTIVE: Patient seen and examined at bedside. 24 hr events -febrile overnight, 101F -pt made DNR -On tube feeds -Incontinent in PM -Continued on levo gtt Today -initial Hb 6.3 mistake, BUN 22 most likely not bleed, recheck: 8.9 therefore no units were given -Levo gtt titrated down to 3 -low temps -pt has been off sedation -awaiting neuro files from [facility] on past MRI/CT scans OBJECTIVE: Vital Signs Period Temp Pulse Resp BP Sys/Han Pulse Ox Last 24 Hr 99.2 F-101 F 74-99 12-29 83-132/38-67 100-100 GENERAL: The patient is intubated and vented. off sedation HEAD: Normal with no signs of trauma. NECK: Trachea midline, supple, R IJ in tact LUNGS: rhonchi appreciated b/l HEART: Regular rate and rhythm, S1, S2 without murmur, rub or gallop. ABDOMEN: Soft, obese, nontender, nondistended, normoactive bowel sounds EXTREMITIES: 2+ dorsalis pedis pulses, warm, well-perfused, 1+ pitting edema noted b/l. Edematous hands b/l 3+ pitting edema NEUROLOGICAL: pt unresponsive to verbal or physical stimuli. at baseline, pt was able to respond to questions with one word answers Laboratory Results - last 24 hr 02/12/17 02/12/17 02/12/17 05:00 05:00 08:20 WBC 6.0 9.2 D RBC 1.93 L D 2.78 L D Hgb 6.3 L* D 8.9 L D Hct 21.3 L D 27.1 L D MCV 110.6 H D 97.4 H D MCH 32.5 31.9 MCHC 29.4 L 32.8 RDW 18.0 H D 16.0 H D Plt Count 142 D 193 D MPV 11.7 H 10.6 Neutrophils % 74.4 Lymphocytes % 12.3 D Monocytes % 10.1 Eosinophils % 2.8 Basophils % 0.4 D Sodium 141 Potassium 3.3 L Chloride 110 H Carbon Dioxide 22 Anion Gap 9 BUN 22 H Creatinine 0.7 Random Glucose 100 Calcium 7.3 L Phosphorus 2.4 L D Magnesium 1.8 Active Medications Generic Name Dose Route Start Last Admin Trade Name Freq PRN Reason Stop Dose Admin Acetaminophen 650 mg 02/05/17 21:44 02/11/17 17:45 Tylenol - PO 650 mg Q4H PRN Administration FEVER OR PAIN Amino Acids 30 ml 02/09/17 08:45 02/12/17 09:33 Prosource No Carb Liquid Pkt PO 30 ml BID@0800,1730 T[facility] Administration Chlorhexidine Gluconate 15 ml 02/05/17 22:00 02/12/17 09:45 Peridex - MM 15 ml BID T[facility]NER Administration Collagenase 1 applic 02/09/17 11:00 02/12/17 11:50 Santyl - TP 1 applic DAILY [facility] Administration Heparin Sodium (Porcine) 5,000 unit 02/10/17 22:00 02/12/17 09:45 Heparin - SQ 5,000 unit BID [facility]NER Administration Norepinephrine Bitartrate 4, 500 mls @ 37.5 mls/hr 02/11/17 14:15 02/12/17 11 :51 000 mcg/ Dextrose IV 2 mcg/min TITR TANNER 15 mls/hr Protocol Administration 5 MCG/MIN Mirtazapine 15 mg 02/05/17 22:00 02/11/17 21:45 Remeron - PO Not Given HS TANNER Pantoprazole Sodium 40 mg 02/09/17 13:30 02/12/17 09:46 Protonix Iv IVPUSH 40 mg DAILY [facility] Administration Valproate Sodium 500 mg 02/09/17 09:00 02/12/17 09:33 Depakene - PO 500 mg BID T[facility]NER Administration ASSESSMENT/PLAN: 86 y/o F with PMH subdural hematoma (2016), HTN, HLD, seizures, SAH (11/2016), who developed SOB and chills and was brought to the ED. Pt became tachypneic and hypotensive, therefore she was managed in ICU where she was found to have sepsis secondary to a urinary source. PULM #Acute Respiratory failure - Pt vented and intubated - Has been off propofol - ET tube pulled (02/09) to 20cm - Continue to monitor off sedation - Continue to F/U daily CXR - try to extubate tomorrow if tolerating trials, continue to wean pressure support ID #Septic shock 2/2 urinary source - cx are (-) - Continue levophed 3mcg/min, titrate for MAP goal>65 - once off levo, can diurese with lasix - completed course of zosyn - will monitor off abx - reculture if spikes fever RENAL #Hypophosphatemia -repleted with 2 pks Neutra-Phosph -Will follow levels #Hypokalemia -repleted with 40 mEq liquid KCl GT #ARCHANA with elevated BUN - BUN trending down- normalizing - F/u Urine studies -Will continue to f/u BMP NEURO #hx of sub arachnoid hemorrhage and subdural hematoma - Continue depakote 500 mg PO BID - F/u neuro files from [facility] on past CT/MRI scans # prophylaxis - DVT: SCD's, Hep 5000 SQ BID - GI: Protonix 40mg IVP qd #F/E/N -Will continue to monitor electrolytes -Tube feed perative continue #Code status DNR #Dispo Continued ICU management Visit type - Emergency Visit Emergency Visit: No - New Patient This patient is new to me today: No - Critical Care Critical Care patient: Yes Total Critical Care Time (in minutes): 31 Critical Care Statement: The care of this patient involved high complexity decision making to prevent further life threatening deterioration of the patient 's condition and/or to evaluate & treat vital organ system(s) failure or risk of failure.
--- NOTE | 2017-02-12 16:37 | PN ---
Progress Note (short form) - Note Progress Note: Subjective: The patient was seen and examined at the bedside remains intubated, trial of cpap Abx discontinued Tmax 101 Current Medications Generic Name Dose Route Start Last Admin Trade Name Jacoby PRN Reason Stop Dose Admin Acetaminophen 650 mg 02/05/17 21:44 02/11/17 17:45 Tylenol - PO 650 mg Q4H PRN Administration FEVER OR PAIN Amino Acids 30 ml 02/09/17 08:45 02/12/17 16:51 Prosource No Carb Liquid Pkt PO 30 ml BID@0800,1730 [facility]NER Administration Chlorhexidine Gluconate 15 ml 02/05/17 22:00 02/12/17 09:45 Peridex - MM 15 ml BID [facility]NER Administration Collagenase 1 applic 02/09/17 11:00 02/12/17 11:50 Santyl - TP 1 applic DAILY [facility] Administration Heparin Sodium (Porcine) 5,000 unit 02/10/17 22:00 02/12/17 09:45 Heparin - SQ 5,000 unit BID [facility] Administration Norepinephrine Bitartrate 4, 500 mls @ 37.5 mls/hr 02/11/17 14:15 02/12/17 11 :51 000 mcg/ Dextrose IV 2 mcg/min TITR TANNER 15 mls/hr Protocol Administration 5 MCG/MIN Mirtazapine 15 mg 02/05/17 22:00 02/11/17 21:45 Remeron - PO Not Given HS TANNER Pantoprazole Sodium 40 mg 02/09/17 13:30 02/12/17 09:46 Protonix Iv IVPUSH 40 mg DAILY [facility] Administration Valproate Sodium 500 mg 02/09/17 09:00 02/12/17 09:33 Depakene - PO 500 mg BID [facility]NER Administration Objective: Vital Signs Period Temp Pulse Resp BP Sys/Han Pulse Ox Last 24 Hr 99.2 F-101 F 74-91 12-32 83-132/38-67 100-100 Physical Exam General: Intubated Lungs: Scattered rhonchi bilaterally Heart: RRR, S1S2 Abd: Soft, non-tender, Peg Ext: + edema CBCD WBC 9.2 K/mm3 (4.0-10.0) D 02/12/17 08:20 RBC 2.78 M/mm3 (3.60-5.2) L D 02/12/17 08:20 Hgb 8.9 GM/dL (10.7-15.3) L D 02/12/17 08:20 Hct 27.1 % (32.4-45.2) L D 02/12/17 08:20 MCV 97.4 fl (80-96) H D 02/12/17 08:20 MCHC 32.8 g/dl (32.0-36.0) 02/12/17 08:20 RDW 16.0 % (11.6-15.6) H D 02/12/17 08:20 Plt Count 193 K/MM3 (134-434) D 02/12/17 08:20 MPV 10.6 fl (7.5-11.1) 02/12/17 08:20 CMP Sodium 141 mmol/L (136-145) 02/12/17 05:00 Potassium 3.3 mmol/L (3.5-5.1) L 02/12/17 05:00 Chloride 110 mmol/L (98-107) H 02/12/17 05:00 Carbon Dioxide 22 mmol/L (21-32) 02/12/17 05:00 Anion Gap 9 (8-16) 02/12/17 05:00 BUN 22 mg/dL (7-18) H 02/12/17 05:00 Creatinine 0.7 mg/dL (0.55-1.02) 02/12/17 05:00 Creat Clearance w eGFR > 60 (>60) 02/11/17 05:10 Random Glucose 100 mg/dL (74-106) 02/12/17 05:00 Calcium 7.3 mg/dL (8.5-10.1) L 02/12/17 05:00 Total Bilirubin 0.3 mg/dL (0.2-1.0) D 02/11/17 05:10 AST 25 U/L (15-37) D 02/11/17 05:10 ALT 17 U/L (12-78) D 02/11/17 05:10 Alkaline Phosphatase 61 U/L (45-117) 02/11/17 05:10 Total Protein 5.0 g/dl (6.4-8.2) L 02/11/17 05:10 Albumin 1.3 g/dl (3.4-5.0) L 02/11/17 05:10 CARDIAC ENZYMES Creatine Kinase 490 IU/L (26-192) H 02/04/17 15:10 Troponin I < 0.02 ng/ml (0.00-0.05) 02/04/17 15:10 Microbiology 02/09/17 13:35 Blood - Peripheral Venous Blood Culture - Preliminary NO GROWTH OBTAINED AFTER 72 HOURS, INCUBATION TO CONTINUE FOR 2 DAYS. 02/09/17 13:40 Blood - Peripheral Venous Blood Culture - Preliminary NO GROWTH OBTAINED AFTER 72 HOURS, INCUBATION TO CONTINUE FOR 2 DAYS. 02/09/17 16:30 Sputum - Endotrachea Suction/Ventilator Gram Stain - Final 02/09/17 16:30 Sputum - Endotrachea Suction/Ventilator Sputum Culture - Final Pseudomonas Aeruginosa 02/09/17 17:00 Urine - Urine [place] Urine Culture - Final NO GROWTH OBTAINED 02/10/17 15:00 Stool Clostridium difficile Antigen (ROME) - Final 02/10/17 15:00 Stool Clostridium difficile Toxin Assay - Final 02/06/17 08:52 Blood - Peripheral Venous Blood Culture - Final NO GROWTH AFTER 5 DAYS INCUBATION 02/06/17 08:52 Blood - Peripheral Venous Blood Culture - Final NO GROWTH AFTER 5 DAYS INCUBATION 02/04/17 15:05 Blood - Peripheral Venous Blood Culture - Final NO GROWTH AFTER 5 DAYS INCUBATION 02/04/17 15:00 Blood - Peripheral Venous Blood Culture - Final NO GROWTH AFTER 5 DAYS INCUBATION 02/04/17 15:53 Urine - Urine [place] Urine Culture - Final Yeast Like Organism Assessment: This is an 86 year old female with PMHx of subdural hematoma s/p fall (07/2016), HTN, hyperlipidemia, 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 Plan: 1) Acute respiratory failure - Remains intubated - Daily sedation vacation with spontaneous breathing trials - Will attempt extubation tomorrow - Appreciate pulmonary consult 2) Septic shock 2/2 UTI - Completed 7 days of Zosyn today - Taper levophed to keep MAP >65 - Appreciate ID consult Large b/l buttock wounds - Continue Santyl - Appreciate surgery consult 3) ARCHANA - Resolved 4) Hx of sub arachnoid hemorrhage and subdural hematoma - Head CT reviewed - Continue Depakote 5) Acute blood loss anemia - Received 1u PRBC on 02/05 6) F/E/N: - Fluids and feeds through g-tube - Monitor electrolytes 7) Prophylaxis: - Heparin 5,000u sq bid 8) Dispo: - Requires continued inpatient care CODE STATUS: DNR Visit type - Emergency Visit Emergency Visit: Yes ED Registration Date: 02/04/17 Care time: The patient presented to the Emergency Department on the above date and was hospitalized for further evaluation of their emergent condition. - New Patient This patient is new to me today: Yes Date on this admission: 02/12/17 - Critical Care Critical Care patient: Yes Total Critical Care Time (in minutes): 35 Critical Care Statement: The care of this patient involved high complexity decision making to prevent further life threatening deterioration of the patient 's condition and/or to evaluate & treat vital organ system(s) failure or risk of failure.
[2017-02-12] MEDS: MIRTAZAPINE 15 MG TABLET (FP) PO SCH (23:20)
[2017-02-13 06:15] LABS: BASO % 0.2 % (0-2.0); MCH 32.5 pg (25.7-33.7); MCHC 33.3 g/dl (32.0-36.0); MEAN CELL VOLUME 97.7 fl (80-96); MEAN PLT VOLUME 10.8 fl (7.5-11.1); NEUT % 73.3 % (42.8-82.8); PLATELET COUNT 214 K/MM3 (134-434); RDW 16.1 % (11.6-15.6); WHITE BLOOD COUNT 8.3 K/mm3 (4.0-10.0)
[2017-02-13 06:42] LABS: CALCIUM 7.3 mg/dL (8.5-10.1); CO2 25 mmol/L (21-32); CREATININE 0.5 mg/dL (0.55-1.02); GLUCOSE,RANDOM 126 mg/dL (74-106); MAGNESIUM 1.6 mg/dL (1.8-2.4); PHOSPHOROUS 2.4 mg/dL (2.5-4.9)
[2017-02-13 06:57] LABS: ANION GAP 7 (8-16)
--- NOTE | 2017-02-13 08:17 | PN ---
Progress Note, Physician Chief Complaint: ID ICU follow up. Overall not much change Remains on the vent Zosyn stopped yesterday after 7 days for diagnosis of sepsis presumed urinary tract source Still on pressors - Current Medication List Current Medications: Active Medications Acetaminophen (Tylenol -) 650 mg PO Q4H PRN PRN Reason: FEVER OR PAIN Last Admin: 02/11/17 17:45 Dose: 650 mg Amino Acids (Prosource No Carb Liquid Pkt) 30 ml PO BID@0800,1730 [facility] Last Admin: 02/12/17 16:51 Dose: 30 ml Chlorhexidine Gluconate (Peridex -) [address] [facility] Last Admin: 02/12/17 23:19 Dose: 15 ml Collagenase (Santyl -) [address] [facility] Last Admin: 02/12/17 11:50 Dose: 1 applic Heparin Sodium (Porcine) (Heparin -) 5,[address] [facility] Last Admin: 02/12/17 23:19 Dose: 5,000 unit Norepinephrine Bitartrate 4, (000 mcg/ Dextrose) 500 mls @ 37.5 mls/hr IV TITR TANNER; 5 MCG/MIN PRN Reason: Protocol Last Admin: 02/12/17 18:40 Dose: 6 mcg/min, 45 mls/hr Mirtazapine (Remeron -) [address] [facility] Last Admin: 02/12/17 23:20 Dose: 15 mg Pantoprazole Sodium (Protonix Iv) [address] [facility] Last Admin: 02/12/17 09:46 Dose: 40 mg Valproate Sodium (Depakene -) [address] [facility] Last Admin: 02/12/17 23:19 Dose: 500 mg - Objective Vital Signs: Vital Signs Temperature 100.1 F H 02/13/17 02:00 Pulse Rate 91 H 02/13/17 02:00 Respiratory Rate 14 02/13/17 06:26 Blood Pressure 125/58 02/13/17 06:00 O2 Sat by Pulse Oximetry (%) 100 02/12/17 23:57 Cardiovascular: Yes: Regular Rate and Rhythm, S1, S2 Respiratory: Yes: WNL, Regular, CTA Bilaterally. No: Rhonchi Gastrointestinal: Yes: Soft, Other (GT). No: Tenderness, Tenderness, Rebound Edema: Yes Labs: CBC, BMP 02/13/17 05:55 02/13/17 05:55 INR, PTT INR 1.03 (0.82-1.09) 02/04/17 15:10 Problem List - Problems (1) UTI (urinary tract infection) Code(s): N39.0 - URINARY TRACT INFECTION, SITE NOT SPECIFIED (2) Sepsis Code(s): A41.9 - SEPSIS, UNSPECIFIED ORGANISM (3) Subarachnoid hemorrhage Code(s): I60.9 - NONTRAUMATIC SUBARACHNOID HEMORRHAGE, UNSPECIFIED Assessment/Plan Microbiology 02/09/17 16:30 Sputum - Endotrachea Suction/Ventilator Gram Stain - Final 02/09/17 16:30 Sputum - Endotrachea Suction/Ventilator Sputum Culture - Final Pseudomonas Aeruginosa 02/09/17 13:40 Blood - Peripheral Venous Blood Culture - Preliminary NO GROWTH OBTAINED AFTER 72 HOURS, INCUBATION TO CONTINUE FOR 2 DAYS. 02/09/17 13:35 Blood - Peripheral Venous Blood Culture - Preliminary NO GROWTH OBTAINED AFTER 72 HOURS, INCUBATION TO CONTINUE FOR 2 DAYS. Laboratory Tests 02/13/17 02/13/17 05:55 05:55 WBC 8.3 Hgb 8.0 L D Hct 23.9 L Plt Count 214 Neutrophils % 73.3 Lymphocytes % 13.3 Monocytes % 11.2 H BUN 21 H Creatinine 0.5 L D Random Glucose 126 H D Assessment Sepsis syndrome. Remains intubated on pressors Recent Zosyn Chest xray no definative infiltrate on a portable film . Note the pseudomonas in sputum is really resistant to Zosyn ROME 64 on borderline of resistant Plan Given her critical status going to initiate a trial of treatment directed at the above culture and see if there is any improvement. Meroepenem & Tobramycin low dose for few days Reculture the blood and urine ICU critical care today 35 minutes of time spent
[2017-02-13] MEDS: AMINO ACIDS/PROTEIN HYDROLYS 30 ML LIQUID.PKT PO SCH ×2 (09:51→18:47)
[2017-02-13] MEDS: PANTOPRAZOLE SODIUM 40 MG VIAL IVPUSH SCH (09:52)
[2017-02-13] MEDS: HEPARIN NA (PORCINE) 5,000 UNITS/ML 1ML VIAL SQ SCH ×2 (09:52→23:47)
[2017-02-13] MEDS: CHLORHEXIDINE GLUCONATE 0.12% 15ML CUP MM SCH ×2 (09:52→23:51)
[2017-02-13] MEDS: MEROPENEM 500 MG PUSH 500 MG/10 ML DISP.SYRIN IVPB SCH ×2 (09:55→18:47)
[2017-02-13] MEDS ORDERED: PT OWN MED DRAWER 7, Y5N ONE ×4 (09:56→23:47)
[2017-02-13] MEDS: LEVOFLOXACIN 250 MG IVPB 250 MG/50 ML MG IVPB SCH (09:57)
[2017-02-13] MEDS: VALPROATE SODIUM 250 MG/5 ML UNIT DOSE CUP PO SCH (09:57)
[2017-02-13] MEDS: COLLAGENASE CLOSTRIDIUM HIST. 30 GRAMS TUBE TP SCH (09:58)
[2017-02-13] MEDS ORDERED: MEROPENEM 500 MG VIAL (RESTRICTED TO ID) IVPB SCH (10:00)
[2017-02-13] MEDS: ACETAMINOPHEN 325 MG TABLET (FP) PO PRN (11:28)
--- NOTE | 2017-02-13 12:38 | PN ---
Teaching Attending Note Name of Resident: Brisa Clark ATTENDING PHYSICIAN STATEMENT I saw and evaluated the patient. I reviewed the resident's note and discussed the case with the resident. I agree with the resident's findings and plan as documented. SUBJECTIVE: Patient seen and examined in the ICU. Remains intubated, AC Mode of vent. No gross change in mental status, does not follow commands. Remains on NE @ 4mcq Intake & Output 02/10/17 02/11/17 02/12/17 02/13/17 23:59 23:59 23:59 23:59 Intake Total 2595 880 1885.2 735 Output Total 3100 750 1200 830 Balance -505 130 685.2 -95 Weight 178 lb 1 oz 176 lb 6 oz 176 lb 14.4 oz Last Vital Signs Temp Pulse Resp BP Pulse Ox 101.4 F H 86 28 H 112/54 99 02/13/17 11:00 02/13/17 12:04 02/13/17 12:11 02/13/17 12:04 02/13/17 10:29 Active Medications Acetaminophen (Tylenol -) 650 mg PO Q4H PRN PRN Reason: FEVER OR PAIN Last Admin: 02/13/17 11:28 Dose: 650 mg Amino Acids (Prosource No Carb Liquid Pkt) 30 ml PO BID@0800,1730 [facility] Last Admin: 02/13/17 09:51 Dose: 30 ml Chlorhexidine Gluconate (Peridex -) 15 ml MM BID [facility] Last Admin: 02/13/17 09:52 Dose: 15 ml Collagenase (Santyl -) 1 applic TP DAILY [facility] Last Admin: 02/13/17 09:58 Dose: 1 applic Heparin Sodium (Porcine) (Heparin -) 5,000 unit SQ BID [facility] Last Admin: 02/13/17 09:52 Dose: 5,000 unit Norepinephrine Bitartrate 4, (000 mcg/ Dextrose) 500 mls @ 37.5 mls/hr IV TITR [facility]ANNER; 5 MCG/MIN PRN Reason: Protocol Last Titration: 02/13/17 09:53 Dose: 4 mcg/min, 30 mls/hr Levofloxacin (Levaquin 250 Mg Premixed Ivpb -) 250 mg in 50 mls @ 50 mls/hr IVPB DAILY [facility] Last Admin: 02/13/17 09:57 Dose: 50 mls/hr Meropenem (Merrem (Restricted To Id) -) 500 mg in 10 mls @ 100 mls/hr IVPB Q8H- IV [facility] Last Admin: 02/13/17 09:55 Dose: 100 mls/hr Mirtazapine (Remeron -) 15 mg PO HS [facility] Last Admin: 02/12/17 23:20 Dose: 15 mg Pantoprazole Sodium (Protonix Iv) 40 mg IVPUSH DAILY [facility] Last Admin: 02/13/17 09:52 Dose: 40 mg Valproate Sodium (Depakene -) 500 mg PO BID [facility] Last Admin: 02/13/17 09:57 Dose: 500 mg GENERAL: The patient is intubated and vented. off sedation HEAD: Normal with no signs of trauma. NECK: Trachea midline, supple, R IJ in tact LUNGS: scattered rhonchi HEART: Regular rate and rhythm, S1, S2 without murmur, rub or gallop. ABDOMEN: Soft, obese, nontender, nondistended, normoactive bowel sounds EXTREMITIES: 2+ dorsalis pedis pulses, warm, well-perfused, 1+ pitting edema noted b/l. Edematous hands b/l 3+ pitting edema NEUROLOGICAL: poorly responsive to verbal or physical stimuli. Laboratory Results - last 24 hr 02/13/17 02/13/17 05:55 05:55 WBC 8.3 RBC 2.45 L Hgb 8.0 L D Hct 23.9 L MCV 97.7 H MCH 32.5 MCHC 33.3 RDW 16.1 H Plt Count 214 MPV 10.8 Neutrophils % 73.3 Lymphocytes % 13.3 Monocytes % 11.2 H Eosinophils % 2.0 Basophils % 0.2 Sodium 139 Potassium 3.5 Chloride 107 Carbon Dioxide 25 Anion Gap 7 L BUN 21 H Creatinine 0.5 L D Random Glucose 126 H D Calcium 7.3 L Phosphorus 2.4 L Magnesium 1.6 L ASSESSMENT/PLAN: Acute Respiratory Failure Subdural hematoma (2017) HTN HLD Seizures SAH (11/2016) Septic Shock UTI ARCHANA Wean to extubate Currently off ABX coverage Wean NE as BP tolerates Replete Lytes Aspiration Precautions VTE prophylaxis Enteral feeds Dr Abdalla Critical care time spent in reviewing chart, evaluating patient and formulating plan - 40 minutes.
[2017-02-13] MEDS: NOREPINEPHRINE BITARTRATE 4,000 MCG in DEXTROSE 5%-WATER - 496 ML IV SCH ×2 (13:07→18:30)
--- NOTE | 2017-02-13 14:43 | PN ---
Physical Exam: SUBJECTIVE: Patient seen and examined at bedside. 24 hr events -Tmax 101F -did well on CPAP yesterday -was off levophed, however BP 93/50 therefore was placed back on levophed Today -has been off sedation -pt is extubated -was on levophed 6 this morning, now on 4 -d/t Tmax 101F last night- pt recultured today Blood and urine cx -pt started on meropenem and levofloxacin OBJECTIVE: R IJ: in for x 1 week today Extubated (02/13) Vital Signs Period Temp Pulse Resp BP Sys/Han Pulse Ox Last 24 Hr 100.1 F-101.4 F 28-95 12-32 86-125/36-70 98-100 GENERAL: The patient is extubated. off sedation HEAD: Normal with no signs of trauma. NECK: Trachea midline, supple, R IJ in tact LUNGS: rhonchi appreciated b/l HEART: Regular rate and rhythm, S1, S2 without murmur, rub or gallop. ABDOMEN: Soft, obese, nontender, nondistended, normoactive bowel sounds EXTREMITIES: 2+ dorsalis pedis pulses, warm, well-perfused, 1+ pitting edema noted b/l. Edematous hands b/l 2+ pitting edema NEUROLOGICAL: pt unresponsive to verbal or physical stimuli. Laboratory Results - last 24 hr 02/13/17 02/13/17 05:55 05:55 WBC 8.3 RBC 2.45 L Hgb 8.0 L D Hct 23.9 L MCV 97.7 H MCH 32.5 MCHC 33.3 RDW 16.1 H Plt Count 214 MPV 10.8 Neutrophils % 73.3 Lymphocytes % 13.3 Monocytes % 11.2 H Eosinophils % 2.0 Basophils % 0.2 Sodium 139 Potassium 3.5 Chloride 107 Carbon Dioxide 25 Anion Gap 7 L BUN 21 H Creatinine 0.5 L D Random Glucose 126 H D Calcium 7.3 L Phosphorus 2.4 L Magnesium 1.6 L Active Medications Generic Name Dose Route Start Last Admin Trade Name Freq PRN Reason Stop Dose Admin Acetaminophen 650 mg 02/05/17 21:44 02/13/17 11:28 Tylenol - PO 650 mg Q4H PRN Administration FEVER OR PAIN Amino Acids 30 ml 02/09/17 08:45 02/13/17 09:51 Prosource No Carb Liquid Pkt PO 30 ml BID@0800,1730 [facility] Administration Chlorhexidine Gluconate 15 ml 02/05/17 22:00 02/13/17 09:52 Peridex - MM 15 ml BID [facility] Administration Collagenase 1 applic 02/09/17 11:00 02/13/17 09:58 Santyl - TP 1 applic DAILY [facility] Administration Heparin Sodium (Porcine) 5,000 unit 02/10/17 22:00 02/13/17 09:52 Heparin - SQ 5,000 unit BID [facility] Administration Norepinephrine Bitartrate 4, 500 mls @ 37.5 mls/hr 02/11/17 14:15 02/13/17 13 :07 000 mcg/ Dextrose IV 4 mcg/min TITR TANNER 30 mls/hr Protocol Administration 5 MCG/MIN Levofloxacin 250 mg in 50 mls @ 50 mls/hr 02/13/17 10:00 02/13/17 09:57 Levaquin 250 Mg Premixed Ivpb - IVPB 50 mls/hr DAILY [facility] Administration Meropenem 500 mg in 10 mls @ 100 mls/hr 02/13/17 10:00 02/13/17 09:55 Merrem (Restricted To Id) - IVPB 100 mls/hr Q8H-IV [facility] Administration Mirtazapine 15 mg 02/05/17 22:00 02/12/17 23:20 Remeron - PO 15 mg HS [facility] Administration Pantoprazole Sodium 40 mg 02/09/17 13:30 02/13/17 09:52 Protonix Iv IVPUSH 40 mg DAILY [facility] Administration Valproate Sodium 500 mg 02/09/17 09:00 02/13/17 09:57 Depakene - PO 500 mg BID [facility] Administration ASSESSMENT/PLAN: 86 y/o F with PMH subdural hematoma (2016), HTN, HLD, seizures, SAH (11/2016), who developed SOB and chills and was brought to the ED. Pt became tachypneic and hypotensive, therefore she was managed in ICU where she was found to have sepsis secondary to a urinary source. PULM #Acute Respiratory failure - Pt extubated today (02/13) - Has been off propofol - ET tube pulled to 20cm (02/09) - Continue to monitor off sedation - Continue to F/U daily CXR ID #Septic shock 2/2 urinary source - Continue levophed 4mcg/min, titrate for MAP goal>65 - once off levo, can diurese with lasix. - completed course of zosyn - since pt spiked fever 101F 02/12, f/u blood, urine cx - pt started on meropenem and levofloxacin - meropenem can decrease seizure threshold, has hx SAH RENAL #ARCHANA with elevated BUN - BUN trending down- normalizing - F/u Urine studies -Will continue to f/u BMP NEURO #hx of sub arachnoid hemorrhage and subdural hematoma - Continue depakote 500 mg PO BID - F/u neuro files from [facility] on past CT/MRI scans # prophylaxis - DVT: SCD's, Hep 5000 SQ BID - GI: Protonix 40mg IVP qd #F/E/N -Will continue to monitor electrolytes -Tube feed perative continue #Code status DNR #Dispo Continued ICU management Visit type - Emergency Visit Emergency Visit: No - New Patient This patient is new to me today: No - Critical Care Critical Care patient: Yes Total Critical Care Time (in minutes): 31 Critical Care Statement: The care of this patient involved high complexity decision making to prevent further life threatening deterioration of the patient 's condition and/or to evaluate & treat vital organ system(s) failure or risk of failure.
--- NOTE | 2017-02-13 16:23 | PN ---
Progress Note, Physician History of Present Illness: Pt seen and examined at bedside. She is now extubated. Pt remains lethargic. - Current Medication List Current Medications: Active Medications Acetaminophen (Tylenol -) 650 mg PO Q4H PRN PRN Reason: FEVER OR PAIN Last Admin: 02/13/17 11:28 Dose: 650 mg Amino Acids (Prosource No Carb Liquid Pkt) 30 ml PO BID@0800,1730 [facility] Last Admin: 02/13/17 09:51 Dose: 30 ml Chlorhexidine Gluconate (Peridex -) 15 ml MM BID [facility] Last Admin: 02/13/17 09:52 Dose: 15 ml Collagenase (Santyl -) 1 applic TP DAILY [facility] Last Admin: 02/13/17 09:58 Dose: 1 applic Heparin Sodium (Porcine) (Heparin -) 5,000 unit SQ BID [facility] Last Admin: 02/13/17 09:52 Dose: 5,000 unit Norepinephrine Bitartrate 4, (000 mcg/ Dextrose) 500 mls @ 37.5 mls/hr IV TITR [facility]; 5 MCG/MIN PRN Reason: Protocol Last Admin: 02/13/17 13:07 Dose: 4 mcg/min, 30 mls/hr Levofloxacin (Levaquin 250 Mg Premixed Ivpb -) 250 mg in 50 mls @ 50 mls/hr IVPB DAILY [facility] Last Admin: 02/13/17 09:57 Dose: 50 mls/hr Meropenem (Merrem (Restricted To Id) -) 500 mg in 10 mls @ 100 mls/hr IVPB Q8H- IV [facility] Last Admin: 02/13/17 09:55 Dose: 100 mls/hr Mirtazapine (Remeron -) 15 mg PO HS [facility] Last Admin: 02/12/17 23:20 Dose: 15 mg Pantoprazole Sodium (Protonix Iv) 40 mg IVPUSH DAILY [facility] Last Admin: 02/13/17 09:52 Dose: 40 mg Valproate Sodium (Depakene -) 500 mg PO BID [facility] Last Admin: 02/13/17 09:57 Dose: 500 mg - Objective Vital Signs: Vital Signs Temperature 101.4 F H 02/13/17 11:00 Pulse Rate 88 02/13/17 14:00 Respiratory Rate 26 H 02/13/17 14:00 Blood Pressure 95/42 02/13/17 14:00 O2 Sat by Pulse Oximetry (%) 98 02/13/17 11:45 Constitutional: Yes: Calm Eyes: Yes: Conjunctiva Clear HENT: Yes: Atraumatic Neck: Yes: Supple Cardiovascular: Yes: S1, S2 Respiratory: Yes: On Venti-Mask Gastrointestinal: Yes: Soft Genitourinary: Yes: [place] Present Musculoskeletal: Yes: Muscle Weakness Edema: Yes Edema: LUE: 1+, RUE: 1+, LLE: 1+, RLE: 1+ Neurological: Yes: Lethargy Labs: CBC, BMP 02/13/17 05:55 02/13/17 05:55 INR, PTT INR 1.03 (0.82-1.09) 02/04/17 15:10 - ....Imaging Chest X-ray: Report Reviewed Problem List - Problems (1) Acute hypernatremia Code(s): E87.0 - HYPEROSMOLALITY AND HYPERNATREMIA (2) Hyperkalemia Code(s): E87.5 - HYPERKALEMIA (3) Sepsis Code(s): A41.9 - SEPSIS, UNSPECIFIED ORGANISM (4) UTI (urinary tract infection) Code(s): N39.0 - URINARY TRACT INFECTION, SITE NOT SPECIFIED Assessment/Plan Current Medications Generic Name Dose Route Start Last Admin Trade Name Freq PRN Reason Stop Dose Admin Acetaminophen 650 mg 02/05/17 21:44 02/13/17 11:28 Tylenol - PO 650 mg Q4H PRN Administration FEVER OR PAIN Amino Acids 30 ml 02/09/17 08:45 02/13/17 09:51 Prosource No Carb Liquid Pkt PO 30 ml BID@0800,1730 [facility] Administration Chlorhexidine Gluconate 15 ml 02/05/17 22:00 02/13/17 09:52 Peridex - MM 15 ml BID [facility] Administration Collagenase 1 applic 02/09/17 11:00 02/13/17 09:58 Santyl - TP 1 applic DAILY [facility] Administration Heparin Sodium (Porcine) 5,000 unit 02/10/17 22:00 02/13/17 09:52 Heparin - SQ 5,000 unit BID [facility] Administration Norepinephrine Bitartrate 4, 500 mls @ 37.5 mls/hr 02/11/17 14:15 02/13/17 13 :07 000 mcg/ Dextrose IV 4 mcg/min TITR [facility] 30 mls/hr Protocol Administration 5 MCG/MIN Levofloxacin 250 mg in 50 mls @ 50 mls/hr 02/13/17 10:00 02/13/17 09:57 Levaquin 250 Mg Premixed Ivpb - IVPB 50 mls/hr DAILY [facility] Administration Meropenem 500 mg in 10 mls @ 100 mls/hr 02/13/17 10:00 02/13/17 09:55 Merrem (Restricted To Id) - IVPB 100 mls/hr Q8H-IV [facility] Administration Mirtazapine 15 mg 02/05/17 22:00 02/12/17 23:20 Remeron - PO 15 mg HS [facility] Administration Pantoprazole Sodium 40 mg 02/09/17 13:30 02/13/17 09:52 Protonix Iv IVPUSH 40 mg DAILY [facility] Administration Valproate Sodium 500 mg 02/09/17 09:00 02/13/17 09:57 Depakene - PO 500 mg BID [facility] Administration Impression 1. ARCHANA 2. hypernatremia 3. hyperkalemia - resolved 4. anemia 5. epilepsy 6. hx of subdural hematoma 7. hypotension 8. hypoglycemia 9. acute resp failure requiring intubation 10. hypokalemia Plan - renal function stable - consider diuretics once blood pressure improves - discussed with ICU team - monitor pulse ox - avoid nephrotoxins - will follow pt - reviewed chart labs and meds - ICU care
--- NOTE | 2017-02-13 19:22 | PN ---
Progress Note (short form) - Note Progress Note: Subjective: The patient was seen and examined at the bedside extubated today. Poor mental status Remains on levophed Tmax: 101.4 Current Medications Generic Name Dose Route Start Last Admin Trade Name Freq PRN Reason Stop Dose Admin Acetaminophen 650 mg 02/05/17 21:44 02/13/17 11:28 Tylenol - PO 650 mg Q4H PRN Administration FEVER OR PAIN Amino Acids 30 ml 02/09/17 08:45 02/13/17 18:47 Prosource No Carb Liquid Pkt PO 30 ml BID@0800,1730 [facility] Administration Chlorhexidine Gluconate 15 ml 02/05/17 22:00 02/13/17 09:52 Peridex - MM 15 ml BID [facility] Administration Collagenase 1 applic 02/09/17 11:00 02/13/17 09:58 Santyl - TP 1 applic DAILY [facility] Administration Heparin Sodium (Porcine) 5,000 unit 02/10/17 22:00 02/13/17 09:52 Heparin - SQ 5,000 unit BID [facility] Administration Norepinephrine Bitartrate 4, 500 mls @ 37.5 mls/hr 02/11/17 14:15 02/13/17 18 :30 000 mcg/ Dextrose IV Not Given TITR [facility] Protocol 5 MCG/MIN Levofloxacin 250 mg in 50 mls @ 50 mls/hr 02/13/17 10:00 02/13/17 09:57 Levaquin 250 Mg Premixed Ivpb - IVPB 50 mls/hr DAILY [facility] Administration Meropenem 500 mg in 10 mls @ 100 mls/hr 02/13/17 10:00 02/13/17 18:47 Merrem (Restricted To Id) - IVPB 100 mls/hr Q8H-IV [facility] Administration Mirtazapine 15 mg 02/05/17 22:00 02/12/17 23:20 Remeron - PO 15 mg HS [facility] Administration Pantoprazole Sodium 40 mg 02/09/17 13:30 02/13/17 09:52 Protonix Iv IVPUSH 40 mg DAILY [facility] Administration Valproate Sodium 500 mg 02/09/17 09:00 02/13/17 09:57 Depakene - PO 500 mg BID [facility] Administration Objective: Vital Signs Period Temp Pulse Resp BP Sys/Han Pulse Ox Last 24 Hr 99.9 F-101.4 F 80-91 12-28 95-125/42-58 98-100 Physical Exam General: NAD, poor mental status, opens eyes to some verbal stimuli. Not following commands Lungs: Scattered rhonchi bilaterally Heart: RRR, S1S2 Abd: Soft, non-tender, Peg Ext: + edema CBCD WBC 8.3 K/mm3 (4.0-10.0) 02/13/17 05:55 RBC 2.45 M/mm3 (3.60-5.2) L 02/13/17 05:55 Hgb 8.0 GM/dL (10.7-15.3) L D 02/13/17 05:55 Hct 23.9 % (32.4-45.2) L 02/13/17 05:55 MCV 97.7 fl (80-96) H 02/13/17 05:55 MCHC 33.3 g/dl (32.0-36.0) 02/13/17 05:55 RDW 16.1 % (11.6-15.6) H 02/13/17 05:55 Plt Count 214 K/MM3 (134-434) 02/13/17 05:55 MPV 10.8 fl (7.5-11.1) 02/13/17 05:55 CMP Sodium 139 mmol/L (136-145) 02/13/17 05:55 Potassium 3.5 mmol/L (3.5-5.1) 02/13/17 05:55 Chloride 107 mmol/L (98-107) 02/13/17 05:55 Carbon Dioxide 25 mmol/L (21-32) 02/13/17 05:55 Anion Gap 7 (8-16) L 02/13/17 05:55 BUN 21 mg/dL (7-18) H 02/13/17 05:55 Creatinine 0.5 mg/dL (0.55-1.02) L D 02/13/17 05:55 Creat Clearance w eGFR > 60 (>60) 02/11/17 05:10 Random Glucose 126 mg/dL (74-106) H D 02/13/17 05:55 Calcium 7.3 mg/dL (8.5-10.1) L 02/13/17 05:55 Total Bilirubin 0.3 mg/dL (0.2-1.0) D 02/11/17 05:10 AST 25 U/L (15-37) D 02/11/17 05:10 ALT 17 U/L (12-78) D 02/11/17 05:10 Alkaline Phosphatase 61 U/L (45-117) 02/11/17 05:10 Total Protein 5.0 g/dl (6.4-8.2) L 02/11/17 05:10 Albumin 1.3 g/dl (3.4-5.0) L 02/11/17 05:10 CARDIAC ENZYMES Creatine Kinase 490 IU/L (26-192) H 02/04/17 15:10 Troponin I < 0.02 ng/ml (0.00-0.05) 02/04/17 15:10 Microbiology 02/09/17 13:35 Blood - Peripheral Venous Blood Culture - Preliminary NO GROWTH OBTAINED AFTER 96 HOURS, INCUBATION TO CONTINUE FOR 1 DAYS. 02/09/17 13:40 Blood - Peripheral Venous Blood Culture - Preliminary NO GROWTH OBTAINED AFTER 96 HOURS, INCUBATION TO CONTINUE FOR 1 DAYS. 02/09/17 16:30 Sputum - Endotrachea Suction/Ventilator Gram Stain - Final 02/09/17 16:30 Sputum - Endotrachea Suction/Ventilator Sputum Culture - Final Pseudomonas Aeruginosa 02/09/17 17:00 Urine - Urine [place] Urine Culture - Final NO GROWTH OBTAINED 02/10/17 15:00 Stool Clostridium difficile Antigen (ROME) - Final 02/10/17 15:00 Stool Clostridium difficile Toxin Assay - Final 02/06/17 08:52 Blood - Peripheral Venous Blood Culture - Final NO GROWTH AFTER 5 DAYS INCUBATION 02/06/17 08:52 Blood - Peripheral Venous Blood Culture - Final NO GROWTH AFTER 5 DAYS INCUBATION 02/04/17 15:05 Blood - Peripheral Venous Blood Culture - Final NO GROWTH AFTER 5 DAYS INCUBATION 02/04/17 15:00 Blood - Peripheral Venous Blood Culture - Final NO GROWTH AFTER 5 DAYS INCUBATION 02/04/17 15:53 Urine - Urine [place] Urine Culture - Final Yeast Like Organism Assessment: This is an 86 year old female with PMHx of subdural hematoma s/p fall (07/2016), HTN, hyperlipidemia, 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 Plan: 1) Acute respiratory failure - Extubated today - Continue Ventimask as needed, attempt to wean - Appreciate pulmonary consult 2) Septic shock 2/2 UTI - Completed 7 days of Zosyn on 02/12/17 - Febrile to 101 overnight - Started on Meropenem and Levaquin today - Taper levophed to keep MAP >65 - Appreciate ID consult Large b/l buttock wounds - Continue Santyl - Appreciate surgery consult 3) ARCHANA - Resolved 4) Hx of sub arachnoid hemorrhage and subdural hematoma - Head CT reviewed - Continue Depakote 5) Acute blood loss anemia - Received 1u PRBC on 02/05 6) F/E/N: - Tube feeds - Monitor electrolytes - Hypomagnesemia: replete 7) Prophylaxis: - Heparin 5,000u sq bid 8) Dispo: - Requires continued inpatient care CODE STATUS: DNR Visit type - Emergency Visit Emergency Visit: Yes ED Registration Date: 02/04/17 Care time: The patient presented to the Emergency Department on the above date and was hospitalized for further evaluation of their emergent condition. - New Patient This patient is new to me today: No - Critical Care Critical Care patient: Yes Total Critical Care Time (in minutes): 45 Critical Care Statement: The care of this patient involved high complexity decision making to prevent further life threatening deterioration of the patient 's condition and/or to evaluate & treat vital organ system(s) failure or risk of failure.
[2017-02-13] MEDS ORDERED: MAGNESIUM SULF 50% (8.12 MEQ/2 ML-1 GM VIAL) IVPB ONE (20:00)
[2017-02-13] MEDS ORDERED: MAGNESIUM SULF 50% (8.12 MEQ/2 ML-1 GM VIAL) ONE (23:46)
[2017-02-13] MEDS: MIRTAZAPINE 15 MG TABLET (FP) PO SCH (23:51)
[2017-02-14] MEDS: MEROPENEM 500 MG PUSH 500 MG/10 ML DISP.SYRIN IVPB SCH ×3 (03:00→18:52)
[2017-02-14] MEDS ORDERED: PT OWN MED DRAWER 7, Y5N ONE ×3 (03:41→23:27)
[2017-02-14 06:12] LABS: BASO % 0.2 % (0-2.0); EOS % 0.9 % (0-4.5); MCH 32.5 pg (25.7-33.7); MCHC 33.2 g/dl (32.0-36.0); MEAN CELL VOLUME 97.9 fl (80-96); MEAN PLT VOLUME 10.4 fl (7.5-11.1); NEUT % 76.2 % (42.8-82.8); PLATELET COUNT 230 K/MM3 (134-434); RDW 16.4 % (11.6-15.6); WHITE BLOOD COUNT 11.8 K/mm3 (4.0-10.0)
[2017-02-14 06:47] LABS: ANION GAP 6 (8-16); CALCIUM 7.2 mg/dL (8.5-10.1); CO2 29 mmol/L (21-32); CREATININE 0.5 mg/dL (0.55-1.02); GLUCOSE,RANDOM 121 mg/dL (74-106); MAGNESIUM 1.8 mg/dL (1.8-2.4); PHOSPHOROUS 2.1 mg/dL (2.5-4.9)
--- NOTE | 2017-02-14 10:12 | PN ---
Progress Note (short form) - Note Progress Note: extubated yesterday lethargic on ventimask levophed is off Vital Signs Period Temp Pulse Resp BP Sys/Han Pulse Ox Last 24 Hr 99.9 F-101.4 F 78-112 18-28 95-123/42-54 98-100 cor-rrr lungs bilateral rhonchi abd soft,nt ext no edema CBC, BMP 02/14/17 05:35 02/14/17 05:35 Microbiology 02/09/17 13:35 Blood - Peripheral Venous Blood Culture - Preliminary NO GROWTH OBTAINED AFTER 96 HOURS, INCUBATION TO CONTINUE FOR 1 DAYS. 02/09/17 13:40 Blood - Peripheral Venous Blood Culture - Preliminary NO GROWTH OBTAINED AFTER 96 HOURS, INCUBATION TO CONTINUE FOR 1 DAYS. 02/09/17 16:30 Sputum - Endotrachea Suction/Ventilator Gram Stain - Final 02/09/17 16:30 Sputum - Endotrachea Suction/Ventilator Sputum Culture - Final Pseudomonas Aeruginosa 02/09/17 17:00 Urine - Urine [place] Urine Culture - Final NO GROWTH OBTAINED 02/10/17 15:00 Stool Clostridium difficile Antigen (ROME) - Final 02/10/17 15:00 Stool Clostridium difficile Toxin Assay - Final 02/06/17 08:52 Blood - Peripheral Venous Blood Culture - Final NO GROWTH AFTER 5 DAYS INCUBATION 02/06/17 08:52 Blood - Peripheral Venous Blood Culture - Final NO GROWTH AFTER 5 DAYS INCUBATION 02/04/17 15:05 Blood - Peripheral Venous Blood Culture - Final NO GROWTH AFTER 5 DAYS INCUBATION 02/04/17 15:00 Blood - Peripheral Venous Blood Culture - Final NO GROWTH AFTER 5 DAYS INCUBATION 02/04/17 15:53 Urine - Urine [place] Urine Culture - Final Yeast Like Organism a/p notes reviewed started on Meropenem and levaquin for Pseudomonas respiratory tract infection in the setting of fevers and hypotension will monitor
--- NOTE | 2017-02-14 10:49 | PN ---
Progress Note (short form) - Note Progress Note: PULMONARY/CCM Pt seen and examined in the ICU. Extubated yesterday to ventimask. Now DNR/DNI. Low grade fever overnight. Off pressors. Last Vital Signs Temp Pulse Resp BP Pulse Ox 98.3 F 78 24 116/54 100 02/14/17 10:00 02/14/17 09:13 02/14/17 04:00 02/14/17 04:00 02/14/17 09:13 Intake & Output 02/11/17 02/12/17 02/13/17 02/14/17 23:59 23:59 23:59 23:59 Intake Total 880 1885.2 2335 Output Total 750 1200 2230 700 Balance 130 685.2 105 -700 Weight 178 lb 1 oz 176 lb 6 oz 176 lb 14.4 oz 176 lb 5.917 oz Gen: poorly responsive Heart: RRR Lung: decreased breath sounds at the bases Abd: soft, nontender Ext: + edema CBC, BMP 02/14/17 05:35 02/14/17 05:35 Active Medications Acetaminophen (Tylenol -) 650 mg PO Q4H PRN PRN Reason: FEVER OR PAIN Last Admin: 02/13/17 11:28 Dose: 650 mg Amino Acids (Prosource No Carb Liquid Pkt) 30 ml PO BID@0800,1730 [facility] Last Admin: 02/13/17 18:47 Dose: 30 ml Chlorhexidine Gluconate (Peridex -) 15 ml MM BID [facility] Last Admin: 02/13/17 23:51 Dose: Not Given Collagenase (Santyl -) 1 applic TP DAILY [facility] Last Admin: 02/13/17 09:58 Dose: 1 applic Heparin Sodium (Porcine) (Heparin -) 5,000 unit SQ BID [facility] Last Admin: 02/13/17 23:47 Dose: 5,000 unit Norepinephrine Bitartrate 4, (000 mcg/ Dextrose) 500 mls @ 37.5 mls/hr IV TITR [facility]; 5 MCG/MIN PRN Reason: Protocol Last Admin: 02/13/17 18:30 Dose: Not Given Levofloxacin (Levaquin 250 Mg Premixed Ivpb -) 250 mg in 50 mls @ 50 mls/hr IVPB DAILY [facility] Last Admin: 02/13/17 09:57 Dose: 50 mls/hr Meropenem (Merrem (Restricted To Id) -) 500 mg in 10 mls @ 100 mls/hr IVPB Q8H- IV [facility] Last Admin: 02/14/17 03:00 Dose: 100 mls/hr Mirtazapine (Remeron -) 15 mg PO HS [facility] Last Admin: 02/13/17 23:51 Dose: 15 mg Pantoprazole Sodium (Protonix Iv) 40 mg IVPUSH DAILY [facility] Last Admin: 02/13/17 09:52 Dose: 40 mg Valproate Sodium (Depakene -) 500 mg PO BID [facility] Last Admin: 02/14/17 00:00 Dose: 500 mg A/P s/p Acute Respiratory Failure UTI Septic Shock resolving Acute Kidney Injury improving Acute on Chronic Subdural Hematomas Seizure Disorder HTN Hyperlipidemia - antibiotics per ID - f/u cultures - monitoring off pressors, maintain MAP >65 - monitor urine output, creatinine - will need diuresis once BP stable - taper FiO2 to keep SpO2 >90% - enteral feeds - DVT/GI prophylaxis - continue ICU monitoring critical care time spent in reviewing chart, evaluating patient and formulating plan 35 min
[2017-02-14] MEDS: VALPROATE SODIUM 250 MG/5 ML UNIT DOSE CUP PO SCH ×3 (11:14→23:28)
[2017-02-14] MEDS: LEVOFLOXACIN 250 MG IVPB 250 MG/50 ML MG IVPB SCH (11:18)
[2017-02-14] MEDS: AMINO ACIDS/PROTEIN HYDROLYS 30 ML LIQUID.PKT PO SCH ×2 (11:19→18:02)
[2017-02-14] MEDS: CHLORHEXIDINE GLUCONATE 0.12% 15ML CUP MM SCH ×2 (11:19→23:29)
[2017-02-14] MEDS: PANTOPRAZOLE SODIUM 40 MG VIAL IVPUSH SCH (11:19)
[2017-02-14] MEDS: HEPARIN NA (PORCINE) 5,000 UNITS/ML 1ML VIAL SQ SCH ×2 (11:19→23:29)
[2017-02-14] MEDS: NAPH,MB-DB/K PH,MBDB POWDER PACKET PO SCH ×2 (11:22→23:29)
--- NOTE | 2017-02-14 13:05 | PN ---
Progress Note (short form) - Note Progress Note: Subjective: The patient was seen and examined at the bedside extubated today. Poor mental status Now DNR/DNI Off pressors Tmax 100.6 Current Medications Generic Name Dose Route Start Last Admin Trade Name Jacoby PRN Reason Stop Dose Admin Acetaminophen 650 mg 02/05/17 21:44 02/13/17 11:28 Tylenol - PO 650 mg Q4H PRN Administration FEVER OR PAIN Amino Acids 30 ml 02/09/17 08:45 02/14/17 11:19 Prosource No Carb Liquid Pkt PO 30 ml BID@0800,1730 [facility] Administration Chlorhexidine Gluconate 15 ml 02/05/17 22:00 02/14/17 11:19 Peridex - MM 15 ml BID [facility] Administration Collagenase 1 applic 02/09/17 11:00 02/13/17 09:58 Santyl - TP 1 applic DAILY [facility] Administration Heparin Sodium (Porcine) 5,000 unit 02/10/17 22:00 02/14/17 11:19 Heparin - SQ 5,000 unit BID [facility] Administration Norepinephrine Bitartrate 4, 500 mls @ 37.5 mls/hr 02/11/17 14:15 02/14/17 11 :00 000 mcg/ Dextrose IV 2 mcg/min TITR [facility] 15 mls/hr Protocol Titration 5 MCG/MIN Levofloxacin 250 mg in 50 mls @ 50 mls/hr 02/13/17 10:00 02/14/17 11:18 Levaquin 250 Mg Premixed Ivpb - IVPB 50 mls/hr DAILY [facility] Administration Meropenem 500 mg in 10 mls @ 100 mls/hr 02/13/17 10:00 02/14/17 11:09 Merrem (Restricted To Id) - IVPB 100 mls/hr Q8H-IV [facility] Administration Mirtazapine 15 mg 02/05/17 22:00 02/13/17 23:51 Remeron - PO 15 mg HS [facility] Administration Pantoprazole Sodium 40 mg 02/09/17 13:30 02/14/17 11:19 Protonix Iv IVPUSH 40 mg DAILY [facility] Administration Potassium Phos/Sodium Phos 1 packet 02/14/17 11:30 02/14/17 11:22 Phos-Nak Packet - PO 02/15/17 06:01 1 packet TID [facility] Administration Valproate Sodium 500 mg 02/09/17 09:00 02/14/17 11:14 Depakene - PO 500 mg BID [facility] Administration Objective: Vital Signs Period Temp Pulse Resp BP Sys/Han Pulse Ox Last 24 Hr 98.3 F-100.6 F 78-112 18-32 80-123/38-54 98-100 Physical Exam General: NAD, poor mental status, opens eyes to some verbal stimuli. Not following commands Lungs: Scattered rhonchi bilaterally Heart: RRR, S1S2 Abd: Soft, non-tender, Peg Ext: + edema CBCD WBC 11.8 K/mm3 (4.0-10.0) H D 02/14/17 05:35 RBC 2.56 M/mm3 (3.60-5.2) L 02/14/17 05:35 Hgb 8.3 GM/dL (10.7-15.3) L 02/14/17 05:35 Hct 25.0 % (32.4-45.2) L 02/14/17 05:35 MCV 97.9 fl (80-96) H 02/14/17 05:35 MCHC 33.2 g/dl (32.0-36.0) 02/14/17 05:35 RDW 16.4 % (11.6-15.6) H 02/14/17 05:35 Plt Count 230 K/MM3 (134-434) 02/14/17 05:35 MPV 10.4 fl (7.5-11.1) 02/14/17 05:35 CMP Sodium 141 mmol/L (136-145) 02/14/17 05:35 Potassium 3.7 mmol/L (3.5-5.1) 02/14/17 05:35 Chloride 106 mmol/L (98-107) 02/14/17 05:35 Carbon Dioxide 29 mmol/L (21-32) 02/14/17 05:35 Anion Gap 6 (8-16) L 02/14/17 05:35 BUN 17 mg/dL (7-18) 02/14/17 05:35 Creatinine 0.5 mg/dL (0.55-1.02) L 02/14/17 05:35 Creat Clearance w eGFR > 60 (>60) 02/11/17 05:10 Random Glucose 121 mg/dL (74-106) H 02/14/17 05:35 Calcium 7.2 mg/dL (8.5-10.1) L 02/14/17 05:35 Total Bilirubin 0.3 mg/dL (0.2-1.0) D 02/11/17 05:10 AST 25 U/L (15-37) D 02/11/17 05:10 ALT 17 U/L (12-78) D 02/11/17 05:10 Alkaline Phosphatase 61 U/L (45-117) 02/11/17 05:10 Total Protein 5.0 g/dl (6.4-8.2) L 02/11/17 05:10 Albumin 1.3 g/dl (3.4-5.0) L 02/11/17 05:10 CARDIAC ENZYMES Creatine Kinase 490 IU/L (26-192) H 02/04/17 15:10 Troponin I < 0.02 ng/ml (0.00-0.05) 02/04/17 15:10 Microbiology 02/13/17 10:00 Urine - Urine [place] Urine Culture - Final NO GROWTH OBTAINED 02/09/17 13:35 Blood - Peripheral Venous Blood Culture - Preliminary NO GROWTH OBTAINED AFTER 96 HOURS, INCUBATION TO CONTINUE FOR 1 DAYS. 02/09/17 13:40 Blood - Peripheral Venous Blood Culture - Preliminary NO GROWTH OBTAINED AFTER 96 HOURS, INCUBATION TO CONTINUE FOR 1 DAYS. 02/09/17 16:30 Sputum - Endotrachea Suction/Ventilator Gram Stain - Final 02/09/17 16:30 Sputum - Endotrachea Suction/Ventilator Sputum Culture - Final Pseudomonas Aeruginosa 02/09/17 17:00 Urine - Urine [place] Urine Culture - Final NO GROWTH OBTAINED 02/10/17 15:00 Stool Clostridium difficile Antigen ([facility]OME) - Final 02/10/17 15:00 Stool Clostridium difficile Toxin Assay - Final 02/06/17 08:52 Blood - Peripheral Venous Blood Culture - Final NO GROWTH AFTER 5 DAYS INCUBATION 02/06/17 08:52 Blood - Peripheral Venous Blood Culture - Final NO GROWTH AFTER 5 DAYS INCUBATION 02/04/17 15:05 Blood - Peripheral Venous Blood Culture - Final NO GROWTH AFTER 5 DAYS INCUBATION 02/04/17 15:00 Blood - Peripheral Venous Blood Culture - Final NO GROWTH AFTER 5 DAYS INCUBATION 02/04/17 15:53 Urine - Urine [place] Urine Culture - Final Yeast Like Organism Assessment: This is an 86 year old female with PMHx of subdural hematoma s/p fall (07/2016), HTN, hyperlipidemia, 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 Plan: 1) Acute respiratory failure - Extubated yesterday - Continue Ventimask as needed, attempt to wean - Appreciate pulmonary consult 2) Septic shock 2/2 UTI - Completed 7 days of Zosyn on 02/12/17 - Meropenem and Levaquin (02/13- ) added for continued fevers - Off pressors now - Appreciate ID consult Large b/l buttock wounds - Continue Santyl - Appreciate surgery consult 3) ARCHANA - Resolved 4) Hx of sub arachnoid hemorrhage and subdural hematoma - Head CT reviewed - Continue Depakote 5) Acute blood loss anemia - Received 1u PRBC on 02/05 6) F/E/N: - Tube feeds - Monitor electrolytes - Hypomagnesemia: replete 7) Prophylaxis: - Heparin 5,000u sq bid 8) Dispo: - Requires continued inpatient care CODE STATUS: DNR/DNI Visit type - Emergency Visit Emergency Visit: Yes ED Registration Date: 02/04/17 Care time: The patient presented to the Emergency Department on the above date and was hospitalized for further evaluation of their emergent condition. - New Patient This patient is new to me today: No - Critical Care Critical Care patient: Yes Total Critical Care Time (in minutes): 35 Critical Care Statement: The care of this patient involved high complexity decision making to prevent further life threatening deterioration of the patient 's condition and/or to evaluate & treat vital organ system(s) failure or risk of failure.
--- NOTE | 2017-02-14 14:53 | PN ---
Progress Note (short form) - Note Progress Note: Problems 1. ARCHANA 2. hypernatremia 3. hyperkalemia - resolved 4. anemia 5. epilepsy 6. hx of subdural hematoma 7. hypotension 8. hypoglycemia 9. acute resp failure requiring intubation 10. hypokalemia Active Medications Acetaminophen (Tylenol -) 650 mg PO Q4H PRN PRN Reason: FEVER OR PAIN Last Admin: 02/13/17 11:28 Dose: 650 mg Amino Acids (Prosource No Carb Liquid Pkt) 30 ml PO BID@0800,1730 [facility] Last Admin: 02/14/17 11:19 Dose: 30 ml Chlorhexidine Gluconate (Peridex -) 15 ml MM BID [facility] Last Admin: 02/14/17 11:19 Dose: 15 ml Collagenase (Santyl -) 1 applic TP DAILY [facility] Last Admin: 02/13/17 09:58 Dose: 1 applic Heparin Sodium (Porcine) (Heparin -) 5,000 unit SQ BID [facility] Last Admin: 02/14/17 11:19 Dose: 5,000 unit Norepinephrine Bitartrate 4, (000 mcg/ Dextrose) 500 mls @ 37.5 mls/hr IV TITR [facility]; 5 MCG/MIN PRN Reason: Protocol Last Titration: 02/14/17 11:00 Dose: 2 mcg/min, 15 mls/hr Levofloxacin (Levaquin 250 Mg Premixed Ivpb -) 250 mg in 50 mls @ 50 mls/hr IVPB DAILY [facility] Last Admin: 02/14/17 11:18 Dose: 50 mls/hr Meropenem (Merrem (Restricted To Id) -) 500 mg in 10 mls @ 100 mls/hr IVPB Q8H- IV [facility] Last Admin: 02/14/17 11:09 Dose: 100 mls/hr Mirtazapine (Remeron -) 15 mg PO HS [facility] Last Admin: 02/13/17 23:51 Dose: 15 mg Pantoprazole Sodium (Protonix Iv) 40 mg IVPUSH DAILY [facility] Last Admin: 02/14/17 11:19 Dose: 40 mg Potassium Phos/Sodium Phos (Phos-Nak Packet -) 1 packet PO TID [facility] Stop: 02/15/17 06:01 Last Admin: 02/14/17 11:22 Dose: 1 packet Valproate Sodium (Depakene -) 500 mg PO BID [facility] Last Admin: 12/09/17 11:14 Dose: 500 mg Last Vital Signs Temp Pulse Resp BP Pulse Ox 99.3 F 95 H 28 H 132/65 100 02/14/17 14:05 02/14/17 14:05 02/14/17 14:05 02/14/17 14:05 02/14/17 14:00 CBC, BMP 02/14/17 05:35 02/14/17 05:35 IMP s/p archana s/p resp failure Plan - consider diuretics once blood pressure improves - avoid nephrotoxins - will follow pt - reviewed chart labs and meds - ICU care
[2017-02-14] MEDS: COLLAGENASE CLOSTRIDIUM HIST. 30 GRAMS TUBE TP SCH (16:31)
[2017-02-14] MEDS: MIRTAZAPINE 15 MG TABLET (FP) PO SCH (23:28)
[2017-02-15] MEDS: MEROPENEM 500 MG PUSH 500 MG/10 ML DISP.SYRIN IVPB SCH ×3 (03:38→17:45)
[2017-02-15 05:51] LABS: BASO % 0.2 % (0-2.0); EOS % 0.4 % (0-4.5); MCH 31.8 pg (25.7-33.7); MCHC 32.3 g/dl (32.0-36.0); MEAN CELL VOLUME 98.6 fl (80-96); MEAN PLT VOLUME 10.2 fl (7.5-11.1); NEUT % 78.4 % (42.8-82.8); PLATELET COUNT 245 K/MM3 (134-434); RDW 17.2 % (11.6-15.6); WHITE BLOOD COUNT 12.2 K/mm3 (4.0-10.0)
[2017-02-15 06:27] LABS: ALBUMIN 1.3 g/dl (3.4-5.0); ANION GAP 4 (8-16); CALCIUM 7.6 mg/dL (8.5-10.1); CO2 32 mmol/L (21-32); GLUCOSE,RANDOM 112 mg/dL (74-106); MAGNESIUM 1.8 mg/dL (1.8-2.4); SGOT/AST 31 U/L (15-37)
[2017-02-15 06:30] LABS: ALK PHOS 67 U/L (45-117); BILIRUBIN,TOTAL 0.2 mg/dL (0.2-1.0); CREATININE 0.5 mg/dL (0.55-1.02); SGPT/ALT 15 U/L (12-78)
[2017-02-15] MEDS: AMINO ACIDS/PROTEIN HYDROLYS 30 ML LIQUID.PKT PO SCH ×2 (08:57→17:45)
[2017-02-15] MEDS ORDERED: PT OWN MED DRAWER 7, Y5N ONE ×2 (09:11→17:38)
[2017-02-15] MEDS: VALPROATE SODIUM 250 MG/5 ML UNIT DOSE CUP PO SCH ×2 (09:13→22:31)
[2017-02-15] MEDS: HEPARIN NA (PORCINE) 5,000 UNITS/ML 1ML VIAL SQ SCH ×2 (09:13→22:31)
[2017-02-15] MEDS: LEVOFLOXACIN 250 MG IVPB 250 MG/50 ML MG IVPB SCH (09:13)
[2017-02-15] MEDS: PANTOPRAZOLE SODIUM 40 MG VIAL IVPUSH SCH (09:14)
[2017-02-15] MEDS: COLLAGENASE CLOSTRIDIUM HIST. 30 GRAMS TUBE TP SCH (09:16)
[2017-02-15] MEDS: CHLORHEXIDINE GLUCONATE 0.12% 15ML CUP MM SCH ×2 (09:17→22:31)
--- NOTE | 2017-02-15 09:27 | PN ---
Progress Note (short form) - Note Progress Note: comfortable on bipap dnr/dni lethargic Vital Signs Period Temp Pulse Resp BP Sys/Han Pulse Ox Last 24 Hr 98 F-100.2 F 69-97 20-38 80-132/38-78 90-100 cor-rrr lungs clear abd soft,nt ext trace edema CBC, BMP 02/15/17 05:00 Microbiology 02/09/17 13:35 Blood Culture - Final Blood - Peripheral Venous NO GROWTH AFTER 5 DAYS INCUBATION 02/09/17 13:40 Blood Culture - Final Blood - Peripheral Venous NO GROWTH AFTER 5 DAYS INCUBATION 02/13/17 10:00 Urine Culture - Final Urine - Urine [place] NO GROWTH OBTAINED a/p notes reviewed meropenem/levaquin day #2 for pseudomonas pneumonia to continue
--- NOTE | 2017-02-15 10:55 | PN ---
Progress Note (short form) - Note Progress Note: PULMONARY/CCM Pt seen and examined in the ICU. Placed on BiPAP overnight for increased respiratory effort. Remains off pressors but blood pressures borderline. No fevers recorded. Last Vital Signs Temp Pulse Resp BP Pulse Ox 98 F 89 22 104/78 100 02/15/17 04:06 02/15/17 04:06 02/15/17 09:00 02/15/17 04:06 02/15/17 09:03 Intake & Output 02/12/17 02/13/17 02/14/17 02/15/17 23:59 23:59 23:59 23:59 Intake Total 1885.2 2335 1437 Output Total 1200 2230 1300 400 Balance 685.2 105 137 -400 Weight 176 lb 6 oz 176 lb 14.4 oz 176 lb 5.917 oz 178 lb 9.191 oz Gen: poorly responsive Heart: RRR Lung: decreased breath sounds at the bases Abd: soft, nontender Ext: + edema CBC, BMP 02/15/17 05:00 02/15/17 05:00 Active Medications Acetaminophen (Tylenol -) 650 mg PO Q4H PRN PRN Reason: FEVER OR PAIN Last Admin: 02/13/17 11:28 Dose: 650 mg Amino Acids (Prosource No Carb Liquid Pkt) 30 ml PO BID@0800,1730 [facility] Last Admin: 02/15/17 08:57 Dose: 30 ml Chlorhexidine Gluconate (Peridex -) 15 ml MM BID [facility] Last Admin: 02/15/17 09:17 Dose: Not Given Collagenase (Santyl -) 1 applic TP DAILY [facility] Last Admin: 02/15/17 09:16 Dose: 1 applic Heparin Sodium (Porcine) (Heparin -) 5,000 unit SQ BID [facility] Last Admin: 02/15/17 09:13 Dose: 5,000 unit Norepinephrine Bitartrate 4, (000 mcg/ Dextrose) 500 mls @ 37.5 mls/hr IV TITR [facility]; 5 MCG/MIN PRN Reason: Protocol Last Titration: 02/14/17 15:30 Dose: 0 mcg/min, 0 mls/hr Levofloxacin (Levaquin 250 Mg Premixed Ivpb -) 250 mg in 50 mls @ 50 mls/hr IVPB DAILY [facility] Last Admin: 02/15/17 09:13 Dose: 50 mls/hr Meropenem (Merrem (Restricted To Id) -) 500 mg in 10 mls @ 100 mls/hr IVPB Q8H- IV [facility] Last Admin: 02/15/17 09:14 Dose: 100 mls/hr Mirtazapine (Remeron -) 15 mg PO HS [facility] Last Admin: 02/14/17 23:28 Dose: 15 mg Pantoprazole Sodium (Protonix Iv) 40 mg IVPUSH DAILY [facility] Last Admin: 02/15/17 09:14 Dose: 40 mg Valproate Sodium (Depakene -) 500 mg PO BID [facility] Last Admin: 02/15/17 09:13 Dose: 500 mg A/P s/p Acute Respiratory Failure UTI Septic Shock resolving Acute Kidney Injury improving 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
--- NOTE | 2017-02-15 11:01 | PN ---
Physical Exam: SUBJECTIVE: Patient seen and examined OBJECTIVE: Vital Signs Period Temp Pulse Resp BP Sys/Han Pulse Ox Last 24 Hr 98 F-100.2 F 69-97 20-38 80-132/38-78 90-100 GENERAL: The patient is awake, alert,non-verbal, not in acute distress. HEAD: Normal with no signs of trauma. EYES: PERRL, extraocular movements intact, sclera anicteric, conjunctiva clear. No ptosis. NECK: Trachea midline, full range of motion, supple. LUNGS: Breath sounds equal but diminished, clear to auscultation bilaterally, no wheezes, no crackles, no accessory muscle use. HEART: Regular rate and rhythm, S1, S2 without murmur, rub or gallop. ABDOMEN: Soft, nontender, nondistended, normoactive bowel sounds, no guarding, no rebound, no hepatosplenomegaly, no masses. peg tube intact EXTREMITIES: 2+ pulses, warm, well-perfused, + edema bilateral UE's NEUROLOGICAL: Non-verbal, non-ambulatory, disoriented PSYCH:Flat affect. SKIN: Warm, dry, normal turgor, pressure ulcer buttocks - [place] draining moe colored urine Laboratory Results - last 24 hr 02/15/17 02/15/17 05:00 05:00 WBC 12.2 H RBC 2.54 L Hgb 8.1 L Hct 25.0 L MCV 98.6 H MCH 31.8 MCHC 32.3 RDW 17.2 H Plt Count 245 MPV 10.2 Neutrophils % 78.4 Lymphocytes % 9.8 D Monocytes % 11.2 H Eosinophils % 0.4 Basophils % 0.2 Sodium 140 Potassium 4.3 Chloride 104 Carbon Dioxide 32 Anion Gap 4 L BUN 21 H D Creatinine 0.5 L Creat Clearance w eGFR > 60 Random Glucose 112 H Calcium 7.6 L Phosphorus 2.0 L Magnesium 1.8 Total Bilirubin 0.2 D AST 31 D ALT 15 Alkaline Phosphatase 67 Total Protein 5.0 L Albumin 1.3 L Active Medications Generic Name Dose Route Start Last Admin Trade Name Freq PRN Reason Stop Dose Admin Acetaminophen 650 mg 02/05/17 21:44 02/13/17 11:28 Tylenol - PO 650 mg Q4H PRN Administration FEVER OR PAIN Amino Acids 30 ml 02/09/17 08:45 02/15/17 08:57 Prosource No Carb Liquid Pkt PO 30 ml BID@0800,1730 [facility] Administration Chlorhexidine Gluconate 15 ml 02/05/17 22:00 02/15/17 09:17 Peridex - MM Not Given BID [facility] Collagenase 1 applic 02/09/17 11:00 02/15/17 09:16 Santyl - TP 1 applic DAILY [facility] Administration Heparin Sodium (Porcine) 5,000 unit 02/10/17 22:00 02/15/17 09:13 Heparin - SQ 5,000 unit BID [facility] Administration Norepinephrine Bitartrate 4, 500 mls @ 37.5 mls/hr 02/11/17 14:15 02/14/17 15 :30 000 mcg/ Dextrose IV 0 mcg/min TITR [facility] 0 mls/hr Protocol Titration 5 MCG/MIN Levofloxacin 250 mg in 50 mls @ 50 mls/hr 02/13/17 10:00 02/15/17 09:13 Levaquin 250 Mg Premixed Ivpb - IVPB 50 mls/hr DAILY [facility] Administration Meropenem 500 mg in 10 mls @ 100 mls/hr 02/13/17 10:00 02/15/17 09:14 Merrem (Restricted To Id) - IVPB 100 mls/hr Q8H-IV [facility] Administration Mirtazapine 15 mg 02/05/17 22:00 02/14/17 23:28 Remeron - PO 15 mg HS [facility] Administration Pantoprazole Sodium 40 mg 02/09/17 13:30 02/15/17 09:14 Protonix Iv IVPUSH 40 mg DAILY [facility] Administration Valproate Sodium 500 mg 02/09/17 09:00 02/15/17 09:13 Depakene - PO 500 mg BID [facility] Administration ASSESSMENT/PLAN: 02/13/17 10:00 Urine - Urine [place] Urine Culture - Final NO GROWTH OBTAINED 02/09/17 13:35 Blood - Peripheral Venous Blood Culture - Preliminary NO GROWTH OBTAINED AFTER 96 HOURS, INCUBATION TO CONTINUE FOR 1 DAYS. 02/09/17 13:40 Blood - Peripheral Venous Blood Culture - Preliminary NO GROWTH OBTAINED AFTER 96 HOURS, INCUBATION TO CONTINUE FOR 1 DAYS. 02/09/17 16:30 Sputum - Endotrachea Suction/Ventilator Gram Stain - Final 02/09/17 16:30 Sputum - Endotrachea Suction/Ventilator Sputum Culture - Final * Imaging reviewed A/P This is an 86 year old female with PMHx of subdural hematoma s/p fall (07/2016) , HTN, hyperlipidemia, 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 * Acute respiratory failure - s/p extubation 02/13/2017 - Continue Ventimask as needed, attempt to wean - pulmonary following * Septic shock 2/2 UTI - On meropenem/levaquin day #2 for pseudomonas pneumonia - Completed 7 days of Zosyn on 02/12/17 - Off pressors now - Appreciate ID consult - afebrile with mild leukocytosis *Large b/l buttock wounds - Continue Santyl - Appreciate surgery consult - T&P Q 2hrs *ARCHANA- Resolved - renal following *Hx of sub arachnoid hemorrhage and subdural hematoma - Head CT reviewed - Continue Depakote *Acute blood loss anemia - Received 1u PRBC on 02/05 - CBC stable *F/E/N: - Tube feeds - Monitor electrolytes - Hypomagnesemia: replete *Prophylaxis: - Heparin 5,000u sq bid * Dispo: When medically stable,requires continued inpatient care CODE STATUS: DNR/DNI Visit type - Emergency Visit Emergency Visit: Yes ED Registration Date: 02/04/17 Care time: The patient presented to the Emergency Department on the above date and was hospitalized for further evaluation of their emergent condition. - New Patient This patient is new to me today: Yes Date on this admission: 02/15/17 - Critical Care Critical Care patient: Yes Total Critical Care Time (in minutes): 35 Critical Care Statement: The care of this patient involved high complexity decision making to prevent further life threatening deterioration of the patient 's condition and/or to evaluate & treat vital organ system(s) failure or risk of failure.
[2017-02-15] MEDS: NOREPINEPHRINE BITARTRATE 4,000 MCG in DEXTROSE 5%-WATER - 496 ML IV SCH ×3 (14:00→22:24)
--- NOTE | 2017-02-15 16:32 | PN ---
Progress Note (short form) - Note Progress Note: Problems 1. ARCHANA 2. hypernatremia 3. hyperkalemia - resolved 4. anemia 5. epilepsy 6. hx of subdural hematoma 7. hypotension 8. hypoglycemia 9. acute resp failure requiring intubation 10. hypokalemia Current Medications Acetaminophen (Tylenol -) 650 mg PO Q4H PRN PRN Reason: FEVER OR PAIN Last Admin: 02/13/17 11:28 Dose: 650 mg Amino Acids (Prosource No Carb Liquid Pkt) 30 ml PO BID@0800,1730 [facility] Last Admin: 02/15/17 08:57 Dose: 30 ml Chlorhexidine Gluconate (Peridex -) 15 ml MM BID [facility] Last Admin: 02/15/17 09:17 Dose: Not Given Collagenase (Santyl -) 1 applic TP DAILY [facility] Last Admin: 02/15/17 09:16 Dose: 1 applic Heparin Sodium (Porcine) (Heparin -) 5,000 unit SQ BID [facility] Last Admin: 02/15/17 09:13 Dose: 5,000 unit Norepinephrine Bitartrate 4, (000 mcg/ Dextrose) 500 mls @ 37.5 mls/hr IV TITR [facility]; 5 MCG/MIN PRN Reason: Protocol Last Titration: 02/14/17 15:30 Dose: 0 mcg/min, 0 mls/hr Levofloxacin (Levaquin 250 Mg Premixed Ivpb -) 250 mg in 50 mls @ 50 mls/hr IVPB DAILY [facility] Last Admin: 02/15/17 09:13 Dose: 50 mls/hr Meropenem (Merrem (Restricted To Id) -) 500 mg in 10 mls @ 100 mls/hr IVPB Q8H- IV [facility] Last Admin: 02/15/17 09:14 Dose: 100 mls/hr Mirtazapine (Remeron -) 15 mg PO HS [facility] Last Admin: 02/14/17 23:28 Dose: 15 mg Pantoprazole Sodium (Protonix Iv) 40 mg IVPUSH DAILY [facility] Last Admin: 02/15/17 09:14 Dose: 40 mg Valproate Sodium (Depakene -) 500 mg PO BID [facility] Last Admin: 02/15/17 09:13 Dose: 500 mg Last Vital Signs Temp Pulse Resp BP Pulse Ox 99.6 F 89 24 87/37 100 02/15/17 14:00 02/15/17 16:00 02/15/17 16:00 02/15/17 16:00 02/15/17 11:43 o/e unresponsive lungs poor effort, decreased bs heart rrr abd soft ext edema CBC, BMP 02/15/17 05:00 02/15/17 05:00 IMP s/p archana s/p resp failure- extub to biPap HTN Sepsis/pna on meropenem and levaq anemia h/o fall/sdh s/p sah sz x 1 hyperlipidemia Plan- hold off diuretics till bp better monitor lytes and renal function tests Plan - consider diuretics once blood pressure improves - avoid nephrotoxins - will follow pt - reviewed chart labs and meds - ICU care
[2017-02-15] MEDS: NAPH,MB-DB/K PH,MBDB POWDER PACKET PO SCH (21:48)
[2017-02-15] MEDS ORDERED: NOREPINEPHRINE BITARTRATE 4 MG/4 ML ML IV ONE (22:12)
[2017-02-15] MEDS: MIRTAZAPINE 15 MG TABLET (FP) PO SCH (22:31)
[2017-02-16] MEDS: MEROPENEM 500 MG PUSH 500 MG/10 ML DISP.SYRIN IVPB SCH (01:50)
[2017-02-16 06:08] LABS: BASO % 0.5 % (0-2.0); EOS % 1.5 % (0-4.5); MCH 32.7 pg (25.7-33.7); MCHC 33.2 g/dl (32.0-36.0); MEAN CELL VOLUME 98.5 fl (80-96); MEAN PLT VOLUME 10.3 fl (7.5-11.1); NEUT % 73.4 % (42.8-82.8); PLATELET COUNT 265 K/MM3 (134-434); RDW 17.1 % (11.6-15.6); WHITE BLOOD COUNT 10.1 K/mm3 (4.0-10.0)
[2017-02-16 06:47] LABS: ALBUMIN 1.2 g/dl (3.4-5.0); ANION GAP 5 (8-16); CALCIUM 7.1 mg/dL (8.5-10.1); CO2 30 mmol/L (21-32); CREATININE 0.5 mg/dL (0.55-1.02); GLUCOSE,RANDOM 128 mg/dL (74-106); MAGNESIUM 1.7 mg/dL (1.8-2.4); SGOT/AST 28 U/L (15-37); SGPT/ALT 14 U/L (12-78); TOT PROT 4.7 g/dl (6.4-8.2)
[2017-02-16 06:50] LABS: ALK PHOS 65 U/L (45-117); BILIRUBIN,TOTAL 0.4 mg/dL (0.2-1.0); PHOSPHOROUS 2.3 mg/dL (2.5-4.9)
[2017-02-16] MEDS ORDERED: MAGNESIUM SULF 50% (8.12 MEQ/2 ML-1 GM VIAL) IVPB ONE (07:42)
[2017-02-16] MEDS ORDERED: NAPH,MB-DB/K PH,MBDB POWDER PACKET PO ONE (07:50)
[2017-02-16] MEDS ORDERED: PT OWN MED DRAWER 7, Y5N ONE (09:12)
[2017-02-16] MEDS: AMINO ACIDS/PROTEIN HYDROLYS 30 ML LIQUID.PKT PO SCH ×2 (09:14→17:04)
--- NOTE | 2017-02-16 09:14 | PN ---
Physical Exam: SUBJECTIVE: Patient seen and examined at the bedside. Minimally responsive to tactile stimuli. OBJECTIVE: Now a DNR/DNI On a venti mask, s/p extubation 02/13/2017 Remains on pressors Vital Signs Period Temp Pulse Resp BP Sys/Han Pulse Ox Last 24 Hr 98.9 F-100.0 F 80-98 17-26 68-115/35-56 97-100 GENERAL: Sedated, minimal response to tactile stimulation HEAD: Normal with no signs of trauma. EYES: PERRL, extraocular movements intact, sclera anicteric, conjunctiva clear. No ptosis. ENT: Ears normal, nares patent, oropharynx clear without exudates, dry mucous membranes. NECK: Trachea midline, full range of motion, supple. LUNGS: clear/diminished breath sounds HEART: Regular rate and rhythm ABDOMEN: Soft, nontender, nondistended, normoactive bowel sounds, no guarding, rebound, no hepatosplenomegaly, no masses. EXTREMITIES: bilateral hand edema NEUROLOGICAL: unable to fully assess neuro status at this time SKIN: See primary RN measurements: Right buttocks with very large unstageable wound, tissue necrosis, purple. Sacrum with stage 2, Left buttock with stage 3 pressure ulcer (slough covers 25% of wound), unable to fully assess if this wound is a stage 2 or 3 but likely a stage 3. All wounds present on admission. Laboratory Results - last 24 hr 02/15/17 02/16/17 02/16/17 05:00 06:00 06:00 WBC 10.1 H RBC 2.38 L Hgb 7.8 L Hct 23.4 L MCV 98.5 H MCH 32.7 MCHC 33.2 RDW 17.1 H Plt Count 265 MPV 10.3 Neutrophils % 73.4 Lymphocytes % 11.7 Monocytes % 12.9 H Eosinophils % 1.5 D Basophils % 0.5 Sodium 140 139 Potassium 4.3 4.0 Chloride 104 104 Carbon Dioxide 32 30 Anion Gap 4 L 5 L BUN 21 H D 22 H Creatinine 0.5 L 0.5 L Creat Clearance w eGFR > 60 > 60 Random Glucose 112 H 128 H Calcium 7.6 L 7.1 L Phosphorus 2.0 L 2.3 L Magnesium 1.8 1.7 L Total Bilirubin 0.2 D 0.4 D AST 31 D 28 ALT 15 14 Alkaline Phosphatase 67 65 Total Protein 5.0 L 4.7 L Albumin 1.3 L 1.2 L Active Medications Generic Name Dose Route Start Last Admin Trade Name Sanketq PRN Reason Stop Dose Admin Acetaminophen 650 mg 02/05/17 21:44 02/13/17 11:28 Tylenol - PO 650 mg Q4H PRN Administration FEVER OR PAIN Amino Acids 30 ml 02/09/17 08:45 02/15/17 17:45 Prosource No Carb Liquid Pkt PO 30 ml BID@0800,1730 [facility] Administration Collagenase 1 applic 02/09/17 11:00 02/15/17 09:16 Santyl - TP 1 applic DAILY [facility] Administration Heparin Sodium (Porcine) 5,000 unit 02/10/17 22:00 02/15/17 22:31 Heparin - SQ 5,000 unit BID [facility] Administration Norepinephrine Bitartrate 4, 500 mls @ 37.5 mls/hr 02/11/17 14:15 02/16/17 04 :00 000 mcg/ Dextrose IV 2 mcg/min TITR [facility] 15 mls/hr Protocol Titration 5 MCG/MIN Levofloxacin 250 mg in 50 mls @ 50 mls/hr 02/13/17 10:00 02/15/17 09:13 Levaquin 250 Mg Premixed Ivpb - IVPB 50 mls/hr DAILY [facility] Administration Meropenem 500 mg in 10 mls @ 100 mls/hr 02/13/17 10:00 02/16/17 01:50 Merrem (Restricted To Id) - IVPB 100 mls/hr Q8H-IV [facility] Administration Mirtazapine 15 mg 02/05/17 22:00 02/15/17 22:31 Remeron - PO 15 mg HS [facility] Administration Pantoprazole Sodium 40 mg 02/09/17 13:30 02/15/17 09:14 Protonix Iv IVPUSH 40 mg DAILY [facility] Administration Valproate Sodium 500 mg 02/09/17 09:00 02/15/17 22:31 Depakene - PO 500 mg BID [facility] Administration ASSESSMENT/PLAN: Patient is an 86 year old female with a significant past medical history of recent subdural hematoma s/p fall, hypertension, hld, seizures after subdural hematoma (on depakote) followed by a subarachnoid hemorrhage in 11/2106 where dose of depakote was increased. As per medical records, patient's family noticed that patient began to have her mental status deteriorate, she developed chills, shortness of breath and hypotension which prompted her family to bring her in. On admission she was note to have ARCHANA, anemia electrolyte imbalance and was also found to be septic. ID: Septic Shock, acute Initial UC showed +3 leuk esterase UC with yeast growth Blood cultures negative to date On Meropenem and Levaquin for fevers as per ID On Norepinehrine, attempting to wean off Large bilateral pressure buttock wounds May also be source of sepsis On santyl Vascular/wound care Electrolyte Imbalance Monitor electrolytes and replete Renal ARCHANA in the setting of septic shock, resolved Monitor bun/creat Kidney/bladder u/s reviewed, no hydronephrosis Renal following Neuro: Sub-archnoid hemorrage/subdural hematoma history Head CT noted On Valproate Sodium 500mg BID Seizure precautions Metabolic Encephalopathy secondary to urosepsis and/or large wounds on buttocks Mental status worsening, minimally responsive to tactile stimuli Hematology Acute blood loss anemia Received 1 prbc 02/05 F.E.N. Fluids: fluids via Gtube Electrolytes: monitor eletrolytes Nutrition: peg tub feeds Prophylaxis DVT: SCDs bilaterally, Heparin GI: Protonix Disposition: DNR/DNI. Palliative care following.
[2017-02-16] MEDS: HEPARIN NA (PORCINE) 5,000 UNITS/ML 1ML VIAL SQ SCH ×2 (09:16→21:46)
[2017-02-16] MEDS: LEVOFLOXACIN 250 MG IVPB 250 MG/50 ML MG IVPB SCH (09:16)
[2017-02-16] MEDS: VALPROATE SODIUM 250 MG/5 ML UNIT DOSE CUP PO SCH ×2 (09:16→21:46)
[2017-02-16] MEDS: PANTOPRAZOLE SODIUM 40 MG VIAL IVPUSH SCH (09:17)
[2017-02-16] MEDS: COLLAGENASE CLOSTRIDIUM HIST. 30 GRAMS TUBE TP SCH (09:18)
--- NOTE | 2017-02-16 09:53 | PN ---
Progress Note (short form) - Note Progress Note: comfortable on ventimask dnr/dni lethargic Vital Signs Period Temp Pulse Resp BP Sys/Han Pulse Ox Last 24 Hr 98.8 F-100.0 F 80-98 17-28 68-115/35-56 97-100 cor-rrr llungs decreased bs at bases abd soft,nt ext no edema CBC, BMP 02/16/17 06:00 02/16/17 06:00 cxray improved a/p notes reviewed meropenem/levaquin day #3 for pseudomonas pneumonia to continue now dnr/dni fevers trending down
--- NOTE | 2017-02-16 12:43 | PN ---
Progress Note, Physician History of Present Illness: Pt seen and examined at bedside. She remain in the ICU. Pt remains hypotensive and requires pressors. - Current Medication List Current Medications: Active Medications Acetaminophen (Tylenol -) 650 mg PO Q4H PRN PRN Reason: FEVER OR PAIN Last Admin: 02/13/17 11:28 Dose: 650 mg Amino Acids (Prosource No Carb Liquid Pkt) 30 ml PO BID@0800,1730 [facility] Last Admin: 02/16/17 09:14 Dose: 30 ml Collagenase (Santyl -) 1 applic TP DAILY [facility] Last Admin: 02/16/17 09:18 Dose: 1 applic Heparin Sodium (Porcine) (Heparin -) 5,000 unit SQ BID [facility] Last Admin: 02/16/17 09:16 Dose: 5,000 unit Norepinephrine Bitartrate 4, (000 mcg/ Dextrose) 500 mls @ 37.5 mls/hr IV TITR [facility]; 5 MCG/MIN PRN Reason: Protocol Last Titration: 02/16/17 04:00 Dose: 2 mcg/min, 15 mls/hr Levofloxacin (Levaquin 250 Mg Premixed Ivpb -) 250 mg in 50 mls @ 50 mls/hr IVPB DAILY [facility] Last Admin: 02/16/17 09:16 Dose: 50 mls/hr Mirtazapine (Remeron -) 15 mg PO HS [facility] Last Admin: 02/15/17 22:31 Dose: 15 mg Pantoprazole Sodium (Protonix Iv) 40 mg IVPUSH DAILY [facility] Last Admin: 02/16/17 09:17 Dose: 40 mg Valproate Sodium (Depakene -) 500 mg PO BID [facility] Last Admin: 02/16/17 09:16 Dose: 500 mg - Objective Vital Signs: Vital Signs Temperature 98.8 F 02/16/17 09:49 Pulse Rate 100 H 02/16/17 10:45 Respiratory Rate 28 H 02/16/17 09:49 Blood Pressure 101/47 02/16/17 09:49 O2 Sat by Pulse Oximetry (%) 99 02/16/17 10:45 Constitutional: Yes: Calm Eyes: Yes: Conjunctiva Clear HENT: Yes: Atraumatic Neck: Yes: Supple Cardiovascular: Yes: S1, S2 Respiratory: Yes: On Venti-Mask Gastrointestinal: Yes: Soft, Other (peg) Musculoskeletal: Yes: Muscle Weakness Edema: Yes Edema: LUE: 1+, RUE: 1+, LLE: 1+, RLE: 1+ Neurological: Yes: Lethargy Labs: CBC, BMP 02/16/17 06:00 02/16/17 06:00 INR, PTT INR 1.03 (0.82-1.09) 02/04/17 15:10 - ....Imaging Chest X-ray: Report Reviewed Problem List - Problems (1) Acute hypernatremia Code(s): E87.0 - HYPEROSMOLALITY AND HYPERNATREMIA (2) Hyperkalemia Code(s): E87.5 - HYPERKALEMIA (3) Sepsis Code(s): A41.9 - SEPSIS, UNSPECIFIED ORGANISM (4) UTI (urinary tract infection) Code(s): N39.0 - URINARY TRACT INFECTION, SITE NOT SPECIFIED Assessment/Plan Current Medications Generic Name Dose Route Start Last Admin Trade Name Freq PRN Reason Stop Dose Admin Acetaminophen 650 mg 02/05/17 21:44 02/13/17 11:28 Tylenol - PO 650 mg Q4H PRN Administration FEVER OR PAIN Amino Acids 30 ml 02/09/17 08:45 02/16/17 09:14 Prosource No Carb Liquid Pkt PO 30 ml BID@0800,1730 [facility] Administration Collagenase 1 applic 02/09/17 11:00 02/16/17 09:18 Santyl - TP 1 applic DAILY [facility] Administration Heparin Sodium (Porcine) 5,000 unit 02/10/17 22:00 02/16/17 09:16 Heparin - SQ 5,000 unit BID [facility] Administration Norepinephrine Bitartrate 4, 500 mls @ 37.5 mls/hr 02/11/17 14:15 02/16/17 04 :00 000 mcg/ Dextrose IV 2 mcg/min TITR [facility] 15 mls/hr Protocol Titration 5 MCG/MIN Levofloxacin 250 mg in 50 mls @ 50 mls/hr 02/13/17 10:00 02/16/17 09:16 Levaquin 250 Mg Premixed Ivpb - IVPB 50 mls/hr DAILY [facility] Administration Mirtazapine 15 mg 02/05/17 22:00 02/15/17 22:31 Remeron - PO 15 mg HS [facility] Administration Pantoprazole Sodium 40 mg 02/09/17 13:30 02/16/17 09:17 Protonix Iv IVPUSH 40 mg DAILY [facility] Administration Valproate Sodium 500 mg 02/09/17 09:00 02/16/17 09:16 Depakene - PO 500 mg BID [facility] Administration Impression 1. ARCHANA 2. hypernatremia 3. hyperkalemia - resolved 4. anemia 5. epilepsy 6. hx of subdural hematoma 7. hypotension 8. hypoglycemia 9. acute resp failure requiring intubation 10. hypokalemia Plan - cont with feeds - monitor bmp - diurese when bp improves - monitor pulse ox - avoid nephrotoxins - will follow pt - reviewed chart labs and meds - ICU care
--- NOTE | 2017-02-16 12:43 | PN ---
Teaching Attending Note Name of Resident: Parth Reaves ATTENDING PHYSICIAN STATEMENT I saw and evaluated the patient. I reviewed the resident's note and discussed the case with the resident. I agree with the resident's findings and plan as documented. SUBJECTIVE: Patient seen and examined in the ICU. Lethargic on VM O2. Made DNR/DNI. Low dose NE for hemodynamic support. Intake & Output 02/13/17 02/14/17 02/15/17 02/16/17 23:59 23:59 23:59 23:59 Intake Total 2335 3264 193 8819.4 Output Total 2230 1300 800 500 Balance 105 137 70 872.4 Weight 176 lb 14.4 oz 176 lb 5.917 oz 178 lb 9.191 oz 179 lb 2 oz Last Vital Signs Temp Pulse Resp BP Pulse Ox 98.8 F 100 H 28 H 101/47 99 02/16/17 09:49 02/16/17 10:45 02/16/17 09:49 02/16/17 09:49 02/16/17 10:45 Active Medications Acetaminophen (Tylenol -) 650 mg PO Q4H PRN PRN Reason: FEVER OR PAIN Last Admin: 02/13/17 11:28 Dose: 650 mg Amino Acids (Prosource No Carb Liquid Pkt) 30 ml PO BID@0800,1730 [facility] Last Admin: 02/16/17 09:14 Dose: 30 ml Collagenase (Santyl -) 1 applic TP DAILY [facility] Last Admin: 02/16/17 09:18 Dose: 1 applic Heparin Sodium (Porcine) (Heparin -) 5,000 unit SQ BID [facility] Last Admin: 02/16/17 09:16 Dose: 5,000 unit Norepinephrine Bitartrate 4, (000 mcg/ Dextrose) 500 mls @ 37.5 mls/hr IV TITR [facility]; 5 MCG/MIN PRN Reason: Protocol Last Titration: 02/16/17 04:00 Dose: 2 mcg/min, 15 mls/hr Levofloxacin (Levaquin 250 Mg Premixed Ivpb -) 250 mg in 50 mls @ 50 mls/hr IVPB DAILY [facility] Last Admin: 02/16/17 09:16 Dose: 50 mls/hr Mirtazapine (Remeron -) 15 mg PO HS [facility] Last Admin: 02/15/17 22:31 Dose: 15 mg Pantoprazole Sodium (Protonix Iv) 40 mg IVPUSH DAILY [facility] Last Admin: 02/16/17 09:17 Dose: 40 mg Valproate Sodium (Depakene -) 500 mg PO BID [facility] Last Admin: 02/16/17 09:16 Dose: 500 mg Gen: Poorly responsive Heart: RRR Lung: Decreased breath sounds at the bases Abd: soft, nontender Ext: (+) edema Laboratory Results - last 24 hr 02/16/17 02/16/17 06:00 06:00 WBC 10.1 H RBC 2.38 L Hgb 7.8 L Hct 23.4 L MCV 98.5 H MCH 32.7 MCHC 33.2 RDW 17.1 H Plt Count 265 MPV 10.3 Neutrophils % 73.4 Lymphocytes % 11.7 Monocytes % 12.9 H Eosinophils % 1.5 D Basophils % 0.5 Sodium 139 Potassium 4.0 Chloride 104 Carbon Dioxide 30 Anion Gap 5 L BUN 22 H Creatinine 0.5 L Creat Clearance w eGFR > 60 Random Glucose 128 H Calcium 7.1 L Phosphorus 2.3 L Magnesium 1.7 L Total Bilirubin 0.4 D AST 28 ALT 14 Alkaline Phosphatase 65 Total Protein 4.7 L Albumin 1.2 L IMP: S/P Acute Respiratory Failure UTI Septic Shock resolving Acute Kidney Injury improving 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
--- NOTE | 2017-02-16 14:52 | PN ---
Physical Exam: SUBJECTIVE: Patient seen and examined at bedside. Pt is unresponsive to sternal rub. Levophed weaning has been attempted several time, but pt's bp drops without pressors. Pt is DNR/DNI. Conversation was had with family introducing the topic of comfort care. Pt's daughter stated understanding and would like to speak with her siblings about it. OBJECTIVE: Vital Signs Period Temp Pulse Resp BP Sys/Han Pulse Ox Last 24 Hr 98.8 F-99.7 F 80-100 21-28 68-115/37-56 97-100 GENERAL: Pt unresponsive in no apparent distress HEAD: Normal with no signs of trauma. EYES: sclera anicteric, conjunctiva clear. No ptosis. ENT: oropharynx clear without exudates, moist mucous membranes. NECK: Trachea midline, full range of motion, supple. LUNGS: Breath sounds equal, clear to auscultation bilaterally, no wheezes, no crackles, no accessory muscle use. HEART: Regular rate and rhythm, S1, S2 without murmur, rub or gallop. ABDOMEN: Soft, nondistended, normoactive bowel sounds, no guarding, no rebound, no hepatosplenomegaly, no masses. EXTREMITIES: 2+ pulses, warm, well-perfused, no edema. NEUROLOGICAL: Unresponsive PSYCH: Unresponsive SKIN: Warm, dry, normal turgor, no rashes or lesions noted Laboratory Results - last 24 hr 02/16/17 02/16/17 06:00 06:00 WBC 10.1 H RBC 2.38 L Hgb 7.8 L Hct 23.4 L MCV 98.5 H MCH 32.7 MCHC 33.2 RDW 17.1 H Plt Count 265 MPV 10.3 Neutrophils % 73.4 Lymphocytes % 11.7 Monocytes % 12.9 H Eosinophils % 1.5 D Basophils % 0.5 Sodium 139 Potassium 4.0 Chloride 104 Carbon Dioxide 30 Anion Gap 5 L BUN 22 H Creatinine 0.5 L Creat Clearance w eGFR > 60 Random Glucose 128 H Calcium 7.1 L Phosphorus 2.3 L Magnesium 1.7 L Total Bilirubin 0.4 D AST 28 ALT 14 Alkaline Phosphatase 65 Total Protein 4.7 L Albumin 1.2 L Active Medications Generic Name Dose Route Start Last Admin Trade Name Freq PRN Reason Stop Dose Admin Acetaminophen 650 mg 02/05/17 21:44 02/13/17 11:28 Tylenol - PO 650 mg Q4H PRN Administration FEVER OR PAIN Amino Acids 30 ml 02/09/17 08:45 02/16/17 09:14 Prosource No Carb Liquid Pkt PO 30 ml BID@0800,1730 TANNER Administration Collagenase 1 applic 02/09/17 11:00 02/16/17 09:18 Santyl - TP 1 applic DAILY [facility] Administration Heparin Sodium (Porcine) 5,000 unit 02/10/17 22:00 02/16/17 09:16 Heparin - SQ 5,000 unit BID [facility] Administration Levofloxacin 250 mg in 50 mls @ 50 mls/hr 02/13/17 10:00 02/16/17 09:16 Levaquin 250 Mg Premixed Ivpb - IVPB 50 mls/hr DAILY [facility] Administration Mirtazapine 15 mg 02/05/17 22:00 02/15/17 22:31 Remeron - PO 15 mg HS [facility]NER Administration Pantoprazole Sodium 40 mg 02/09/17 13:30 02/16/17 09:17 Protonix Iv IVPUSH 40 mg DAILY [facility] Administration Valproate Sodium 500 mg 02/09/17 09:00 02/16/17 09:16 Depakene - PO 500 mg BID [facility]NER Administration ASSESSMENT/PLAN: Pt is an 86 y/o F w/ PMH subdural hematomas s/p fall (diagnosed in 07/2016 managed at [facility]) HTN, HLD, seizures x1 after subdural hematoma (on depakote ) followed by subarachnoid hemorrhage in 11/2106 where dose of depakote was increased. Per record, pt is conversational at baseline. Pt is currently unresponsive requiring pressor support. ID #Sepsic shock -2/2 UTI -on Levofloxacin -ID on board Neuro #Hx subdural w/ seizures -on Valproate -no seizures today Cardio #shock requiring levophed -pressor weaning unsuccessful so far -continue weaning efforts -Hold diuresis FEN -not on fluids -lytes wnl -tube feeds PPx -Protonix -Hep SubQ Dispo -DNR/DNI -discussion with family regarding possible comfort care. Family will discuss and hopefully come to an agreement regarding goals of care Parth Reaves MD PGY-1, ICU Visit type - Emergency Visit Emergency Visit: No - New Patient This patient is new to me today: No - Critical Care Critical Care patient: Yes Total Critical Care Time (in minutes): 37 Critical Care Statement: The care of this patient involved high complexity decision making to prevent further life threatening deterioration of the patient 's condition and/or to evaluate & treat vital organ system(s) failure or risk of failure. - Discharge Referral Referred to [facility] No
[2017-02-16] MEDS: MIRTAZAPINE 15 MG TABLET (FP) PO SCH (21:46)
[2017-02-17 06:33] LABS: BASO % 0.2 % (0-2.0); MCH 32.6 pg (25.7-33.7); MCHC 33.1 g/dl (32.0-36.0); MEAN CELL VOLUME 98.3 fl (80-96); MEAN PLT VOLUME 10.3 fl (7.5-11.1); NEUT % 70.1 % (42.8-82.8); PLATELET COUNT 304 K/MM3 (134-434); RDW 16.8 % (11.6-15.6); WHITE BLOOD COUNT 9.7 K/mm3 (4.0-10.0)
[2017-02-17 06:49] LABS: ALBUMIN 1.4 g/dl (3.4-5.0); ANION GAP 6 (8-16); BILIRUBIN,TOTAL 0.3 mg/dL (0.2-1.0); CALCIUM 7.6 mg/dL (8.5-10.1); CO2 32 mmol/L (21-32); GLUCOSE,RANDOM 111 mg/dL (74-106); MAGNESIUM 1.9 mg/dL (1.8-2.4); PHOSPHOROUS 2.6 mg/dL (2.5-4.9); SGOT/AST 33 U/L (15-37); SGPT/ALT 18 U/L (12-78)
[2017-02-17 06:50] LABS: ALK PHOS 70 U/L (45-117); CREATININE 0.5 mg/dL (0.55-1.02); TOT PROT 5.2 g/dl (6.4-8.2)
--- NOTE | 2017-02-17 08:05 | PN ---
Progress Note (short form) - Note Progress Note: comfortable on ventimask dnr/dni lethargic low grade temps Vital Signs Period Temp Pulse Resp BP Sys/Han Pulse Ox Last 24 Hr 98.8 F-100.2 F 90-100 16-98 91-116/38-77 98-100 cor-rrr llungs decreased bs at bases abd soft,nt ext no edema CBC, BMP 02/17/17 06:05 02/17/17 06:05 a/p extubated- no cxray today meropenem/levaquin day #4 for pseudomonas pneumonia to continue now dnr/dni fevers trending down
--- NOTE | 2017-02-17 08:49 | PN ---
Physical Exam: SUBJECTIVE: Patient seen and examined at the bedside. She will open her eyes briefly, non verbal. Appears comfortable at rest OBJECTIVE: Will speak to SW regarding potential discharge to facility for continued comfort care Now off Levo, bp low stable Discharge planning once cleared by ID Vital Signs Period Temp Pulse Resp BP Sys/Han Pulse Ox Last 24 Hr 98.8 F-100.2 F 90-100 16-98 91-116/38-77 98-100 GENERAL: minimal response to tactile stimulation, opens eyes briefly HEAD: Normal with no signs of trauma. EYES: PERRL, extraocular movements intact, sclera anicteric, conjunctiva clear. No ptosis. ENT: Ears normal, nares patent, oropharynx clear without exudates, dry mucous membranes. NECK: Trachea midline, full range of motion, supple. LUNGS: clear/diminished breath sounds HEART: Regular rate and rhythm ABDOMEN: Soft, nontender, nondistended, normoactive bowel sounds, no guarding, rebound, no hepatosplenomegaly, no masses. EXTREMITIES: bilateral hand edema NEUROLOGICAL: unable to fully assess neuro status at this time SKIN: See primary RN measurements: Right buttocks with very large unstageable wound, tissue necrosis, purple. Sacrum with stage 2, Left buttock with stage 3 pressure ulcer (slough covers 25% of wound), unable to fully assess if this wound is a stage 2 or 3 but likely a stage 3. All wounds present on admission. Laboratory Results - last 24 hr 02/17/17 02/17/17 06:05 06:05 WBC 9.7 RBC 2.50 L Hgb 8.2 L Hct 24.6 L MCV 98.3 H MCH 32.6 MCHC 33.1 RDW 16.8 H Plt Count 304 MPV 10.3 Neutrophils % 70.1 Lymphocytes % 14.5 D Monocytes % 14.2 H Eosinophils % 1.0 Basophils % 0.2 Sodium 139 Potassium 4.5 Chloride 101 Carbon Dioxide 32 Anion Gap 6 L BUN 26 H Creatinine 0.5 L Creat Clearance w eGFR > 60 Random Glucose 111 H Calcium 7.6 L Phosphorus 2.6 Magnesium 1.9 Total Bilirubin 0.3 D AST 33 ALT 18 D Alkaline Phosphatase 70 Total Protein 5.2 L Albumin 1.4 L Active Medications Generic Name Dose Route Start Last Admin Trade Name Freq PRN Reason Stop Dose Admin Acetaminophen 650 mg 02/05/17 21:44 02/13/17 11:28 Tylenol - PO 650 mg Q4H PRN Administration FEVER OR PAIN Amino Acids 30 ml 02/09/17 08:45 02/16/17 17:04 Prosource No Carb Liquid Pkt PO 30 ml BID@0800,1730 TANNER Administration Collagenase 1 applic 02/09/17 11:00 02/16/17 09:18 Santyl - TP 1 applic DAILY [facility]NER Administration Heparin Sodium (Porcine) 5,000 unit 02/10/17 22:00 02/16/17 21:46 Heparin - SQ 5,000 unit BID [facility]NER Administration Levofloxacin 250 mg in 50 mls @ 50 mls/hr 02/13/17 10:00 02/16/17 09:16 Levaquin 250 Mg Premixed Ivpb - IVPB 50 mls/hr DAILY [facility] Administration Mirtazapine 15 mg 02/05/17 22:00 02/16/17 21:46 Remeron - PO 15 mg HS TANNER Administration Pantoprazole Sodium 40 mg 02/09/17 13:30 02/16/17 09:17 Protonix Iv IVPUSH 40 mg DAILY [facility]NER Administration Valproate Sodium 500 mg 02/09/17 09:00 02/16/17 21:46 Depakene - PO 500 mg BID [facility]ANNER Administration ASSESSMENT/PLAN: Patient is an 86 year old female with a significant past medical history of recent subdural hematoma s/p fall, hypertension, hld, seizures after subdural hematoma (on depakote) followed by a subarachnoid hemorrhage in 11/2106 where dose of depakote was increased. As per medical records, patient's family noticed that patient began to have her mental status deteriorate, she developed chills, shortness of breath and hypotension which prompted her family to bring her in. On admission she was note to have ARCHANA, anemia, electrolyte imbalance and was also found to be septic. ID: Septic Shock, resolving Initial UC showed +3 leuk esterase Sputum cultures with pseudomonas aerg. Large bilateral pressure buttock wounds UC with yeast growth Blood cultures negative to date On Meropenem and Levaquin Completed 7 days of Zosyn on 02/12/17 Weaned off pressors Integumentary: Large bilateral pressure buttock wounds May also be another source of sepsis On santyl Vascular/wound care Electrolyte Imbalance Monitor electrolytes and replete Renal ARCHANA in the setting of septic shock, resolved Monitor bun/creat Kidney/bladder u/s reviewed, no hydronephrosis Renal following Neuro: Sub-archnoid hemorrage/subdural hematoma history Head CT noted On Valproate Sodium 500mg BID Seizure precautions Metabolic Encephalopathy secondary to urosepsis and/or large wounds on buttocks Mental status worsening, minimally responsive to tactile stimuli Hematology Acute blood loss anemia Received 1 prbc 02/05 F.E.N. Fluids: fluids via Gtube Electrolytes: monitor electrolytes Nutrition: peg tub feeds Prophylaxis DVT: SCDs bilaterally, Heparin GI: Protonix Disposition: DNR/DNI. Palliative care following. Visit type - Emergency Visit Emergency Visit: Yes ED Registration Date: 02/04/17 Care time: The patient presented to the Emergency Department on the above date and was hospitalized for further evaluation of their emergent condition. - New Patient This patient is new to me today: No - Critical Care Critical Care patient: Yes Total Critical Care Time (in minutes): 60 Critical Care Statement: The care of this patient involved high complexity decision making to prevent further life threatening deterioration of the patient 's condition and/or to evaluate & treat vital organ system(s) failure or risk of failure. - Discharge Referral Referred to [facility] No
[2017-02-17] MEDS ORDERED: PT OWN MED DRAWER 7, Y5N ONE (09:10)
[2017-02-17] MEDS: VALPROATE SODIUM 250 MG/5 ML UNIT DOSE CUP PO SCH ×2 (09:11→21:14)
[2017-02-17] MEDS: AMINO ACIDS/PROTEIN HYDROLYS 30 ML LIQUID.PKT PO SCH ×2 (09:11→17:48)
[2017-02-17] MEDS: HEPARIN NA (PORCINE) 5,000 UNITS/ML 1ML VIAL SQ SCH ×2 (09:12→21:14)
[2017-02-17] MEDS: PANTOPRAZOLE SODIUM 40 MG VIAL IVPUSH SCH (09:12)
[2017-02-17] MEDS: LEVOFLOXACIN 250 MG IVPB 250 MG/50 ML MG IVPB SCH (09:12)
[2017-02-17] MEDS: COLLAGENASE CLOSTRIDIUM HIST. 30 GRAMS TUBE TP SCH (11:00)
--- NOTE | 2017-02-17 12:41 | PN ---
Teaching Attending Note Name of Resident: Parth Reaves ATTENDING PHYSICIAN STATEMENT I saw and evaluated the patient. I reviewed the resident's note and discussed the case with the resident. I agree with the resident's findings and plan as documented. SUBJECTIVE: Patient seen and examined in the ICU. Lethargic, but arousable on VM O2. Currently remains off NE hemodynamic support. Intake & Output 02/14/17 02/15/17 02/16/17 02/17/17 23:59 23:59 23:59 23:59 Intake Total 7024 635 2841.4 1276 Output Total 8184 865 1611 500 Balance 137 70 438.4 776 Weight 176 lb 5.917 oz 178 lb 9.191 oz 179 lb 2 oz 178 lb 3.2 oz Last Vital Signs Temp Pulse Resp BP Pulse Ox 99.6 F 98 H 27 H 105/60 100 02/17/17 10:00 02/17/17 10:00 02/17/17 10:00 02/17/17 10:00 02/17/17 08:00 Active Medications Acetaminophen (Tylenol -) 650 mg PO Q4H PRN PRN Reason: FEVER OR PAIN Last Admin: 02/13/17 11:28 Dose: 650 mg Amino Acids (Prosource No Carb Liquid Pkt) 30 ml PO BID@0800,1730 [facility] Last Admin: 02/17/17 09:11 Dose: 30 ml Collagenase (Santyl -) 1 applic TP DAILY [facility] Last Admin: 02/16/17 09:18 Dose: 1 applic Heparin Sodium (Porcine) (Heparin -) 5,000 unit SQ BID [facility] Last Admin: 02/17/17 09:12 Dose: 5,000 unit Levofloxacin (Levaquin 250 Mg Premixed Ivpb -) 250 mg in 50 mls @ 50 mls/hr IVPB DAILY [facility] Last Admin: 02/17/17 09:12 Dose: 50 mls/hr Mirtazapine (Remeron -) 15 mg PO HS [facility] Last Admin: 02/16/17 21:46 Dose: 15 mg Pantoprazole Sodium (Protonix Iv) 40 mg IVPUSH DAILY [facility] Last Admin: 02/17/17 09:12 Dose: 40 mg Valproate Sodium (Depakene -) 500 mg PO BID [facility] Last Admin: 02/17/17 09:11 Dose: 500 mg Gen: Lethargic but arouable, confused Heart: RRR Lung: Decreased breath sounds at the bases Abd: soft, nontender Ext: (+) edema Laboratory Results - last 24 hr 02/17/17 02/17/17 06:05 06:05 WBC 9.7 RBC 2.50 L Hgb 8.2 L Hct 24.6 L MCV 98.3 H MCH 32.6 MCHC 33.1 RDW 16.8 H Plt Count 304 MPV 10.3 Neutrophils % 70.1 Lymphocytes % 14.5 D Monocytes % 14.2 H Eosinophils % 1.0 Basophils % 0.2 Sodium 139 Potassium 4.5 Chloride 101 Carbon Dioxide 32 Anion Gap 6 L BUN 26 H Creatinine 0.5 L Creat Clearance w eGFR > 60 Random Glucose 111 H Calcium 7.6 L Phosphorus 2.6 Magnesium 1.9 Total Bilirubin 0.3 D AST 33 ALT 18 D Alkaline Phosphatase 70 Total Protein 5.2 L Albumin 1.4 L IMP: S/P Acute Respiratory Failure UTI Septic Shock resolving Acute Kidney Injury improving 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
--- NOTE | 2017-02-17 13:59 | PN ---
Physical Exam: SUBJECTIVE: Patient seen and examined at bedside. Pt is unresponsive to sternal rub. Pt is DNR/DNI. Pt off Levophed. BP stable. Afebrile. NAD. No acute events. Waiting for family to make a decision about comfort care. OBJECTIVE: Vital Signs Period Temp Pulse Resp BP Sys/Han Pulse Ox Last 24 Hr 99.0 F-100.2 F 90-100 16-98 91-125/38-77 100-100 Unchanged. GENERAL: Pt unresponsive in no apparent distress HEAD: Normal with no signs of trauma. EYES: sclera anicteric, conjunctiva clear. No ptosis. ENT: oropharynx clear without exudates, moist mucous membranes. NECK: Trachea midline, full range of motion, supple. LUNGS: Breath sounds equal, clear to auscultation bilaterally, no wheezes, no crackles, no accessory muscle use. HEART: Regular rate and rhythm, S1, S2 without murmur, rub or gallop. ABDOMEN: Soft, nondistended, normoactive bowel sounds, no guarding, no rebound, no hepatosplenomegaly, no masses. EXTREMITIES: 2+ pulses, warm, well-perfused, no edema. NEUROLOGICAL: Unresponsive PSYCH: Unresponsive SKIN: Warm, dry, normal turgor, no rashes or lesions noted Laboratory Results - last 24 hr 02/17/17 02/17/17 06:05 06:05 WBC 9.7 RBC 2.50 L Hgb 8.2 L Hct 24.6 L MCV 98.3 H MCH 32.6 MCHC 33.1 RDW 16.8 H Plt Count 304 MPV 10.3 Neutrophils % 70.1 Lymphocytes % 14.5 D Monocytes % 14.2 H Eosinophils % 1.0 Basophils % 0.2 Sodium 139 Potassium 4.5 Chloride 101 Carbon Dioxide 32 Anion Gap 6 L BUN 26 H Creatinine 0.5 L Creat Clearance w eGFR > 60 Random Glucose 111 H Calcium 7.6 L Phosphorus 2.6 Magnesium 1.9 Total Bilirubin 0.3 D AST 33 ALT 18 D Alkaline Phosphatase 70 Total Protein 5.2 L Albumin 1.4 L Active Medications Generic Name Dose Route Start Last Admin Trade Name Freq PRN Reason Stop Dose Admin Acetaminophen 650 mg 02/05/17 21:44 02/13/17 11:28 Tylenol - PO 650 mg Q4H PRN Administration FEVER OR PAIN Amino Acids 30 ml 02/09/17 08:45 02/17/17 09:11 Prosource No Carb Liquid Pkt PO 30 ml BID@0800,1730 [facility]ANNER Administration Collagenase 1 applic 02/09/17 11:00 02/16/17 09:18 Santyl - TP 1 applic DAILY [facility] Administration Heparin Sodium (Porcine) 5,000 unit 02/10/17 22:00 02/17/17 09:12 Heparin - SQ 5,000 unit BID [facility]NER Administration Levofloxacin 250 mg in 50 mls @ 50 mls/hr 02/13/17 10:00 02/17/17 09:12 Levaquin 250 Mg Premixed Ivpb - IVPB 50 mls/hr DAILY [facility] Administration Mirtazapine 15 mg 02/05/17 22:00 02/16/17 21:46 Remeron - PO 15 mg HS [facility]ANNER Administration Pantoprazole Sodium 40 mg 02/09/17 13:30 02/17/17 09:12 Protonix Iv IVPUSH 40 mg DAILY [facility] Administration Valproate Sodium 500 mg 02/09/17 09:00 02/17/17 09:11 Depakene - PO 500 mg BID [facility]NER Administration ASSESSMENT/PLAN: Pt is an 86 y/o F w/ PMH subdural hematomas s/p fall (diagnosed in 07/2016 managed at [facility]) HTN, HLD, seizures x1 after subdural hematoma (on depakote ) followed by subarachnoid hemorrhage in 11/2106 where dose of depakote was increased. Per record, pt is conversational at baseline. Pt is currently unresponsive requiring pressor support. ID #Sepsic shock -2/2 UTI -on Levofloxacin -ID on board Neuro #Hx subdural w/ seizures -on Valproate -no seizures today Cardio #shock requiring levophed: resolved -Pt off Levophed -Hold diuresis FEN -not on fluids -lytes wnl -tube feeds PPx -Protonix -Hep SubQ Dispo -DNR/DNI -discussion with family regarding possible comfort care. Family will discuss and hopefully come to an agreement regarding goals of care -Transfer to Med/Surg Parth Reaves MD PGY-1, ICU Visit type - Emergency Visit Emergency Visit: No - New Patient This patient is new to me today: No - Critical Care Critical Care patient: Yes Total Critical Care Time (in minutes): 35 Critical Care Statement: The care of this patient involved high complexity decision making to prevent further life threatening deterioration of the patient 's condition and/or to evaluate & treat vital organ system(s) failure or risk of failure. - Discharge Referral Referred to [facility] No
--- NOTE | 2017-02-17 15:32 | PN ---
Progress Note, Physician History of Present Illness: Pt seen and examined at bedside. She remains in the ICU. - Current Medication List Current Medications: Active Medications Acetaminophen (Tylenol -) 650 mg PO Q4H PRN PRN Reason: FEVER OR PAIN Last Admin: 02/13/17 11:28 Dose: 650 mg Amino Acids (Prosource No Carb Liquid Pkt) 30 ml PO BID@0800,1730 [facility] Last Admin: 02/17/17 09:11 Dose: 30 ml Collagenase (Santyl -) 1 applic TP DAILY [facility] Last Admin: 02/16/17 09:18 Dose: 1 applic Heparin Sodium (Porcine) (Heparin -) 5,000 unit SQ BID [facility] Last Admin: 02/17/17 09:12 Dose: 5,000 unit Levofloxacin (Levaquin 250 Mg Premixed Ivpb -) 250 mg in 50 mls @ 50 mls/hr IVPB DAILY [facility] Last Admin: 02/17/17 09:12 Dose: 50 mls/hr Mirtazapine (Remeron -) 15 mg PO HS [facility] Last Admin: 02/16/17 21:46 Dose: 15 mg Pantoprazole Sodium (Protonix Iv) 40 mg IVPUSH DAILY [facility] Last Admin: 02/17/17 09:12 Dose: 40 mg Valproate Sodium (Depakene -) 500 mg PO BID [facility] Last Admin: 02/17/17 09:11 Dose: 500 mg - Objective Vital Signs: Vital Signs Temperature 99.2 F 02/17/17 14:00 Pulse Rate 95 H 02/17/17 14:00 Respiratory Rate 24 02/17/17 14:00 Blood Pressure 94/48 02/17/17 14:00 O2 Sat by Pulse Oximetry (%) 100 02/17/17 08:00 Constitutional: Yes: Calm Eyes: Yes: Conjunctiva Clear HENT: Yes: Atraumatic Neck: Yes: Supple Cardiovascular: Yes: S1, S2 Respiratory: Yes: On Venti-Mask Gastrointestinal: Yes: Soft Genitourinary: Yes: [place] Present Musculoskeletal: Yes: Muscle Weakness Edema: Yes Neurological: Yes: Lethargy Labs: CBC, BMP 02/17/17 06:05 02/17/17 06:05 INR, PTT INR 1.03 (0.82-1.09) 02/04/17 15:10 - ....Imaging Chest X-ray: Report Reviewed Problem List - Problems (1) Acute hypernatremia Code(s): E87.0 - HYPEROSMOLALITY AND HYPERNATREMIA (2) Hyperkalemia Code(s): E87.5 - HYPERKALEMIA (3) Sepsis Code(s): A41.9 - SEPSIS, UNSPECIFIED ORGANISM (4) UTI (urinary tract infection) Code(s): N39.0 - URINARY TRACT INFECTION, SITE NOT SPECIFIED Assessment/Plan Current Medications Generic Name Dose Route Start Last Admin Trade Name Freq PRN Reason Stop Dose Admin Acetaminophen 650 mg 02/05/17 21:44 02/13/17 11:28 Tylenol - PO 650 mg Q4H PRN Administration FEVER OR PAIN Amino Acids 30 ml 02/09/17 08:45 02/17/17 09:11 Prosource No Carb Liquid Pkt PO 30 ml BID@0800,1730 [facility] Administration Collagenase 1 applic 02/09/17 11:00 02/16/17 09:18 Santyl - TP 1 applic DAILY [facility] Administration Heparin Sodium (Porcine) 5,000 unit 02/10/17 22:00 02/17/17 09:12 Heparin - SQ 5,000 unit BID [facility] Administration Levofloxacin 250 mg in 50 mls @ 50 mls/hr 02/13/17 10:00 02/17/17 09:12 Levaquin 250 Mg Premixed Ivpb - IVPB 50 mls/hr DAILY [facility] Administration Mirtazapine 15 mg 02/05/17 22:00 02/16/17 21:46 Remeron - PO 15 mg HS [facility] Administration Pantoprazole Sodium 40 mg 02/09/17 13:30 02/17/17 09:12 Protonix Iv IVPUSH 40 mg DAILY [facility] Administration Valproate Sodium 500 mg 02/09/17 09:00 02/17/17 09:11 Depakene - PO 500 mg BID [facility]ANNER Administration Impression 1. ARCHANA 2. hypernatremia 3. hyperkalemia - resolved 4. anemia 5. epilepsy 6. hx of subdural hematoma 7. hypotension 8. hypoglycemia 9. acute resp failure requiring intubation 10. hypokalemia Plan - no acute changes - consider a dose of lasix - repeat labs in am - cont tube feeds - monitor bp - reviewed chart labs and meds - ICU care
[2017-02-17] MEDS: MIRTAZAPINE 15 MG TABLET (FP) PO SCH (21:15)
[2017-02-17] MEDS: NYSTATIN 100,000 UNIT/GM TOPICAL CREAM 15 GM TUBE TP SCH (21:16)
[2017-02-18] MEDS: ACETAMINOPHEN 325 MG TABLET (FP) PO PRN ×2 (02:29→11:08)
[2017-02-18 05:32] LABS: BASO % 0.4 % (0-2.0); EOS % 0.3 % (0-4.5); MCH 32.4 pg (25.7-33.7); MEAN PLT VOLUME 9.7 fl (7.5-11.1); PLATELET COUNT 244 K/MM3 (134-434); RDW 17.1 % (11.6-15.6); WHITE BLOOD COUNT 10.6 K/mm3 (4.0-10.0)
[2017-02-18 06:02] LABS: ALBUMIN 1.2 g/dl (3.4-5.0); ANION GAP 6 (8-16); BILIRUBIN,TOTAL 0.2 mg/dL (0.2-1.0); CALCIUM 7.3 mg/dL (8.5-10.1); CO2 33 mmol/L (21-32); CREATININE 0.5 mg/dL (0.55-1.02); GLUCOSE,RANDOM 131 mg/dL (74-106); MAGNESIUM 1.7 mg/dL (1.8-2.4); PHOSPHOROUS 2.7 mg/dL (2.5-4.9); SGOT/AST 34 U/L (15-37); SGPT/ALT 15 U/L (12-78); TOT PROT 4.5 g/dl (6.4-8.2)
[2017-02-18 06:03] LABS: ALK PHOS 60 U/L (45-117)
[2017-02-18] MEDS: AMINO ACIDS/PROTEIN HYDROLYS 30 ML LIQUID.PKT PO SCH ×2 (08:40→16:39)
[2017-02-18] MEDS: PANTOPRAZOLE SODIUM 40 MG VIAL IVPUSH SCH (10:29)
[2017-02-18] MEDS: VALPROATE SODIUM 250 MG/5 ML UNIT DOSE CUP PO SCH ×2 (10:29→21:49)
[2017-02-18] MEDS: NYSTATIN 100,000 UNIT/GM TOPICAL CREAM 15 GM TUBE TP SCH ×2 (10:30→21:50)
[2017-02-18] MEDS: LEVOFLOXACIN 250 MG IVPB 250 MG/50 ML MG IVPB SCH (10:30)
[2017-02-18] MEDS: HEPARIN NA (PORCINE) 5,000 UNITS/ML 1ML VIAL SQ SCH ×2 (10:30→21:49)
[2017-02-18] MEDS: COLLAGENASE CLOSTRIDIUM HIST. 30 GRAMS TUBE TP SCH (10:32)
[2017-02-18] MEDS ORDERED: SODIUM CHLORIDE 500 ML IV STA ×2 (14:07→16:15)
--- NOTE | 2017-02-18 14:30 | PN ---
Progress Note (short form) - Note Progress Note: Subjective: The patient was seen and examined at the bedside, attempts to open eyes to verbal stimulus Low BPs today, and febrile: 70/30s. Discussed with Dr. Marin. gave 500cc NS bolus. Rechecked after bolus and repeat 89/39. Discussed again with Dr. Marin, will give 2nd 500cc NS bolus and recheck. If not improved, will send to ICU. Current Medications Generic Name Dose Route Start Last Admin Trade Name Freq PRN Reason Stop Dose Admin Acetaminophen 650 mg 02/17/17 15:59 02/18/17 11:08 Tylenol - PO 650 mg Q4H PRN Administration FEVER OR PAIN Amino Acids 30 ml 02/17/17 17:30 02/18/17 08:40 Prosource No Carb Liquid Pkt PO 30 ml BID@0800,1730 [facility] Administration Collagenase 1 applic 02/18/17 10:00 02/18/17 10:32 Santyl - TP 1 applic DAILY [facility]NER Administration Heparin Sodium (Porcine) 5,000 unit 02/17/17 22:00 02/18/17 10:30 Heparin - SQ 5,000 unit BID [facility] Administration Levofloxacin 250 mg in 50 mls @ 50 mls/hr 02/18/17 10:00 02/18/17 10:30 Levaquin 250 Mg Premixed Ivpb - IVPB 50 mls/hr DAILY [facility] Administration Sodium Chloride 500 mls @ 500 mls/hr 02/18/17 16:15 Normal Saline - IV 02/18/17 17:14 ASDIR STA Mirtazapine 15 mg 02/17/17 22:00 02/17/17 21:15 Remeron - PO 15 mg HS [facility]NER Administration Nystatin 1 applic 02/17/17 22:00 02/18/17 10:30 Mycostatin Cream - TP 1 applic BID [facility]NER Administration Pantoprazole Sodium 40 mg 02/18/17 10:00 02/18/17 10:29 Protonix Iv IVPUSH 40 mg DAILY [facility] Administration Valproate Sodium 500 mg 02/17/17 22:00 02/18/17 10:29 Depakene - PO 500 mg BID [facility] Administration Objective: Vital Signs Period Temp Pulse Resp BP Sys/Han Pulse Ox Last 24 Hr 99.1 F-102.1 F 92-104 22-28 89-119/38-57 100-100 Physical Exam General: NAD, poor mental status, opens eyes to some verbal stimuli. Not following commands Lungs: Scattered rhonchi bilaterally Heart: RRR, S1S2 Abd: Soft, non-tender, Peg Ext: + edema CBCD WBC 10.6 K/mm3 (4.0-10.0) H 02/18/17 05:18 RBC 2.20 M/mm3 (3.60-5.2) L 02/18/17 05:18 Hgb 7.1 GM/dL (10.7-15.3) L D 02/18/17 05:18 Hct 21.6 % (32.4-45.2) L 02/18/17 05:18 MCV 98.0 fl (80-96) H 02/18/17 05:18 MCHC 33.0 g/dl (32.0-36.0) 02/18/17 05:18 RDW 17.1 % (11.6-15.6) H 02/18/17 05:18 Plt Count 244 K/MM3 (134-434) 02/18/17 05:18 MPV 9.7 fl (7.5-11.1) 02/18/17 05:18 CMP Sodium 140 mmol/L (136-145) 02/18/17 05:22 Potassium 4.4 mmol/L (3.5-5.1) 02/18/17 05:22 Chloride 101 mmol/L (98-107) 02/18/17 05:22 Carbon Dioxide 33 mmol/L (21-32) H 02/18/17 05:22 Anion Gap 6 (8-16) L 02/18/17 05:22 BUN 30 mg/dL (7-18) H 02/18/17 05:22 Creatinine 0.5 mg/dL (0.55-1.02) L 02/18/17 05:22 Creat Clearance w eGFR > 60 (>60) 02/18/17 05:22 Random Glucose 131 mg/dL (74-106) H 02/18/17 05:22 Calcium 7.3 mg/dL (8.5-10.1) L 02/18/17 05:22 Total Bilirubin 0.2 mg/dL (0.2-1.0) D 02/18/17 05:22 AST 34 U/L (15-37) 02/18/17 05:22 ALT 15 U/L (12-78) 02/18/17 05:22 Alkaline Phosphatase 60 U/L (45-117) 02/18/17 05:22 Total Protein 4.5 g/dl (6.4-8.2) L 02/18/17 05:22 Albumin 1.2 g/dl (3.4-5.0) L 02/18/17 05:22 CARDIAC ENZYMES Creatine Kinase 490 IU/L (26-192) H 02/04/17 15:10 Troponin I < 0.02 ng/ml (0.00-0.05) 02/04/17 15:10 Microbiology 02/09/17 13:35 Blood - Peripheral Venous Blood Culture - Final NO GROWTH AFTER 5 DAYS INCUBATION 02/09/17 13:40 Blood - Peripheral Venous Blood Culture - Final NO GROWTH AFTER 5 DAYS INCUBATION 02/13/17 10:00 Urine - Urine [place] Urine Culture - Final NO GROWTH OBTAINED 02/09/17 16:30 Sputum - Endotrachea Suction/Ventilator Gram Stain - Final 02/09/17 16:30 Sputum - Endotrachea Suction/Ventilator Sputum Culture - Final Pseudomonas Aeruginosa 02/09/17 17:00 Urine - Urine [place] Urine Culture - Final NO GROWTH OBTAINED 02/10/17 15:00 Stool Clostridium difficile Antigen (ROME) - Final 02/10/17 15:00 Stool Clostridium difficile Toxin Assay - Final 02/06/17 08:52 Blood - Peripheral Venous Blood Culture - Final NO GROWTH AFTER 5 DAYS INCUBATION 02/06/17 08:52 Blood - Peripheral Venous Blood Culture - Final NO GROWTH AFTER 5 DAYS INCUBATION 02/04/17 15:05 Blood - Peripheral Venous Blood Culture - Final NO GROWTH AFTER 5 DAYS INCUBATION 02/04/17 15:00 Blood - Peripheral Venous Blood Culture - Final NO GROWTH AFTER 5 DAYS INCUBATION 02/04/17 15:53 Urine - Urine [place] Urine Culture - Final Yeast Like Organism Assessment: This is an 86 year old female with PMHx of subdural hematoma s/p fall (07/2016), HTN, hyperlipidemia, 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 Plan: 1) Acute respiratory failure - Continue Ventimask as needed, attempt to wean - Appreciate pulmonary consult 2) Septic shock 2/2 UTI - Levaquin (02/13- ) - Off pressors however BP low as described above. Continue to monitor closely - Appreciate ID consult Large b/l buttock wounds - Continue Santyl - Appreciate surgery consult 3) ARCHANA - Resolved 4) Hx of sub arachnoid hemorrhage and subdural hematoma - Head CT reviewed - Continue Depakene 5) Acute blood loss anemia - Received 1u PRBC on 02/05 6) F/E/N: - Tube feeds - Monitor electrolytes - Hypomagnesemia: replete 7) Prophylaxis: - Heparin 5,000u sq bid 8) Dispo: - Spoke to daughter Laurie, and her brother. Julissa, licensed social worker present and translated. Family states that aside from DNR/DNI, they would like everything done, including management of blood pressure (even if that means placing a central line and restarting pressors), all antibiotics, vital signs. - Discussed possible dispo to ICU with Dr. Marin, will order 2nd NS 500cc bolus and recheck BP CODE STATUS: DNR/DNI Visit type - Emergency Visit Emergency Visit: Yes ED Registration Date: 02/04/17 Care time: The patient presented to the Emergency Department on the above date and was hospitalized for further evaluation of their emergent condition. - New Patient This patient is new to me today: No - Critical Care Critical Care patient: No
[2017-02-18] MEDS ORDERED: MAGNESIUM OXIDE 400 MG TABLET (FP) GT ONE (16:18)
--- NOTE | 2017-02-18 16:35 | PN ---
Progress Note, Physician History of Present Illness: Pt seen and examined at bedside. She is now in the medical borja. Pt is off of pressors. She remains lethargic. - Current Medication List Current Medications: Active Medications Acetaminophen (Tylenol -) 650 mg PO Q4H PRN PRN Reason: FEVER OR PAIN Last Admin: 02/18/17 11:08 Dose: 650 mg Amino Acids (Prosource No Carb Liquid Pkt) 30 ml PO BID@0800,1730 [facility] [place] Last Admin: 02/18/17 08:40 Dose: 30 ml Collagenase (Santyl -) 1 applic TP DAILY [facility] Last Admin: 02/18/17 10:32 Dose: 1 applic Heparin Sodium (Porcine) (Heparin -) 5,000 unit SQ BID [facility] [place] Last Admin: 02/18/17 10:30 Dose: 5,000 unit Levofloxacin (Levaquin 250 Mg Premixed Ivpb -) 250 mg in 50 mls @ 50 mls/hr IVPB DAILY [facility] [place] Last Admin: 02/18/17 10:30 Dose: 50 mls/hr Sodium Chloride (Normal Saline -) 500 mls @ 500 mls/hr IV ASDIR STA Stop: 02/18/17 17:14 Mirtazapine (Remeron -) 15 mg PO HS [facility] [place] Last Admin: 02/17/17 21:15 Dose: 15 mg Nystatin (Mycostatin Cream -) 1 applic TP BID [facility] [place] Last Admin: 02/18/17 10:30 Dose: 1 applic Pantoprazole Sodium (Protonix Iv) 40 mg IVPUSH DAILY [facility] [place] Last Admin: 02/18/17 10:29 Dose: 40 mg Valproate Sodium (Depakene -) 500 mg PO BID [facility] Last Admin: 02/18/17 10:29 Dose: 500 mg - Objective Vital Signs: Vital Signs Temperature 99.1 F 02/18/17 13:30 Pulse Rate 92 H 02/18/17 14:00 Respiratory Rate 26 H 02/18/17 14:00 Blood Pressure 89/39 02/18/17 14:00 O2 Sat by Pulse Oximetry (%) 100 02/17/17 21:02 Constitutional: Yes: Calm Eyes: Yes: Conjunctiva Clear Cardiovascular: Yes: S1, S2 Respiratory: Yes: On Venti-Mask Gastrointestinal: Yes: Soft, Other (peg) Genitourinary: Yes: [place] Present Musculoskeletal: Yes: WNL Edema: Yes Edema: LUE: 1+, RUE: 1+, LLE: 1+, RLE: 1+ Neurological: Yes: Lethargy Labs: CBC, BMP 02/18/17 05:18 02/18/17 05:22 INR, PTT INR 1.03 (0.82-1.09) 02/04/17 15:10 Problem List - Problems (1) Acute hypernatremia Code(s): E87.0 - HYPEROSMOLALITY AND HYPERNATREMIA (2) Hyperkalemia Code(s): E87.5 - HYPERKALEMIA (3) Sepsis Code(s): A41.9 - SEPSIS, UNSPECIFIED ORGANISM (4) UTI (urinary tract infection) Code(s): N39.0 - URINARY TRACT INFECTION, SITE NOT SPECIFIED Assessment/Plan Current Medications Generic Name Dose Route Start Last Admin Trade Name Freq PRN Reason Stop Dose Admin Acetaminophen 650 mg 02/17/17 15:59 02/18/17 11:08 Tylenol - PO 650 mg Q4H PRN Administration FEVER OR PAIN Amino Acids 30 ml 02/17/17 17:30 02/18/17 08:40 Prosource No Carb Liquid Pkt PO 30 ml BID@0800,1730 [facility] Administration Collagenase 1 applic 02/18/17 10:00 02/18/17 10:32 Santyl - TP 1 applic DAILY [facility] Administration Heparin Sodium (Porcine) 5,000 unit 02/17/17 22:00 02/18/17 10:30 Heparin - SQ 5,000 unit BID [facility] Administration Levofloxacin 250 mg in 50 mls @ 50 mls/hr 02/18/17 10:00 02/18/17 10:30 Levaquin 250 Mg Premixed Ivpb - IVPB 50 mls/hr DAILY [facility] Administration Sodium Chloride 500 mls @ 500 mls/hr 02/18/17 16:15 Normal Saline - IV 02/18/17 17:14 ASDIR STA Mirtazapine 15 mg 02/17/17 22:00 02/17/17 21:15 Remeron - PO 15 mg HS [facility] Administration Nystatin 1 applic 02/17/17 22:00 02/18/17 10:30 Mycostatin Cream - TP 1 applic BID [facility] Administration Pantoprazole Sodium 40 mg 02/18/17 10:00 02/18/17 10:29 Protonix Iv IVPUSH 40 mg DAILY [facility] Administration Valproate Sodium 500 mg 02/17/17 22:00 02/18/17 10:29 Depakene - PO 500 mg BID [facility] Administration Impression 1. ARCHANA 2. hypernatremia 3. hyperkalemia - resolved 4. anemia 5. epilepsy 6. hx of subdural hematoma 7. hypotension 8. hypoglycemia 9. acute resp failure requiring intubation 10. hypokalemia Plan - cont feeds - monitor bp - repeat labs in am - monitor pulse ox - reviewed chart labs and meds
--- NOTE | 2017-02-18 16:58 | PN ---
Progress Note (short form) - Note Progress Note: comfortable on ventimask dnr/dni lethargic low grade temps hypotensive today cxray with bibasilar infiltrates Vital Signs Period Temp Pulse Resp BP Sys/Han Pulse Ox Last 24 Hr 99.1 F-102.1 F 92-104 22-28 89-119/38-57 100-100 cor-rrr lungs decreased bs at bases abd soft,nt ext no edema CBC, BMP 02/18/17 05:18 02/18/17 05:22 Microbiology 02/09/17 13:35 Blood - Peripheral Venous Blood Culture - Final NO GROWTH AFTER 5 DAYS INCUBATION 02/09/17 13:40 Blood - Peripheral Venous Blood Culture - Final NO GROWTH AFTER 5 DAYS INCUBATION 02/13/17 10:00 Urine - Urine [place] Urine Culture - Final NO GROWTH OBTAINED 02/09/17 16:30 Sputum - Endotrachea Suction/Ventilator Gram Stain - Final 02/09/17 16:30 Sputum - Endotrachea Suction/Ventilator Sputum Culture - Final Pseudomonas Aeruginosa 02/09/17 17:00 Urine - Urine [place] Urine Culture - Final NO GROWTH OBTAINED 02/10/17 15:00 Stool Clostridium difficile Antigen (ROME) - Final 02/10/17 15:00 Stool Clostridium difficile Toxin Assay - Final 02/06/17 08:52 Blood - Peripheral Venous Blood Culture - Final NO GROWTH AFTER 5 DAYS INCUBATION 02/06/17 08:52 Blood - Peripheral Venous Blood Culture - Final NO GROWTH AFTER 5 DAYS INCUBATION 02/04/17 15:05 Blood - Peripheral Venous Blood Culture - Final NO GROWTH AFTER 5 DAYS INCUBATION 02/04/17 15:00 Blood - Peripheral Venous Blood Culture - Final NO GROWTH AFTER 5 DAYS INCUBATION 02/04/17 15:53 Urine - Urine [place] Urine Culture - Final Yeast Like Organism a/p doing poorly-recurrent fevers- ?aspiration given poor mental status d/w hospitalist chavez culture icu eval resume meropenem/levaquin/vanco dnr/dni
[2017-02-18] MEDS ORDERED: VANCOMYCIN 1 GRAM (PRE-DOCKED) 1,000 MG/250 ML BAG IVPB ONE (17:00)
[2017-02-18] MEDS ORDERED: MEROPENEM 500 MG PUSH 500 MG/10 ML IVPB SCH (17:00)
[2017-02-18] MEDS ORDERED: VANCOMYCIN 1,000 MG in DEXTROSE 5%-WATER - 250 ML IVPB ONE (17:15)
[2017-02-18] MEDS: MEROPENEM 500 MG PUSH 500 MG/10 ML DISP.SYRIN IVPUSH SCH (19:47)
[2017-02-18 20:26] LABS: URINE APPEARANCE CLEAR; URINE BILIRUBIN NEGATIVE (NEGATIVE); URINE BLOOD NEGATIVE (NEGATIVE); URINE COLOR YELLOW; URINE GLUCOSE (UA) NEGATIVE (NEGATIVE); URINE KETONE NEGATIVE (NEGATIVE); URINE LEUK ESTERASE TRACE (NEGATIVE); URINE NITRITE NEGATIVE (NEGATIVE); URINE PROTEIN NEGATIVE (NEGATIVE); URINE UROBILINOGEN NEGATIVE mg/dL (0.2-1.0)
[2017-02-18 20:38] LABS: URINE MUCUS RARE; URINE RBC 3 /hpf (0-3); URINE WBC 19 /hpf (3-5)
[2017-02-18] MEDS: MIRTAZAPINE 15 MG TABLET (FP) PO SCH (21:50)
[2017-02-18 21:58] LABS: URINE LEUK ESTERASE Negative (NEGATIVE)
[2017-02-19] MEDS: MEROPENEM 500 MG PUSH 500 MG/10 ML DISP.SYRIN IVPUSH SCH ×3 (03:05→18:24)
[2017-02-19 08:31] LABS: MCH 30.9 pg (25.7-33.7); MCHC 31.2 g/dl (32.0-36.0); PLATELET COUNT 262 K/MM3 (134-434); RDW 17.1 % (11.6-15.6); WHITE BLOOD COUNT 11.7 K/mm3 (4.0-10.0)
[2017-02-19 09:05] LABS: ALBUMIN 1.2 g/dl (3.4-5.0); ALK PHOS 68 U/L (45-117); ANION GAP 7 (8-16); BILIRUBIN,TOTAL 0.2 mg/dL (0.2-1.0); CALCIUM 7.4 mg/dL (8.5-10.1); CO2 31 mmol/L (21-32); CREATININE 0.5 mg/dL (0.55-1.02); GLUCOSE,RANDOM 98 mg/dL (74-106); MAGNESIUM 1.8 mg/dL (1.8-2.4); SGOT/AST 35 U/L (15-37); SGPT/ALT 16 U/L (12-78); TOT PROT 5.2 g/dl (6.4-8.2)
[2017-02-19] MEDS ORDERED: PT OWN MED DRAWER 7, Y5N ONE ×2 (09:38→17:08)
[2017-02-19] MEDS: LEVOFLOXACIN 250 MG IVPB 250 MG/50 ML MG IVPB SCH (09:45)
[2017-02-19] MEDS: AMINO ACIDS/PROTEIN HYDROLYS 30 ML LIQUID.PKT PO SCH ×2 (09:45→18:25)
[2017-02-19] MEDS: HEPARIN NA (PORCINE) 5,000 UNITS/ML 1ML VIAL SQ SCH ×2 (09:45→23:00)
[2017-02-19] MEDS: VALPROATE SODIUM 250 MG/5 ML UNIT DOSE CUP PO SCH ×2 (09:45→23:00)
[2017-02-19] MEDS: PANTOPRAZOLE SODIUM 40 MG VIAL IVPUSH SCH (09:46)
[2017-02-19] MEDS: COLLAGENASE CLOSTRIDIUM HIST. 30 GRAMS TUBE TP SCH (09:46)
[2017-02-19] MEDS: NYSTATIN 100,000 UNIT/GM TOPICAL CREAM 15 GM TUBE TP SCH ×2 (09:46→23:01)
--- NOTE | 2017-02-19 14:13 | PN ---
Progress Note (short form) - Note Progress Note: PULMONARY FEBRILE/113/57 FAMILY PRESENT NO SIGNIFICANT CHANGE IN EXAM CHART REVIEWED S/P Acute Respiratory Failure UTI Septic Shock resolving Acute Kidney Injury improving Acute on Chronic Subdural Hematomas Seizure Disorder HTN Hyperlipidemia - ABX per ID - Monitor off pressors - monitor urine output, creatinine - Hold diuresis for now - O2 to maintain O2 >92% - Enteral feeds - DVT/GI prophylaxis - Floor - Continue DNR/DNI R GWEN MCNEILL
[2017-02-19] MEDS: ACETAMINOPHEN 325 MG TABLET (FP) PO PRN (14:28)
--- NOTE | 2017-02-19 14:49 | PN ---
Progress Note (short form) - Note Progress Note: Subjective: The patient was seen and examined at the bedside, attempts to open eyes to verbal stimulus Patient's BP improved yesterday with IV fluids, continue to monitor today Tmax 101.5 today Current Medications Generic Name Dose Route Start Last Admin Trade Name Sanketq PRN Reason Stop Dose Admin Acetaminophen 650 mg 02/17/17 15:59 02/19/17 14:28 Tylenol - PO 650 mg Q4H PRN Administration FEVER OR PAIN Amino Acids 30 ml 02/17/17 17:30 02/19/17 09:45 Prosource No Carb Liquid Pkt PO 30 ml BID@0800,1730 [facility] Administration Collagenase 1 applic 02/18/17 10:00 02/19/17 09:46 Santyl - TP 1 applic DAILY [facility] Administration Heparin Sodium (Porcine) 5,000 unit 02/17/17 22:00 02/19/17 09:45 Heparin - SQ 5,000 unit BID [facility] Administration Levofloxacin 250 mg in 50 mls @ 50 mls/hr 02/18/17 10:00 02/19/17 09:45 Levaquin 250 Mg Premixed Ivpb - IVPB 50 mls/hr DAILY [facility] Administration Meropenem 500 mg in 10 mls @ 120 mls/hr 02/18/17 18:00 02/19/17 09:45 Merrem (Restricted To Id) - IVPUSH 120 mls/hr Q8H-IV [facility] Administration Mirtazapine 15 mg 02/17/17 22:00 02/18/17 21:50 Remeron - PO 15 mg HS [facility] Administration Nystatin 1 applic 02/17/17 22:00 02/19/17 09:46 Mycostatin Cream - TP 1 applic BID [facility] Administration Pantoprazole Sodium 40 mg 02/18/17 10:00 02/19/17 09:46 Protonix Iv IVPUSH 40 mg DAILY [facility] Administration Valproate Sodium 500 mg 02/17/17 22:00 02/19/17 09:45 Depakene - PO 500 mg BID [facility] Administration Objective: Vital Signs Period Temp Pulse Resp BP Sys/Han Pulse Ox Last 24 Hr 98.9 F-99.5 F 85-101 20-27 80-114/39-66 100-100 Physical Exam General: NAD, poor mental status, opens eyes to some verbal stimuli. Not following commands Lungs: Scattered rhonchi bilaterally Heart: RRR, S1S2 Abd: Soft, non-tender, Peg Ext: + edema CBCD WBC 11.7 K/mm3 (4.0-10.0) H 02/19/17 07:40 RBC 2.43 M/mm3 (3.60-5.2) L 02/19/17 07:40 Hgb 7.5 GM/dL (10.7-15.3) L 02/19/17 07:40 Hct 24.0 % (32.4-45.2) L 02/19/17 07:40 MCV 99.0 fl (80-96) H 02/19/17 07:40 MCHC 31.2 g/dl (32.0-36.0) L 02/19/17 07:40 RDW 17.1 % (11.6-15.6) H 02/19/17 07:40 Plt Count 262 K/MM3 (134-434) 02/19/17 07:40 MPV 10.0 fl (7.5-11.1) 02/19/17 07:40 CMP Sodium 139 mmol/L (136-145) 02/19/17 07:40 Potassium 4.8 mmol/L (3.5-5.1) 02/19/17 07:40 Chloride 101 mmol/L (98-107) 02/19/17 07:40 Carbon Dioxide 31 mmol/L (21-32) 02/19/17 07:40 Anion Gap 7 (8-16) L 02/19/17 07:40 BUN 28 mg/dL (7-18) H 02/19/17 07:40 Creatinine 0.5 mg/dL (0.55-1.02) L 02/19/17 07:40 Creat Clearance w eGFR > 60 (>60) 02/19/17 07:40 Random Glucose 98 mg/dL (74-106) D 02/19/17 07:40 Calcium 7.4 mg/dL (8.5-10.1) L 02/19/17 07:40 Total Bilirubin 0.2 mg/dL (0.2-1.0) 02/19/17 07:40 AST 35 U/L (15-37) 02/19/17 07:40 ALT 16 U/L (12-78) 02/19/17 07:40 Alkaline Phosphatase 68 U/L (45-117) 02/19/17 07:40 Total Protein 5.2 g/dl (6.4-8.2) L 02/19/17 07:40 Albumin 1.2 g/dl (3.4-5.0) L 02/19/17 07:40 CARDIAC ENZYMES Creatine Kinase 490 IU/L (26-192) H 02/04/17 15:10 Troponin I < 0.02 ng/ml (0.00-0.05) 02/04/17 15:10 Microbiology 02/09/17 13:35 Blood - Peripheral Venous Blood Culture - Final NO GROWTH AFTER 5 DAYS INCUBATION 02/09/17 13:40 Blood - Peripheral Venous Blood Culture - Final NO GROWTH AFTER 5 DAYS INCUBATION 02/13/17 10:00 Urine - Urine [place] Urine Culture - Final NO GROWTH OBTAINED 02/09/17 16:30 Sputum - Endotrachea Suction/Ventilator Gram Stain - Final 02/09/17 16:30 Sputum - Endotrachea Suction/Ventilator Sputum Culture - Final Pseudomonas Aeruginosa 02/09/17 17:00 Urine - Urine [place] Urine Culture - Final NO GROWTH OBTAINED 02/10/17 15:00 Stool Clostridium difficile Antigen (ROME) - Final 02/10/17 15:00 Stool Clostridium difficile Toxin Assay - Final 02/06/17 08:52 Blood - Peripheral Venous Blood Culture - Final NO GROWTH AFTER 5 DAYS INCUBATION 02/06/17 08:52 Blood - Peripheral Venous Blood Culture - Final NO GROWTH AFTER 5 DAYS INCUBATION 02/04/17 15:05 Blood - Peripheral Venous Blood Culture - Final NO GROWTH AFTER 5 DAYS INCUBATION 02/04/17 15:00 Blood - Peripheral Venous Blood Culture - Final NO GROWTH AFTER 5 DAYS INCUBATION 02/04/17 15:53 Urine - Urine [place] Urine Culture - Final Yeast Like Organism Assessment: This is an 86 year old female with PMHx of subdural hematoma s/p fall (07/2016), HTN, hyperlipidemia, 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 Plan: 1) Acute respiratory failure - Continue Ventimask as needed, attempt to wean - Appreciate pulmonary consult 2) Septic shock 2/2 UTI - Tmax 101.5 today, f/u repeat cultures from yesterday - Possible aspiration? Hold tube feeds - Levaquin (02/13- ) - Given Vanco yesterday - Continue meropenem - Off pressors, continue to monitor closely - Appreciate ID consult Large b/l buttock wounds - Continue Santyl - Appreciate surgery consult 3) ARCHANA - Resolved 4) Hx of sub arachnoid hemorrhage and subdural hematoma - Head CT reviewed - Continue Depakote 5) Acute blood loss anemia - Received 1u PRBC on 02/05 6) F/E/N: - Hold tube feeds as the patient may be aspirating - Monitor electrolytes - Hypomagnesemia: resolved 7) Prophylaxis: - Heparin 5,000u sq bid 8) Dispo: - Continue to require inpatient care CODE STATUS: DNR/DNI Visit type - Emergency Visit Emergency Visit: Yes ED Registration Date: 02/04/17 Care time: The patient presented to the Emergency Department on the above date and was hospitalized for further evaluation of their emergent condition. - New Patient This patient is new to me today: No - Critical Care Critical Care patient: No
--- NOTE | 2017-02-19 16:14 | PN ---
Progress Note, Physician History of Present Illness: Pt seen and examined at bedside. She remains lethargic. Family are at bedside. - Current Medication List Current Medications: Active Medications Acetaminophen (Tylenol -) 650 mg PO Q4H PRN PRN Reason: FEVER OR PAIN Last Admin: 02/19/17 14:28 Dose: 650 mg Amino Acids (Prosource No Carb Liquid Pkt) 30 ml PO BID@0800,1730 [facility] Last Admin: 02/19/17 09:45 Dose: 30 ml Collagenase (Santyl -) 1 applic TP DAILY [facility] Last Admin: 02/19/17 09:46 Dose: 1 applic Heparin Sodium (Porcine) (Heparin -) 5,000 unit SQ BID [facility] Last Admin: 02/19/17 09:45 Dose: 5,000 unit Levofloxacin (Levaquin 250 Mg Premixed Ivpb -) 250 mg in 50 mls @ 50 mls/hr IVPB DAILY [facility] Last Admin: 02/19/17 09:45 Dose: 50 mls/hr Meropenem (Merrem (Restricted To Id) -) 500 mg in 10 mls @ 120 mls/hr IVPUSH Q8H-IV [facility] Last Admin: 02/19/17 09:45 Dose: 120 mls/hr Mirtazapine (Remeron -) 15 mg PO HS [facility] Last Admin: 02/18/17 21:50 Dose: 15 mg Nystatin (Mycostatin Cream -) 1 applic TP BID [facility] Last Admin: 02/19/17 09:46 Dose: 1 applic Pantoprazole Sodium (Protonix Iv) 40 mg IVPUSH DAILY [facility] Last Admin: 02/19/17 09:46 Dose: 40 mg Valproate Sodium (Depakene -) 500 mg PO BID [facility] Last Admin: 02/19/17 09:45 Dose: 500 mg - Objective Vital Signs: Vital Signs Temperature 100.8 F H 02/19/17 16:04 Pulse Rate 98 H 02/19/17 14:02 Respiratory Rate 20 02/19/17 14:00 Blood Pressure 93/55 02/19/17 14:00 O2 Sat by Pulse Oximetry (%) 100 02/19/17 14:02 Constitutional: Yes: Calm Eyes: Yes: Conjunctiva Clear Cardiovascular: Yes: S1, S2 Respiratory: Yes: On Venti-Mask Gastrointestinal: Yes: Soft, Other (peg) Genitourinary: Yes: [place] Present Musculoskeletal: Yes: Muscle Weakness Edema: Yes Edema: LUE: 1+, RUE: 1+, LLE: Trace, RLE: Trace Neurological: Yes: Lethargy Labs: CBC, BMP 02/19/17 07:40 02/19/17 07:40 INR, PTT INR 1.03 (0.82-1.09) 02/04/17 15:10 Problem List - Problems (1) Acute hypernatremia Code(s): E87.0 - HYPEROSMOLALITY AND HYPERNATREMIA (2) Hyperkalemia Code(s): E87.5 - HYPERKALEMIA (3) Sepsis Code(s): A41.9 - SEPSIS, UNSPECIFIED ORGANISM (4) UTI (urinary tract infection) Code(s): N39.0 - URINARY TRACT INFECTION, SITE NOT SPECIFIED Assessment/Plan Current Medications Generic Name Dose Route Start Last Admin Trade Name Freq PRN Reason Stop Dose Admin Acetaminophen 650 mg 02/17/17 15:59 02/19/17 14:28 Tylenol - PO 650 mg Q4H PRN Administration FEVER OR PAIN Amino Acids 30 ml 02/17/17 17:30 02/19/17 09:45 Prosource No Carb Liquid Pkt PO 30 ml BID@0800,1730 [facility] Administration Collagenase 1 applic 02/18/17 10:00 02/19/17 09:46 Santyl - TP 1 applic DAILY [facility] Administration Heparin Sodium (Porcine) 5,000 unit 02/17/17 22:00 02/19/17 09:45 Heparin - SQ 5,000 unit BID [facility] Administration Levofloxacin 250 mg in 50 mls @ 50 mls/hr 02/18/17 10:00 02/19/17 09:45 Levaquin 250 Mg Premixed Ivpb - IVPB 50 mls/hr DAILY [facility] Administration Meropenem 500 mg in 10 mls @ 120 mls/hr 02/18/17 18:00 02/19/17 09:45 Merrem (Restricted To Id) - IVPUSH 120 mls/hr Q8H-IV [facility] Administration Mirtazapine 15 mg 02/17/17 22:00 02/18/17 21:50 Remeron - PO 15 mg HS [facility] Administration Nystatin 1 applic 02/17/17 22:00 02/19/17 09:46 Mycostatin Cream - TP 1 applic BID [facility] Administration Pantoprazole Sodium 40 mg 02/18/17 10:00 02/19/17 09:46 Protonix Iv IVPUSH 40 mg DAILY [facility] Administration Valproate Sodium 500 mg 02/17/17 22:00 02/19/17 09:45 Depakene - PO 500 mg BID [facility] Administration Impression 1. ARCHANA 2. hypernatremia 3. hyperkalemia - resolved 4. anemia 5. epilepsy 6. hx of subdural hematoma 7. hypotension 8. hypoglycemia 9. acute resp failure requiring intubation 10. hypokalemia Plan - renal function is stable - cont feeds - monitor bp - monitor pulse ox - discussed with family - will follow PRN
--- NOTE | 2017-02-19 16:14 | PN ---
Progress Note (short form) - Note Progress Note: comfortable on ventimask dnr/dni low grade temps cxray with bibasilar infiltrates Vital Signs Period Temp Pulse Resp BP Sys/Han Pulse Ox Last 24 Hr 98.9 F-101.5 F 85-101 20-26 80-114/39-66 100-100 cor-rrr lungs decreased bs at bases abd soft,nt ext edema both hands CBC, BMP 02/19/17 07:40 02/19/17 07:40 Microbiology 02/09/17 13:35 Blood - Peripheral Venous Blood Culture - Final NO GROWTH AFTER 5 DAYS INCUBATION 02/09/17 13:40 Blood - Peripheral Venous Blood Culture - Final NO GROWTH AFTER 5 DAYS INCUBATION 02/13/17 10:00 Urine - Urine [place] Urine Culture - Final NO GROWTH OBTAINED 02/09/17 16:30 Sputum - Endotrachea Suction/Ventilator Gram Stain - Final 02/09/17 16:30 Sputum - Endotrachea Suction/Ventilator Sputum Culture - Final Pseudomonas Aeruginosa 02/09/17 17:00 Urine - Urine [place] Urine Culture - Final NO GROWTH OBTAINED 02/10/17 15:00 Stool Clostridium difficile Antigen (ROME) - Final 02/10/17 15:00 Stool Clostridium difficile Toxin Assay - Final 02/06/17 08:52 Blood - Peripheral Venous Blood Culture - Final NO GROWTH AFTER 5 DAYS INCUBATION 02/06/17 08:52 Blood - Peripheral Venous Blood Culture - Final NO GROWTH AFTER 5 DAYS INCUBATION 02/04/17 15:05 Blood - Peripheral Venous Blood Culture - Final NO GROWTH AFTER 5 DAYS INCUBATION 02/04/17 15:00 Blood - Peripheral Venous Blood Culture - Final NO GROWTH AFTER 5 DAYS INCUBATION 02/04/17 15:53 Urine - Urine [place] Urine Culture - Final Yeast Like Organism Current Medications Acetaminophen (Tylenol -) 650 mg PO Q4H PRN PRN Reason: FEVER OR PAIN Last Admin: 02/19/17 14:28 Dose: 650 mg Amino Acids (Prosource No Carb Liquid Pkt) 30 ml PO BID@0800,1730 [facility] Last Admin: 02/19/17 09:45 Dose: 30 ml Collagenase (Santyl -) 1 applic TP DAILY [facility] Last Admin: 02/19/17 09:46 Dose: 1 applic Heparin Sodium (Porcine) (Heparin -) 5,000 unit SQ BID [facility] Last Admin: 02/19/17 09:45 Dose: 5,000 unit Levofloxacin (Levaquin 250 Mg Premixed Ivpb -) 250 mg in 50 mls @ 50 mls/hr IVPB DAILY [facility] Last Admin: 02/19/17 09:45 Dose: 50 mls/hr Meropenem (Merrem (Restricted To Id) -) 500 mg in 10 mls @ 120 mls/hr IVPUSH Q8H-IV [facility] Last Admin: 02/19/17 09:45 Dose: 120 mls/hr Mirtazapine (Remeron -) 15 mg PO HS [facility] Last Admin: 02/18/17 21:50 Dose: 15 mg Nystatin (Mycostatin Cream -) 1 applic TP BID [facility] Last Admin: 02/19/17 09:46 Dose: 1 applic Pantoprazole Sodium (Protonix Iv) 40 mg IVPUSH DAILY [facility] Last Admin: 02/19/17 09:46 Dose: 40 mg Valproate Sodium (Depakene -) 500 mg PO BID [facility] Last Admin: 02/19/17 09:45 Dose: 500 mg a/p doing poorly-recurrent fevers- ?aspiration given poor mental status f/u cultures continue meropenem/levaquin doing poorly
[2017-02-19] MEDS: MIRTAZAPINE 15 MG TABLET (FP) PO SCH (23:00)
[2017-02-20] MEDS: MEROPENEM 500 MG PUSH 500 MG/10 ML DISP.SYRIN IVPUSH SCH ×3 (03:09→17:17)
[2017-02-20 08:00] LABS: MCH 31.3 pg (25.7-33.7); MCHC 31.6 g/dl (32.0-36.0); MEAN CELL VOLUME 99.1 fl (80-96); MEAN PLT VOLUME 9.9 fl (7.5-11.1); PLATELET COUNT 246 K/MM3 (134-434); RDW 16.8 % (11.6-15.6); WHITE BLOOD COUNT 11.3 K/mm3 (4.0-10.0)
[2017-02-20 08:25] LABS: ALBUMIN 1.2 g/dl (3.4-5.0); ANION GAP 7 (8-16); CALCIUM 7.2 mg/dL (8.5-10.1); CO2 30 mmol/L (21-32); GLUCOSE,RANDOM 64 mg/dL (74-106)
[2017-02-20 08:29] LABS: ALK PHOS 65 U/L (45-117); BILIRUBIN,TOTAL 0.4 mg/dL (0.2-1.0); CREATININE 0.5 mg/dL (0.55-1.02); SGOT/AST 32 U/L (15-37); SGPT/ALT 16 U/L (12-78); TOT PROT 4.9 g/dl (6.4-8.2)
[2017-02-20] MEDS: AMINO ACIDS/PROTEIN HYDROLYS 30 ML LIQUID.PKT PO SCH ×2 (08:45→17:04)
--- NOTE | 2017-02-20 09:49 | PN ---
Progress Note (short form) - Note Progress Note: comfortable on nc today dnr/dni low grade temps cxray with bibasilar infiltrates Vital Signs Period Temp Pulse Resp BP Sys/Han Pulse Ox Last 24 Hr 99.2 F-101.5 F 92-100 18-22 93-127/36-59 100-100 cor-rrr lungs decreased bs at bases abd soft,nt necrotic ulcer on the sacrum ext +edema of the hands CBC, BMP 02/20/17 05:20 02/20/17 05:20 Microbiology 02/18/17 19:30 Blood - Peripheral Venous Blood Culture - Preliminary NO GROWTH OBTAINED AFTER 24 HOURS, INCUBATION TO CONTINUE FOR 4 DAYS. 02/18/17 19:30 Blood - Peripheral Venous Blood Culture - Preliminary NO GROWTH OBTAINED AFTER 24 HOURS, INCUBATION TO CONTINUE FOR 4 DAYS. 02/09/17 13:35 Blood - Peripheral Venous Blood Culture - Final NO GROWTH AFTER 5 DAYS INCUBATION 02/09/17 13:40 Blood - Peripheral Venous Blood Culture - Final NO GROWTH AFTER 5 DAYS INCUBATION 02/13/17 10:00 Urine - Urine [place] Urine Culture - Final NO GROWTH OBTAINED 02/09/17 16:30 Sputum - Endotrachea Suction/Ventilator Gram Stain - Final 02/09/17 16:30 Sputum - Endotrachea Suction/Ventilator Sputum Culture - Final Pseudomonas Aeruginosa 02/09/17 17:00 Urine - Urine [place] Urine Culture - Final NO GROWTH OBTAINED 02/10/17 15:00 Stool Clostridium difficile Antigen (ROME) - Final 02/10/17 15:00 Stool Clostridium difficile Toxin Assay - Final 02/06/17 08:52 Blood - Peripheral Venous Blood Culture - Final NO GROWTH AFTER 5 DAYS INCUBATION 02/06/17 08:52 Blood - Peripheral Venous Blood Culture - Final NO GROWTH AFTER 5 DAYS INCUBATION 02/04/17 15:05 Blood - Peripheral Venous Blood Culture - Final NO GROWTH AFTER 5 DAYS INCUBATION 02/04/17 15:00 Blood - Peripheral Venous Blood Culture - Final NO GROWTH AFTER 5 DAYS INCUBATION 02/04/17 15:53 Urine - Urine [place] Urine Culture - Final Yeast Like Organism a/p doing poorly-recurrent fevers- ?aspiration given poor mental status f/u cultures continue meropenem/levaquin for now no longer hypotensive necrotic sacral ulcer- should have surgery evaluation- ?source of fever overall prognosis is poor
[2017-02-20] MEDS ORDERED: PT OWN MED DRAWER 7, Y5N ONE ×2 (11:42→17:01)
[2017-02-20] MEDS: HEPARIN NA (PORCINE) 5,000 UNITS/ML 1ML VIAL SQ SCH (11:47)
[2017-02-20] MEDS: LEVOFLOXACIN 250 MG IVPB 250 MG/50 ML MG IVPB SCH (11:48)
[2017-02-20] MEDS: VALPROATE SODIUM 250 MG/5 ML UNIT DOSE CUP PO SCH ×2 (11:48→22:15)
[2017-02-20] MEDS: PANTOPRAZOLE SODIUM 40 MG VIAL IVPUSH SCH (11:52)
[2017-02-20] MEDS: NYSTATIN 100,000 UNIT/GM TOPICAL CREAM 15 GM TUBE TP SCH ×2 (11:52→22:15)
[2017-02-20] MEDS: COLLAGENASE CLOSTRIDIUM HIST. 30 GRAMS TUBE TP SCH (11:53)
--- NOTE | 2017-02-20 14:55 | PN ---
Progress Note, Physician History of Present Illness: Pt seen and examined at bedside. She remains lethargic. - Current Medication List Current Medications: Active Medications Acetaminophen (Tylenol -) 650 mg PO Q4H PRN PRN Reason: FEVER OR PAIN Last Admin: 02/19/17 14:28 Dose: 650 mg Amino Acids (Prosource No Carb Liquid Pkt) 30 ml PO BID@0800,1730 [facility] Last Admin: 02/20/17 08:45 Dose: 30 ml Collagenase (Santyl -) 1 applic TP DAILY [facility] Last Admin: 02/20/17 11:53 Dose: 1 applic Heparin Sodium (Porcine) (Heparin -) 5,000 unit SQ BID [facility] Last Admin: 02/20/17 11:47 Dose: 5,000 unit Levofloxacin (Levaquin 250 Mg Premixed Ivpb -) 250 mg in 50 mls @ 50 mls/hr IVPB DAILY [facility] Last Admin: 02/20/17 11:48 Dose: 50 mls/hr Meropenem (Merrem (Restricted To Id) -) 500 mg in 10 mls @ 120 mls/hr IVPUSH Q8H-IV [facility] Last Admin: 02/20/17 10:43 Dose: 120 mls/hr Mirtazapine (Remeron -) 15 mg PO HS [facility] Last Admin: 02/19/17 23:00 Dose: 15 mg Nystatin (Mycostatin Cream -) 1 applic TP BID [facility] Last Admin: 02/20/17 11:52 Dose: 1 applic Pantoprazole Sodium (Protonix Iv) 40 mg IVPUSH DAILY [facility] Last Admin: 02/20/17 11:52 Dose: 40 mg Valproate Sodium (Depakene -) 500 mg PO BID [facility] Last Admin: 02/20/17 11:48 Dose: 500 mg - Objective Vital Signs: Vital Signs Temperature 100.0 F H 02/20/17 13:55 Pulse Rate 96 H 02/20/17 13:55 Respiratory Rate 18 02/20/17 09:15 Blood Pressure 104/44 02/20/17 13:55 O2 Sat by Pulse Oximetry (%) 100 02/19/17 22:00 Constitutional: Yes: Calm Eyes: Yes: Conjunctiva Clear HENT: Yes: Atraumatic Neck: Yes: Supple Cardiovascular: Yes: S1, S2 Respiratory: Yes: On Nasal O2 Gastrointestinal: Yes: Other (peg) Genitourinary: Yes: [place] Present Musculoskeletal: Yes: Muscle Weakness Edema: Yes Edema: LUE: 1+, RUE: 1+, LLE: 1+, RLE: 1+ Neurological: Yes: Lethargy Labs: CBC, BMP 02/20/17 05:20 02/20/17 05:20 INR, PTT INR 1.03 (0.82-1.09) 02/04/17 15:10 Problem List - Problems (1) Acute hypernatremia Code(s): E87.0 - HYPEROSMOLALITY AND HYPERNATREMIA (2) Hyperkalemia Code(s): E87.5 - HYPERKALEMIA (3) Sepsis Code(s): A41.9 - SEPSIS, UNSPECIFIED ORGANISM (4) UTI (urinary tract infection) Code(s): N39.0 - URINARY TRACT INFECTION, SITE NOT SPECIFIED Assessment/Plan Current Medications Generic Name Dose Route Start Last Admin Trade Name Freq PRN Reason Stop Dose Admin Acetaminophen 650 mg 02/17/17 15:59 02/19/17 14:28 Tylenol - PO 650 mg Q4H PRN Administration FEVER OR PAIN Amino Acids 30 ml 02/17/17 17:30 02/20/17 08:45 Prosource No Carb Liquid Pkt PO 30 ml BID@0800,1730 [facility] Administration Collagenase 1 applic 02/18/17 10:00 02/20/17 11:53 Santyl - TP 1 applic DAILY [facility] Administration Heparin Sodium (Porcine) 5,000 unit 02/17/17 22:00 02/20/17 11:47 Heparin - SQ 5,000 unit BID [facility] Administration Levofloxacin 250 mg in 50 mls @ 50 mls/hr 02/18/17 10:00 02/20/17 11:48 Levaquin 250 Mg Premixed Ivpb - IVPB 50 mls/hr DAILY [facility] Administration Meropenem 500 mg in 10 mls @ 120 mls/hr 02/18/17 18:00 02/20/17 10:43 Merrem (Restricted To Id) - IVPUSH 120 mls/hr Q8H-IV [facility] Administration Mirtazapine 15 mg 02/17/17 22:00 02/19/17 23:00 Remeron - PO 15 mg HS [facility] Administration Nystatin 1 applic 02/17/17 22:00 02/20/17 11:52 Mycostatin Cream - TP 1 applic BID [facility] Administration Pantoprazole Sodium 40 mg 02/18/17 10:00 02/20/17 11:52 Protonix Iv IVPUSH 40 mg DAILY [facility] Administration Valproate Sodium 500 mg 02/17/17 22:00 02/20/17 11:48 Depakene - PO 500 mg BID [facility] Administration Impression 1. ARCHANA 2. hypernatremia 3. hyperkalemia - resolved 4. anemia 5. epilepsy 6. hx of subdural hematoma 7. hypotension 8. hypoglycemia 9. acute resp failure requiring intubation 10. hypokalemia Plan - renal function has improved - discussed with family - electrolytes are improved - cont current care - will follow PRN
--- NOTE | 2017-02-20 16:27 | PN ---
Progress Note (short form) - Note Progress Note: Vascular Surgery Pt seen and examined. Dressing changed on sacrum. Sacral ulcer -- with eschar. upon palpation, no pus could be expressed. No signs of any erythema. Pt with unstagable ulcer with eschar. cont santyl. offload area. Rober Arora DO
--- NOTE | 2017-02-20 18:56 | PN ---
Progress Note (short form) - Note Progress Note: NEUROLOGY FOLLOW-UP Events reviewed. Still on Levaquin, meropenem. No seizures noted on depakote 500 BID Daughter describes patient grasping on the left side on command today. Exam: Awake but eyes closed. Follows no commands. Right flaccid hemiparesis. Left side rigid but withdraws to pinch. IMP: Severe left and moderate Right cerebral dysfunction. Known large left subdural hygroma. SUGGEST: Check valproic acid level. Repeat CT of head (C-). Thank you very much, Reece Sotomayor MD
--- NOTE | 2017-02-20 20:05 | PN ---
Progress Note (short form) - Note Progress Note: Subjective: The patient was seen and examined at the bedside, attempts to open eyes to verbal stimulus No longer hypotensive Tmax 101.5 Current Medications Generic Name Dose Route Start Last Admin Trade Name Jacoby PRN Reason Stop Dose Admin Acetaminophen 650 mg 02/17/17 15:59 02/19/17 14:28 Tylenol - PO 650 mg Q4H PRN Administration FEVER OR PAIN Amino Acids 30 ml 02/17/17 17:30 02/20/17 17:04 Prosource No Carb Liquid Pkt PO 30 ml BID@0800,1730 [facility] Administration Collagenase 1 applic 02/18/17 10:00 02/20/17 11:53 Santyl - TP 1 applic DAILY [facility] Administration Heparin Sodium (Porcine) 5,000 unit 02/17/17 22:00 02/20/17 11:47 Heparin - SQ 5,000 unit BID [facility] Administration Levofloxacin 250 mg in 50 mls @ 50 mls/hr 02/18/17 10:00 02/20/17 11:48 Levaquin 250 Mg Premixed Ivpb - IVPB 50 mls/hr DAILY [facility] Administration Meropenem 500 mg in 10 mls @ 120 mls/hr 02/18/17 18:00 02/20/17 17:17 Merrem (Restricted To Id) - IVPUSH 120 mls/hr Q8H-IV [facility] Administration Mirtazapine 15 mg 02/17/17 22:00 02/19/17 23:00 Remeron - PO 15 mg HS [facility] Administration Nystatin 1 applic 02/17/17 22:00 02/20/17 11:52 Mycostatin Cream - TP 1 applic BID [facility] Administration Pantoprazole Sodium 40 mg 02/18/17 10:00 02/20/17 11:52 Protonix Iv IVPUSH 40 mg DAILY [facility] Administration Valproate Sodium 500 mg 02/17/17 22:00 02/20/17 11:48 Depakene - PO 500 mg BID [facility] Administration Objective: Vital Signs Period Temp Pulse Resp BP Sys/Han Pulse Ox Last 24 Hr 99.2 F-101.5 F 92-96 18-18 102-127/36-59 100 Physical Exam General: NAD, poor mental status, opens eyes to some verbal stimuli. Not following commands Lungs: Scattered rhonchi bilaterally Heart: RRR, S1S2 Abd: Soft, non-tender, Peg Ext: + edema CBCD WBC 11.3 K/mm3 (4.0-10.0) H 02/20/17 05:20 RBC 2.20 M/mm3 (3.60-5.2) L 02/20/17 05:20 Hgb 6.9 GM/dL (10.7-15.3) L* 02/20/17 05:20 Hct 21.8 % (32.4-45.2) L 02/20/17 05:20 MCV 99.1 fl (80-96) H 02/20/17 05:20 MCHC 31.6 g/dl (32.0-36.0) L 02/20/17 05:20 RDW 16.8 % (11.6-15.6) H 02/20/17 05:20 Plt Count 246 K/MM3 (134-434) 02/20/17 05:20 MPV 9.9 fl (7.5-11.1) 02/20/17 05:20 CMP Sodium 138 mmol/L (136-145) 02/20/17 05:20 Potassium 4.7 mmol/L (3.5-5.1) 02/20/17 05:20 Chloride 101 mmol/L (98-107) 02/20/17 05:20 Carbon Dioxide 30 mmol/L (21-32) 02/20/17 05:20 Anion Gap 7 (8-16) L 02/20/17 05:20 BUN 29 mg/dL (7-18) H 02/20/17 05:20 Creatinine 0.5 mg/dL (0.55-1.02) L 02/20/17 05:20 Creat Clearance w eGFR > 60 (>60) 02/20/17 05:20 Random Glucose 64 mg/dL (74-106) L D 02/20/17 05:20 Calcium 7.2 mg/dL (8.5-10.1) L 02/20/17 05:20 Total Bilirubin 0.4 mg/dL (0.2-1.0) D 02/20/17 05:20 AST 32 U/L (15-37) 02/20/17 05:20 ALT 16 U/L (12-78) 02/20/17 05:20 Alkaline Phosphatase 65 U/L (45-117) 02/20/17 05:20 Total Protein 4.9 g/dl (6.4-8.2) L 02/20/17 05:20 Albumin 1.2 g/dl (3.4-5.0) L 02/20/17 05:20 CARDIAC ENZYMES Creatine Kinase 490 IU/L (26-192) H 02/04/17 15:10 Troponin I < 0.02 ng/ml (0.00-0.05) 02/04/17 15:10 Microbiology 02/18/17 19:30 Blood - Peripheral Venous Blood Culture - Preliminary NO GROWTH OBTAINED AFTER 48 HOURS, INCUBATION TO CONTINUE FOR 3 DAYS. 02/18/17 19:30 Blood - Peripheral Venous Blood Culture - Preliminary NO GROWTH OBTAINED AFTER 48 HOURS, INCUBATION TO CONTINUE FOR 3 DAYS. 02/18/17 19:30 Urine - Urine [place] Urine Culture - Final Yeast Like Organism 02/09/17 13:35 Blood - Peripheral Venous Blood Culture - Final NO GROWTH AFTER 5 DAYS INCUBATION 02/09/17 13:40 Blood - Peripheral Venous Blood Culture - Final NO GROWTH AFTER 5 DAYS INCUBATION 02/13/17 10:00 Urine - Urine [place] Urine Culture - Final NO GROWTH OBTAINED 02/09/17 16:30 Sputum - Endotrachea Suction/Ventilator Gram Stain - Final 02/09/17 16:30 Sputum - Endotrachea Suction/Ventilator Sputum Culture - Final Pseudomonas Aeruginosa 02/09/17 17:00 Urine - Urine [place] Urine Culture - Final NO GROWTH OBTAINED 02/10/17 15:00 Stool Clostridium difficile Antigen ([facility]OME) - Final 02/10/17 15:00 Stool Clostridium difficile Toxin Assay - Final 02/06/17 08:52 Blood - Peripheral Venous Blood Culture - Final NO GROWTH AFTER 5 DAYS INCUBATION 02/06/17 08:52 Blood - Peripheral Venous Blood Culture - Final NO GROWTH AFTER 5 DAYS INCUBATION 02/04/17 15:05 Blood - Peripheral Venous Blood Culture - Final NO GROWTH AFTER 5 DAYS INCUBATION 02/04/17 15:00 Blood - Peripheral Venous Blood Culture - Final NO GROWTH AFTER 5 DAYS INCUBATION 02/04/17 15:53 Urine - Urine [place] Urine Culture - Final Yeast Like Organism Assessment: This is an 86 year old female with PMHx of subdural hematoma s/p fall (07/2016), HTN, hyperlipidemia, 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 Plan: 1) Acute respiratory failure - Continue Ventimask as needed, attempt to wean - Appreciate pulmonary consult 2) Septic shock 2/2 UTI - Tmax 101.5 today, f/u repeat cultures from yesterday - Possible aspiration? Hold tube feeds - Levaquin (02/13- ) - Continue meropenem - Off pressors, continue to monitor closely - Appreciate ID consult Large b/l buttock wounds - Continue Santyl - Appreciate surgery consult 3) ARCHANA - Resolved 4) Hx of sub arachnoid hemorrhage and subdural hematoma - Head CT reviewed - Continue Depakene, f/u level - Repeat head CT 5) Acute blood loss anemia - Recheck Hgb today - Received 1u PRBC on 02/05 6) F/E/N: - Hold tube feeds as the patient may be aspirating - Monitor electrolytes 7) Prophylaxis: - Heparin 5,000u sq bid 8) Dispo: - Continue to require inpatient care CODE STATUS: DNR/DNI
[2017-02-20 21:44] LABS: BASO % 0.4 % (0-2.0); EOS % 0.5 % (0-4.5); MCH 31.4 pg (25.7-33.7); MCHC 32.1 g/dl (32.0-36.0); MEAN CELL VOLUME 97.8 fl (80-96); MEAN PLT VOLUME 10.1 fl (7.5-11.1); NEUT % 80.2 % (42.8-82.8); PLATELET COUNT 268 K/MM3 (134-434); RDW 16.4 % (11.6-15.6); WHITE BLOOD COUNT 10.7 K/mm3 (4.0-10.0)
[2017-02-20] MEDS: MIRTAZAPINE 15 MG TABLET (FP) PO SCH (22:16)
[2017-02-20] MEDS: ACETAMINOPHEN 325 MG TABLET (FP) PO PRN (22:16)
[2017-02-21] MEDS: MEROPENEM 500 MG PUSH 500 MG/10 ML DISP.SYRIN IVPUSH SCH ×3 (03:00→17:20)
[2017-02-21] MEDS ORDERED: PT OWN MED DRAWER 7, Y5N ONE (03:13)
[2017-02-21 07:44] LABS: MCH 31.3 pg (25.7-33.7); MCHC 32.2 g/dl (32.0-36.0); MEAN CELL VOLUME 97.3 fl (80-96); MEAN PLT VOLUME 9.9 fl (7.5-11.1); PLATELET COUNT 272 K/MM3 (134-434); RDW 16.5 % (11.6-15.6); WHITE BLOOD COUNT 9.7 K/mm3 (4.0-10.0)
[2017-02-21] MEDS: AMINO ACIDS/PROTEIN HYDROLYS 30 ML LIQUID.PKT PO SCH ×2 (08:00→17:20)
[2017-02-21 08:11] LABS: ALBUMIN 1.3 g/dl (3.4-5.0); ANION GAP 8 (8-16); BILIRUBIN,TOTAL 0.5 mg/dL (0.2-1.0); CALCIUM 7.9 mg/dL (8.5-10.1); CO2 30 mmol/L (21-32); CREATININE 0.5 mg/dL (0.55-1.02); GLUCOSE,RANDOM 62 mg/dL (74-106); SGOT/AST 31 U/L (15-37); SGPT/ALT 16 U/L (12-78)
[2017-02-21 08:12] LABS: ALK PHOS 63 U/L (45-117); TOT PROT 5.2 g/dl (6.4-8.2)
[2017-02-21] MEDS: VALPROATE SODIUM 250 MG/5 ML UNIT DOSE CUP PO SCH ×2 (10:46→23:32)
[2017-02-21] MEDS: PANTOPRAZOLE SODIUM 40 MG VIAL IVPUSH SCH (10:47)
[2017-02-21] MEDS: NYSTATIN 100,000 UNIT/GM TOPICAL CREAM 15 GM TUBE TP SCH ×2 (10:47→23:32)
[2017-02-21] MEDS: COLLAGENASE CLOSTRIDIUM HIST. 30 GRAMS TUBE TP SCH (10:47)
[2017-02-21] MEDS: LEVOFLOXACIN 250 MG IVPB 250 MG/50 ML MG IVPB SCH (10:47)
--- NOTE | 2017-02-21 11:03 | PN ---
Progress Note, Physician History of Present Illness: Poorly responsive Breathing non-labored Remains febrile WBC improved - Current Medication List Current Medications: Active Medications Acetaminophen (Tylenol -) 650 mg PO Q4H PRN PRN Reason: FEVER OR PAIN Last Admin: 02/20/17 22:16 Dose: 650 mg Amino Acids (Prosource No Carb Liquid Pkt) 30 ml PO BID@0800,1730 [facility] Last Admin: 02/21/17 08:00 Dose: 30 ml Collagenase (Santyl -) 1 applic TP DAILY [facility] Last Admin: 02/21/17 10:47 Dose: 1 applic Levofloxacin (Levaquin 250 Mg Premixed Ivpb -) 250 mg in 50 mls @ 50 mls/hr IVPB DAILY [facility] Last Admin: 02/21/17 10:47 Dose: 50 mls/hr Meropenem (Merrem (Restricted To Id) -) 500 mg in 10 mls @ 120 mls/hr IVPUSH Q8H-IV [facility] Last Admin: 02/21/17 10:47 Dose: 120 mls/hr Mirtazapine (Remeron -) 15 mg PO HS [facility] Last Admin: 02/20/17 22:16 Dose: 15 mg Nystatin (Mycostatin Cream -) 1 applic TP BID [facility] Last Admin: 02/21/17 10:47 Dose: 1 applic Pantoprazole Sodium (Protonix Iv) 40 mg IVPUSH DAILY [facility] Last Admin: 02/21/17 10:47 Dose: 40 mg Valproate Sodium (Depakene -) 750 mg PO BID [facility] Last Admin: 02/21/17 10:46 Dose: 750 mg - Objective Vital Signs: Vital Signs Temperature 100.0 F H 02/21/17 09:00 Pulse Rate 90 02/21/17 09:00 Respiratory Rate 20 02/21/17 09:00 Blood Pressure 107/53 02/21/17 09:00 O2 Sat by Pulse Oximetry (%) 100 02/21/17 03:58 Constitutional: Yes: No Distress Cardiovascular: Yes: Regular Rate and Rhythm, S1, S2 Respiratory: Yes: Other (+ crepitations, bases) Gastrointestinal: Yes: Normal Bowel Sounds, Soft, Abdomen, Obese. No: Tenderness Edema: Yes Edema: LUE: 2+, RUE: 2+, LLE: 2+, RLE: 2+ Integumentary: Yes: Other (+ sacral decubitus) Labs: CBC, BMP 02/21/17 07:25 02/21/17 07:25 INR, PTT INR 1.03 (0.82-1.09) 02/04/17 15:10 Assessment/Plan Probable aspiration pneumonia Fever Sacral decubitus ulcer Continue meropenem/ levaquin Aspiration precautions
--- NOTE | 2017-02-21 15:58 | PN ---
Progress Note, Physician History of Present Illness: Pt seen and examined at bedside. She remains lethargic. - Current Medication List Current Medications: Active Medications Acetaminophen (Tylenol Oral Solution -) 650 mg GT Q4H PRN PRN Reason: FEVER OR PAIN Amino Acids (Prosource No Carb Liquid Pkt) 30 ml PO BID@0800,1730 [facility] Last Admin: 02/21/17 08:00 Dose: 30 ml Collagenase (Santyl -) 1 applic TP DAILY [facility] Last Admin: 02/21/17 10:47 Dose: 1 applic Levofloxacin (Levaquin 250 Mg Premixed Ivpb -) 250 mg in 50 mls @ 50 mls/hr IVPB DAILY [facility] Last Admin: 02/21/17 10:47 Dose: 50 mls/hr Meropenem (Merrem (Restricted To Id) -) 500 mg in 10 mls @ 120 mls/hr IVPUSH Q8H-IV [facility] Last Admin: 02/21/17 10:47 Dose: 120 mls/hr Mirtazapine (Remeron -) 15 mg PO HS [facility] Last Admin: 02/20/17 22:16 Dose: 15 mg Nystatin (Mycostatin Cream -) 1 applic TP BID [facility] Last Admin: 02/21/17 10:47 Dose: 1 applic Pantoprazole Sodium (Protonix Iv) 40 mg IVPUSH DAILY [facility] Last Admin: 02/21/17 10:47 Dose: 40 mg Valproate Sodium (Depakene -) 750 mg PO BID [facility] Last Admin: 02/21/17 10:46 Dose: 750 mg - Objective Vital Signs: Vital Signs Temperature 99.8 F H 02/21/17 15:16 Pulse Rate 92 H 02/21/17 15:16 Respiratory Rate 18 02/21/17 15:16 Blood Pressure 112/59 02/21/17 15:16 O2 Sat by Pulse Oximetry (%) 98 02/21/17 09:00 Constitutional: Yes: Calm Eyes: Yes: Conjunctiva Clear HENT: Yes: Atraumatic Cardiovascular: Yes: S1, S2 Respiratory: Yes: On Nasal O2 Gastrointestinal: Yes: Other (peg) Genitourinary: Yes: [place] Present Musculoskeletal: Yes: Muscle Weakness Edema: Yes Neurological: Yes: Lethargy Labs: CBC, BMP 02/21/17 07:25 02/21/17 07:25 INR, PTT INR 1.03 (0.82-1.09) 02/04/17 15:10 Problem List - Problems (1) Acute hypernatremia Code(s): E87.0 - HYPEROSMOLALITY AND HYPERNATREMIA (2) Hyperkalemia Code(s): E87.5 - HYPERKALEMIA (3) Sepsis Code(s): A41.9 - SEPSIS, UNSPECIFIED ORGANISM (4) UTI (urinary tract infection) Code(s): N39.0 - URINARY TRACT INFECTION, SITE NOT SPECIFIED Assessment/Plan Current Medications Generic Name Dose Route Start Last Admin Trade Name Freq PRN Reason Stop Dose Admin Acetaminophen 650 mg 02/21/17 14:27 Tylenol Oral Solution - GT Q4H PRN FEVER OR PAIN Amino Acids 30 ml 02/17/17 17:30 02/21/17 08:00 Prosource No Carb Liquid Pkt PO 30 ml BID@0800,1730 [facility] Administration Collagenase 1 applic 02/18/17 10:00 02/21/17 10:47 Santyl - TP 1 applic DAILY [facility] Administration Levofloxacin 250 mg in 50 mls @ 50 mls/hr 02/18/17 10:00 02/21/17 10:47 Levaquin 250 Mg Premixed Ivpb - IVPB 50 mls/hr DAILY [facility] Administration Meropenem 500 mg in 10 mls @ 120 mls/hr 02/18/17 18:00 02/21/17 10:47 Merrem (Restricted To Id) - IVPUSH 120 mls/hr Q8H-IV [facility] Administration Mirtazapine 15 mg 02/17/17 22:00 02/20/17 22:16 Remeron - PO 15 mg HS [facility] Administration Nystatin 1 applic 02/17/17 22:00 02/21/17 10:47 Mycostatin Cream - TP 1 applic BID [facility] Administration Pantoprazole Sodium 40 mg 02/18/17 10:00 02/21/17 10:47 Protonix Iv IVPUSH 40 mg DAILY [facility] Administration Valproate Sodium 750 mg 02/21/17 10:00 02/21/17 10:46 Depakene - PO 750 mg BID [facility] Administration Impression 1. ARCHANA 2. hypernatremia 3. hyperkalemia - resolved 4. anemia 5. epilepsy 6. hx of subdural hematoma 7. hypotension 8. hypoglycemia 9. acute resp failure requiring intubation 10. hypokalemia Plan - family at bedside, care discussed with them - renal function is stable - consider restarting feeds if possible - cont current care - will follow PRN
--- NOTE | 2017-02-21 16:38 | PN ---
Progress Note (short form) - Note Progress Note: Subjective: The patient was seen and examined at the bedside, no longer opening eyes to stimuli Tmax 100.9 Current Medications Generic Name Dose Route Start Last Admin Trade Name Freq PRN Reason Stop Dose Admin Acetaminophen 650 mg 02/21/17 14:27 Tylenol Oral Solution - GT Q4H PRN FEVER OR PAIN Amino Acids 30 ml 02/17/17 17:30 02/21/17 08:00 Prosource No Carb Liquid Pkt PO 30 ml BID@0800,1730 [facility] Administration Collagenase 1 applic 02/18/17 10:00 02/21/17 10:47 Santyl - TP 1 applic DAILY [facility] Administration Levofloxacin 250 mg in 50 mls @ 50 mls/hr 02/18/17 10:00 02/21/17 10:47 Levaquin 250 Mg Premixed Ivpb - IVPB 50 mls/hr DAILY [facility] Administration Meropenem 500 mg in 10 mls @ 120 mls/hr 02/18/17 18:00 02/21/17 10:47 Merrem (Restricted To Id) - IVPUSH 120 mls/hr Q8H-IV [facility] Administration Mirtazapine 15 mg 02/17/17 22:00 02/20/17 22:16 Remeron - PO 15 mg HS [facility] Administration Nystatin 1 applic 02/17/17 22:00 02/21/17 10:47 Mycostatin Cream - TP 1 applic BID [facility] Administration Pantoprazole Sodium 40 mg 02/18/17 10:00 02/21/17 10:47 Protonix Iv IVPUSH 40 mg DAILY [facility] Administration Valproate Sodium 750 mg 02/21/17 10:00 02/21/17 10:46 Depakene - PO 750 mg BID [facility] Administration Objective: Vital Signs Period Temp Pulse Resp BP Sys/Han Pulse Ox Last 24 Hr 99 F-100.9 F 90-92 18-20 103-116/44-59 98-100 Physical Exam General: NAD, no longer opening eyes to any stimulation Lungs: Scattered rhonchi bilaterally Heart: RRR, S1S2 Abd: Soft, non-tender, Peg Ext: + edema CBCD WBC 9.7 K/mm3 (4.0-10.0) 02/21/17 07:25 RBC 2.36 M/mm3 (3.60-5.2) L 02/21/17 07:25 Hgb 7.4 GM/dL (10.7-15.3) L 02/21/17 07:25 Hct 23.0 % (32.4-45.2) L 02/21/17 07:25 MCV 97.3 fl (80-96) H 02/21/17 07:25 MCHC 32.2 g/dl (32.0-36.0) 02/21/17 07:25 RDW 16.5 % (11.6-15.6) H 02/21/17 07:25 Plt Count 272 K/MM3 (134-434) 02/21/17 07:25 MPV 9.9 fl (7.5-11.1) 02/21/17 07:25 CMP Sodium 138 mmol/L (136-145) 02/21/17 07:25 Potassium 4.6 mmol/L (3.5-5.1) 02/21/17 07:25 Chloride 100 mmol/L (98-107) 02/21/17 07:25 Carbon Dioxide 30 mmol/L (21-32) 02/21/17 07:25 Anion Gap 8 (8-16) 02/21/17 07:25 BUN 27 mg/dL (7-18) H 02/21/17 07:25 Creatinine 0.5 mg/dL (0.55-1.02) L 02/21/17 07:25 Creat Clearance w eGFR > 60 (>60) 02/21/17 07:25 Random Glucose 62 mg/dL (74-106) L 02/21/17 07:25 Calcium 7.9 mg/dL (8.5-10.1) L 02/21/17 07:25 Total Bilirubin 0.5 mg/dL (0.2-1.0) D 02/21/17 07:25 AST 31 U/L (15-37) 02/21/17 07:25 ALT 16 U/L (12-78) 02/21/17 07:25 Alkaline Phosphatase 63 U/L (45-117) 02/21/17 07:25 Total Protein 5.2 g/dl (6.4-8.2) L 02/21/17 07:25 Albumin 1.3 g/dl (3.4-5.0) L 02/21/17 07:25 CARDIAC ENZYMES Creatine Kinase 490 IU/L (26-192) H 02/04/17 15:10 Troponin I < 0.02 ng/ml (0.00-0.05) 02/04/17 15:10 Microbiology 02/18/17 19:30 Blood - Peripheral Venous Blood Culture - Preliminary NO GROWTH OBTAINED AFTER 48 HOURS, INCUBATION TO CONTINUE FOR 3 DAYS. 02/18/17 19:30 Blood - Peripheral Venous Blood Culture - Preliminary NO GROWTH OBTAINED AFTER 48 HOURS, INCUBATION TO CONTINUE FOR 3 DAYS. 02/18/17 19:30 Urine - Urine [place] Urine Culture - Final Yeast Like Organism 02/09/17 13:35 Blood - Peripheral Venous Blood Culture - Final NO GROWTH AFTER 5 DAYS INCUBATION 02/09/17 13:40 Blood - Peripheral Venous Blood Culture - Final NO GROWTH AFTER 5 DAYS INCUBATION 02/13/17 10:00 Urine - Urine [place] Urine Culture - Final NO GROWTH OBTAINED 02/09/17 16:30 Sputum - Endotrachea Suction/Ventilator Gram Stain - Final 02/09/17 16:30 Sputum - Endotrachea Suction/Ventilator Sputum Culture - Final Pseudomonas Aeruginosa 02/09/17 17:00 Urine - Urine [place] Urine Culture - Final NO GROWTH OBTAINED 02/10/17 15:00 Stool Clostridium difficile Antigen (ROME) - Final 02/10/17 15:00 Stool Clostridium difficile Toxin Assay - Final 02/06/17 08:52 Blood - Peripheral Venous Blood Culture - Final NO GROWTH AFTER 5 DAYS INCUBATION 02/06/17 08:52 Blood - Peripheral Venous Blood Culture - Final NO GROWTH AFTER 5 DAYS INCUBATION 02/04/17 15:05 Blood - Peripheral Venous Blood Culture - Final NO GROWTH AFTER 5 DAYS INCUBATION 02/04/17 15:00 Blood - Peripheral Venous Blood Culture - Final NO GROWTH AFTER 5 DAYS INCUBATION 02/04/17 15:53 Urine - Urine [place] Urine Culture - Final Yeast Like Organism Assessment: This is an 86 year old female with PMHx of subdural hematoma s/p fall (07/2016), HTN, hyperlipidemia, 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 Plan: 1) Acute respiratory failure - Improving, now on NC - Appreciate pulmonary consult 2) Septic shock 2/2 UTI - Tmax 100.9 - Levaquin (02/13- ) - Continue meropenem - Off pressors, continue to monitor closely - Appreciate ID consult Large b/l buttock wounds - Continue Santyl - Appreciate surgery consult 3) ARCHANA - Resolved 4) Hx of sub arachnoid hemorrhage and subdural hematoma - Increased Depakene to 750mg bid - Repeat head CT reviewed 5) Acute blood loss anemia - Hgb stable, continue to trend - Received 1u PRBC on 02/05 6) F/E/N: - Restart tube feeds at lower rate and monitor closely for aspiration - Monitor electrolytes 7) Prophylaxis: - Heparin 5,000u sq bid 8) Dispo: - Continue to require inpatient care - Discussed with daughter using [facility] #[id number]. Daughter would like to continue all care as she reports the patient "is fighting for her life and we feel we need to fight for her too". Family is aware that the patient has a poor prognosis but they would like to "extend her life as much as possible", however the daughter still states they do not want intubation or chest compressions. CODE STATUS: DNR/DNI Visit type - Emergency Visit Emergency Visit: Yes ED Registration Date: 02/04/17 Care time: The patient presented to the Emergency Department on the above date and was hospitalized for further evaluation of their emergent condition. - New Patient This patient is new to me today: No - Critical Care Critical Care patient: No
[2017-02-21] MEDS: MIRTAZAPINE 15 MG TABLET (FP) PO SCH (23:32)
[2017-02-22] MEDS: MEROPENEM 500 MG PUSH 500 MG/10 ML DISP.SYRIN IVPUSH SCH ×3 (01:41→17:45)
[2017-02-22] MEDS: AMINO ACIDS/PROTEIN HYDROLYS 30 ML LIQUID.PKT PO SCH ×2 (08:32→17:45)
[2017-02-22 08:47] LABS: BASO % 0.2 % (0-2.0); EOS % 1.1 % (0-4.5); MEAN CELL VOLUME 96.8 fl (80-96); MEAN PLT VOLUME 9.4 fl (7.5-11.1); NEUT % 80.1 % (42.8-82.8); PLATELET COUNT 267 K/MM3 (134-434); RDW 16.3 % (11.6-15.6); WHITE BLOOD COUNT 8.6 K/mm3 (4.0-10.0)
[2017-02-22] MEDS: NYSTATIN 100,000 UNIT/GM TOPICAL CREAM 15 GM TUBE TP SCH ×2 (10:32→23:27)
[2017-02-22] MEDS: COLLAGENASE CLOSTRIDIUM HIST. 30 GRAMS TUBE TP SCH (10:32)
[2017-02-22] MEDS: LEVOFLOXACIN 250 MG IVPB 250 MG/50 ML MG IVPB SCH (10:32)
[2017-02-22] MEDS: VALPROATE SODIUM 250 MG/5 ML UNIT DOSE CUP PO SCH ×2 (10:32→23:25)
[2017-02-22] MEDS: PANTOPRAZOLE SODIUM 40 MG VIAL IVPUSH SCH (10:32)
--- NOTE | 2017-02-22 14:25 | PN ---
Progress Note (short form) - Note Progress Note: Subjective: The patient was seen and examined at the bedside, opened eyes once to foot palpation Afebrile Current Medications Generic Name Dose Route Start Last Admin Trade Name Freq PRN Reason Stop Dose Admin Acetaminophen 650 mg 02/21/17 14:27 Tylenol Oral Solution - GT Q4H PRN FEVER OR PAIN Amino Acids 30 ml 02/17/17 17:30 02/22/17 08:32 Prosource No Carb Liquid Pkt PO 30 ml BID@0800,1730 [facility] Administration Collagenase 1 applic 02/18/17 10:00 02/22/17 10:32 Santyl - TP 1 applic DAILY [facility] Administration Levofloxacin 250 mg in 50 mls @ 50 mls/hr 02/18/17 10:00 02/22/17 10:32 Levaquin 250 Mg Premixed Ivpb - IVPB 50 mls/hr DAILY [facility] Administration Meropenem 500 mg in 10 mls @ 120 mls/hr 02/18/17 18:00 02/22/17 10:32 Merrem (Restricted To Id) - IVPUSH 120 mls/hr Q8H-IV [facility] Administration Mirtazapine 15 mg 02/17/17 22:00 02/21/17 23:32 Remeron - PO 15 mg HS [facility] Administration Nystatin 1 applic 02/17/17 22:00 02/22/17 10:32 Mycostatin Cream - TP 1 applic BID [facility] Administration Pantoprazole Sodium 40 mg 02/18/17 10:00 02/22/17 10:32 Protonix Iv IVPUSH 40 mg DAILY [facility] Administration Valproate Sodium 750 mg 02/21/17 10:00 02/22/17 10:32 Depakene - PO 750 mg BID [facility] Administration Objective: Vital Signs Period Temp Pulse Resp BP Sys/Han Pulse Ox Last 24 Hr 98.1 F-99.8 F 82-92 18-20 90-112/48-59 98-99 Physical Exam General: NAD, breathing non-labored Lungs: Scattered rhonchi bilaterally Heart: RRR, S1S2 Abd: Soft, non-tender, Peg Ext: + edema CBCD WBC 8.6 K/mm3 (4.0-10.0) 02/22/17 07:55 RBC 2.40 M/mm3 (3.60-5.2) L 02/22/17 07:55 Hgb 7.4 GM/dL (10.7-15.3) L 02/22/17 07:55 Hct 23.3 % (32.4-45.2) L 02/22/17 07:55 MCV 96.8 fl (80-96) H 02/22/17 07:55 MCHC 32.0 g/dl (32.0-36.0) 02/22/17 07:55 RDW 16.3 % (11.6-15.6) H 02/22/17 07:55 Plt Count 267 K/MM3 (134-434) 02/22/17 07:55 MPV 9.4 fl (7.5-11.1) 02/22/17 07:55 CMP Sodium 138 mmol/L (136-145) 02/21/17 07:25 Potassium 4.6 mmol/L (3.5-5.1) 02/21/17 07:25 Chloride 100 mmol/L (98-107) 02/21/17 07:25 Carbon Dioxide 30 mmol/L (21-32) 02/21/17 07:25 Anion Gap 8 (8-16) 02/21/17 07:25 BUN 27 mg/dL (7-18) H 02/21/17 07:25 Creatinine 0.5 mg/dL (0.55-1.02) L 02/21/17 07:25 Creat Clearance w eGFR > 60 (>60) 02/21/17 07:25 Random Glucose 62 mg/dL (74-106) L 02/21/17 07:25 Calcium 7.9 mg/dL (8.5-10.1) L 02/21/17 07:25 Total Bilirubin 0.5 mg/dL (0.2-1.0) D 02/21/17 07:25 AST 31 U/L (15-37) 02/21/17 07:25 ALT 16 U/L (12-78) 02/21/17 07:25 Alkaline Phosphatase 63 U/L (45-117) 02/21/17 07:25 Total Protein 5.2 g/dl (6.4-8.2) L 02/21/17 07:25 Albumin 1.3 g/dl (3.4-5.0) L 02/21/17 07:25 CARDIAC ENZYMES Creatine Kinase 490 IU/L (26-192) H 02/04/17 15:10 Troponin I < 0.02 ng/ml (0.00-0.05) 02/04/17 15:10 Microbiology 02/18/17 19:30 Blood - Peripheral Venous Blood Culture - Preliminary NO GROWTH OBTAINED AFTER 72 HOURS, INCUBATION TO CONTINUE FOR 2 DAYS. 02/18/17 19:30 Blood - Peripheral Venous Blood Culture - Preliminary NO GROWTH OBTAINED AFTER 72 HOURS, INCUBATION TO CONTINUE FOR 2 DAYS. 02/18/17 19:30 Urine - Urine [place] Urine Culture - Final Yeast Like Organism 02/09/17 13:35 Blood - Peripheral Venous Blood Culture - Final NO GROWTH AFTER 5 DAYS INCUBATION 02/09/17 13:40 Blood - Peripheral Venous Blood Culture - Final NO GROWTH AFTER 5 DAYS INCUBATION 02/13/17 10:00 Urine - Urine [place] Urine Culture - Final NO GROWTH OBTAINED 02/09/17 16:30 Sputum - Endotrachea Suction/Ventilator Gram Stain - Final 02/09/17 16:30 Sputum - Endotrachea Suction/Ventilator Sputum Culture - Final Pseudomonas Aeruginosa 02/09/17 17:00 Urine - Urine [place] Urine Culture - Final NO GROWTH OBTAINED 02/10/17 15:00 Stool Clostridium difficile Antigen (ROME) - Final 02/10/17 15:00 Stool Clostridium difficile Toxin Assay - Final 02/06/17 08:52 Blood - Peripheral Venous Blood Culture - Final NO GROWTH AFTER 5 DAYS INCUBATION 02/06/17 08:52 Blood - Peripheral Venous Blood Culture - Final NO GROWTH AFTER 5 DAYS INCUBATION 02/04/17 15:05 Blood - Peripheral Venous Blood Culture - Final NO GROWTH AFTER 5 DAYS INCUBATION 02/04/17 15:00 Blood - Peripheral Venous Blood Culture - Final NO GROWTH AFTER 5 DAYS INCUBATION 02/04/17 15:53 Urine - Urine [place] Urine Culture - Final Yeast Like Organism Assessment: This is an 86 year old female with PMHx of subdural hematoma s/p fall (07/2016), HTN, hyperlipidemia, 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 Plan: 1) Acute respiratory failure - Breathing non-labored - Improving, now on NC - Appreciate pulmonary consult 2) Septic shock 2/2 UTI - Tmax 100.9 - Levaquin (02/13- ) - Continue meropenem - Off pressors, continue to monitor closely - Appreciate ID consult Large sacral unstagable wound - No erythema, no pus expressed - Continue Santyl - Appreciate surgery consult 3) ARCHANA - Resolved 4) Hx of sub arachnoid hemorrhage and subdural hematoma - Increased Depakene to 750mg bid, rechecked leve this AM and it was 14.1. Discussed with Dr. Jaimes, who recommends continuing current dose as the patient is not having any convulsive events. Recheck valproic acid tomorrow morning and if it remains <50, increase Depakene to 1g gt bid. - Repeat head CT reviewed 5) Acute blood loss anemia - Hgb stable, continue to trend - Received 1u PRBC on 02/05 6) F/E/N: - Resumed tube feeds, tolerating it well - Monitor electrolytes 7) Prophylaxis: - Heparin 5,000u sq bid 8) Dispo: - Continue to require inpatient care Prognosis poor CODE STATUS: DNR/DNI Visit type - Emergency Visit Emergency Visit: Yes ED Registration Date: 02/04/17 Care time: The patient presented to the Emergency Department on the above date and was hospitalized for further evaluation of their emergent condition. - New Patient This patient is new to me today: No - Critical Care Critical Care patient: No
--- NOTE | 2017-02-22 14:27 | PN ---
Progress Note, Physician History of Present Illness: Pt seen and examined at bedside. She remains lethargic. Feeds are started. - Current Medication List Current Medications: Active Medications Acetaminophen (Tylenol Oral Solution -) 650 mg GT Q4H PRN PRN Reason: FEVER OR PAIN Amino Acids (Prosource No Carb Liquid Pkt) 30 ml PO BID@0800,1730 [facility] [place] Last Admin: 02/22/17 08:32 Dose: 30 ml Collagenase (Santyl -) 1 applic TP DAILY [facility] Last Admin: 02/22/17 10:32 Dose: 1 applic Levofloxacin (Levaquin 250 Mg Premixed Ivpb -) 250 mg in 50 mls @ 50 mls/hr IVPB DAILY [facility] [place] Last Admin: 02/22/17 10:32 Dose: 50 mls/hr Meropenem (Merrem (Restricted To Id) -) 500 mg in 10 mls @ 120 mls/hr IVPUSH Q8H-IV [facility] Last Admin: 02/22/17 10:32 Dose: 120 mls/hr Mirtazapine (Remeron -) 15 mg PO HS [facility] [place] Last Admin: 02/21/17 23:32 Dose: 15 mg Nystatin (Mycostatin Cream -) 1 applic TP BID [facility] [place] Last Admin: 02/22/17 10:32 Dose: 1 applic Pantoprazole Sodium (Protonix Iv) 40 mg IVPUSH DAILY [facility] [place] Last Admin: 02/22/17 10:32 Dose: 40 mg Valproate Sodium (Depakene -) 750 mg PO BID [facility] [place] Last Admin: 02/22/17 10:32 Dose: 750 mg - Objective Vital Signs: Vital Signs Temperature 98.1 F 02/22/17 06:00 Pulse Rate 88 02/22/17 10:00 Respiratory Rate 20 02/22/17 10:00 Blood Pressure 112/53 02/22/17 10:00 O2 Sat by Pulse Oximetry (%) 99 02/22/17 10:00 Constitutional: Yes: Calm Eyes: Yes: Conjunctiva Clear HENT: Yes: Atraumatic Neck: Yes: Supple Cardiovascular: Yes: S1, S2 Respiratory: Yes: On Nasal O2 Gastrointestinal: Yes: Soft, Other (peg) Genitourinary: Yes: Incontinence Musculoskeletal: Yes: Muscle Weakness Edema: Yes Neurological: Yes: Lethargy Psychiatric: Yes: Oriented Labs: CBC, BMP 02/22/17 07:55 02/21/17 07:25 INR, PTT INR 1.03 (0.82-1.09) 02/04/17 15:10 Problem List - Problems (1) Acute hypernatremia Code(s): E87.0 - HYPEROSMOLALITY AND HYPERNATREMIA (2) Hyperkalemia Code(s): E87.5 - HYPERKALEMIA (3) Sepsis Code(s): A41.9 - SEPSIS, UNSPECIFIED ORGANISM (4) UTI (urinary tract infection) Code(s): N39.0 - URINARY TRACT INFECTION, SITE NOT SPECIFIED Assessment/Plan Current Medications Generic Name Dose Route Start Last Admin Trade Name Freq PRN Reason Stop Dose Admin Acetaminophen 650 mg 02/21/17 14:27 Tylenol Oral Solution - GT Q4H PRN FEVER OR PAIN Amino Acids 30 ml 02/17/17 17:30 02/22/17 08:32 Prosource No Carb Liquid Pkt PO 30 ml BID@0800,1730 [facility] Administration Collagenase 1 applic 02/18/17 10:00 02/22/17 10:32 Santyl - TP 1 applic DAILY [facility] Administration Levofloxacin 250 mg in 50 mls @ 50 mls/hr 02/18/17 10:00 02/22/17 10:32 Levaquin 250 Mg Premixed Ivpb - IVPB 50 mls/hr DAILY [facility] Administration Meropenem 500 mg in 10 mls @ 120 mls/hr 02/18/17 18:00 02/22/17 10:32 Merrem (Restricted To Id) - IVPUSH 120 mls/hr Q8H-IV [facility] Administration Mirtazapine 15 mg 02/17/17 22:00 02/21/17 23:32 Remeron - PO 15 mg HS [facility] Administration Nystatin 1 applic 02/17/17 22:00 02/22/17 10:32 Mycostatin Cream - TP 1 applic BID [facility] Administration Pantoprazole Sodium 40 mg 02/18/17 10:00 02/22/17 10:32 Protonix Iv IVPUSH 40 mg DAILY [facility] Administration Valproate Sodium 750 mg 02/21/17 10:00 02/22/17 10:32 Depakene - PO 750 mg BID [facility] Administration Impression 1. ARCHANA 2. hypernatremia 3. hyperkalemia - resolved 4. anemia 5. epilepsy 6. hx of subdural hematoma 7. hypotension 8. hypoglycemia 9. acute resp failure requiring intubation 10. hypokalemia Plan - renal function stabilizing - BUN is elevated out of proportion to creatinine - pt is anemic, monitor hg - monitor lytes while on feeds - discussed with family - cont current care - will follow PRN
[2017-02-22] MEDS: MIRTAZAPINE 15 MG TABLET (FP) PO SCH (23:24)
[2017-02-22] MEDS: BACITRACIN 15 GM TUBE TOPICAL OINTMENT TP SCH (23:27)
[2017-02-23] MEDS: MEROPENEM 500 MG PUSH 500 MG/10 ML DISP.SYRIN IVPUSH SCH ×3 (02:46→18:24)
[2017-02-23] MEDS: AMINO ACIDS/PROTEIN HYDROLYS 30 ML LIQUID.PKT PO SCH ×2 (09:15→17:07)
[2017-02-23] MEDS: PANTOPRAZOLE SODIUM 40 MG VIAL IVPUSH SCH (09:16)
[2017-02-23] MEDS: LEVOFLOXACIN 250 MG IVPB 250 MG/50 ML MG IVPB SCH (09:16)
[2017-02-23] MEDS: VALPROATE SODIUM 250 MG/5 ML UNIT DOSE CUP PO SCH ×3 (09:16→23:05)
[2017-02-23] MEDS: BACITRACIN 15 GM TUBE TOPICAL OINTMENT TP SCH ×2 (09:33→23:05)
[2017-02-23 09:41] LABS: BASO % 0.2 % (0-2.0); EOS % 0.3 % (0-4.5); MCH 31.1 pg (25.7-33.7); MEAN CELL VOLUME 97.2 fl (80-96); MEAN PLT VOLUME 9.4 fl (7.5-11.1); NEUT % 82.3 % (42.8-82.8); PLATELET COUNT 267 K/MM3 (134-434); WHITE BLOOD COUNT 10.6 K/mm3 (4.0-10.0)
[2017-02-23] MEDS ORDERED: PT OWN MED DRAWER 7, Y5N ONE ×3 (10:00→18:19)
[2017-02-23] MEDS: NYSTATIN 100,000 UNIT/GM TOPICAL CREAM 15 GM TUBE TP SCH ×2 (10:02→23:05)
[2017-02-23] MEDS: COLLAGENASE CLOSTRIDIUM HIST. 30 GRAMS TUBE TP SCH (10:04)
[2017-02-23] MEDS ORDERED: SODIUM CHLORIDE 500 ML IV STA ×2 (10:33→14:10)
--- NOTE | 2017-02-23 10:34 | PN ---
Physical Exam: SUBJECTIVE: Patient seen and examined at bedside. OBJECTIVE: Vital Signs Period Temp Pulse Resp BP Sys/Han Pulse Ox Last 24 Hr 97.6 F-100.7 F 89-98 20-22 87-114/51-67 99 GENERAL/NEURO: The patient is somnolent, opens eyes to voice, does not follow commands. LUNGS: Labored breathing, lungs CTA HEART: Regular rate and rhythm, S1, S2 ABDOMEN: Soft, nontender, nondistended, hypoactive bowel sounds; PEG tube in place, skin intact UPPER EXTREMITIES: 2+ pulses, warm, well-perfused, 2+ edema bilaterally LOWER EXTREMITIES: 1+ pulses, warm, well-perfused, no edema Laboratory Results - last 24 hr 02/23/17 02/23/17 09:00 09:00 WBC 10.6 H RBC 2.25 L Hgb 7.0 L Hct 21.9 L MCV 97.2 H MCH 31.1 MCHC 32.0 RDW 16.0 H Plt Count 267 MPV 9.4 Neutrophils % 82.3 Lymphocytes % 7.6 L Monocytes % 9.6 Eosinophils % 0.3 Basophils % 0.2 Valproic Acid 14.588 L Active Medications Generic Name Dose Route Start Last Admin Trade Name Freq PRN Reason Stop Dose Admin Acetaminophen 650 mg 02/21/17 14:27 Tylenol Oral Solution - GT Q4H PRN FEVER OR PAIN Amino Acids 30 ml 02/17/17 17:30 02/23/17 09:15 Prosource No Carb Liquid Pkt PO 30 ml BID@0800,1730 [facility] Administration Bacitracin 1 applic 02/22/17 22:00 02/23/17 09:33 Bacitracin - TP 1 applic BID [facility] Administration Collagenase 1 applic 02/18/17 10:00 02/23/17 10:04 Santyl - TP 1 applic DAILY [facility] Administration Levofloxacin 250 mg in 50 mls @ 50 mls/hr 02/18/17 10:00 02/23/17 09:16 Levaquin 250 Mg Premixed Ivpb - IVPB 50 mls/hr DAILY [facility] Administration Meropenem 500 mg in 10 mls @ 120 mls/hr 02/18/17 18:00 02/23/17 10:04 Merrem (Restricted To Id) - IVPUSH 120 mls/hr Q8H-IV [facility] Administration Sodium Chloride 500 mls @ 250 mls/hr 02/23/17 10:33 Normal Saline - IV 02/23/17 12:32 ASDIR STA Mirtazapine 15 mg 02/17/17 22:00 02/22/17 23:24 Remeron - PO 15 mg HS [facility] Administration Nystatin 1 applic 02/17/17 22:00 02/22/17 23:27 Mycostatin Cream - TP 1 applic BID [facility] Administration Pantoprazole Sodium 40 mg 02/18/17 10:00 02/23/17 09:16 Protonix Iv IVPUSH 40 mg DAILY [facility] Administration Valproate Sodium 750 mg 02/21/17 10:00 02/23/17 09:16 Depakene - PO 750 mg BID [facility] Administration ASSESSMENT/PLAN 86 year old female with PMH significant for HTN, HLD, subdural hematoma (07/2016 ) complicated by seizure, subarachnoid hemorrhage (11/2016), admitted for sepsis secondary to UTI. Septic shock secondary to UTI --Tm 101.3 and hypotensive --fluid boluses 500cc x 2 with good response --remains off pressors Large sacral unstageable wound --daily collagenase ARCHANA, resolved h/o Subarachnoid hemorrhage and subdural hematoma --increased valproate to 1g BID Acute blood loss anemia --last transfused --hgb 7.0, continue to trend F/E/N: - Resumed tube feeds, tolerating it well - Monitor electrolytes Prophylaxis: - Heparin 5,000u sq bid Dispo: - Continue to require inpatient care Prognosis poor CODE STATUS: DNR/DNI Visit type - Emergency Visit Emergency Visit: Yes ED Registration Date: 02/04/17 Care time: The patient presented to the Emergency Department on the above date and was hospitalized for further evaluation of their emergent condition. - New Patient This patient is new to me today: Yes Date on this admission: 02/26/17 - Critical Care Critical Care patient: No
[2017-02-23] MEDS: ACETAMINOPHEN 650 MG/20.3 ML ORAL SOLUTION (CUPS) GT PRN (11:32)
[2017-02-23 13:40] LABS: ALBUMIN 1.2 g/dl (3.4-5.0); ANION GAP 6 (8-16); CALCIUM 7.5 mg/dL (8.5-10.1); CO2 31 mmol/L (21-32); CREATININE 0.5 mg/dL (0.55-1.02); GLUCOSE,RANDOM 123 mg/dL (74-106); MAGNESIUM 1.6 mg/dL (1.8-2.4); SGOT/AST 23 U/L (15-37); SGPT/ALT 14 U/L (12-78)
[2017-02-23 13:41] LABS: ALK PHOS 53 U/L (45-117); BILIRUBIN,TOTAL 0.4 mg/dL (0.2-1.0); TOT PROT 4.9 g/dl (6.4-8.2)
--- NOTE | 2017-02-23 14:06 | PN ---
Progress Note, Physician History of Present Illness: Pt seen and examined at bedside. She remains lethargic. Pt is hypotensive and required several saline boluses. - Current Medication List Current Medications: Active Medications Acetaminophen (Tylenol Oral Solution -) 650 mg GT Q4H PRN PRN Reason: FEVER OR PAIN Last Admin: 02/23/17 11:32 Dose: 650 mg Amino Acids (Prosource No Carb Liquid Pkt) 30 ml PO BID@0800,1730 [facility] Last Admin: 02/23/17 09:15 Dose: 30 ml Bacitracin (Bacitracin -) 1 applic TP BID [facility] Last Admin: 02/23/17 09:33 Dose: 1 applic Collagenase (Santyl -) 1 applic TP DAILY [facility] Last Admin: 02/23/17 10:04 Dose: 1 applic Levofloxacin (Levaquin 250 Mg Premixed Ivpb -) 250 mg in 50 mls @ 50 mls/hr IVPB DAILY [facility] Last Admin: 02/23/17 09:16 Dose: 50 mls/hr Meropenem (Merrem (Restricted To Id) -) 500 mg in 10 mls @ 120 mls/hr IVPUSH Q8H-IV [facility] Last Admin: 02/23/17 10:04 Dose: 120 mls/hr Sodium Chloride (Normal Saline -) 500 mls @ 250 mls/hr IV ASDIR STA Stop: 02/23/17 14:48 Ibuprofen (Motrin Oral Suspension -) 200 mg PO Q4H PRN PRN Reason: FEVER Mirtazapine (Remeron -) 15 mg PO HS [facility] Last Admin: 02/22/17 23:24 Dose: 15 mg Nystatin (Mycostatin Cream -) 1 applic TP BID [facility] Last Admin: 02/23/17 10:02 Dose: 1 applic Pantoprazole Sodium (Protonix Iv) 40 mg IVPUSH DAILY [facility] Last Admin: 02/23/17 09:16 Dose: 40 mg Valproate Sodium (Depakene -) 1,000 mg PO BID [facility] - Objective Vital Signs: Vital Signs Temperature 100.7 F H 02/23/17 13:00 Pulse Rate 92 H 02/23/17 13:00 Respiratory Rate 20 02/23/17 13:00 Blood Pressure 97/46 02/23/17 13:00 O2 Sat by Pulse Oximetry (%) 99 02/22/17 21:00 Constitutional: Yes: Calm Eyes: Yes: Conjunctiva Clear HENT: Yes: Atraumatic Neck: Yes: Supple Cardiovascular: Yes: S1, S2 Respiratory: Yes: Rhonchi Gastrointestinal: Yes: Soft, Other (peg) Genitourinary: Yes: Incontinence Edema: Yes Edema: LUE: 2+, RUE: 2+, LLE: Trace, RLE: Trace Neurological: Yes: Lethargy Labs: CBC, BMP 02/23/17 09:00 02/23/17 12:30 INR, PTT INR 1.03 (0.82-1.09) 02/04/17 15:10 Problem List - Problems (1) Acute hypernatremia Code(s): E87.0 - HYPEROSMOLALITY AND HYPERNATREMIA (2) Hyperkalemia Code(s): E87.5 - HYPERKALEMIA (3) Sepsis Code(s): A41.9 - SEPSIS, UNSPECIFIED ORGANISM (4) UTI (urinary tract infection) Code(s): N39.0 - URINARY TRACT INFECTION, SITE NOT SPECIFIED Assessment/Plan Current Medications Generic Name Dose Route Start Last Admin Trade Name Freq PRN Reason Stop Dose Admin Acetaminophen 650 mg 02/21/17 14:27 02/23/17 11:32 Tylenol Oral Solution - GT 650 mg Q4H PRN Administration FEVER OR PAIN Amino Acids 30 ml 02/17/17 17:30 02/23/17 09:15 Prosource No Carb Liquid Pkt PO 30 ml BID@0800,1730 [facility] Administration Bacitracin 1 applic 02/22/17 22:00 02/23/17 09:33 Bacitracin - TP 1 applic BID [facility] Administration Collagenase 1 applic 02/18/17 10:00 02/23/17 10:04 Santyl - TP 1 applic DAILY [facility] Administration Levofloxacin 250 mg in 50 mls @ 50 mls/hr 02/18/17 10:00 02/23/17 09:16 Levaquin 250 Mg Premixed Ivpb - IVPB 50 mls/hr DAILY [facility] Administration Meropenem 500 mg in 10 mls @ 120 mls/hr 02/18/17 18:00 02/23/17 10:04 Merrem (Restricted To Id) - IVPUSH 120 mls/hr Q8H-IV [facility] Administration Sodium Chloride 500 mls @ 250 mls/hr 02/23/17 12:49 Normal Saline - IV 02/23/17 14:48 ASDIR STA Ibuprofen 200 mg 02/23/17 12:45 Motrin Oral Suspension - PO Q4H PRN FEVER Mirtazapine 15 mg 02/17/17 22:00 02/22/17 23:24 Remeron - PO 15 mg HS [facility] Administration Nystatin 1 applic 02/17/17 22:00 02/23/17 10:02 Mycostatin Cream - TP 1 applic BID [facility] Administration Pantoprazole Sodium 40 mg 02/18/17 10:00 02/23/17 09:16 Protonix Iv IVPUSH 40 mg DAILY [facility] Administration Valproate Sodium 1,000 mg 02/23/17 12:31 Depakene - PO BID [facility] Impression 1. ARCHANA 2. hypernatremia 3. hyperkalemia - resolved 4. anemia 5. epilepsy 6. hx of subdural hematoma 7. hypotension 8. hypoglycemia 9. acute resp failure requiring intubation 10. hypokalemia Plan - cont to monitor renal function - pt is hypotensive requiring saline boluses - unable to diurese - monitor hg - pt tolerating feeds - cont current care - will follow PRN
[2017-02-23] MEDS: MIRTAZAPINE 15 MG TABLET (FP) PO SCH (23:05)
[2017-02-23] MEDS: IBUPROFEN 100 MG/5 ML UNIT DOSE CUPS PO PRN (23:05)
[2017-02-24] MEDS: MEROPENEM 500 MG PUSH 500 MG/10 ML DISP.SYRIN IVPUSH SCH ×3 (03:03→17:34)
[2017-02-24 09:53] LABS: BASO % 0.5 % (0-2.0); EOS % 2.6 % (0-4.5); MCH 31.1 pg (25.7-33.7); MCHC 31.9 g/dl (32.0-36.0); MEAN CELL VOLUME 97.7 fl (80-96); MEAN PLT VOLUME 9.5 fl (7.5-11.1); NEUT % 75.8 % (42.8-82.8); PLATELET COUNT 279 K/MM3 (134-434); RDW 16.3 % (11.6-15.6); WHITE BLOOD COUNT 7.8 K/mm3 (4.0-10.0)
[2017-02-24 10:17] LABS: ALBUMIN 1.2 g/dl (3.4-5.0); ANION GAP 8 (8-16); CALCIUM 7.1 mg/dL (8.5-10.1); CO2 28 mmol/L (21-32); GLUCOSE,RANDOM 100 mg/dL (74-106); MAGNESIUM 1.9 mg/dL (1.8-2.4)
[2017-02-24 10:52] LABS: ALK PHOS 58 U/L (45-117); BILIRUBIN,TOTAL 0.4 mg/dL (0.2-1.0); CREATININE 0.5 mg/dL (0.55-1.02); SGOT/AST 20 U/L (15-37); SGPT/ALT 14 U/L (12-78); TOT PROT 5.2 g/dl (6.4-8.2)
[2017-02-24] MEDS ORDERED: PT OWN MED DRAWER 7, Y5N ONE ×2 (12:04→17:31)
[2017-02-24] MEDS: AMINO ACIDS/PROTEIN HYDROLYS 30 ML LIQUID.PKT PO SCH ×2 (12:08→17:34)
[2017-02-24] MEDS: VALPROATE SODIUM 250 MG/5 ML UNIT DOSE CUP PO SCH ×2 (12:08→22:51)
[2017-02-24] MEDS: BACITRACIN 15 GM TUBE TOPICAL OINTMENT TP SCH ×2 (12:08→22:23)
[2017-02-24] MEDS: LEVOFLOXACIN 250 MG IVPB 250 MG/50 ML MG IVPB SCH (12:09)
[2017-02-24] MEDS: COLLAGENASE CLOSTRIDIUM HIST. 30 GRAMS TUBE TP SCH (12:11)
[2017-02-24] MEDS: NYSTATIN 100,000 UNIT/GM TOPICAL CREAM 15 GM TUBE TP SCH ×2 (12:11→22:24)
[2017-02-24] MEDS: PANTOPRAZOLE SODIUM 40 MG VIAL IVPUSH SCH (12:11)
--- NOTE | 2017-02-24 13:49 | PN ---
Progress Note (short form) - Note Progress Note: Lethargic. Noted periods of hypotension that improved with IVF resuscitation. NAD on NC O2. Intake & Output 02/21/17 02/22/17 02/23/17 02/24/17 23:59 23:59 23:59 23:59 Intake Total 771 638 1977 850 Balance 564 481 2710 850 Weight 179 lb 6.4 oz Last Vital Signs Temp Pulse Resp BP Pulse Ox 98.6 F 93 H 22 115/57 100 02/24/17 05:47 02/24/17 09:00 02/24/17 09:00 02/24/17 09:00 02/23/17 22:00 Active Medications Acetaminophen (Tylenol Oral Solution -) 650 mg GT Q4H PRN PRN Reason: FEVER OR PAIN Last Admin: 02/23/17 11:32 Dose: 650 mg Amino Acids (Prosource No Carb Liquid Pkt) 30 ml PO BID@0800,1730 [facility] Last Admin: 02/24/17 12:08 Dose: 30 ml Bacitracin (Bacitracin -) 1 applic TP BID [facility] Last Admin: 02/24/17 12:08 Dose: 1 applic Collagenase (Santyl -) 1 applic TP DAILY [facility] Last Admin: 02/24/17 12:11 Dose: 1 applic Levofloxacin (Levaquin 250 Mg Premixed Ivpb -) 250 mg in 50 mls @ 50 mls/hr IVPB DAILY [facility] Last Admin: 02/24/17 12:09 Dose: 50 mls/hr Meropenem (Merrem (Restricted To Id) -) 500 mg in 10 mls @ 120 mls/hr IVPUSH Q8H-IV [facility] Last Admin: 02/24/17 12:10 Dose: 120 mls/hr Ibuprofen (Motrin Oral Suspension -) 200 mg PO Q4H PRN PRN Reason: FEVER Last Admin: 02/23/17 23:05 Dose: 200 mg Mirtazapine (Remeron -) 15 mg PO HS [facility] Last Admin: 02/23/17 23:05 Dose: 15 mg Nystatin (Mycostatin Cream -) 1 applic TP BID [facility] Last Admin: 02/24/17 12:11 Dose: 1 applic Pantoprazole Sodium (Protonix Iv) 40 mg IVPUSH DAILY [facility] Last Admin: 02/24/17 12:11 Dose: 40 mg Valproate Sodium (Depakene -) 1,000 mg PO BID [facility] Last Admin: 02/24/17 12:08 Dose: 1,000 mg Constitutional: Yes: Lethargic Eyes: Yes: Conjunctiva Clear HENT: Yes: Atraumatic Neck: Yes: Supple Cardiovascular: Yes: S1, S2 Respiratory: Yes: Rhonchi Gastrointestinal: Yes: Soft, Other (peg) Genitourinary: Yes: Incontinence Edema: Yes Edema: LUE: 2+, RUE: 2+, LLE: Trace, RLE: Trace Neurological: Yes: Lethargy Labs: Laboratory Results - last 24 hr 02/23/17 02/24/17 02/24/17 12:30 09:38 09:38 WBC 7.8 RBC 2.26 L Hgb 7.0 L Hct 22.1 L MCV 97.7 H MCH 31.1 MCHC 31.9 L RDW 16.3 H Plt Count 279 MPV 9.5 Neutrophils % 75.8 Lymphocytes % 11.1 D Monocytes % 10.0 Eosinophils % 2.6 D Basophils % 0.5 Sodium 142 142 Potassium 4.4 4.3 Chloride 105 106 Carbon Dioxide 31 28 Anion Gap 6 L 8 BUN 29 H 34 H Creatinine 0.5 L 0.5 L Creat Clearance w eGFR > 60 > 60 Random Glucose 123 H D 100 Calcium 7.5 L 7.1 L Magnesium 1.6 L 1.9 Total Bilirubin 0.4 0.4 AST 23 D 20 ALT 14 14 Alkaline Phosphatase 53 58 Total Protein 4.9 L 5.2 L Albumin 1.2 L 1.2 L Problem List - Problems (1) Acute hypernatremia Code(s): E87.0 - HYPEROSMOLALITY AND HYPERNATREMIA (2) Hyperkalemia Code(s): E87.5 - HYPERKALEMIA (3) Sepsis Code(s): A41.9 - SEPSIS, UNSPECIFIED ORGANISM (4) UTI (urinary tract infection) Code(s): N39.0 - URINARY TRACT INFECTION, SITE NOT SPECIFIED Assessment/Plan Suspected Aspiration PNA S/P Acute Respiratory Failure ARCHANA Hypernatremia Anemia Epilepsy Hx of subdural hematoma Hypotension Plan ABX Per ID IVF Aspiration precautions O2 as needed DNR/DNI Dr Abdalla
--- NOTE | 2017-02-24 14:03 | PN ---
Progress Note, Physician History of Present Illness: Pt seen and examined at bedside. She remains lethargic. Pt is tolerating feeds. - Current Medication List Current Medications: Active Medications Acetaminophen (Tylenol Oral Solution -) 650 mg GT Q4H PRN PRN Reason: FEVER OR PAIN Last Admin: 02/23/17 11:32 Dose: 650 mg Amino Acids (Prosource No Carb Liquid Pkt) 30 ml PO BID@0800,1730 [facility] Last Admin: 02/24/17 12:08 Dose: 30 ml Bacitracin (Bacitracin -) 1 applic TP BID [facility] Last Admin: 02/24/17 12:08 Dose: 1 applic Collagenase (Santyl -) 1 applic TP DAILY [facility] Last Admin: 02/24/17 12:11 Dose: 1 applic Levofloxacin (Levaquin 250 Mg Premixed Ivpb -) 250 mg in 50 mls @ 50 mls/hr IVPB DAILY [facility] Last Admin: 02/24/17 12:09 Dose: 50 mls/hr Meropenem (Merrem (Restricted To Id) -) 500 mg in 10 mls @ 120 mls/hr IVPUSH Q8H-IV [facility] Last Admin: 02/24/17 12:10 Dose: 120 mls/hr Ibuprofen (Motrin Oral Suspension -) 200 mg PO Q4H PRN PRN Reason: FEVER Last Admin: 02/23/17 23:05 Dose: 200 mg Mirtazapine (Remeron -) 15 mg PO HS [facility] Last Admin: 02/23/17 23:05 Dose: 15 mg Nystatin (Mycostatin Cream -) 1 applic TP BID [facility] Last Admin: 02/24/17 12:11 Dose: 1 applic Pantoprazole Sodium (Protonix Iv) 40 mg IVPUSH DAILY [facility] Last Admin: 02/24/17 12:11 Dose: 40 mg Valproate Sodium (Depakene -) 1,000 mg PO BID [facility] Last Admin: 02/24/17 12:08 Dose: 1,000 mg - Objective Vital Signs: Vital Signs Temperature 98.6 F 02/24/17 05:47 Pulse Rate 93 H 02/24/17 09:00 Respiratory Rate 22 02/24/17 09:00 Blood Pressure 115/57 02/24/17 09:00 O2 Sat by Pulse Oximetry (%) 100 02/23/17 22:00 Constitutional: Yes: Calm Cardiovascular: Yes: S1, S2 Gastrointestinal: Yes: Soft, Other (peg) Genitourinary: Yes: Incontinence Musculoskeletal: Yes: Muscle Weakness Edema: Yes Edema: LUE: 1+, RUE: 1+ Neurological: Yes: Lethargy Labs: CBC, BMP 02/24/17 09:38 02/24/17 09:38 INR, PTT INR 1.03 (0.82-1.09) 02/04/17 15:10 Problem List - Problems (1) Acute hypernatremia Code(s): E87.0 - HYPEROSMOLALITY AND HYPERNATREMIA (2) Hyperkalemia Code(s): E87.5 - HYPERKALEMIA (3) Sepsis Code(s): A41.9 - SEPSIS, UNSPECIFIED ORGANISM (4) UTI (urinary tract infection) Code(s): N39.0 - URINARY TRACT INFECTION, SITE NOT SPECIFIED Assessment/Plan Current Medications Generic Name Dose Route Start Last Admin Trade Name Freq PRN Reason Stop Dose Admin Acetaminophen 650 mg 02/21/17 14:27 02/23/17 11:32 Tylenol Oral Solution - GT 650 mg Q4H PRN Administration FEVER OR PAIN Amino Acids 30 ml 02/17/17 17:30 02/24/17 12:08 Prosource No Carb Liquid Pkt PO 30 ml BID@0800,1730 [facility] Administration Bacitracin 1 applic 02/22/17 22:00 02/24/17 12:08 Bacitracin - TP 1 applic BID [facility] Administration Collagenase 1 applic 02/18/17 10:00 02/24/17 12:11 Santyl - TP 1 applic DAILY [facility] Administration Levofloxacin 250 mg in 50 mls @ 50 mls/hr 02/18/17 10:00 02/24/17 12:09 Levaquin 250 Mg Premixed Ivpb - IVPB 50 mls/hr DAILY [facility] Administration Meropenem 500 mg in 10 mls @ 120 mls/hr 02/18/17 18:00 02/24/17 12:10 Merrem (Restricted To Id) - IVPUSH 120 mls/hr Q8H-IV [facility] Administration Ibuprofen 200 mg 02/23/17 12:45 02/23/17 23:05 Motrin Oral Suspension - PO 200 mg Q4H PRN Administration FEVER Mirtazapine 15 mg 02/17/17 22:00 02/23/17 23:05 Remeron - PO 15 mg HS [facility] Administration Nystatin 1 applic 02/17/17 22:00 02/24/17 12:11 Mycostatin Cream - TP 1 applic BID [facility] Administration Pantoprazole Sodium 40 mg 02/18/17 10:00 02/24/17 12:11 Protonix Iv IVPUSH 40 mg DAILY [facility] Administration Valproate Sodium 1,000 mg 02/23/17 14:15 02/24/17 12:08 Depakene - PO 1,000 mg BID [facility] Administration Impression 1. ARCHANA 2. hypernatremia 3. hyperkalemia - resolved 4. anemia 5. epilepsy 6. hx of subdural hematoma 7. hypotension 8. hypoglycemia 9. acute resp failure requiring intubation 10. hypokalemia Plan - cont feeds - monitor renal function - bp is improving - will hold off lasix for now - cont current care - will follow PRN
--- NOTE | 2017-02-24 16:29 | PN ---
Physical Exam: SUBJECTIVE: Patient seen and examined OBJECTIVE: Vital Signs Period Temp Pulse Resp BP Sys/Han Pulse Ox Last 24 Hr 98.6 F-100.6 F 90-100 20-24 100-120/52-74 100 GENERAL/NEURO: The patient is somnolent, opens eyes to voice, does not follow commands. LUNGS: Labored breathing, lungs CTA HEART: Regular rate and rhythm, S1, S2 ABDOMEN: Soft, nontender, nondistended, hypoactive bowel sounds; PEG tube in place, skin intact UPPER EXTREMITIES: 2+ pulses, warm, well-perfused, 2+ edema bilaterally R>L LOWER EXTREMITIES: 1+ pulses, warm, well-perfused, no edema Laboratory Results - last 24 hr 02/24/17 02/24/17 09:38 09:38 WBC 7.8 RBC 2.26 L Hgb 7.0 L Hct 22.1 L MCV 97.7 H MCH 31.1 MCHC 31.9 L RDW 16.3 H Plt Count 279 MPV 9.5 Neutrophils % 75.8 Lymphocytes % 11.1 D Monocytes % 10.0 Eosinophils % 2.6 D Basophils % 0.5 Sodium 142 Potassium 4.3 Chloride 106 Carbon Dioxide 28 Anion Gap 8 BUN 34 H Creatinine 0.5 L Creat Clearance w eGFR > 60 Random Glucose 100 Calcium 7.1 L Magnesium 1.9 Total Bilirubin 0.4 AST 20 ALT 14 Alkaline Phosphatase 58 Total Protein 5.2 L Albumin 1.2 L Active Medications Generic Name Dose Route Start Last Admin Trade Name Freq PRN Reason Stop Dose Admin Acetaminophen 650 mg 02/21/17 14:27 02/23/17 11:32 Tylenol Oral Solution - GT 650 mg Q4H PRN Administration FEVER OR PAIN Amino Acids 30 ml 02/17/17 17:30 02/24/17 12:08 Prosource No Carb Liquid Pkt PO 30 ml BID@0800,1730 [facility] Administration Bacitracin 1 applic 02/22/17 22:00 02/24/17 12:08 Bacitracin - TP 1 applic BID [facility] Administration Collagenase 1 applic 02/18/17 10:00 02/24/17 12:11 Santyl - TP 1 applic DAILY [facility] Administration Levofloxacin 250 mg in 50 mls @ 50 mls/hr 02/18/17 10:00 02/24/17 12:09 Levaquin 250 Mg Premixed Ivpb - IVPB 50 mls/hr DAILY [facility] Administration Meropenem 500 mg in 10 mls @ 120 mls/hr 02/18/17 18:00 02/24/17 12:10 Merrem (Restricted To Id) - IVPUSH 120 mls/hr Q8H-IV [facility] Administration Ibuprofen 200 mg 02/23/17 12:45 02/23/17 23:05 Motrin Oral Suspension - PO 200 mg Q4H PRN Administration FEVER Mirtazapine 15 mg 02/17/17 22:00 02/23/17 23:05 Remeron - PO 15 mg HS [facility] Administration Nystatin 1 applic 02/17/17 22:00 02/24/17 12:11 Mycostatin Cream - TP 1 applic BID [facility] Administration Pantoprazole Sodium 40 mg 02/18/17 10:00 02/24/17 12:11 Protonix Iv IVPUSH 40 mg DAILY [facility] Administration Valproate Sodium 1,000 mg 02/23/17 14:15 02/24/17 12:08 Depakene - PO 1,000 mg BID [facility] Administration ASSESSMENT/PLAN: ASSESSMENT/PLAN 86 year old female with PMH significant for HTN, HLD, subdural hematoma (07/2016 ) complicated by seizure, subarachnoid hemorrhage (11/2016), admitted for sepsis secondary to UTI. Septic shock secondary to UTI --Tm 100.7, hemodynamically stable, WBC trended to wnl --remains off pressors Large sacral unstageable wound --daily collagenase ARCHANA, resolved h/o Subarachnoid hemorrhage and subdural hematoma --continue valproate to 1g BID Acute blood loss anemia --last transfused --hgb 7.4, continue to trend F/E/N: - Resumed tube feeds, tolerating it well - Monitor electrolytes Prophylaxis: - Heparin 5,000u sq bid Dispo: - Continue to require inpatient care Prognosis poor CODE STATUS: DNR/DNI Visit type - Emergency Visit Emergency Visit: Yes ED Registration Date: 02/04/17 Care time: The patient presented to the Emergency Department on the above date and was hospitalized for further evaluation of their emergent condition. - New Patient This patient is new to me today: No - Critical Care Critical Care patient: No
[2017-02-24] MEDS: MIRTAZAPINE 15 MG TABLET (FP) PO SCH (22:51)
[2017-02-25] MEDS: MEROPENEM 500 MG PUSH 500 MG/10 ML DISP.SYRIN IVPUSH SCH ×2 (02:34→10:15)
[2017-02-25] MEDS: IBUPROFEN 100 MG/5 ML UNIT DOSE CUPS PO PRN (06:33)
[2017-02-25 09:17] LABS: BASO % 0.8 % (0-2.0); EOS % 1.4 % (0-4.5); MCH 30.6 pg (25.7-33.7); MCHC 31.4 g/dl (32.0-36.0); MEAN CELL VOLUME 97.6 fl (80-96); MEAN PLT VOLUME 9.4 fl (7.5-11.1); PLATELET COUNT 277 K/MM3 (134-434); RDW 16.5 % (11.6-15.6)
[2017-02-25 09:36] LABS: ALBUMIN 1.2 g/dl (3.4-5.0); ANION GAP 7 (8-16); BILIRUBIN,TOTAL 0.2 mg/dL (0.2-1.0); CALCIUM 7.3 mg/dL (8.5-10.1); CO2 29 mmol/L (21-32); CREATININE 0.5 mg/dL (0.55-1.02); GLUCOSE,RANDOM 103 mg/dL (74-106); MAGNESIUM 1.9 mg/dL (1.8-2.4); SGOT/AST 20 U/L (15-37); SGPT/ALT 12 U/L (12-78); TOT PROT 5.2 g/dl (6.4-8.2)
[2017-02-25 09:37] LABS: ALK PHOS 67 U/L (45-117)
[2017-02-25] MEDS ORDERED: FUROSEMIDE 20 MG TABLET (FP) PO ONE (10:06)
[2017-02-25] MEDS ORDERED: PT OWN MED DRAWER 7, Y5N ONE (10:07)
[2017-02-25] MEDS: PANTOPRAZOLE SODIUM 40 MG VIAL IVPUSH SCH (10:15)
[2017-02-25] MEDS ORDERED: LEVOFLOXACIN 250 MG IVPB 250 MG/50 ML MG IVPB SCH (10:15)
[2017-02-25] MEDS: AMINO ACIDS/PROTEIN HYDROLYS 30 ML LIQUID.PKT PO SCH ×2 (10:15→17:52)
[2017-02-25] MEDS: VALPROATE SODIUM 250 MG/5 ML UNIT DOSE CUP PO SCH ×2 (10:15→23:10)
[2017-02-25] MEDS: BACITRACIN 15 GM TUBE TOPICAL OINTMENT TP SCH ×2 (10:16→23:12)
[2017-02-25] MEDS: COLLAGENASE CLOSTRIDIUM HIST. 30 GRAMS TUBE TP SCH (10:16)
[2017-02-25] MEDS: NYSTATIN 100,000 UNIT/GM TOPICAL CREAM 15 GM TUBE TP SCH ×2 (10:16→23:11)
--- NOTE | 2017-02-25 14:48 | PN ---
Physical Exam: SUBJECTIVE: Patient seen and examined at bedside. OBJECTIVE: Vital Signs Period Temp Pulse Resp BP Sys/Han Pulse Ox Last 24 Hr 98.7 F-100.7 F 94-101 16-18 106-126/54-68 99 GENERAL/NEURO: The patient is somnolent, opens eyes to voice, does not follow commands. LUNGS: Labored breathing, lungs CTA HEART: Regular rate and rhythm, S1, S2 ABDOMEN: Soft, nontender, nondistended, hypoactive bowel sounds; PEG tube in place, skin intact UPPER EXTREMITIES: 2+ pulses, warm, well-perfused, 2+ edema bilaterally R>L LOWER EXTREMITIES: 1+ pulses, warm, well-perfused, no edema Laboratory Results - last 24 hr 02/25/17 02/25/17 09:08 09:08 WBC 8.0 RBC 2.40 L Hgb 7.4 L Hct 23.4 L MCV 97.6 H MCH 30.6 MCHC 31.4 L RDW 16.5 H Plt Count 277 MPV 9.4 Neutrophils % 75.0 Lymphocytes % 13.6 D Monocytes % 9.2 Eosinophils % 1.4 Basophils % 0.8 Sodium 143 Potassium 4.7 Chloride 107 Carbon Dioxide 29 Anion Gap 7 L BUN 33 H Creatinine 0.5 L Creat Clearance w eGFR > 60 Random Glucose 103 Calcium 7.3 L Magnesium 1.9 Total Bilirubin 0.2 D AST 20 ALT 12 Alkaline Phosphatase 67 Total Protein 5.2 L Albumin 1.2 L Active Medications Generic Name Dose Route Start Last Admin Trade Name Freq PRN Reason Stop Dose Admin Acetaminophen 650 mg 02/21/17 14:27 02/23/17 11:32 Tylenol Oral Solution - GT 650 mg Q4H PRN Administration FEVER OR PAIN Amino Acids 30 ml 02/17/17 17:30 02/25/17 10:15 Prosource No Carb Liquid Pkt PO 30 ml BID@0800,1730 [facility] Administration Bacitracin 1 applic 02/22/17 22:00 02/25/17 10:16 Bacitracin - TP 1 applic BID [facility] Administration Collagenase 1 applic 02/18/17 10:00 02/25/17 10:16 Santyl - TP 1 applic DAILY [facility] Administration Meropenem 500 mg in 10 mls @ 120 mls/hr 02/18/17 18:00 02/25/17 10:15 Merrem (Restricted To Id) - IVPUSH 120 mls/hr Q8H-IV [facility] Administration Levofloxacin 250 mg in 50 mls @ 50 mls/hr 02/25/17 10:15 02/25/17 10:25 Levaquin 250 Mg Premixed Ivpb - IVPB 50 mls/hr DAILY [facility] Administration Ibuprofen 200 mg 02/23/17 12:45 02/25/17 06:33 Motrin Oral Suspension - PO 200 mg Q4H PRN Administration FEVER Mirtazapine 15 mg 02/17/17 22:00 02/24/17 22:51 Remeron - PO 15 mg HS [facility] Administration Nystatin 1 applic 02/17/17 22:00 02/25/17 10:16 Mycostatin Cream - TP 1 applic BID [facility] Administration Pantoprazole Sodium 40 mg 02/18/17 10:00 02/25/17 10:15 Protonix Iv IVPUSH 40 mg DAILY [facility] Administration Valproate Sodium 1,000 mg 02/23/17 14:15 02/25/17 10:15 Depakene - PO 1,000 mg BID [facility] Administration ASSESSMENT/PLAN 86 year old female with PMH significant for HTN, HLD, subdural hematoma (07/2016 ) complicated by seizure, subarachnoid hemorrhage (11/2016), admitted for sepsis secondary to UTI. Septic shock secondary to UTI --Tm 100.7, hemodynamically stable, WBC trended to wnl --remains off pressors Large sacral unstageable wound --daily collagenase ARCHANA, resolved h/o Subarachnoid hemorrhage and subdural hematoma --continue valproate to 1g BID Acute blood loss anemia --last transfused --hgb 7.4, continue to trend F/E/N: - Resumed tube feeds, tolerating it well - Monitor electrolytes Prophylaxis: - Heparin 5,000u sq bid Dispo: discussion with daughter today with [employer] Representative Natasha Hines who also served as expansion joint builder. Daughter acknowledged she had been given the names of five SNFs who are willing to accept the patient. She will discuss with her siblings tonight and make a decision by tomorrow morning. CODE STATUS: DNR/DNI Visit type - Emergency Visit Emergency Visit: Yes ED Registration Date: 02/04/17 Care time: The patient presented to the Emergency Department on the above date and was hospitalized for further evaluation of their emergent condition. - New Patient This patient is new to me today: No - Critical Care Critical Care patient: No
--- NOTE | 2017-02-25 16:26 | PN ---
Progress Note (short form) - Note Progress Note: comfortable on nc today dnr/dni low grade temps quite alert opens eyes to voice Vital Signs Period Temp Pulse Resp BP Sys/Han Pulse Ox Last 24 Hr 98.7 F-100.7 F 94-101 16-22 104-126/54-90 99 cor-rrr lungs decreased bs at bases abd soft,nt +GT ext edema of both hands iv site no erythema rectal tube CBC, BMP 02/25/17 09:08 02/25/17 09:08 Active Medications Acetaminophen (Tylenol Oral Solution -) 650 mg GT Q4H PRN PRN Reason: FEVER OR PAIN Last Admin: 02/23/17 11:32 Dose: 650 mg Amino Acids (Prosource No Carb Liquid Pkt) 30 ml PO BID@0800,1730 [facility] Last Admin: 02/25/17 10:15 Dose: 30 ml Bacitracin (Bacitracin -) 1 applic TP BID [facility] Last Admin: 02/25/17 10:16 Dose: 1 applic Collagenase (Santyl -) 1 applic TP DAILY [facility] Last Admin: 02/25/17 10:16 Dose: 1 applic Meropenem (Merrem (Restricted To Id) -) 500 mg in 10 mls @ 120 mls/hr IVPUSH Q8H-IV [facility] Last Admin: 02/25/17 10:15 Dose: 120 mls/hr Levofloxacin (Levaquin 250 Mg Premixed Ivpb -) 250 mg in 50 mls @ 50 mls/hr IVPB DAILY [facility] Last Admin: 02/25/17 10:25 Dose: 50 mls/hr Ibuprofen (Motrin Oral Suspension -) 200 mg PO Q4H PRN PRN Reason: FEVER Last Admin: 02/25/17 06:33 Dose: 200 mg Mirtazapine (Remeron -) 15 mg PO HS [facility] Last Admin: 02/24/17 22:51 Dose: 15 mg Nystatin (Mycostatin Cream -) 1 applic TP BID [facility] Last Admin: 02/25/17 10:16 Dose: 1 applic Pantoprazole Sodium (Protonix Iv) 40 mg IVPUSH DAILY [facility] Last Admin: 02/25/17 10:15 Dose: 40 mg Valproate Sodium (Depakene -) 1,000 mg PO BID [facility] Last Admin: 02/25/17 10:15 Dose: 1,000 mg a/p low grade fevers- will d/c antibioitcs and observe cxray slightly improved reculture off antibiotics in am if fevers persist much more awake, remains nonverbal necrotic sacral ulcer- seen by surgery, to continue santyl overall prognosis is poor
--- NOTE | 2017-02-25 17:41 | PN ---
Progress Note, Physician History of Present Illness: Pt seen and examined at bedside. No acute change in status. She remains lethargic. - Current Medication List Current Medications: Active Medications Acetaminophen (Tylenol Oral Solution -) 650 mg GT Q4H PRN PRN Reason: FEVER OR PAIN Last Admin: 02/23/17 11:32 Dose: 650 mg Amino Acids (Prosource No Carb Liquid Pkt) 30 ml PO BID@0800,1730 [facility] Last Admin: 02/25/17 10:15 Dose: 30 ml Bacitracin (Bacitracin -) 1 applic TP BID [facility] Last Admin: 02/25/17 10:16 Dose: 1 applic Collagenase (Santyl -) 1 applic TP DAILY [facility] Last Admin: 02/25/17 10:16 Dose: 1 applic Ibuprofen (Motrin Oral Suspension -) 200 mg PO Q4H PRN PRN Reason: FEVER Last Admin: 02/25/17 06:33 Dose: 200 mg Mirtazapine (Remeron -) 15 mg PO HS [facility] Last Admin: 02/24/17 22:51 Dose: 15 mg Nystatin (Mycostatin Cream -) 1 applic TP BID [facility] Last Admin: 02/25/17 10:16 Dose: 1 applic Pantoprazole Sodium (Protonix Iv) 40 mg IVPUSH DAILY [facility] Last Admin: 02/25/17 10:15 Dose: 40 mg Valproate Sodium (Depakene -) 1,000 mg PO BID [facility] Last Admin: 02/25/17 10:15 Dose: 1,000 mg - Objective Vital Signs: Vital Signs Temperature 99.6 F 02/25/17 14:37 Pulse Rate 95 H 02/25/17 14:37 Respiratory Rate 22 02/25/17 14:37 Blood Pressure 104/90 02/25/17 14:37 O2 Sat by Pulse Oximetry (%) 99 02/25/17 09:00 Constitutional: Yes: Calm Eyes: Yes: Conjunctiva Clear Cardiovascular: Yes: S1, S2 Respiratory: Yes: On Nasal O2 Gastrointestinal: Yes: Soft, Other (peg) Genitourinary: Yes: Incontinence Musculoskeletal: Yes: Muscle Weakness Edema: Yes Edema: LUE: 1+, RUE: 1+, LLE: 1+, RLE: 1+ Neurological: Yes: Lethargy Labs: CBC, BMP 02/25/17 09:08 02/25/17 09:08 INR, PTT INR 1.03 (0.82-1.09) 02/04/17 15:10 Problem List - Problems (1) Acute hypernatremia Code(s): E87.0 - HYPEROSMOLALITY AND HYPERNATREMIA (2) Hyperkalemia Code(s): E87.5 - HYPERKALEMIA (3) Sepsis Code(s): A41.9 - SEPSIS, UNSPECIFIED ORGANISM (4) UTI (urinary tract infection) Code(s): N39.0 - URINARY TRACT INFECTION, SITE NOT SPECIFIED Assessment/Plan Current Medications Generic Name Dose Route Start Last Admin Trade Name Freq PRN Reason Stop Dose Admin Acetaminophen 650 mg 02/21/17 14:27 02/23/17 11:32 Tylenol Oral Solution - GT 650 mg Q4H PRN Administration FEVER OR PAIN Amino Acids 30 ml 02/17/17 17:30 02/25/17 10:15 Prosource No Carb Liquid Pkt PO 30 ml BID@0800,1730 [facility] Administration Bacitracin 1 applic 02/22/17 22:00 02/25/17 10:16 Bacitracin - TP 1 applic BID [facility] Administration Collagenase 1 applic 02/18/17 10:00 02/25/17 10:16 Santyl - TP 1 applic DAILY [facility] Administration Ibuprofen 200 mg 02/23/17 12:45 02/25/17 06:33 Motrin Oral Suspension - PO 200 mg Q4H PRN Administration FEVER Mirtazapine 15 mg 02/17/17 22:00 02/24/17 22:51 Remeron - PO 15 mg HS [facility] Administration Nystatin 1 applic 02/17/17 22:00 02/25/17 10:16 Mycostatin Cream - TP 1 applic BID [facility] Administration Pantoprazole Sodium 40 mg 02/18/17 10:00 02/25/17 10:15 Protonix Iv IVPUSH 40 mg DAILY [facility] Administration Valproate Sodium 1,000 mg 02/23/17 14:15 02/25/17 10:15 Depakene - PO 1,000 mg BID [facility] Administration Impression 1. ARCHANA 2. hypernatremia 3. hyperkalemia - resolved 4. anemia 5. epilepsy 6. hx of subdural hematoma 7. hypotension 8. hypoglycemia 9. acute resp failure requiring intubation 10. hypokalemia Plan - cont with feeds - please avoid nsaids, will stop ibuprofen - will give a small dose of lasix - monitor renal function - will follow Dr Florentino
[2017-02-25] MEDS: ACETAMINOPHEN 650 MG/20.3 ML ORAL SOLUTION (CUPS) GT PRN (23:10)
[2017-02-25] MEDS: MIRTAZAPINE 15 MG TABLET (FP) PO SCH (23:11)
[2017-02-26 07:46] LABS: ALBUMIN 1.3 g/dl (3.4-5.0); ALK PHOS 83 U/L (45-117); ANION GAP 4 (8-16); BILIRUBIN,TOTAL 0.2 mg/dL (0.2-1.0); CALCIUM 7.1 mg/dL (8.5-10.1); CO2 33 mmol/L (21-32); CREATININE 0.5 mg/dL (0.55-1.02); GLUCOSE,RANDOM 100 mg/dL (74-106); SGOT/AST 19 U/L (15-37); SGPT/ALT 13 U/L (12-78); TOT PROT 5.7 g/dl (6.4-8.2)
[2017-02-26] MEDS: PANTOPRAZOLE SODIUM 40 MG VIAL IVPUSH SCH (10:38)
[2017-02-26] MEDS: VALPROATE SODIUM 250 MG/5 ML UNIT DOSE CUP PO SCH ×2 (10:38→23:25)
[2017-02-26] MEDS: AMINO ACIDS/PROTEIN HYDROLYS 30 ML LIQUID.PKT PO SCH ×2 (10:39→18:51)
[2017-02-26] MEDS: COLLAGENASE CLOSTRIDIUM HIST. 30 GRAMS TUBE TP SCH (10:39)
[2017-02-26] MEDS: BACITRACIN 15 GM TUBE TOPICAL OINTMENT TP SCH ×2 (10:39→23:25)
[2017-02-26] MEDS: NYSTATIN 100,000 UNIT/GM TOPICAL CREAM 15 GM TUBE TP SCH ×2 (10:39→23:25)
--- NOTE | 2017-02-26 12:34 | PN ---
Progress Note (short form) - Note Progress Note: Somnolent but arousable. NAD on NC O2. Intake & Output 02/23/17 02/24/17 02/25/17 02/26/17 23:59 23:59 23:59 23:59 Intake Total 2630 2370 1890 Balance 2630 2370 1890 Weight 179 lb 6.4 oz Last Vital Signs Temp Pulse Resp BP Pulse Ox 98.9 F 85 18 108/64 99 02/26/17 06:00 02/26/17 06:00 02/26/17 06:00 02/26/17 06:00 02/25/17 22:00 Active Medications Acetaminophen (Tylenol Oral Solution -) 650 mg GT Q4H PRN PRN Reason: FEVER OR PAIN Last Admin: 02/25/17 23:10 Dose: 650 mg Amino Acids (Prosource No Carb Liquid Pkt) 30 ml PO BID@0800,1730 [facility] Last Admin: 02/26/17 10:39 Dose: 30 ml Bacitracin (Bacitracin -) 1 applic TP BID [facility] Last Admin: 02/26/17 10:39 Dose: 1 applic Collagenase (Santyl -) 1 applic TP DAILY [facility] Last Admin: 02/26/17 10:39 Dose: 1 applic Mirtazapine (Remeron -) 15 mg PO HS [facility] Last Admin: 02/25/17 23:11 Dose: 15 mg Nystatin (Mycostatin Cream -) 1 applic TP BID [facility] Last Admin: 02/26/17 10:39 Dose: 1 applic Pantoprazole Sodium (Protonix Iv) 40 mg IVPUSH DAILY [facility] Last Admin: 02/26/17 10:38 Dose: 40 mg Valproate Sodium (Depakene -) 1,000 mg PO BID [facility] Last Admin: 02/26/17 10:38 Dose: 1,000 mg Constitutional: Yes: Somnolent but arousable Eyes: Yes: Conjunctiva Clear HENT: Yes: Atraumatic Neck: Yes: Supple Cardiovascular: Yes: S1, S2 Respiratory: Yes: Rhonchi Gastrointestinal: Yes: Soft, Other (peg) Genitourinary: Yes: Incontinence Edema: Yes Edema: LUE: 2+, RUE: 2+, LLE: Trace, RLE: Trace Neurological: Yes: Lethargy Labs: Laboratory Results - last 24 hr 02/26/17 07:00 Sodium 141 Potassium 4.6 Chloride 104 Carbon Dioxide 33 H Anion Gap 4 L BUN 31 H Creatinine 0.5 L Creat Clearance w eGFR > 60 Random Glucose 100 Calcium 7.1 L Total Bilirubin 0.2 AST 19 ALT 13 Alkaline Phosphatase 83 D Total Protein 5.7 L Albumin 1.3 L Problem List - Problems (1) Acute hypernatremia Code(s): E87.0 - HYPEROSMOLALITY AND HYPERNATREMIA (2) Hyperkalemia Code(s): E87.5 - HYPERKALEMIA (3) Sepsis Code(s): A41.9 - SEPSIS, UNSPECIFIED ORGANISM (4) UTI (urinary tract infection) Code(s): N39.0 - URINARY TRACT INFECTION, SITE NOT SPECIFIED Assessment/Plan Suspected Aspiration PNA S/P Acute Respiratory Failure ARCHANA Hypernatremia Anemia Epilepsy Hx of subdural hematoma Hypotension Plan Off ABX per ID Aspiration precautions O2 as needed DNR/DNI Dr Abdalla
--- NOTE | 2017-02-26 13:44 | DS ---
Physical Exam: SUBJECTIVE: Patient seen and examined. Appears in no distress, non verbal. OBJECTIVE: Vital Signs Period Temp Pulse Resp BP Sys/Han Pulse Ox Last 24 Hr 98.9 F-99.9 F 85-95 18-22 104-131/49-90 99 PE Neuro: awake, NAD, breathing non-labored Pulm: Scattered rhonchi bilaterally CV:s1 s2 rrr no mrg Abd: Soft, non-tender, Peg Ext: warm, + edema Laboratory Results - last 24 hr 02/26/17 07:00 Sodium 141 Potassium 4.6 Chloride 104 Carbon Dioxide 33 H Anion Gap 4 L BUN 31 H Creatinine 0.5 L Creat Clearance w eGFR > 60 Random Glucose 100 Calcium 7.1 L Total Bilirubin 0.2 AST 19 ALT 13 Alkaline Phosphatase 83 D Total Protein 5.7 L Albumin 1.3 L HOSPITAL COURSE: Date of Admission:02/04/17 Date of Discharge: 02/26/17 Minutes to complete discharge: 37 Discharge Summary Reason For Visit: ACUTE KIDNEY INJURY,ANEMIA,HYPERNATREMIA Current Active Problems Acute hypernatremia (Acute) Altered mental status (Acute) Hyperkalemia (Acute) Hypernatremia (Acute) Sepsis (Acute) Sepsis associated hypotension (Acute) UTI (urinary tract infection) (Acute) Uremia, acute (Acute) Hospital Course: Initial Hospital Course: Briefly, this 86 year old female with pmhx recent subdural hematoma s/p fall ( diagnosed in 07/2016 managed at [place]) HTN, HLD, 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 Per medical record and family at bedside, pt is conversational at baseline however in the last few days her mental status deteriorated, she developed chills, sob and hypotension. Prior to fall, she was ambulating, now mostly bed bound. 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 Plan: 1. Acute respiratory failure - s/p intubation - Breathing non-labored, stable on NC 2 Septic shock 2/2 UTI - Off pressors - Afebrile, stable of abx - s/p Levaquin/ meropenem (02/13-02/26) 3. Large sacral unstagable wound - No erythema, no pus expressed - Continue Santyl - Daily dressing changes 4. Acute blood loss anemia - Hgb stable - Received 1u PRBC on 02/05 5. Hx of sub arachnoid hemorrhage and subdural hematoma/epilepsy - Continue increased depakene 1000mg BID - Remeron 15mg HS 6. ARCHANA - Resolved 7. Hypernatremia - Resolved 8. Hypoglycemia - Resolved 9. hypokalemia Dispo: - [facility] with above meds - Family aware Condition: Stable - Instructions Diet, Activity, Other Instructions: Please return to the ED for new, persistent, or worsening symptoms. Follow up with your PCP in 1 week Resume home medications as directed on home medication list Daily dressing changes Referrals: [place] Florentino MD [Staff Physician] - Rober Arora MD [Staff Physician] - Will Marin MD, MD [Staff Physician] - [facility]position[facility] - Home Medications Comprehensive Discharge Medication List: Ambulatory Orders Atorvastatin Ca [Lipitor] 40 mg PO HS #30 tablet 11/25/16 Divalproex [Depakote -] 500 mg PO BID #60 tab 11/25/16 Mirtazapine [Remeron -] 15 mg PO DAILY #30 tablet 11/26/16 Amino Acids/Protein Hydrolys [Prosource No Carb Liquid Pkt] 30 ml PO BID@0800, 1730 packet 02/26/17 Bacitracin - [Bacitracin Topical Ointment -] 1 applic TP BID tube 02/26/17 Collagenase Clostridium Hist. [Santyl -] 1 applic TP DAILY tube 02/26/17 Problem List - Problems (1) Sepsis Code(s): A41.9 - SEPSIS, UNSPECIFIED ORGANISM (2) Sepsis associated hypotension Code(s): A41.9 - SEPSIS, UNSPECIFIED ORGANISM (3) Acute hypernatremia Code(s): E87.0 - HYPEROSMOLALITY AND HYPERNATREMIA (4) Hyperkalemia Code(s): E87.5 - HYPERKALEMIA (5) Subarachnoid hemorrhage Code(s): I60.9 - NONTRAUMATIC SUBARACHNOID HEMORRHAGE, UNSPECIFIED (6) Subdural hemorrhage Code(s): I62.00 - NONTRAUMATIC SUBDURAL HEMORRHAGE, UNSPECIFIED (7) Hyperlipidemia Code(s): E78.5 - HYPERLIPIDEMIA, UNSPECIFIED (8) Hypertension Code(s): I10 - ESSENTIAL (PRIMARY) HYPERTENSION (9) Seizure Code(s): R56.9 - UNSPECIFIED CONVULSIONS This patient is new to me today: No Emergency Visit: Yes ED Registration Date: 02/04/17 Care time: The patient presented to the Emergency Department on the above date and was hospitalized for further evaluation of their emergent condition. Critical Care patient: No - Discharge Referral Referred to [facility] No Physician Referral: Alexei Kerr MD ([facility])
--- NOTE | 2017-02-26 14:09 | PN ---
Progress Note, Physician History of Present Illness: Pt seen and examined at bedside. She remains lethargic. She is tolerating feeds. - Current Medication List Current Medications: Active Medications Acetaminophen (Tylenol Oral Solution -) 650 mg GT Q4H PRN PRN Reason: FEVER OR PAIN Last Admin: 02/25/17 23:10 Dose: 650 mg Amino Acids (Prosource No Carb Liquid Pkt) 30 ml PO BID@0800,1730 [facility] Last Admin: 02/26/17 10:39 Dose: 30 ml Bacitracin (Bacitracin -) 1 applic TP BID TANNER Last Admin: 02/26/17 10:39 Dose: 1 applic Collagenase (Santyl -) 1 applic TP DAILY TANNER Last Admin: 02/26/17 10:39 Dose: 1 applic Mirtazapine (Remeron -) 15 mg PO HS [facility] Last Admin: 02/25/17 23:11 Dose: 15 mg Nystatin (Mycostatin Cream -) 1 applic TP BID TANNER Last Admin: 02/26/17 10:39 Dose: 1 applic Pantoprazole Sodium (Protonix Iv) 40 mg IVPUSH DAILY [facility] Last Admin: 02/26/17 10:38 Dose: 40 mg Valproate Sodium (Depakene -) 1,000 mg PO BID TANNER Last Admin: 02/26/17 10:38 Dose: 1,000 mg - Objective Vital Signs: Vital Signs Temperature 98.9 F 02/26/17 06:00 Pulse Rate 85 02/26/17 06:00 Respiratory Rate 18 02/26/17 06:00 Blood Pressure 108/64 02/26/17 06:00 O2 Sat by Pulse Oximetry (%) 99 02/25/17 22:00 Constitutional: Yes: Calm Eyes: Yes: Conjunctiva Clear Cardiovascular: Yes: S1, S2 Respiratory: Yes: On Nasal O2 Gastrointestinal: Yes: Soft, Other (peg) Genitourinary: Yes: WNL Musculoskeletal: Yes: Muscle Weakness Edema: Yes Edema: LUE: 1+, RUE: 1+, LLE: 1+, RLE: 1+ Neurological: Yes: Lethargy Labs: CBC, BMP 02/25/17 09:08 02/26/17 07:00 INR, PTT INR 1.03 (0.82-1.09) 02/04/17 15:10 Problem List - Problems (1) Acute hypernatremia Code(s): E87.0 - HYPEROSMOLALITY AND HYPERNATREMIA (2) Hyperkalemia Code(s): E87.5 - HYPERKALEMIA (3) Sepsis Code(s): A41.9 - SEPSIS, UNSPECIFIED ORGANISM (4) UTI (urinary tract infection) Code(s): N39.0 - URINARY TRACT INFECTION, SITE NOT SPECIFIED Assessment/Plan Current Medications Generic Name Dose Route Start Last Admin Trade Name Freq PRN Reason Stop Dose Admin Acetaminophen 650 mg 02/21/17 14:27 02/25/17 23:10 Tylenol Oral Solution - GT 650 mg Q4H PRN Administration FEVER OR PAIN Amino Acids 30 ml 02/17/17 17:30 02/26/17 10:39 Prosource No Carb Liquid Pkt PO 30 ml BID@0800,1730 TANNER Administration Bacitracin 1 applic 02/22/17 22:00 02/26/17 10:39 Bacitracin - TP 1 applic BID TANNER Administration Collagenase 1 applic 02/18/17 10:00 02/26/17 10:39 Santyl - TP 1 applic DAILY TANNER Administration Mirtazapine 15 mg 02/17/17 22:00 02/25/17 23:11 Remeron - PO 15 mg HS TANNER Administration Nystatin 1 applic 02/17/17 22:00 02/26/17 10:39 Mycostatin Cream - TP 1 applic BID TANNER Administration Pantoprazole Sodium 40 mg 02/18/17 10:00 02/26/17 10:38 Protonix Iv IVPUSH 40 mg DAILY TANNER Administration Valproate Sodium 1,000 mg 02/23/17 14:15 02/26/17 10:38 Depakene - PO 1,000 mg BID TANNER Administration Impression 1. ARCHANA 2. hypernatremia 3. hyperkalemia - resolved 4. anemia 5. epilepsy 6. hx of subdural hematoma 7. hypotension 8. hypoglycemia 9. acute resp failure requiring intubation 10. hypokalemia Plan - pt tolerating feeds - will hold off lasix - monitor renal function - discussed with medical team today - avoid nsaids - monitor renal function - will follow Dr Florentino
[2017-02-26] MEDS ORDERED: PT OWN MED DRAWER 7, Y5N ONE (16:59)
[2017-02-26] MEDS: MIRTAZAPINE 15 MG TABLET (FP) PO SCH (23:25)
[2017-02-27] MEDS: PANTOPRAZOLE SODIUM 40 MG VIAL IVPUSH SCH (09:59)
[2017-02-27] MEDS: AMINO ACIDS/PROTEIN HYDROLYS 30 ML LIQUID.PKT PO SCH (09:59)
[2017-02-27] MEDS: NYSTATIN 100,000 UNIT/GM TOPICAL CREAM 15 GM TUBE TP SCH (09:59)
[2017-02-27] MEDS: BACITRACIN 15 GM TUBE TOPICAL OINTMENT TP SCH (09:59)
[2017-02-27] MEDS: VALPROATE SODIUM 250 MG/5 ML UNIT DOSE CUP PO SCH (09:59)
[2017-02-27] MEDS: COLLAGENASE CLOSTRIDIUM HIST. 30 GRAMS TUBE TP SCH (10:00)
[2017-02-27 15:48] VITALS: BP 118/72; PULSE 96; TEMP 98.4
== END 2017-02-27 15:53 | DRG 870 ==
LOC: JER 14:13 → JERBED 18:00 → J4W 21:23 → JICU 02-05 14:45 → J5S 02-17 21:26
PROVIDERS: ADMIT Internal Medicine; ATTEND Nurse Practitioner Acute Care
PROC: 5A1955Z Respiratory Ventilation, Greater than 96 Consecutive Hours (ICD-10-PCS; principal; 2017-02-05)
PROC: 0BH17EZ Insertion of Endotracheal Airway into Trachea, Via Natural or Artificial Opening (ICD-10-PCS; 2017-02-05)
PROC: 30233H1 Transfusion of Nonautologous Whole Blood into Peripheral Vein, Percutaneous Approach (ICD-10-PCS; 2017-02-05)
PROC: 05HM33Z Insertion of Infusion Device into Right Internal Jugular Vein, Percutaneous Approach (ICD-10-PCS; 2017-02-05)
DX: A41.9 Sepsis, unspecified organism (principal); G92 Toxic encephalopathy; J96.00 Acute respiratory failure, unspecified whether with hypoxia or hypercapnia; R65.21 Severe sepsis with septic shock; J15.1 Pneumonia due to Pseudomonas; I62.00 Nontraumatic subdural hemorrhage, unspecified; I60.9 Nontraumatic subarachnoid hemorrhage, unspecified; L89.323 Pressure ulcer of left buttock, stage 3; G40.89 Other seizures; E87.0 Hyperosmolality and hypernatremia; N39.0 Urinary tract infection, site not specified; N17.9 Acute kidney failure, unspecified; D62 Acute posthemorrhagic anemia; G81.91 Hemiplegia, unspecified affecting right dominant side; B37.0 Candidal stomatitis; I10 Essential (primary) hypertension; E78.5 Hyperlipidemia, unspecified; Z91.14 Patient's other noncompliance with medication regimen; Z93.1 Gastrostomy status; Z74.01 Bed confinement status; E87.5 Hyperkalemia; I95.9 Hypotension, unspecified; E16.2 Hypoglycemia, unspecified; I87.2 Venous insufficiency (chronic) (peripheral); E83.42 Hypomagnesemia; D53.9 Nutritional anemia, unspecified; L89.310 Pressure ulcer of right buttock, unstageable; L89.152 Pressure ulcer of sacral region, stage 2; L89.322 Pressure ulcer of left buttock, stage 2; E66.9 Obesity, unspecified; Z68.31 Body mass index [BMI] 31.0-31.9, adult; Z66 Do not resuscitate
CPT/HCPCS: 31500; 36415; 36430; 36600; 70450-TC; 71010-TC; 74176-TC; 76775-TC; 80048; 80053; 80164; 81003; 81015; 82272; 82375; 82550; 82553; 82607; 82746; 82803; 83050; 83605; 83735; 84100; 84132; 84443; 84484; 85025; 85027; 85610; 85730; 86850; 86900; 86901; 86922; 87040; 87070; 87077; 87086; 87186; 87205; 87324; 87449; 93005; 93010; 94002; 94640; 94660; 99285-25; J1644; P9038; P9058; Q9967